=== PATIENT | male | born 1965 | race Caucasian/White ===

== ENCOUNTER 2023-05-12 10:55 | Emergency (ER) | payer MEDICAID, SELFPAY ==
--- NOTE | 2023-05-12 11:06 | ED_ITS ---
HPI - Weakness General: Chief complaint: Dizziness Stated complaint: weakness Time Seen by Provider: 05/12/23 10:58 History of Present Illness: Mr. Palmer is a 58-year-old gentleman without reported past medical history presented emergency department for sudden onset of generalized illness. He reports being at his baseline health the past few days and was sitting in his car when he had a sudden onset lightheaded presyncopal type feeling associated with nausea, generalized weakness, malaise. Moderate to severe intensity symptoms. Persistent course as it just started. No other specific changes in health, exacerbating, or alleviating factors identified. Onset (ago): minute(s) Duration: improved Severity: severe Exacerbating factors: none Review of Systems General: Reports: 10 or more systems reviewed and unremarkable except in HPI and below PFSH ED PFSH: Medical History (Updated 05/16/23 @ 19:19 by Yemi Mason MD) No significant past medical history Surgical History (Updated 05/16/23 @ 19:19 by Yemi Mason MD) No significant past surgical history Physical Exam Const: COMMON NORMALS: patient oriented x3 and alert GENERAL APPEARANCE: cooperative and well developed HENMT: COMMON NORMALS: normocephalic and atraumatic HEAD & SCALP: normocephalic and atraumatic THROAT: posterior oropharynx normal Eye: COMMON NORMALS: conjunctivae normal CONJUNCTIVA: Yes conjunctivae normal SCLERA: sclerae normal Neck/C-Spine: COMMON NORMALS: supple GENERAL: Yes trachea midline Resp: COMMON NORMALS: clear to auscultation bilaterally EFFORT & INSPECTION: Yes able to speak in complete sentences AUSCULTATION: clear to auscultation bilaterally Cardio: COMMON NORMALS: regular rate and regular rhythm RATE: regular rate RHYTHM: regular rhythm GI: COMMON NORMALS: Soft to palpation PALPATION: Yes Soft to palpation and No Tenderness to palpation present (GI) Extremity: GENERAL: Yes normal exam except as noted and No edema Neuro: COMMON NORMALS: patient oriented x3, CN's II-XII intact bilaterally, moves all extremities, no focal motor deficits and no sensory deficits noted SENSORIUM/ORIENTATION: Yes alert and No Orientation impaired Psych: COMMON NORMALS: mental status grossly normal and Normal thought process present THOUGHT PROCESS: Normal thought process present Course Vital Signs: Vital signs: Vital Signs Temperature 98.0 F 05/12/23 11:07 Pulse Rate 91 05/12/23 12:55 Respiratory Rate 15 05/12/23 11:07 Blood Pressure 125/86 05/12/23 12:54 Pulse Oximetry 93 05/12/23 11:07 Oxygen Delivery Me thod Room Air 05/12/23 11:07 MDM - Weakness Medical Decision Making 58-year-old gentleman presenting with sudden onset of generalized illness including shortness of breath and presyncope. Exam as above. No focal deficits. Mildly ill however nontoxic. No meningismus. EKG demonstrates sinus rhythm with nonspecific ST segment abnormalities, no STEMI. No significant hematologic or metabolic abnormalities. Negative troponin. No associated chest pain. Negative head CT. Chest x-ray with no lobar consolidation or pneumothorax. Patient feels markedly improved with IV fluids. He feels back to baseline. The results of ED evaluation were discussed with the patient including prescriptions and/or symptomatic cares (if applicable) including appropriate and responsible use, followup plan, and return precautions. The patient verbalized understanding and felt safe for discharge. Medical Records I reviewed the patient's medical records. Lab Data I reviewed the patient's lab results. 05/12/23 11:25 05/12/23 11:25 Laboratory Results WBC 9.8 10^3/uL (4.0-10.0) 05/12/23 11: RBC 5.11 10^6/uL (4.1-5.3) 05/12/23 11:25 Hgb 15.7 g/dL (11.7-16.6) 05/12/23 11:25 Hct 48.4 % (42.0-52.0) 05/12/23 11:25 MCV 94.7 fl (80-94) H 05/12/23 11:25 MCH 30.7 pg (28.0-34.0) 05/12/23 11: MCHC 32.4 g/dL (30.0-36.0) 05/12/23 11: RDW 12.6 % (12.1-15.1) 05/12/23 11:25 Plt Count 314 10^3/cmm (130-400) 05/12/23 11:25 MPV 8.6 fL (7.4-10.4) 05/12/23 11:25 Neut % (Auto) 64.6 % 05/12/23 11:25 Lymph % (Auto) 28.0 % 05/12/23 11:25 [place] % (Auto) 5.4 % 05/12/23 11:25 Eos % (Auto) 1.0 % 05/12/23 11:25 Baso % (Auto) 0.6 % 05/12/23 11:25 Neut # (Auto) 6.33 10^3/uL (1.8-7.7) 05/12/23 11: Lymph # (Auto) 2.7 10^3/uL (0.8-4.8) 05/12/23 11: [place] # (Auto) 0.5 10^3/uL (0.2-0.9) 05/12/23 11: Eos # (Auto) 0.1 10^3/uL (0.0-0.8) 05/12/23 11: Baso # (Auto) 0.1 10^3/uL (0.0-0.1) 05/12/23 11:25 Nucleated RBC % (auto) 0 % 05/12/23 11:25 Nucleated RBCs # 0.0 /100WBC 05/12/23 11:25 Sodium 136 mmol/L (136-145) 05/12/23 11:25 Potassium 4.2 mmol/L (3.5-5.1) 05/12/23 11:25 Chloride 102 mmol/L (98-107) 05/12/23 11:25 Carbon Dioxide 20 mmol/L (22-29) L 05/12/23 11:25 Anion Gap 18.2 (5-19) 05/12/23 11:25 BUN 17 mg/dL (6-20) 05/12/23 11:25 Creatinine 1.0 mg/dL (0.7-1.2) 05/12/23 11:25 GFR Calculation 77.0 mL/min (90-130) L 05/12/23 11:25 Glucose 115 mg/dL (65-115) 05/12/23 11:25 Calculated Osmolality 284 mOsm/kg (285-295) L 05/12/23 11:25 Lactic Acid 1.8 mmol/L (0.5-2.2) 05/12/23 11:25 Calcium 9.3 mg/dL (8.5-10.5) 05/12/23 11:25 Total Bilirubin 0.3 mg/dL (0.15-1.2) 05/12/23 11:25 AST 33 U/L (0-40) 05/12/23 11:25 ALT 18 U/L (0-41) 05/12/23 11:25 Alkaline Phosphatase 86 U/L (40-130) 05/12/23 11:25 Troponin T Baseline 15 ng/L (0-15) 05/12/23 11:25 C-Reactive Protein 14.9 mg/L (0.0-4.9) H 05/12/23 11:25 Total Protein 7.2 g/dL (6.6-8.7) 05/12/23 11:25 Albumin 4.0 g/dL (3.5-5.2) 05/12/23 11:25 Globulin 3.2 g/dL (1.3-4.6) 05/12/23 11:25 Procalcitonin 0.09 ng/mL (0-0.5) 05/12/23 11:25 Discharge Plan Discharge Patient Disposition: Home Clinical Impression: Pre-syncope, Dehydration Condition: Stable Prescriptions: No Action No Known Home Medications Discharge Orders: Discharge ED (Routine); Ordered 05/12/23 Ordered By: Yemi Mason Discharge Diet: Usual diet Discharge Activity: Increase activity as tolerated Patient Instructions: Dehydration (ED), Near Syncope (ED) Activity Restrictions/Additional Instructions: Thank you for visiting the emergency department. You were seen evaluate for generalized illness. The exact cause of your symptoms is unclear however may be related to mild viral syndrome or dehydration. The treatment for this is supportive. Please ensure that you are resting and staying hydrated. You may use vltc-ehh-[id number] medications such as acetaminophen and ibuprofen for pain however please do not exceed the daily recommended dosage as listed on the packaging and please keep in mind that many namebrand medications contain the same active ingredients. Please avoid these medications if previously instructed to do so by another physician due to other underlying medical condition. Follow-up with a primary care provider. Return for recurrent symptoms, chest pain, shortness of breath, any neurologic symptoms, or anything else that you are concerned about and feel needs emergency department evaluation. Coding Level of Care Code ED Head Of Merchandise Buying for Krystyna Cervantes
[2023-05-12 11:07] VITALS: BP 96/67; PULSE 93; RESP 15; TEMP 36.7; O2SAT 93; BMI 29.9
--- NOTE | 2023-05-12 11:09 | XR_ITS ---
WS: [id number] XR chest 1V portable [id number] REASON FOR EXAM: near syncope FINDINGS: No comparison examination. Cardiomegaly. Calcified granulomatous disease in both hemithoraces. No acute pulmonary parenchymal or pleural abnormality. Significant thoracic scoliosis convex right with moderate degenerative spondylosis. IMPRESSION: Cardiomegaly with no acute abnormality identified.
--- NOTE | 2023-05-12 11:09 | ECG_ITS ---
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 Measurements Intervals [place] Rate: 88 P: 60 NC: 122 QRS: 87 QRSD: 110 T: -44 QT: 405 QTc: 490 Interpretive Statements SINUS RHYTHM MODERATE T-WAVE ABNORMALITY, CONSIDER LATERAL ISCHEMIA [-0.1+ mV T-WAVE IN I/aVL/V5/V6] No previous ECG available for comparison Electronically Signed On 05-12-2023 11:22:52 CDT by Abigail Glover M.D. [id number]
--- NOTE | 2023-05-12 11:24 | CT_ITS ---
WS: [id number] CT HEAD TECHNIQUE: Noncontrast CT of the head obtained from the skullbase to the vertex. CLINICAL INFORMATION: near syncope, ams COMPARISON: None. DLP: 1323.[address] scans at [facility] use at least one of these dose optimization techniques: automated e xposure control; mA and/or kV adjustment per patient size (includes targeted exams where dose is matc hed to clinical indication); or iterative reconstruction. FINDINGS: No evidence of intracranial hemorrhage or mass effect. Ventricular system and basal cisterns are fitzgerald nt. Mild small vessel changes with mild parenchymal volume loss. No extra-axial fluid collections. No evidence of mass or mass effect. Chronic lacunar infarcts in the right basal ganglia. Paranasal sinuses and mastoid air cells are well aerated. Normal visualized soft tissues. Intracrania l vascular calcification. IMPRESSION: 1. No evidence of intracranial hemorrhage or mass effect. 2. Mild small vessel changes. Mild parenchymal volume loss. 3. Intracranial vascular calcification. 4. No acute intracranial findings.
[2023-05-12 11:34] LABS: Basophils # 0.1 10^3/uL (0.0-0.1); Basophils % 0.6 %; Eosinophils # 0.1 10^3/uL (0.0-0.8); Hematocrit 48.4 % (42.0-52.0); Hemoglobin 15.7 g/dL (11.7-16.6); Lymphocytes # 2.7 10^3/uL (0.8-4.8); Mean Corpuscular HGB Conc 32.4 g/dL (30.0-36.0); Mean Corpuscular Hemoglobin 30.7 pg (28.0-34.0); Mean Corpuscular Volume 94.7 fl (80-94); Mean Platelet Volume 8.6 fL (7.4-10.4); Monocytes # 0.5 10^3/uL (0.2-0.9); Monocytes % 5.4 %; Neutrophils # 6.33 10^3/uL (1.8-7.7); Neutrophils % 64.6 %; Nucleated Red Blood Cells % 0 %; Platelet Count 314 10^3/cmm (130-400); Red Blood Count 5.11 10^6/uL (4.1-5.3); Red Cell Distribution Width 12.6 % (12.1-15.1); White Blood Count 9.8 10^3/uL (4.0-10.0)
[2023-05-12] MEDS: sodium chloride 0.9% 1,000 ML 999 ML IV (11:37)
[2023-05-12 11:54] LABS: Lactic Sepsis W/Reflex 1.8 mmol/L (0.5-2.2)
[2023-05-12 11:57] LABS: Troponin(5th) Baseline 15 ng/L (0-15)
[2023-05-12 12:12] LABS: Alanine Aminotransferase 18 U/L (0-41); Alkaline Phosphatase 86 U/L (40-130); Anion Gap 18.2 (5-19); Aspartate Amino Transferase 33 U/L (0-40); Blood Urea Nitrogen 17 mg/dL (6-20); C Reactive Protein 14.9 mg/L (0.0-4.9); Calcium 9.3 mg/dL (8.5-10.5); Carbon Dioxide 20 mmol/L (22-29); Chloride 102 mmol/L (98-107); Globulin 3.2 g/dL (1.3-4.6); Glucose 115 mg/dL (65-115); Osmolality Calculated 284 mOsm/kg (285-295); Potassium 4.2 mmol/L (3.5-5.1); Sodium 136 mmol/L (136-145); Total Bilirubin 0.3 mg/dL (0.15-1.2); Total Protein 7.2 g/dL (6.6-8.7)
[2023-05-12 12:18] LABS: Procalcitonin 0.09 ng/mL (0-0.5)
[2023-05-12 12:54] VITALS: BP 125/86; BP 129/84; BP 141/83; PULSE 80; PULSE 87; PULSE 91
[2023-05-12 12:55] VITALS: PULSE 91
== END 2023-05-12 13:21 | disposition home or self-care (01) ==
PROVIDERS: Emergency Provider Emergency Medicine
DX: R55 Syncope and collapse (principal); E86.0 Dehydration
CPT/HCPCS: 36415; 70450; 71045; 80053; 83605; 84145; 84484; 85025; 86140; 93005; 99285; J7030

== ENCOUNTER 2023-05-30 12:32 | Outpatient (CLI) | payer OTHER, SELFPAY ==
--- NOTE | 2023-05-30 | XR_ITS ---
WS: [id number] Exam: XR foot RT 2V [id number] Date/Time of Exam: 05/30/2023 1:15 PM Reason For Exam: Z02.71 No fracture or dislocation. Degenerative changes in the midfoot joints. Healed calcaneal fracture wit h lateral wall plate and screw fixation. No soft tissue foreign bodies. DJD at the first MP joint. IMPRESSION: 1. Degenerative changes. No acute fracture or dislocation. 2. Healed fracture of the calcaneus with plate and screw fixation of the lateral wall.
[2023-05-30 13:40] VITALS: PULSE 106; RESP 18; O2SAT 98
[2023-05-30] MEDS: albuterol 2.5 mg/3 mL Neb INHALATION (13:40)
[2023-05-30 13:45] VITALS: PULSE 96
== END 2023-05-30 12:33 | disposition home or self-care (01) ==
PROVIDERS: Visit Provider Dermatology
DX: J44.9 Chronic obstructive pulmonary disease, unspecified (principal); Z02.71 Encounter for disability determination
CPT/HCPCS: 73620; 94060; J7613

== ENCOUNTER 2023-08-15 09:01 | Outpatient (CLI) | payer OTHER, SELFPAY ==
--- NOTE | 2023-08-15 09:26 | XR_ITS ---
WS: [id number] Exam: XR foot RT min 3V* [id number] Date/Time of Exam: 08/15/2023 9:38 AM Reason For Exam: Evaluation for disability Comparison 05/30/2023. No acute fracture or dislocation. Degenerative changes in the midfoot joints and the first MP joint. Old fracture deformity of the calcaneus with lateral wall plate and screw fixation. Moderately advanc ed degenerative change in the subtalar joints. No soft tissue foreign bodies. IMPRESSION: 1. Moderately advanced degenerative changes as detailed above. No acute fracture. 2. Healed fracture of the calcaneus with lateral plate and screw fixation.
--- NOTE | 2023-08-15 09:38 | XR_ITS ---
WS: [id number] Exam: XR lumbar spine 2-3V* [id number] Date/Time of Exam: 08/15/2023 9:42 AM Reason For Exam: PAIN No fracture or dislocation noted. Moderate narrowing of the T12-L1 disc. Posterior elements are intac t. Slight spondylosis. Mild levoscoliosis. Aortoiliac atherosclerosis. IMPRESSION: 1. Minimal degenerative changes. No fracture or malalignment. 2. Mild levoscoliosis.
--- NOTE | 2023-08-15 09:38 | XR_ITS ---
WS: [id number] Exam: XR hand RT 2V [id number] Date/Time of Exam: 08/15/2023 9:42 AM Reason For Exam: PAIN No acute fracture or dislocation. Moderate degenerative narrowing of the IP and MP joints. Scattered subcortical cysts in the second to the fifth digits. No soft tissue foreign bodies are identified. IMPRESSION: 1. Moderate degenerative changes in the MP and IP joints as noted above. 2. No fracture.
--- NOTE | 2023-08-15 09:38 | XR_ITS ---
WS: [email or web address] Exam: XR knee RT 1-2V [id number] Date/Time of Exam: 08/15/2023 9:42 AM Reason For Exam: PAIN No fracture or dislocation. The joint compartments are relatively well-maintained. Large effusion in the suprapatellar bursa. Vascular calcifications posteriorly. IMPRESSION: 1. No fracture or dislocation. 2. Large effusion in the suprapatellar bursa.
== END 2023-08-15 09:02 | disposition home or self-care (01) ==
PROVIDERS: Visit Provider Dermatology
DX: Z02.71 Encounter for disability determination (principal); M79.671 Pain in right foot; M41.86 Other forms of scoliosis, lumbar region; M25.461 Effusion, right knee; Z87.81 Personal history of (healed) traumatic fracture
CPT/HCPCS: 72100; 73120; 73560; 73630

== ENCOUNTER 2023-09-04 12:18 | Emergency (ER) | payer MEDICAID, SELFPAY ==
--- NOTE | 2023-09-04 12:22 | XRR_ITS ---
PROCEDURE INFORMATION: Exam: XR Left Hand Exam date and time: 09/04/2023 12:54 PM Age: 58 years old Clinical indication: Pain; Hand; Left; Additional info: Injury TECHNIQUE: Imaging protocol: Radiologic exam of the left hand. Views: 3 or more views. COMPARISON: No relevant prior studies available. FINDINGS: Bones/joints: Negative for acute bony abnormality. Soft tissues: Normal. XR/XR hand LT min 3V* [id number] IMPRESSION: No acute bone abnormality.
[2023-09-04 12:49] VITALS: BP 137/89; PULSE 96; RESP 18; TEMP 36.5; O2SAT 96; BMI 29.3
--- NOTE | 2023-09-04 13:18 | USR_ITS ---
PROCEDURE INFORMATION: Exam: US Duplex Left Upper Extremity Arteries Exam date and time: 09/04/2023 2:23 PM Age: 58 years old Clinical indication: Pain; Arm, upper and fingers; Left; Additional info: Ischemic left finger TECHNIQUE: Imaging protocol: Left Real-time ultrasound scan of the arteries of the left upper extremity with 2-D rojas scale, color Doppler flow and spectral waveform analysis. COMPARISON: CR XR hand LT min 3V* [id number] 09/04/2023 12:54 PM FINDINGS: Left subclavian artery: No occlusion or significant stenosis. Normal waveform. Left axillary artery: No occlusion or significant stenosis. Normal waveform. Left brachial artery: No occlusion or significant stenosis. Normal waveform. Left radial artery: No occlusion or significant stenosis. Normal waveform. Left ulnar artery: No occlusion or significant stenosis. Normal waveform. Left 1st digit: Negative for evidence of vascular flow Left 2nd digit: Vascular flow is present. Soft tissues: Unremarkable. US/[place] [id number] IMPRESSION: 1. No evidence of so vascular flow in the 1st digit. 2. The remainder of the hand and arm appropriate vascular flow 3. Otherwise negative examination
--- NOTE | 2023-09-04 13:18 | ED_ITS ---
HPI - Extremity Problem General: Chief complaint: Extremity Injury, Upper Stated complaint: left pointer hurting Time Seen by Provider: 09/04/23 12:54 Source: patient Mode of arrival: ambulatory Limitations: no limitations History of Present Illness: Patient is a 58-year-old male who presents to the ED today with a complaint of discoloration, coldness, and pain to his left index finger that he has noticed over the past 3 days or so. He feels like symptoms worsen when it is cold outside. Denies symptoms anywhere else other than left index finger. He is an everyday smoker. MD Complaint: extremity pain and cold extremity Onset (ago): day(s) Pain Consistency: constant Radiation: none Relieving factors: nothing Exacerbating factors: nothing Associated symptoms: Deny chest pain Review of Systems Card: Denies: chest pain Resp: Denies: dyspnea Musc: Reports: extremity pain; Denies: neck pain, back pain, extremity swelling, joint pain, joint swelling, joint redness, joint warmth, joint stiffness, limited range of motion, muscle cramps, muscle weakness or decrease in muscle mass Neuro: Reports: sensory changes (L index finger feels numb ); Denies: weakness in extremities [facility] ED PFSH: Medical History No significant past medical history Surgical History No significant past surgical history Physical Exam Const: COMMON NORMALS: no acute distress, patient oriented x3, no limitations, alert and well nourished Resp: COMMON NORMALS: normal respiratory effort and clear to auscultation bilaterally AUSCULTATION: clear to auscultation bilaterally Cardio: COMMON NORMALS: regular rate and regular rhythm RATE: regular rate RHYTHM: regular rhythm Extremity: COMMON NORMALS: full ROM, no joint enlargement, no clubbing, cyanosis or edema, no calf tenderness and no pedal edema GENERAL: Yes normal exam except as noted LEFT UPPER EXTREMITY: Yes hand & digits OTHER: pts L distal index finger is dusky in color and cool to the touch with altered sensation and sluggish cap refill; remainder of digits are normal; he has easily palpable pulses throughout the extremity Neuro: COMMON NORMALS: patient oriented x3, moves all extremities, no focal motor deficits and no sensory deficits noted SENSORIUM/ORIENTATION: Yes alert Course Consultations: Consultation #1: Dr. Owens-Recommends topical nitro, nifedipine, pentoxifylline, aspirin, and referral to vascular specialist Vital Signs: Vital signs: Vital Signs Temperature 97.7 F 09/04/23 12:49 Pulse Rate 96 09/04/23 12:49 Respiratory Rate 18 09/04/23 12:49 Blood Pressure 137/89 09/04/23 12:49 Pulse Oximetry 96 09/04/23 12:49 Oxygen Delivery Me thod Room Air 09/04/23 12:49 MDM - Extremity (Nontraumatic) Medical Decision Making Patient here with ischemia to his left index finger. Patient has normal arterial flow throughout the extremity and through his palmar arch but no blood flow to affected finger. This most likely is a NAVEEN/microvascular disease/Raynaud's like situation related to his smoking. No history of atrial fibrillation/embolic source that we are aware of. I spoke to Dr. Owens who recommended placing him on topical nitro, aspirin, nifedipine, pentoxifylline and refer to vascular specialist in [place]. Patient does not want to follow up in [place] and instead states he will follow up with his PCP here. I spoke to Dr. Best in regards to patient case and he agrees with care plan/assessment/plan for discharge. Medical Records I reviewed the patient's medical records. Lab Data Radiology Impressions Duplex Scan Upper Extremity Artery 09/04/23 13:18 IMPRESSION: 1. No evidence of so vascular flow in the 1st digit. 2. The remainder of the hand and arm appropriate vascular flow 3. Otherwise negative examination All radiology interpretation(s) finalized by discharge Discharge Plan Discharge Patient Disposition: Home Clinical Impression: Ischemia of finger Condition: Stable Prescriptions: New pentoxifylline 400 mg tablet extended release 400 mg PO TID Qty: 90 0RF Rx Instructions: must administer with a meal/food nifedipine 10 mg capsule 10 mg PO TID Qty: 90 0RF Nitro-Bid 2 % ointment 0.5 inch transdermal BID Qty: 30 0RF Rx Instructions: apply to index finger twice daily Discharge Orders: Discharge ED (Routine); Ordered 09/04/23 Ordered By: Sara Segovia Referrals: Adilene Galeano FNP [Primary Care Provider] - Activity Restrictions/Additional Instructions: As we discussed I have recommended referral to a vascular specialist in [place] but you would rather follow-up with your primary care provider. I am placing you on medications to try to help with the blood flow to your finger. Some of these medications may alter your blood pressure so watch for symptoms of low blood pressure such as lightheadedness, dizziness, feeling like you are going to pass out. Please stop these medications if these occur. You may also monitor your blood pressure closely at home. Do not take medications if blood pressure falls below 110/70. In addition to these medications you may start taking an aspirin daily. Coding Level of Care Code ED Analytical Lab Technician for Krystyna Cervantes
[2023-09-04 16:35] VITALS: BP 145/94; PULSE 96; O2SAT 97
== END 2023-09-04 16:30 | disposition home or self-care (01) ==
PROVIDERS: Emergency Provider Physician Assistant; PCP Nurse Practitioner Family
DX: I99.8 Other disorder of circulatory system (principal)
CPT/HCPCS: 73130; 93931; 99284

== ENCOUNTER 2023-09-13 08:22 | Outpatient (CLI) | payer MEDICAID, SELFPAY ==
--- NOTE | 2023-09-13 08:31 | XR_ITS ---
WS: [id number] Exam: XR knee RT 3V* [id number] Date/Time of Exam: 09/13/2023 8:38 AM Reason For Exam: EFFUSION/PAIN IN R KNEE Comparison 08/15/2023. No fracture or dislocation. Joint compartments are preserved. Again noted is large effusion in the hays prapatellar bursa. IMPRESSION: 1. No fracture. 2. Large joint effusion unchanged.
== END 2023-09-13 08:23 | disposition home or self-care (01) ==
LOC: RAD 08:25
PROVIDERS: PCP Nurse Practitioner Family; Visit Provider Nurse Practitioner Family
DX: M25.461 Effusion, right knee (principal); M25.561 Pain in right knee
CPT/HCPCS: 73562

== ENCOUNTER 2023-09-18 11:46 | Emergency (ER) | payer MEDICAID, SELFPAY ==
[2023-09-18 11:50] VITALS: BP 132/84; PULSE 98; RESP 16; TEMP 36.5; O2SAT 95; BMI 29.3
--- NOTE | 2023-09-18 11:57 | W.ED.EXTPRO ---
HPI - Extremity Problem General: Chief complaint: Extremity Injury, Upper Stated complaint: left hand index finger pain Time Seen by Provider: 09/18/23 11:49 Source: patient Mode of arrival: ambulatory Limitations: no limitations History of Present Illness: Patient is a 58-year-old male who presents to ED today for concerns of worsening pain to his ischemic left index finger. Patient was seen here in the emergency department approximately 2 weeks ago and found to have an ischemic left index finger. Vascular specialist Dr. Owens was consulted who felt this was most likely of Buerger's/thromboangiitis obliterans due to patient's longstanding heavy smoking history. Patient was given topical nitroglycerin, nifedipine, pentoxifylline. He was recommended to follow-up with vascular in [place] however patient declined. He states he is back today with worsening pain and the tip of his finger now turning black. He states the skin blistered with use of topical nitroglycerin. MD Complaint: extremity pain Onset (ago): week(s) Pain Consistency: constant Location: left and upper extremity Radiation: none Relieving factors: nothing Exacerbating factors: nothing Associated symptoms: Reports no associated symptoms; Deny chest pain Review of Systems Card: Denies: chest pain, palpitations, irregular heart rhythm, edema, lightheadedness, syncope or pre-syncope Resp: Denies: dyspnea Musc: Reports: extremity pain; Denies: joint pain or joint swelling Neuro: Denies: numbness in extremities, weakness in extremities or sensory changes [facility] ED PFSH: Medical History No significant past medical history Surgical History No significant past surgical history Physical Exam Const: COMMON NORMALS: no acute distress, patient oriented x3, no limitations, alert and well nourished Resp: COMMON NORMALS: normal respiratory effort and clear to auscultation bilaterally AUSCULTATION: clear to auscultation bilaterally Cardio: COMMON NORMALS: regular rate and regular rhythm RATE: regular rate RHYTHM: regular rhythm Extremity: GENERAL: Yes normal exam except as noted LEFT UPPER EXTREMITY: Yes hand & digits OTHER: pt with a cool tender to palpation L index finger with bluish/dusky appearance distally; small amount of black discoloration at distal tip; pulses throughout upper extremity are normal Neuro: COMMON NORMALS: patient oriented x3 SENSORIUM/ORIENTATION: Yes alert Course Consultations: Consultation #1: Dr. Biggs-vascular surgeon [facility]-agreed this is probably a Buerger's/NAVEEN related to his smoking but stated we could get CTA and EKG to evaluate for embolic source Vital Signs: Vital signs: Vital Signs Temperature 97.7 F 09/18/23 11:50 Pulse Rate 98 09/18/23 11:50 Respiratory Rate 16 09/18/23 11:50 Blood Pressure 132/84 09/18/23 11:50 Pulse Oximetry 95 09/18/23 11:50 Oxygen Delivery Me thod Room Air 09/18/23 11:50 MDM - Extremity (Nontraumatic) Medical Decision Making No embolic source obvious with his EKG and CTA. Will have him start an aspirin a day in addition to current medications. He states he did not tolerate the nitro paste so he can discontinue. Will get him an appointment to see Dr. Biggs in [place]. Their office should contact him for an appointment. XR negative today. Case discussed again with Dr. Best who agrees with work up here/dispo/plan for patient. Discussed again the importance of smoking cessation. Medical Records I reviewed the patient's medical records. Lab Data I reviewed the patient's lab results. 09/18/23 12:58 09/18/23 12:58 Radiology Impressions Upper Extremity CTA 09/18/23 12:15 IMPRESSION: No evidence of stenosis or occlusion with visibility of the digital arteries to the between the 1st and 2nd knuckles. Laboratory Results WBC 8.45 10^3/uL (3.29-11.43) 09/18/23 12:58 RBC 5.40 10^6/uL (3.85-5.65) 09/18/23 12:58 Hgb 16.40 g/dL (11.27-16.99) 09/18/23 12:58 Hct 49.0 % (37-53) 09/18/23 12:58 MCV 90.7 fl (82-101) 09/18/23 12:58 MCH 30.4 pg (27-33) 09/18/23 12:58 MCHC 33.5 g/dL (30-55) 09/18/23 12:58 RDW 13.7 % (12.1-15.1) 09/18/23 12:58 Plt Count 331 10^3/cmm (157-399) 09/18/23 12:58 MPV 8.5 fL (7.4-10.4) 09/18/23 12:58 Neut % (Auto) 64.7 % 09/18/23 12:58 Lymph % (Auto) 27.7 % 09/18/23 12:58 [place] % (Auto) 5.1 % 09/18/23 12:58 Eos % (Auto) 1.4 % 09/18/23 12:58 Baso % (Auto) 0.7 % 09/18/23 12:58 Neut # (Auto) 5.47 10^3/uL (1.8-7.7) 09/18/23 12:58 Lymph # (Auto) 2.3 10^3/uL (0.8-4.8) 09/18/23 12:58 [place] # (Auto) 0.4 10^3/uL (0.2-0.9) 09/18/23 12:58 Eos # (Auto) 0.1 10^3/uL (0.0-0.8) 09/18/23 12:58 Baso # (Auto) 0.1 10^3/uL (0.0-0.1) 09/18/23 12:58 Nucleated RBC % (auto) 0 % 09/18/23 12:58 Nucleated RBCs # 0.0 /100WBC 09/18/23 12:58 Sodium 132 mmol/L (136-145) L 09/18/23 12:58 Potassium 3.9 mmol/L (3.5-5.1) 09/18/23 12:58 Chloride 98 mmol/L (98-107) 09/18/23 12:58 Carbon Dioxide 23 mmol/L (22-29) 09/18/23 12:58 Anion Gap 14.9 (5-19) 09/18/23 12:58 BUN 12 mg/dL (6-20) 09/18/23 12:58 Creatinine 0.8 mg/dL (0.7-1.2) 09/18/23 12:58 GFR Calculation 99.6 mL/min (90-130) 09/18/23 12:58 Glucose 87 mg/dL (65-115) 09/18/23 12:58 Calculated Osmolality 273 mOsm/kg (285-295) L 09/18/23 12:58 Calcium 9.2 mg/dL (8.5-10.5) 09/18/23 12:58 Total Bilirubin 0.3 mg/dL (0.15-1.2) 09/18/23 12:58 AST 18 U/L (0-40) 09/18/23 12:58 ALT 11 U/L (0-41) 09/18/23 12:58 Alkaline Phosphatase 96 U/L (40-130) 09/18/23 12:58 Total Protein 8.2 g/dL (6.6-8.7) 09/18/23 12:58 Albumin 4.0 g/dL (3.5-5.2) 09/18/23 12:58 Globulin 4.2 g/dL (1.3-4.6) 09/18/23 12:58 All radiology interpretation(s) finalized by discharge Discharge Plan Discharge Patient Disposition: Home Clinical Impression: Ischemia of finger Condition: Stable Prescriptions: New hydrocodone-acetaminophen 5-325 mg tablet 1 tab PO Q6H PRN (Reason: pain) Qty: 14 0RF Discontinued Nitro-Bid 2 % ointment 0.5 inch transdermal BID Qty: 30 0RF Rx Instructions: apply to index finger twice daily No Action pentoxifylline 400 mg tablet extended release 400 mg PO TID Qty: 90 0RF Rx Instructions: must administer with a meal/food nifedipine 10 mg capsule 10 mg PO TID Qty: 90 0RF Discharge Orders: Discharge ED (Routine); Ordered 09/18/23 Ordered By: Sara Segovia Referrals: Adilene Galeano FNP [Primary Care Provider] - Patient Instructions: Opioid Safety, Pain Management Activity Restrictions/Additional Instructions: As we discussed we will get you set up with Dr. Biggs who is a vascular specialist through [facility] Their office should contact you on the phone number you provided. You may discontinue the nitroglycerin topical medication as you experienced unwanted side effects. You need to begin taking an aspirin a day. As we have discussed multiple times you need to stop smoking which is the single best thing you could do for your finger at this time. Coding Level of Care Code ED Re Recording Mixer for Krystyna Cervantes
--- NOTE | 2023-09-18 12:02 | XR_ITS ---
WS: [id number] 3 views of the left second finger, 09/18/2023 Clinical Data: index finger ischemia Comparison: Left hand, 09/04/2023 Findings: No fractures or dislocations are seen. The soft tissues are normal. The joint spaces are not remarkab le. No bone destruction or erosion is seen. Impression: Negative left second finger.
--- NOTE | 2023-09-18 12:15 | CTR_ITS ---
PROCEDURE INFORMATION: Exam: CTA Left Upper Extremity With Contrast Exam date and time: 09/18/2023 1:08 PM Age: 58 years old Clinical indication: Pain; Finger(s); Left; Additional info: Ischemic L index finger TECHNIQUE: Imaging protocol: Computed tomographic angiography of the left upper extremity with contrast, including non-contrast images if performed. 3D rendering (Not supervised by radiologist): MIP and/or 3D reconstructed images were created by the technologist. Radiation optimization: All CT scans at this facility use at least one of these dose optimization techniques: automated exposure control; mA and/or kV adjustment per patient size (includes targeted exams where dose is matched to clinical indication); or iterative reconstruction. Contrast material: OMNI 350; Contrast volume: 100 ml; Contrast route: INTRAVENOUS (IV); REPORTING DATA: Count of CT and Cardiac NM exams in prior 12 months: This patient has received [address] and 0 known cardiac nuclear medicine studies in the 12 months prior to the current study. COMPARISON: [place] [address] 09/04/2023 2:23 PM RADIATION DOSE METRICS: Total DLP (mGy-cm): 2364.81 FINDINGS: Left subclavian artery: No acute findings. No occlusion or significant stenosis. Axillary artery: The subclavian and axillary artery is not included on this study. Only the distal portion of the brachial artery is included. Brachial artery: See Axillary artery finding. Radial artery: No acute findings. No occlusion or significant stenosis. Ulnar artery: No acute findings. No occlusion or significant stenosis. Other arteries: The digital arteries are opacified to between the 1st and 2nd knuckles in each finger. I see no evidence of occlusion or embolus. Bones/joints: No acute fracture. No dislocation. Soft tissues: Unremarkable. No abnormal contrast enhancement. [place] [address] IMPRESSION: No evidence of stenosis or occlusion with visibility of the digital arteries to the between the 1st and 2nd knuckles.
--- NOTE | 2023-09-18 12:15 | ECG_ITS ---
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 Measurements Intervals [place] Rate: 117 P: 66 NC: 134 QRS: 95 QRSD: 109 T: 28 QT: 336 QTc: 470 Interpretive Statements SINUS TACHYCARDIA WITH OCCASIONAL VENTRICULAR PREMATURE COMPLEXES POSSIBLE LEFT ATRIAL ENLARGEMENT [-0.1mV P-WAVE IN V1/V2] BORDERLINE RIGHT AXIS DEVIATION [QRS AXIS > 90] MODERATE ST DEPRESSION [0.05+ mV ST DEPRESSION] Compared to ECG 05/12/2023 11:17:54 Ventricular premature complex(es) now present ST (T wave) deviation now present Sinus rhythm no longer present T-wave abnormality no longer present Possible ischemia no longer present Electronically Signed On 09-18-2023 17:49:23 FUN HOUSE ATTENDANT by Meliza Nevaerz M.D. [id number]
[2023-09-18 13:06] LABS: Basophils # 0.1 10^3/uL (0.0-0.1); Basophils % 0.7 %; Eosinophils # 0.1 10^3/uL (0.0-0.8); Eosinophils % 1.4 %; Lymphocytes # 2.3 10^3/uL (0.8-4.8); Lymphocytes % 27.7 %; Mean Corpuscular HGB Conc 33.5 g/dL (30-55); Mean Corpuscular Hemoglobin 30.4 pg (27-33); Mean Corpuscular Volume 90.7 fl (82-101); Mean Platelet Volume 8.5 fL (7.4-10.4); Monocytes # 0.4 10^3/uL (0.2-0.9); Monocytes % 5.1 %; Neutrophils # 5.47 10^3/uL (1.8-7.7); Neutrophils % 64.7 %; Nucleated Red Blood Cells % 0 %; Platelet Count 331 10^3/cmm (157-399); Red Cell Distribution Width 13.7 % (12.1-15.1); White Blood Count 8.45 10^3/uL (3.29-11.43)
[2023-09-18 13:22] LABS: Alanine Aminotransferase 11 U/L (0-41); Alkaline Phosphatase 96 U/L (40-130); Anion Gap 14.9 (5-19); Aspartate Amino Transferase 18 U/L (0-40); Blood Urea Nitrogen 12 mg/dL (6-20); Calcium 9.2 mg/dL (8.5-10.5); Carbon Dioxide 23 mmol/L (22-29); Chloride 98 mmol/L (98-107); Globulin 4.2 g/dL (1.3-4.6); Glomerular Filtration Rate 99.6 mL/min (90-130); Glucose 87 mg/dL (65-115); Osmolality Calculated 273 mOsm/kg (285-295); Potassium 3.9 mmol/L (3.5-5.1); Sodium 132 mmol/L (136-145); Total Bilirubin 0.3 mg/dL (0.15-1.2); Total Protein 8.2 g/dL (6.6-8.7)
[2023-09-18] MEDS: iohexol 350 mg/mL 500 mL Btl (per mL) IV (13:32)
--- NOTE | 2023-09-20 10:31 | DCPLANNER ---
[EXTERNAL] : This email originated from an external source. Use caution when clicking links or opening attachments from this sender. Success ? Your 21 page fax has been successfully delivered to [phone] on 09-20-2023 10:14 AM. Tracking Number: [id number] Fax Number: [phone] Recipient: [id number] Subject: Jaswinder Palmer (vascular Referral ) Dr. Biggs Time Delivered: 09-20-2023 10:14 AM Pages Delivered: 21
--- NOTE | 2023-09-22 12:05 | DCPLANNER ---
[facility]
== END 2023-09-18 14:27 | disposition home or self-care (01) ==
PROVIDERS: Emergency Provider Physician Assistant; PCP Nurse Practitioner Family
DX: I99.8 Other disorder of circulatory system (principal)
CPT/HCPCS: 73140; 73206; 80053; 85025; 93005; 99285; Q9967

== ENCOUNTER → 2024-02-09 09:37 | Outpatient (BNVA) | payer MEDICAID, SELFPAY | PROVIDERS: PCP Nurse Practitioner Family; Referring Provider Surgery; Visit Provider Student in an Organized Health Care Education/Training Program | DX: M79.642 Pain in left hand (principal); Z71.6 Tobacco abuse counseling | CPT/HCPCS: 73130 ==

== ENCOUNTER 2024-02-18 14:03 | Emergency (ER) | payer MEDICAID, SELFPAY ==
[2024-02-18 14:07] VITALS: BP 177/91; PULSE 106; RESP 22; TEMP 36.6; O2SAT 92
--- NOTE | 2024-02-18 14:32 | ED_ITS ---
HPI - General Adult General: Chief complaint: General Medical Stated complaint: Right side pain Time Seen by Provider: 02/18/24 14:32 History of Present Illness: 58-year-old male patient comes in today with right lateral rib pain. Patient reports coughing hard this morning and feeling a sharp pain into his right ribs. Patient appears in moderate to severe pain. Patient has pain with palpation. Patient has guarded movement. Patient appears nontoxic. Patient has a history of high blood pressure and peripheral vascular disease. Review of Systems General: Reports: 10 or more systems reviewed and unremarkable except in HPI and below PFSH ED PFSH: Medical History No significant past medical history Surgical History No significant past surgical history Social History Smoking and tobacco/nicotine status: current every day tobacco/nicotine user Physical Exam Const: COMMON NORMALS: alert HENMT: COMMON NORMALS: normocephalic HEAD & SCALP: normocephalic Neck/C-Spine: COMMON NORMALS: full ROM Chest: CHEST: Yes tenderness rib (Right lateral ribs) Resp: COMMON NORMALS: normal respiratory effort Cardio: COMMON NORMALS: regular rate RATE: regular rate Back/Pelvis: COMMON NORMALS: thoracic and lumbar spine normal to inspection Extremity: COMMON NORMALS: normal to inspection Neuro: SENSORIUM/ORIENTATION: Yes alert Skin: COMMON NORMALS: turgor normal GENERAL SKIN EXAM: turgor normal Course Vital Signs: Vital signs: Vital Signs Temperature 98 F 02/18/24 14:07 Pulse Rate 106 H 02/18/24 14:07 Respiratory Rate 22 H 02/18/24 14:07 Blood Pressure 177/91 02/18/24 14:07 Pulse Oximetry 92 02/18/24 14:07 Oxygen Delivery Me thod Room Air 02/18/24 14:07 [facility] - General Adult Medical Decision Making 58-year-old male patient comes in today with complaints of right lateral rib pain after coughing hard. Patient appears nontoxic. Patient appears in moderate to severe pain. Differential diagnosis includes muscle strain, rib fracture, pneumonia, costochondritis. X-ray of the ribs noted no acute fractures. Reviewed exam with patient recommended activity as tolerated. Use ice packs to help with pain. Recommended acetaminophen ibuprofen for further pain control. Patient was written for 10 tablets of hydrocodone for further pain relief. Patient reported understanding agreed to plan. XR interpretation done by ED provider, pending radiology final review Discharge Plan Discharge Patient Disposition: Home Clinical Impression: Sprain of ribs, initial encounter Condition: Stable Prescriptions: Continued hydrocodone-acetaminophen 5-325 mg tablet 1 tab PO Q6H PRN (Reason: pain) Qty: 10 0RF No Action pentoxifylline 400 mg tablet extended release 400 mg PO TID Qty: 90 0RF Rx Instructions: must administer with a meal/food nifedipine 10 mg capsule 10 mg PO TID Qty: 90 0RF Discharge Orders: Discharge ED (Routine); Ordered 02/18/24 Ordered By: Tyrese House Referrals: Adilene Galeano FNP [Primary Care Provider] - Discharge Diet: Usual diet Discharge Activity: Increase activity as tolerated Patient Instructions: Rib Contusion (ED) Activity Restrictions/Additional Instructions: Drink plenty of water and fluids. Use ice packs to the area to help with pain. Splint the area and take a deep breath in order to maintain good aeration of the lungs. Follow-up with primary care in 3 to 5 days for recheck. Return to ER for increasing shortness of breath, fever greater than 100.4, or new concerns. Coding Level of Care Code ED Rrt for Krystyna Cervantes
--- NOTE | 2024-02-18 14:32 | XRR_ITS ---
PROCEDURE INFORMATION: Exam: XR Right Ribs with PA Chest Exam date and time: 02/18/2024 2:56 PM Age: 58 years old Clinical indication: Patient HX: RT rib pain TECHNIQUE: Imaging protocol: Radiologic exam of the right ribs with PA chest. Views: 3 views COMPARISON: CR XR chest 1V portable [id number] 08/09/2023 11:30 FINDINGS: Lungs: Trace atelectasis at the left base. Old calcified granuloma in the right lower lobe. Pleural spaces: Unremarkable. No pleural effusion. No pneumothorax. Heart/Mediastinum: Mild stable cardiomegaly. Bones/joints: No visible right-sided rib fractures XR/XR ribs RT mn 3V w CXR1V [id number] IMPRESSION: 1. Mild cardiomegaly 2. Trace left basilar atelectasis 3. No visible right-sided rib fractures
[2024-02-18] MEDS: HYDROcodone-acetaminophen 10-325 mg Tablet 1 TAB PO (15:10)
[2024-02-18 15:32] VITALS: BP 177/91; PULSE 106; RESP 22; TEMP 36.6; O2SAT 92
== END 2024-02-18 15:56 | disposition home or self-care (01) ==
PROVIDERS: Emergency Provider Nurse Practitioner Family; PCP Nurse Practitioner Family
DX: S23.41XA Sprain of ribs, initial encounter (principal); X50.9XXA Other and unspecified overexertion or strenuous movements or postures, initial encounter
CPT/HCPCS: 71101; 99283

== ENCOUNTER 2024-04-09 09:55 | Outpatient (CLI) | payer MEDICAID, SELFPAY ==
--- NOTE | 2024-04-09 09:58 | CTR_ITS ---
PROCEDURE INFORMATION: Exam: CT Abdomen And Pelvis Without Contrast Exam date and time: 04/09/2024 10:03 AM Age: 59 years old Clinical indication: Abdominal pain; Patient HX: Right flank pain, hematuria, pulled muscle in right side x 2 months ago, HX of kidney stones TECHNIQUE: Imaging protocol: Computed tomography of the abdomen and pelvis without contrast. Radiation optimization: All CT scans at this facility use at least one of these dose optimization techniques: automated exposure control; mA and/or kV adjustment per patient size (includes targeted exams where dose is matched to clinical indication); or iterative reconstruction. COMPARISON: CR XR ribs RT mn 3V w CXR1V [id number] 02/18/2024 2:56 PM RADIATION DOSE METRICS: Total DLP (mGy-cm): 781.9 FINDINGS: Liver: Normal. No mass. Gallbladder and biliary ducts: Normal. No calcified stones. No ductal dilation. Pancreas: Normal. No ductal dilation. Spleen: Normal. No splenomegaly. Adrenal glands: Normal. No mass. Kidneys and ureters: Normal. No hydronephrosis. Stomach and bowel: Diverticulosis without evidence of diverticulitis. Appendix: No evidence of appendicitis. Intraperitoneal space: Unremarkable. No free air. No significant fluid collection. Vasculature: Unremarkable. No abdominal aortic aneurysm. Lymph nodes: Unremarkable. No enlarged lymph nodes. Urinary bladder: Unremarkable as visualized. Reproductive: Unremarkable as visualized. Bones/joints: Unremarkable. No acute fracture. Soft tissues: Unremarkable. CT/CT kidney stone [id number] IMPRESSION: No acute subdiaphragmatic pathology.
== END 2024-04-09 09:56 | disposition home or self-care (01) ==
LOC: RAD 09:56
PROVIDERS: PCP Nurse Practitioner Family; Visit Provider Nurse Practitioner Family
DX: R10.9 Unspecified abdominal pain (principal); R31.9 Hematuria, unspecified; K57.90 Diverticulosis of intestine, part unspecified, without perforation or abscess without bleeding; Z87.442 Personal history of urinary calculi
CPT/HCPCS: 74176

== ENCOUNTER 2024-10-03 11:22 | Outpatient (CLI) | payer MEDICAID, SELFPAY ==
[2024-10-03 11:43] VITALS: PULSE 94; RESP 18; O2SAT 93
[2024-10-03] MEDS: albuterol 2.5 mg/3 mL Neb INHALATION (11:43)
[2024-10-03 11:48] VITALS: PULSE 97
== END 2024-10-03 11:23 | disposition home or self-care (01) ==
LOC: RT 11:25
PROVIDERS: PCP Nurse Practitioner Family; Visit Provider Nurse Practitioner Family
DX: J43.9 Emphysema, unspecified (principal)
CPT/HCPCS: 94060; 94726; 94729

== ENCOUNTER 2025-01-28 15:18 | Oncology outpatient (recurring) (ONCR) | payer MEDICAID, SELFPAY | END 2025-01-29 23:59 | disposition home or self-care (01) | LOC: ONCMED 15:20 | PROVIDERS: PCP Nurse Practitioner Family; Visit Provider Internal Medicine Medical Oncology | DX: Z53.9 Procedure and treatment not carried out, unspecified reason (principal) ==

== ENCOUNTER → 2025-03-05 14:44 | Outpatient (BNVA) | payer MEDICAID, SELFPAY | PROVIDERS: PCP Nurse Practitioner Family; Visit Provider Internal Medicine Cardiovascular Disease | DX: R07.9 Chest pain, unspecified (principal) | CPT/HCPCS: 93005 ==

== ENCOUNTER 2025-03-05 15:55 | Inpatient (IN) | payer MEDICAID, SELFPAY ==
[2025-03-05] VITALS (14 sets, daily range): BP systolic 108–159; BP diastolic 84–114; PULSE 61–114; RESP 11–22; TEMP 36.8; O2SAT 89–96
--- NOTE | 2025-03-05 15:59 | XR_ITS ---
WS: [id number] XR chest 1V portable [id number] REASON FOR EXAM: cp FINDINGS: Compared to the presumed baseline normal of 05/12/2023, there appears to be subtle hazy density with peribronchial cuffing. There is significant cardiomegaly and central pulmonary venous congestion. There is blunting of the right costophrenic angle. Possibly this represents early congestive heart failmilton e. XR/XR chest 1V portable [id number] IMPRESSION: Findings suggest possible early congestive heart failure.
--- NOTE | 2025-03-05 15:59 | ECG_ITS ---
[email or web address] 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: : 1965 Requested By: Jairo Best Order Number: [id number] Yolande MD: OZZIE ALAN Measurements Intervals [place] Rate: 100 P: 68 MT: 129 QRS: 91 QRSD: 111 T: -66 QT: 347 QTc: 448 Interpretive Statements SINUS TACHYCARDIA POSSIBLE LEFT ATRIAL ENLARGEMENT [-0.1mV P-WAVE IN V1/V2] BORDERLINE RIGHT AXIS DEVIATION [QRS AXIS > 90] MODERATE INTRAVENTRICULAR CONDUCTION DELAY [110+ ms QRS DURATION] ST DEVIATION AND MODERATE T-WAVE ABNORMALITY, CONSIDER INFERIOR ISCHEMIA [-0.1+ mV T-WAVE IN II/aVF] Compared to ECG 03/05/2025 14:53:04 Intraventricular conduction delay now present Sinus rhythm no longer present T-wave abnormality still present Possible ischemia still present Electronically Signed On 03-05-2025 22:52:01 CDT by OZZIE ALAN [id number] [id number]
--- NOTE | 2025-03-05 17:07 | ED_ITS ---
HPI - SOB/Dyspnea 2 General: Chief Complaint: Shortness of Breath/Dyspnea Stated Complaint: unstable angina (sent by Cathy) Time Seen by Provider: 03/05/25 17:06 History of Present Illness: HPI Narrative: 59-year-old male presents to the emergen cy room directed here by cardiology was at the cardiology clinic was reporting increasing swelling in his feet increasing exertional dyspnea some mild chest discomfort at times with worsening orthopnea as well. He has an oxygen sat of 89% on room air when I came to the room he was on 2 L still satting around 90% improved to the mid 90s and his oxygen is titrated up to 3 L/min. had directed him to the emergency room for hospitalization for his decompensated congestive heart failure. Associated symptoms: Reports orthopnea; Deny abdominal pain, chest pain or fever(s) Related Data Home Medications ?Medication ?Instructions ?Recorded ?Confirmed rosuvastatin 10 mg tablet 10 mg PO DAILY 08/05/2401/24 adalimumab 40 mg/0.4 mL mg SUBCUT 01/28/25 03/05/25 subcutaneous pen kit (Humira(CF) Pen) albuterol sulfate 90 mcg/actuation inhalation 01/28/25 03/05/25 aerosol inhaler (Ventolin HFA) amoxicillin 875 mg-potassium tab PO 01/28/25 03/05/25 clavulanate 125 mg tablet furosemide 20 mg tablet mg PO 01/28/25 03/05/25 meloxicam 15 mg tablet mg PO 01/28/25 03/05/25 spironolactone 25 mg tablet mg PO 01/28/25 03/05/25 tamsulosin 0.4 mg capsule mg PO 01/28/25 03/05/25 trazodone 50 mg tablet mg PO 01/28/25 03/05/25 triamcinolone acetonide 0.1 % applic topical 01/28/25 01/28/25 topical cream umeclidinium 62.5 mcg-vilanterol inhalation 01/28/25 0 03/05/25 25 mcg/actuation powdr for inhalation (Anoro Ellipta) Allergies Allergy/AdvReac Type Severity Reaction Status Date / Time Unknown abx Allergy ALGY-Hives Uncoded 03/05/25 16:09 Review of Systems 2 Const: Denies: fever(s) or chills Card: Reports: edema, swelling of feet/ankles, dyspnea on exertion and orthopnea; Denies: chest pain Resp: Reports: dyspnea GI: Denies: abdominal pain : Denies: dysuria, urinary frequency or urinary urgency Musc: Denies: neck pain or back pain Skin/Breast: Denies: rash PFSH ED 2 PFSH: Medical History (Updated 03/05/25 @ 17:45 by Federico Russell DO) CHF (congestive heart failure) Polycythemia Surgical History No significant past surgical history Social History Smoking and tobacco/nicotine status: current every day tobacco/nicotine user Physical Exam 2 Const: GENERAL APPEARANCE: cooperative ORIENTATION/CONSCIOUSNESS: Yes awake, Yes oriented to person, Yes oriented to place and Yes oriented to time HENMT: COMMON NORMALS: normocephalic, atraumatic and hearing grossly normal bilaterally HEAD & SCALP: normocephalic and atraumatic Resp: COMMON NORMALS: normal respiratory effort, No retractions and No use of accessory muscles AUSCULTATION: crackles Cardio: COMMON NORMALS: regular rate, regular rhythm and No murmurs present (Cardio) RATE: regular rate RHYTHM: regular rhythm GI: COMMON NORMALS: Soft to palpation and No hepatosplenomegaly present A USCULTATION: Yes normoactive bowel sounds PALPATION: Yes Soft to palpation, No Tenderness to palpation present (GI), No Guarding due to palpation present (GI) and Yes No hepatosplenomegaly present Extremity: COMMON NORMALS: normal to inspection, capillary refill normal and no clubbing, cyanosis or edema OTHER: 2+ edema lower extremities bilaterally, mild redness of the lower extremities from the distal half of the lower leg inferiorly. No sign of active infection. Neuro: SENSORIUM/ORIENTATION: Yes oriented to person, Yes oriented to place and Yes oriented to time Skin: COMMON NORMALS: no rashes or lesions noted GENERAL SKIN EXAM: no rashes or lesions noted Course 2 Vital Signs: Vital signs: Vital Signs Temperature 98.3 F 03/05/25 16:06 Pulse Rate 97 03/05/25 17:37 Respiratory Rate 13 03/05/25 17:37 Blood Pressure 147/91 03/05/25 17:37 Pulse Oximetry 94 03/05/25 17:37 Oxygen Delivery Me thod Room Air 03/05/25 17:37 MDM - SOB/Dyspnea Medical Decision Making Patient presents with worsening shortness of breath on exertion he has some mild chest discomfort at times but no active chest pain. He is has decompensated congestive heart failure seen Dr. Blanton earlier in the day Dr. Blanton directed him to the emergency room we have initiated Lasix lab work is pending. His initial CBC shows polycythemia. Chest x-ray shows congestive heart failure. Will admit for decompensated congestive heart failure discussed with Dr. Greene orders written consult cardiology. Medical Records I reviewed the patient's medical records. Lab Data I reviewed the patient's lab results. 03/05/25 17:00 03/05/25 17:00 Labs/Radiology: Radiology Impressions Chest X-Ray 03/05/25 15:59 IMPRESSION: Findings suggest possible early congestive heart failure. Laboratory Results WBC 9.92 10^3/uL (3.29-11.43) 03/05/25 17:00 RBC 5.13 10^6/uL (3.85-5.65) 03/05/25 17:00 Hgb 18.20 g/dL (11.27-16.99) H 03/05/25 17:00 Hct 53.3 % (37-53) H 03/05/25 17:00 MCV 103.9 fl (82-101) H 03/05/25 17:00 MCH 35.5 pg (27-33) H 03/05/25 17:00 MCHC 34.1 g/dL (30-55) 03/05/25 17:00 RDW 15.7 % (12.1-15.1) H 03/05/25 17:00 Plt Count 149 10^3/cmm (157-399) L 03/05/25 17:00 MPV 9.0 fL (7.4-10.4) 03/05/25 17:00 Neut % (Auto) 70.7 % 03/05/25 17:00 Lymph % (Auto) 22.9 % 03/05/25 17:00 [place] % (Auto) 5.1 % 03/05/25 17:00 Eos % (Auto) 0.3 % 03/05/25 17:00 Baso % (Auto) 0.3 % 03/05/25 17:00 Neut # (Auto) 7.01 10^3/uL (1.8-7.7) 03/05/25 17:00 Lymph # (Auto) 2.3 10^3/uL (0.8-4.8) 03/05/25 17:00 [place] # (Auto) 0.5 10^3/uL (0.2-0.9) 03/05/25 17:00 Eos # (Auto) 0.0 10^3/uL (0.0-0.8) 03/05/25 17:00 Baso # (Auto) 0.0 10^3/uL (0.0-0.1) 03/05/25 17:00 Nucleated RBC % (auto) 0 % 03/05/25 17:00 Nucleated RBCs # 0.0 /100WBC 03/05/25 17:00 PT 12.70 SECONDS (12.1-14.9) 03/05/25 17:00 INR 0.89 (0.8-1.2) 03/05/25 17:00 Sodium 138 mmol/L (136-145) 03/05/25 17:00 Potassium 4.3 mmol/L (3.5-5.1) 03/05/25 17:00 Chloride 99 mmol/L (98-107) 03/05/25 17:00 Carbon Dioxide 22 mmol/L (22-29) 03/05/25 17:00 Anion Gap 21.3 (5-19) H 03/05/25 17:00 BUN 15 mg/dL (6-20) 03/05/25 17:00 Creatinine 1.0 mg/dL (0.7-1.2) 03/05/25 17:00 GFR Calculation 76.7 mL/min (90-130) L 03/05/25 17:00 Glucose 107 mg/dL (65-115) 03/05/25 17:00 Calculated Osmolality 287 mOsm/kg (285-295) 03/05/25 17:00 Calcium 9.0 mg/dL (8.5-10.5) 03/05/25 17:00 Total Bilirubin 0.5 mg/dL (0.15-1.2) 03/05/25 17:00 AST 42 U/L (0-40) H 03/05/25 17:00 ALT 38 U/L (0-41) 03/05/25 17:00 Alkaline Phosphatase 88 U/L (40-130) 03/05/25 17:00 Troponin T Baseline 31 ng/L (0-15) H 03/05/25 17:00 Total Protein 7.3 g/dL (6.6-8.7) 03/05/25 17:00 Albumin 4.1 g/dL (3.5-5.2) 03/05/25 17:00 Globulin 3.2 g/dL (1.3-4.6) 03/05/25 17:00 Lipase 19 U/L (13-60) 03/05/25 17:00 All radiology interpretation(s) finalized by discharge Discharge Plan Discharge Patient Disposition: Admitted As Inpatient Clinical Impression: Decompensated heart failure, Polycythemia Condition: Stable Coding Level of Care Code ED Infrastructure Project Manager for Krystyna Cervantes
[2025-03-05 17:09] LABS: Basophils % 0.3 %; Eosinophils % 0.3 %; Hematocrit 53.3 % (37-53); Lymphocytes # 2.3 10^3/uL (0.8-4.8); Lymphocytes % 22.9 %; Mean Corpuscular HGB Conc 34.1 g/dL (30-55); Mean Corpuscular Hemoglobin 35.5 pg (27-33); Mean Corpuscular Volume 103.9 fl (82-101); Monocytes # 0.5 10^3/uL (0.2-0.9); Monocytes % 5.1 %; Neutrophils # 7.01 10^3/uL (1.8-7.7); Neutrophils % 70.7 %; Nucleated Red Blood Cells % 0 %; Platelet Count 149 10^3/cmm (157-399); Red Blood Count 5.13 10^6/uL (3.85-5.65); Red Cell Distribution Width 15.7 % (12.1-15.1); White Blood Count 9.92 10^3/uL (3.29-11.43)
[2025-03-05 17:24] LABS: INR 0.89 (0.8-1.2)
[2025-03-05 17:26] LABS: Troponin(5th) Baseline 31 ng/L (0-15)
[2025-03-05 17:30] LABS: Alanine Aminotransferase 38 U/L (0-41); Albumin Level 4.1 g/dL (3.5-5.2); Alkaline Phosphatase 88 U/L (40-130); Aspartate Amino Transferase 42 U/L (0-40); Blood Urea Nitrogen 15 mg/dL (6-20); Carbon Dioxide 22 mmol/L (22-29); Chloride 99 mmol/L (98-107); Creatinine Clr Calc Pharmacy 97.1595; Globulin 3.2 g/dL (1.3-4.6); Glomerular Filtration Rate 76.7 mL/min (90-130); Glucose 107 mg/dL (65-115); Lipase 19 U/L (13-60); Osmolality Calculated 287 mOsm/kg (285-295); Sodium 138 mmol/L (136-145); Total Bilirubin 0.5 mg/dL (0.15-1.2); Total Protein 7.3 g/dL (6.6-8.7)
[2025-03-05 17:34] LABS: Anion Gap 21.3 (5-19); Potassium 4.3 mmol/L (3.5-5.1)
[2025-03-05] MEDS: FUROsemide 10 mg/mL SDV 4mL 40 MG IVP (17:50)
--- NOTE | 2025-03-05 17:59 | ECG_ITS ---
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: : 1965 Requested By: Jairo Best Order Number: [id number] Reading MD: OZZIE ALAN Measurements Intervals [place] Rate: 92 P: 64 WV: 142 QRS: 89 QRSD: 116 T: -63 QT: 402 QTc: 498 Interpretive Statements SINUS RHYTHM POSSIBLE LEFT ATRIAL ENLARGEMENT [-0.1mV P-WAVE IN V1/V2] MODERATE INTRAVENTRICULAR CONDUCTION DELAY [110+ ms QRS DURATION] ST DEVIATION AND MODERATE T-WAVE ABNORMALITY, CONSIDER INFERIOR ISCHEMIA [-0.1+ mV T-WAVE IN II/aVF] Compared to ECG 03/05/2025 14:53:04 Intraventricular conduction delay now present T-wave abnormality still present Possible ischemia still present Electronically Signed On 03-05-2025 23:09:16 CDT by OZZIE ALAN [email or web address]
--- NOTE | 2025-03-05 18:37 | USCV_ITS ---
Jaswinder Palmer Age: 59 Gender: M : 1965 Exam Date: 03/05/2025 23:19 Ordering Phys: Damien Greene MD Technologist: BENJAMIN [place] [facility] [place]: sob long-term smoker, continues smoking, History of COPD, polycythemia, CHF BP: 154 / 86 HR: 88 Rhythm: Sinus Technical Quality: Adequate MEASUREMENTS (Male / Female) Normal Values 2D ECHO LV Diastolic Diameter PLAX 4.7 cm 4.2 - 5.9 / 3.9 - 5.3 cm IVS Diastolic Thickness 1.6 cm 0.6 - 1.0 / 0.6 - 0.9 cm IVS Systolic Thickness 2.3 cm LVPW Diastolic Thickness 1.6 cm 0.6 - 1.0 / 0.6 - 0.9 cm LVPW Systolic Thickness 1.8 cm LVOT Diameter 2.3 cm LV Ejection Fraction 2D Teich 55.7 % LV Ejection Fraction MOD 4C 56.6 % LV Ejection Fraction MOD 2C 58.2 % LV Ejection Fraction 2C AL 64.1 % LA Diameter 4.0 cm Aorta at Sinotubular Diameter 2.9 cm IVC Diameter 1.7 cm M-MODE LA Ao Ratio MM 1.5 AV Cusp Separation MM 2.1 cm DOPPLER AV Peak Velocity 112.0 cm/s LVOT Peak Velocity 80.0 cm/s AV Area Cont Eq vti 3.3 cm squared AV Area Cont Eq pk 2.8 cm squared MV Peak Velocity 99.0 cm/s MV Area PHT 5.5 cm squared Mitral E to A Ratio 1.1 TV Peak E Velocity 45.0 cm/s PV Peak Velocity 85.0 cm/s FINDINGS Left Ventricle Normal left ventricular size, systolic function and wall thickness, with no regional wall motion abnormalities. Left ventricular ejection fraction is estimated at 60 %. Grade I/IV diastolic dysfunction (abnormal relaxation filling pattern), normal to mildly elevated filling pressures. Right Ventricle The right ventricle is normal in size and function. Right Atrium The right atrium is normal in size. Left Atrium The left atrium is normal in size. Mitral Valve Structurally normal mitral valve without significant stenosis or prolapse. There is no mitral regurgitation. Aortic Valve Structurally normal aortic valve without significant sclerosis or stenosis. There is no aortic regurgitation. Tricuspid Valve Structurally normal tricuspid valve without significant stenosis or regurgitation. Pulmonary artery systolic pressure is normal. Pulmonic Valve Structurally normal pulmonic valve without significant stenosis. There is no pulmonic regurgitation. Pericardium Normal pericardium without effusion. Aorta Normal ascending aorta dimension. IVC The inferior vena cava appears normal. CONCLUSIONS Normal left ventricular size, systolic function and wall thickness, with no regional wall motion abnormalities. Left ventricular ejection fraction is estimated at 60 %. Grade I/IV diastolic dysfunction (abnormal relaxation filling pattern), normal to mildly elevated filling pressures. No significant valve abnormalities. There is no pericardial effusion. Right atrial pressure is around 5 mm of mercury. Amado Morgan MD (Electronically Signed) Final Date: 07 March 2025 08:20 S
--- NOTE | 2025-03-05 18:38 | P.HP_ITS ---
Providers/Chief Complaint 2 Primary Care Provider: ENOCH Patino Chief Complaint: unstable angina (sent by Cathy) History of Present Illness Jaswinder Palmer is a 59 year old male with past medical history of smoking, CHF, polycythemia, family history of polycythemia, he reports that he has a sleep study ordered, no formal diagnosis of COPD but he thinks he has COPD, who presents to [facility] for shortness of breath. Patient reports bilateral extremity edema, shortness of breath, orthopnea, paroxysmal nocturnal dyspnea, no chest pain, no fevers, no chills, denies any hematuria, denies any chest pain, no cardiovascular history Review of Systems 2 Card: Denies: chest pain Resp: Reports: dyspnea Medications/Allergies Home Medications ?Medication ?Instructions ?Recorded ?Confirmed ?Last Taken ?Type rosuvastatin 10 mg tablet 10 mg PO DAILY 08/05/2401/24 Unknown History adalimumab 40 mg/0.4 mL mg SUBCUT 01/28/25 03/05/25 Unknown History subcutaneous pen kit (Humira(CF) Pen) albuterol sulfate 90 mcg/actuation inhalation 01/28/25 03/05/25 Unknown History aerosol inhaler (Ventolin HFA) amoxicillin 875 mg-potassium tab PO 01/28/25 03/05/25 Unknown History clavulanate 125 mg tablet furosemide 20 mg tablet mg PO 01/28/25 03/05/25 Unkn own History meloxicam 15 mg tablet mg PO 01/28/25 03/05/25 Unkn own History spironolactone 25 mg tablet mg PO 01/28/25 03/05/25 Un known History tamsulosin 0.4 mg capsule mg PO 01/28/25 03/05/25 Unkn own History trazodone 50 mg tablet mg PO 01/28/25 03/05/25 Unkn own History triamcinolone acetonide 0.1 % applic topical 01/28/25 01/28/25 Unknown History topical cream umeclidinium 62.5 mcg-vilanterol inhalation 01/28/25 0 03/05/25 Unknown History 25 mcg/actuation powdr for inhalation (Anoro Ellipta) Allergies Allergy/AdvReac Type Severity Reaction Status Date / Time Unknown abx Allergy ALGY-Hives Uncoded 03/05/25 16:09 PFSH Acute 2 PFSH: Medical History CHF (congestive heart failure) Polycythemia Surgical History No significant past surgical history Social History Smoking and tobacco/nicotine status: current every day tobacco/nicotine user Vitals/I&O/Wt Last Vital Signs Temp 98.3 F 03/05/25 16:06 Pulse 114 H 03/05/25 18:33 Resp 16 03/05/25 18:33 BP 154/86 03/05/25 18:33 Pulse Ox 91 03/05/25 18:33 O2 Del Method Nasal Cannula 03/05/25 18:33 O2 Flow Rate 3 03/05/25 18:33 Weight last 48 hrs Weight 110.677 kg Physical Exam 2 Const: COMMON NORMALS: no acute distress and patient oriented x3 HENMT: COMMON NORMALS: normocephalic HEAD & SCALP: normocephalic Eye: COMMON NORMALS: Equal, round and reactive pupils present and EOMs intact bilaterally Neck/C-Spine: COMMON NORMALS: no JVD Lymph: LYMPHATIC: no lymphadenopathy noted Resp: COMMON NORMALS: normal respiratory effort, No retractions and No use of accessory muscles OTHER: Crackles in all lung chapa Cardio: COMMON NORMALS: no JVD, regular rate, regular rhythm, S1 normal heart sound present and S2 normal heart sound present RATE: regular rate RHYTHM: regular rhythm HEART SOUNDS: S1 normal heart sound present and S2 normal heart sound present GI: COMMON NORMALS: Normal to inspection, nondistended, normoactive bowel sounds present, Soft to palpation and non-tender : COMMON NORMALS: Yes no CVA tenderness Neuro: COMMON NORMALS: patient oriented x3, CN's II-XII intact bilaterally and moves all extremities OTHER: 3+ pitting edema bilateral extremity Psych: COMMON NORMALS: mental status grossly normal Data 03/05/25 17:00 03/05/25 17:00 A&P Assessment and plan (1) CHF (congestive heart failure): (2) Polycythemia: (3) Acute hypoxic respiratory failure: Plan Acute hypoxic respiratory failure, requiring 3 L - Secondary to CHF exacerbation, systolic and diastolic - Could be a component of polycythemia - He has a pulmonary function testing that shows moderate COPD with restriction Plan - Lasix 40 IV twice daily - Potassium replacement therapy 20 twice daily - Cardiac echo - Monitor urine output, monitor creatinine, monitor potassium -fluid restrictions 1000 cc - Patient might require a therapeutic phlebotomy for polycythemia, will discuss with hematology Polycythemia - Urinalysis to evaluate for blood - ABG - EPO levels - Had a workup done by oncology, will review - Patient might require therapeutic phlebotomy COPD, will hold off on steroids as no active wheezing Full code Lovenox for DVT prophylaxis PDMP PDMP Reviewed: Not Reviewed Attestations 2 Medical Necessity Statement*: Patient requires hospitalization, inpatient, greater than 2 midnights, for acute hypoxic respiratory failure secondary to CHF, polycythemia Diagnoses CHF (congestive heart failure) I50.9 Polycythemia D75.1 Acute hypoxic respiratory failure J96.01
[2025-03-05 18:50] LABS: ABG PCO2 40.3 mmHg (35-45); ABG PH Result 7.44 (7.35-7.45); Arterial Blood Gas Hematocrit 58.4 % (42-52); Base Excess ABG 2.8 mmol/L (-2.0-2.0); Blood Gas Allen Test Pos; Blood Gas Sample Type Arterial; HCO3 ABG 27.3 mmol/L (22-26); PO2 ABG 63.9 mmHg (80.0-100.0)
[2025-03-05 18:51] LABS: Blood Gas Operator Identificat MONRO; Blood Gas Sample Site Radial, right; Oxygen Device NC; PO2 FiO2 Ratio Arterial Blood 199
[2025-03-05 19:02] LABS: C Reactive Protein 12.7 mg/L (0.0-4.9)
[2025-03-05 19:09] LABS: Procalcitonin 0.07 ng/mL (0-0.5)
[2025-03-05 19:24] LABS: Troponin 5 2HR 32.73 ng/L (0-15); Troponin 5 2HR Delta 1.73 ABS# (0-10)
[2025-03-05] MEDS: metOLazone 5 MG Tablet PO (21:47)
[2025-03-05] MEDS: potassium chloride ER 20 mEq Tablet PO (21:47)
[2025-03-05] MEDS: enoxaparin 40 mg/0.4 mL Syringe SUBCUT (21:47)
[2025-03-05] MEDS: pantoprazole 40 mg SDV IVP (21:50)
[2025-03-05 22:03] LABS: Cholesterol 138 mg/dL (0-200); HDL Cholesterol 46 mg/dL (60-100); LDL Cholesterol Calculated 57 mg/dL (50-129); LDL HDL Ratio 1.24 RATIO (0.00-3.22); Thyroid Stimulating Hormone 1.04 uIU/mL (0.27-4.20); Triglycerides 176 mg/dL (0-150)
--- NOTE | 2025-03-05 22:04 | ECG_ITS ---
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: : 1965 Requested By: Jairo Best Order Number: [id number] Reading MD: OZZIE ALAN Measurements Intervals [place] Rate: 91 P: 72 ME: 135 QRS: 87 QRSD: 114 T: -88 QT: 368 QTc: 455 Interpretive Statements SINUS RHYTHM WITH MARKED SINUS ARRHYTHMIA MODERATE INTRAVENTRICULAR CONDUCTION DELAY [110+ ms QRS DURATION] ST DEVIATION AND MODERATE T-WAVE ABNORMALITY, CONSIDER LATERAL ISCHEMIA [-0.1+ mV T-WAVE IN I/aVL/V5/V6] ST DEVIATION AND MODERATE T-WAVE ABNORMALITY, CONSIDER INFERIOR ISCHEMIA [-0.1+ mV T-WAVE IN II/aVF] Compared to ECG 03/05/2025 17:44:43 No significant changes Electronically Signed On 03-05-2025 23:09:41 CDT by OZZIE ALAN [email or web address] [id number]
[2025-03-05 22:12] LABS: Bilirubin Urine Negative (Negative); Blood Urine 1+ (Negative); Glucose Urine UA Negative (Normal); Ketones Urine Negative (Negative); Leukocyte Esterase Urine Negative (Negative); Nitrate Urine Negative (Negative); Protein Urine Negative (Negative); Specific Gravity, Urine 1.007 (1.005-1.030); Urine Appearance Clear (CLEAR); Urine Color Yellow (Yellow); Urobilinogen Urine 0.2 mg/dL (Negative); pH Urine 6.5 (5-7)
[2025-03-05 22:13] LABS: Estmated Average Glucose 137; Hemoglobin A1C 6.4 % (4.0-6.0)
[2025-03-05 22:15] LABS: Add Urine Microscopic? YES; Bacteria Urine None Seen /hpf; Hyaline Casts Urine 0-4 /lpf; Squamous Epithelial Cell Urine 0-5 /hpf (0-5); WBC Urine 0-5 /hpf (0-5)
[2025-03-05] MEDS: ipratropium-albuterol 3 mL Neb INHALATION (23:05)
[2025-03-05 23:36] LABS: Troponin 5 6HR 38.48 ng/L (0-15); Troponin 5 6HR Delta 7.48 ng/L (0-12)
[2025-03-06] VITALS (20 sets, daily range): BP systolic 93–178; BP diastolic 62–107; PULSE 85–114; RESP 11–24; TEMP 36.4–36.7; O2SAT 83–95; BMI 36.9
[2025-03-06 04:32] LABS: Basophils % 0.4 %; Eosinophils # 0.1 10^3/uL (0.0-0.8); Eosinophils % 0.8 %; Hematocrit 53.7 % (37-53); Lymphocytes # 2.1 10^3/uL (0.8-4.8); Lymphocytes % 23.2 %; Mean Corpuscular HGB Conc 33.1 g/dL (30-55); Mean Corpuscular Hemoglobin 34.4 pg (27-33); Mean Corpuscular Volume 103.7 fl (82-101); Mean Platelet Volume 8.8 fL (7.4-10.4); Monocytes # 0.5 10^3/uL (0.2-0.9); Monocytes % 5.7 %; Neutrophils # 6.37 10^3/uL (1.8-7.7); Neutrophils % 69.2 %; Nucleated Red Blood Cells % 0 %; Platelet Count 169 10^3/cmm (157-399); Red Blood Count 5.18 10^6/uL (3.85-5.65); Red Cell Distribution Width 15.8 % (12.1-15.1); White Blood Count 9.19 10^3/uL (3.29-11.43)
[2025-03-06 04:59] LABS: Anion Gap 15.1 (5-19); Blood Urea Nitrogen 15 mg/dL (6-20); Calcium 8.6 mg/dL (8.5-10.5); Carbon Dioxide 27 mmol/L (22-29); Chloride 97 mmol/L (98-107); Creatinine Clr Calc Pharmacy 88.3268; Glomerular Filtration Rate 68.8 mL/min (90-130); Glucose 102 mg/dL (65-115); NT Pro B Type Natriuretic Pept 261 pg/mL (0-125); Osmolality Calculated 281 mOsm/kg (285-295); Potassium 4.1 mmol/L (3.5-5.1); Sodium 135 mmol/L (136-145)
[2025-03-06] MEDS: FUROsemide 10 mg/mL SDV 4mL 40 MG IVP ×2 (06:17→18:14)
[2025-03-06] MEDS: tamsulosin 0.4 mg Capsule PO (08:29)
[2025-03-06] MEDS: aspirin 81 mg EC Tablet PO (08:29)
[2025-03-06] MEDS: atorvastatin 40 mg Tablet PO (08:30)
[2025-03-06] MEDS: potassium chloride ER 20 mEq Tablet PO ×2 (08:30→18:14)
[2025-03-06] MEDS: ipratropium-albuterol 3 mL Neb INHALATION (09:30)
[2025-03-06] MEDS: morphine 4 mg/mL SDV 1 mL 2 MG IVP ×2 (11:48→18:23)
--- NOTE | 2025-03-06 14:38 | P.PN_ITS ---
Subjective 2 Subjective: Patient was seen this morning, he tells me that he is breathing better, continues to have abdominal distention, lower extremity edema improving, no fevers, no chills, no cough Vitals/I&O/Wt Last Vital Signs Temp 98.3 F 03/05/25 16:06 Pulse 87 03/06/25 11:51 Resp 17 03/06/25 11:48 BP 133/74 03/06/25 11:51 Pulse Ox 90 03/06/25 11:51 O2 Del Method Nasal Cannula 03/06/25 09:35 O2 Flow Rate 4 03/06/25 09:35 03/05/25 03/06/25 03/06/25 22:59 06:59 14:59 Output Total 500 / 500 1500 / 1500 Balance -500 / -500 -1500 / -1500 Weight last 48 hrs Weight 110.677 kg Physical Exam 2 Const: COMMON NORMALS: no acute distress and patient oriented x3 Resp: COMMON NORMALS: normal respiratory effort, No retractions, No use of accessory muscles and clear to auscultation bilaterally AUSCULTATION: clear to auscultation bilaterally Cardio: COMMON NORMALS: regular rate, regular rhythm, S1 normal heart sound present and S2 normal heart sound present RATE: regular rate RHYTHM: r egular rhythm HEART SOUNDS: S1 normal heart sound present and S2 normal heart sound present GI: COMMON NORMALS: Normal to inspection, nondistended, normoactive bowel sounds present and non-tender Extremity: COMMON NORMALS: no pedal edema Neuro: COMMON NORMALS: patient oriented x3 Psych: COMMON NORMALS: mental status grossly normal Data 03/06/25 04:28 03/06/25 04:28 A&P Assessment and plan (1) CHF (congestive heart failure): (2) Polycythemia: (3) Acute hypoxic respiratory failure: Plan Acute hypoxic respiratory failure, requiring 3 L - Secondary to CHF exacerbation, systolic and diastolic - Could be a component of polycythemia - He has a pulmonary function testing that shows moderate COPD with restriction Plan - Lasix 40 IV twice daily - Potassium replacement therapy 20 twice daily - Cardiac echo - Monitor urine output, monitor creatinine, monitor potassium -fluid restrictions 1000 cc - Patient might require a therapeutic phlebotomy for polycythemia, will discuss with hematology Polycythemia -Likely from smoking history, COPD, obstructive sleep apnea - Urinalysis to evaluate for blood within normal limits - ABG does show hypoxia on 3 L - EPO levels pending - Had a workup done by oncology, will review - Patient might require therapeutic phlebotomy based on clinical progress COPD, will hold off on steroids as no active wheezing Full code Lovenox for DVT prophylaxis PDMP PDMP Reviewed: Not Reviewed Attestations 2 Medical Necessity Statement*: Patient requires hospitalization for acute hypoxic respiratory failure secondary to CHF requiring IV diuresis Diagnoses Acute congestive heart failure, unspecified heart failure type I50.9 Heart failure type: unspecified Heart failure chronicity: acute Polycythemia D75.1 Acute hypoxic respiratory failure J96.01
--- NOTE | 2025-03-06 15:17 | P.CONIM_ITS ---
<Statement entered by Amado Morgan MD - 03/07/25 22:34> Patient was evaluated and cared for in conjunction with an advanced practice practitioner. I personally examined the patient and reviewed the chart and all pertinent data including imaging, telemetry, and laboratory results. I discussed the patient in detail with the advanced practice practitioner. Please see their note for complete H&P testing result and agreed upon plan of care for the patient. Providers/Reason For Consult 2 Consulting Physician/Specialty*: Amado Morgan MD Reason for Consult*: Possible new onset CHF Requesting Physician: Dr. Russell Attending Physician: Damien Greene MD Primary Care Provider: ENOCH Patino History of Present Illness History of Present Illness Jaswinder Palmer is a 59 year old male who is also in the clinic yesterday as a new patient with no heart history per patient. Current everyday smoker, history of hypercholesterolemia who came into the ER yesterday directed from our clinic due to most likely CHF exacerbation. Patient states that he began developing severe shortness of breath even at rest. Denies any recent chest pressure or chest pain. He has a history of A1c of 6.4 indicating prediabetes. Troponin at baseline was 31-32-38. proBNP was 261. On exam his lungs are clear at this time but his abdomen is swollen and he has lower extremity edema bilaterally. X-ray was done that showed possibly early congestive heart failure with significant cardiomegaly. Previous abdominal ultrasound this year showed hepatomegaly with fatty infiltration. Creatinine is stable at 1.1. In the ER he was given Lasix 40 every 12 and 1 dose of metolazone 5 mg. He states he responded well and has urinated a lot. EKG done showed sinus rhythm with ST deviation and moderate T wave abnormality in the inferior and lateral leads with Q waves in the anterior leads. Compared to EKG from 2022, T wave changes are seen in the inferior leads. At this time vital signs are stable blood pressure 133/74 pulse 88 oxygen saturation 90% on 4 L nasal cannula. Review of Systems 2 Narrative: Consitutional: denies fever, chills, body aches, or changes in appetite, denies abnormal weight loss Eyes: Denies changes in vision Card: Denies chest pain, palpitations, irregular heart rhythm, Resp: Reports orthopnea and shortness of breath on exertion, denies hemoptysis, denies cough GI: Reports abdominal cramping that is chronic in nature l : denies blood in urine, denies dysuria Musc: Denies extremity pain, denies limited range of motion or recent injury Skin: Denies rash, lesions, or wounds, denies changes to skin color Neuro: Denies nubmness in extremities, h/a, s/s of stroke Amandeep: Denies easy bruiding/bleeding Medications/Allergies Home Medications ?Medication ?Instructions ?Recorded ?Confirmed ?Last Taken ?Type rosuvastatin 10 mg tablet 10 mg PO DAILY 08/05/2402/2303/05/25 08:00 History meloxicam 15 mg tablet 15 mg PO DAILY 01/28/2502/2303/05/25 07:00 History spironolactone 25 mg tablet 25 mg PO DAILY 01/28/2503/05/25 08:00 History tamsulosin 0.4 mg capsule 0.4 mg PO DAILY 01/28/2502/2303/05/25 08:00 History umeclidinium 62.5 mcg-vilanterol 1 ea inhalation DAILY 01/28/25 03/06/25 03/05/25 History 25 mcg/actuation powdr for inhalation (Anoro Ellipta) adalimumab 40 mg/0.4 mL 40 mg SUBCUT Q14D 03/06/25 0 03/06/25 02/26/25 History subcutaneous pen kit (Humira(CF) Pen) albuterol sulfate 90 mcg/actuation 2 puff inhalation Q 4H PRN 03/06/25 03/06/25 03/05/25 History aerosol inhaler (Ventolin HFA) Shortness Of Breath Or Wheezing furosemide 20 mg tablet 20 mg PO BID EDEMA 03/06/25 03/06/25 03/05/25 08:00 History Allergies Allergy/AdvReac Type Severity Reaction Status Date / Time Unknown abx Allergy ALGY-Hives Uncoded 03/05/25 16:09 Current Medications Generic Name Dose Route Start Last Admin Trade Name Freq PRN Reason Stop Dose Admin Albuterol/Ipratropium 3 ml 03/05/25 22:06 03/06/25 09:30 Ipratropium-Albuterol 3 Ml Neb INHALATION 3 ml Q6H PRN Administration SHORTNESS OF BREATH Aspirin 81 mg 03/06/25 09:00 03/06/25 08:29 Aspirin 81 Mg Ec Tablet PO 81 mg DAILY RAYSHAWN Administration Atorvastatin Calcium 40 mg 03/06/25 09:00 03/06/25 08:30 Atorvastatin 40 Mg Tablet PO 40 mg DAILY RAYSHAWN Administration Enoxaparin Sodium 40 mg 03/05/25 21:30 03/05/25 21:47 Enoxaparin 40 Mg/0.4 Ml Syringe SUBCUT 40 mg Q24H RAYSHAWN Administration Furosemide 40 mg 03/06/25 06:00 03/06/25 06:17 Furosemide 10 Mg/Ml Sdv 4ml IVP 40 mg Q12H RAYSHAWN Administration Morphine Sulfate 2 mg 03/05/25 21:18 03/06/25 11:48 Morphine 4 Mg/Ml Sdv 1 Ml IVP 2 mg Q4H PRN Administration SEVERE PAIN Pantoprazole Sodium 40 mg 03/05/25 21:30 03/05/25 21:50 Pantoprazole 40 Mg Sdv IVP 40 mg Q24H RAYSHAWN Administration Potassium Chloride 20 meq 03/06/25 09:00 03/06/25 08:30 Potassium Chloride Er 20 Meq Tablet PO 20 meq BID RAYSHAWN Administration Tamsulosin HCl 0.4 mg 03/06/25 09:00 03/06/25 08:29 Tamsulosin 0.4 Mg Capsule PO 0.4 mg DAILY RAYSHAWN Administration PFSH Acute 2 PFSH: Medical History CHF (congestive heart failure) Polycythemia Surgical History No significant past surgical history Social History Smoking and tobacco/nicotine status: current every day tobacco/nicotine user Vitals/I&O/Wt Last Vital Signs Temp 98.3 F 03/05/25 16:06 Pulse 87 03/06/25 11:51 Resp 17 03/06/25 11:48 BP 133/74 03/06/25 11:51 Pulse Ox 90 03/06/25 11:51 O2 Del Method Nasal Cannula 03/06/25 09:35 O2 Flow Rate 4 03/06/25 09:35 03/06/25 03/06/25 03/06/25 06:59 14:59 22:59 Intake Total 240 / 240 Output Total 500 / 500 1500 / 1500 Balance -500 / -500 -1260 / -1260 Weight last 48 hrs Weight 244 lb Physical Exam 2 Narrative: General: No apparent distress, on O2 via nasal cannula HENMT: normoceophalic Muskuloskeletal: Full ROM Respiratory: Normal respiratory effort, clear to auscultation bilaterally throughout all lung chapa, no use of accessory muscles Cardio: No JVD, regular rate, regular rhythm, S1 S2 normal, no murmurs, peripheral pulses 2+ radial palpated bilaterally GI: Abdomen is very distended Extremities: Full ROM, normal, normal capillary refill, no cyanosis, 2+ nonpitting edema bilateral lower extremities Neuro: Alert and oriented x4, no focal motor deficits Psych: Affect normal, denies suicidal ideation, mental status grossly normal Skin: Hemosiderin staining bilateral lower extremities Data 03/06/25 04:28 03/06/25 04:28 A&P Assessment and plan (1) CHF (congestive heart failure): (2) Decompensated heart failure: (3) Encounter for smoking cessation counseling: (4) Acute hypoxic respiratory failure: Plan Patient presenting with most likely acute CHF exacerbation. Agree with Lasix 40 every 12. Echo has been done and pending. Further recommendations after this. Most likely patient will need to be diuresed and if ejection fraction is low will need left heart cath possible PCI to rule out underlying coronary artery disease as reason for new onset CHF. Closely monitor I&Os and creatinine. Thank you, Dr. Greene, for alloing us to care for this very pleasant 59 year old gentleman. PDMP PDMP Reviewed: Not Reviewed Consult Attestations 2 Medical Necessity Statement: Defer to primary Coding Level of Care Code Acute Code for Chg Fwd Diagnoses Acute congestive heart failure, unspecified heart failure type I50.9 Heart failure type: unspecified Heart failure chronicity: acute Decompensated heart failure I50.9 Encounter for smoking cessation counseling Z71.6 Acute hypoxic respiratory failure J96.01
[2025-03-06 15:18] LABS: Vitamin B12 201 pg/mL (232-1245)
[2025-03-06 15:19] LABS: Folate Level 4.5 ng/mL (4.5-32.2)
--- NOTE | 2025-03-06 15:26 | US_ITS ---
WS: [id number] Complete ABDOMINAL ULTRASOUND HISTORY: Elevated LFTs. COMPARISON: 12/25/2024 Liver: 17.4 cm in length. Liver is slightly enlarged and coarse echotexture throughout. Loss of the normal portal triads. Deep liver towards the diaphragmatic surface is obscured by attenuation. No mass or intrahepatic duct dilatation. Portal Vein: Normal hepatopetal flow with monophasic waveform. Gallbladder: Normally distended gallbladder with no stones or wall thickening. CBD: 0.3 cm Pancreas: Not visualized. Right kidney: 11.5 cm x 6.4 x 6.3 cm. Cortex:1.1 cm. Normal size and echogenicity. No hydronephrosis or mass. Left kidney: 10.2 cm x 4.9 cm x 5.3 cm. Cortex: 1.2 cm. Limited visualization but no abnormality identified. Spleen: 11.8 cm. Normal size and echogenicity. Aorta and IVC: Limited. US/US abdomen complete* 36548 Impression: 1. Technically difficult abdominal ultrasound. 2. No cholelithiasis. 3. Mild hepatomegaly with marked hepatic steatosis.
[2025-03-06 17:33] LABS: Glucose Point of Care 133 mg/dL (70-110)
[2025-03-06] MEDS: nicotine 21 mg Patch 1 PATCH TRANSDERMA (18:14)
[2025-03-06] MEDS: pantoprazole 40 mg SDV IVP (20:53)
[2025-03-06] MEDS: enoxaparin 40 mg/0.4 mL Syringe SUBCUT (20:53)
[2025-03-06 21:54] LABS: Glucose Point of Care 157 mg/dL (70-110)
[2025-03-07] VITALS (12 sets, daily range): BP systolic 113–151; BP diastolic 69–93; PULSE 81–117; RESP 12–22; TEMP 36.5–36.9; O2SAT 90–95
[2025-03-07] MEDS: acetaminophen 325 mg Tablet 650 MG PO (03:40)
[2025-03-07 04:09] LABS: Basophils % 0.5 %; Eosinophils # 0.1 10^3/uL (0.0-0.8); Eosinophils % 1.3 %; Hematocrit 55.9 % (37-53); Lymphocytes # 2.2 10^3/uL (0.8-4.8); Lymphocytes % 24.5 %; Mean Corpuscular HGB Conc 32.9 g/dL (30-55); Mean Corpuscular Hemoglobin 34.1 pg (27-33); Mean Corpuscular Volume 103.7 fl (82-101); Mean Platelet Volume 9.1 fL (7.4-10.4); Monocytes # 0.6 10^3/uL (0.2-0.9); Monocytes % 7.2 %; Neutrophils # 5.76 10^3/uL (1.8-7.7); Neutrophils % 65.7 %; Nucleated Red Blood Cells % 0 %; Platelet Count 181 10^3/cmm (157-399); Red Blood Count 5.39 10^6/uL (3.85-5.65); Red Cell Distribution Width 15.4 % (12.1-15.1); White Blood Count 8.76 10^3/uL (3.29-11.43)
[2025-03-07 04:39] LABS: Blood Urea Nitrogen 22 mg/dL (6-20); Calcium 9.2 mg/dL (8.5-10.5); Carbon Dioxide 31 mmol/L (22-29); Chloride 92 mmol/L (98-107); Creatinine Clr Calc Pharmacy 80.8045; Glomerular Filtration Rate 62.2 mL/min (90-130); Glucose 112 mg/dL (65-115); Osmolality Calculated 282 mOsm/kg (285-295); Sodium 134 mmol/L (136-145)
[2025-03-07] MEDS: FUROsemide 10 mg/mL SDV 4mL 40 MG IVP ×2 (05:53→16:44)
[2025-03-07] MEDS: morphine 4 mg/mL SDV 1 mL 2 MG IVP ×3 (05:58→18:48)
[2025-03-07 07:04] LABS: Glucose Point of Care 146 mg/dL (70-110)
[2025-03-07] MEDS: nicotine 21 mg Patch 1 PATCH TRANSDERMA (09:04)
[2025-03-07] MEDS: atorvastatin 40 mg Tablet PO (09:04)
[2025-03-07] MEDS: tamsulosin 0.4 mg Capsule PO (09:04)
[2025-03-07] MEDS: aspirin 81 mg EC Tablet PO (09:04)
[2025-03-07] MEDS: cyanocobalamin 1,000 mcg Tablet 1000 MCG PO (09:05)
[2025-03-07] MEDS: potassium chloride ER 20 mEq Tablet PO ×2 (09:05→16:44)
[2025-03-07 11:20] LABS: Glucose Point of Care 137 mg/dL (70-110)
--- NOTE | 2025-03-07 13:04 | P.PN_ITS ---
Subjective 2 Subjective: Patient was seen this morning, currently alert oriented x 3, following all commands, sitting up in a chair, denies any fevers, no chills, no cough, his edema is improving Vitals/I&O/Wt Last Vital Signs Temp 97.9 F 03/07/25 11:41 Pulse 91 03/07/25 11:41 Resp 15 03/07/25 11:41 BP 125/83 03/07/25 11:41 Pulse Ox 91 03/07/25 11:41 O2 Del Method Nasal Cannula 03/07/25 11:41 O2 Flow Rate 4 03/07/25 07:52 03/06/25 03/07/25 03/07/25 22:59 06:59 14:59 Intake Total 600 / 840 600 / 600 Output Total 1150 / 2650 800 / 3450 830 / 830 Balance -550 / -1810 -800 / -2610 -230 / -230 Weight last 48 hrs Weight 107.32 kg Weight 110.251 kg Weight 110.677 kg Physical Exam 2 Const: COMMON NORMALS: no acute distress and patient oriented x3 Resp: COMMON NORMALS: normal respiratory effort, No retractions, No use of accessory muscles and clear to auscultation bilaterally AUSCULTATION: clear to auscultation bilaterally Cardio: COMMON NORMALS: regular rate, regular rhythm, S1 normal heart sound present and S2 normal heart sound present RATE: regular rate RHYTHM: r egular rhythm HEART SOUNDS: S1 normal heart sound present and S2 normal heart sound present GI: COMMON NORMALS: Normal to inspection, nondistended, normoactive bowel sounds present and non-tender Extremity: COMMON NORMALS: no pedal edema Neuro: COMMON NORMALS: patient oriented x3 Psych: COMMON NORMALS: mental status grossly normal Data 03/07/25 03:29 03/07/25 03:29 A&P Assessment and plan (1) CHF (congestive heart failure): (2) Polycythemia: (3) Acute hypoxic respiratory failure: Plan Acute hypoxic respiratory failure, requiring 3 L - Secondary to CHF exacerbation, systolic and diastolic - Could be a component of polycythemia - He has a pulmonary function testing that shows moderate COPD with restriction CONCLUSIONS Normal left ventricular size, systolic function and wall thickness, with no regional wall motion abnormalities. Left ventricular ejection fraction is estimated at 60 %. Grade I/IV diastolic dysfunction (abnormal relaxation filling pattern), normal to mildly elevated filling pressures. No significant valve abnormalities. There is no pericardial effusion. Right atrial pressure is around 5 mm of mercury. Plan - Lasix 40 IV twice daily - Potassium replacement therapy 20 twice daily - Cardiac echo - Monitor urine output, monitor creatinine, monitor potassium -fluid restrictions 1000 cc - Patient might require a therapeutic phlebotomy for polycythemia, discussed with hematology, hold off for now unless shortness of breath persist with polycythemia Polycythemia -Likely from smoking history, COPD, obstructive sleep apnea - Urinalysis to evaluate for blood within normal limits - ABG does show hypoxia on 3 L - EPO levels pending - Had a workup done by oncology, will review - Patient might require therapeutic phlebotomy based on clinical progress COPD, will hold off on steroids as no active wheezing Vitamin B12 deficiency Full code Lovenox for DVT prophylaxis PDMP PDMP Reviewed: Not Reviewed Attestations 2 Medical Necessity Statement*: Patient requires hospitalization for acute CHF exacerbation requiring IV diuresis Diagnoses Acute congestive heart failure, unspecified heart failure type I50.9 Heart failure chronicity: acute Heart failure type: unspecified Polycythemia D75.1 Acute hypoxic respiratory failure J96.01
--- NOTE | 2025-03-07 13:19 | P.PN_ITS ---
<Statement entered by Amado Morgan MD - 03/07/25 22:25> Patient was evaluated and cared for in conjunction with an advanced practice practitioner. I personally examined the patient and reviewed the chart and all pertinent data including imaging, telemetry, and laboratory results. I discussed the patient in detail with the advanced practice practitioner. Please see their note for complete H&P testing result and agreed upon plan of care for the patient. Subjective 2 Subjective: Patient is doing much better. He is still getting Lasix every 12. Creatinine stable at 1.2. He has put out -2610 L over 24 hours. Echo showed ejection fraction was normal. He does have some diastolic dysfunction present. Vitals/I&O/Wt Last Vital Signs Temp 97.9 F 03/07/25 11:41 Pulse 91 03/07/25 11:41 Resp 15 03/07/25 11:41 BP 125/83 03/07/25 11:41 Pulse Ox 91 03/07/25 11:41 O2 Del Method Nasal Cannula 03/07/25 11:41 O2 Flow Rate 4 03/07/25 07:52 03/06/25 03/07/25 03/07/25 22:59 06:59 14:59 Intake Total 600 / 840 600 / 600 Output Total 1150 / 2650 800 / 3450 830 / 830 Balance -550 / -1810 -800 / -2610 -230 / -230 Weight last 48 hrs Weight 236 lb 9.6 oz Weight 243 lb 1 oz Weight 244 lb Physical Exam 2 Narrative: General: No apparent distress, on O2 via nasal cannula HENMT: normoceophalic Muskuloskeletal: Full ROM Respiratory: Normal respiratory effort, clear to auscultation bilaterally throughout all lung chapa, no use of accessory muscles Cardio: No JVD, regular rate, regular rhythm, S1 S2 normal, no murmurs, peripheral pulses 2+ radial palpated bilaterally GI: Abdomen is very distended Extremities: Full ROM, normal, normal capillary refill, no cyanosis, 2+ nonpitting edema bilateral lower extremities Neuro: Alert and oriented x4, no focal motor deficits Psych: Affect normal, denies suicidal ideation, mental status grossly normal Skin: Hemosiderin staining bilateral lower extremities Data 03/07/25 03:29 03/07/25 03:29 A&P Assessment and plan (1) CHF (congestive heart failure): (2) Decompensated heart failure: (3) Encounter for smoking cessation counseling: (4) Acute hypoxic respiratory failure: Plan Patient presenting with most likely acute CHF exacerbation. Echo has been done and shows normal ejection fraction with diastolic dysfunction. Continue Lasix every 12. Patient is responding well to diuresis. Continue to watch I&O as well as creatinine. PDMP PDMP Reviewed: Not Reviewed Attestations 2 Medical Necessity Statement*: Deferred to primary Coding Level of Care Code Acute Code for Chg Fwd Diagnoses Acute congestive heart failure, unspecified heart failure type I50.9 Heart failure type: unspecified Heart failure chronicity: acute Decompensated heart failure I50.9 Encounter for smoking cessation counseling Z71.6 Acute hypoxic respiratory failure J96.01
--- OUTSIDE RECORDS SUMMARY | 2025-03-07 14:13 | XMS_ITS | Clinical Summary ---
Author Organization [facility] Address [address] Leyva: Epic Prelude ADT [employer] [id number] Care Team Providers Care Senior Oracle Developer Name Role Phone Sri Morrissey DO Primary Care Provider Allergies No known active allergies Medications fluconazole (DIFLUCAN) 150 mg tablet Take 150 mg by mouth every 7 days. Active rosuvastatin (CRESTOR) 10 mg tablet Take 10 mg by mouth daily. Active meloxicam (MOBIC) 7.5 mg tablet Take 7.5 mg by mouth daily. Active aspirin (ABDULLAHI) 325 mg tablet Take 1 Tablet (325 mg) by mouth daily. 10/31/2023 Active amLODIPine (NORVASC) 5 mg tablet Take 1 Tablet (5 mg) by mouth daily. 90 Tablet 3 10/31/2023 Active Saw [place] Fruit 450 mg Capsule Take 450 mg by mouth 2 times daily as needed. Active Active Problems Problem Noted Date Diagnosed Date Mixed hyperlipidemia 05/08/2018 Family history of alpha 1 antitrypsin deficiency 05/07/2018 Obstructive sleep apnea syndrome 05/07/2018 Encounters Date Type Department Care Team Description 12/31/[address] [facility] G[facility]enterology- [place] [id number] [facility] [address] [place] [address] Kalee Solano ARNP Hepatomegaly (Primary Dx) 12/11/2024 External Device Data [facility] ABSTRACTION Provider, Abstract 12/10/2024 External Device Data [facility] ABSTRACTION Provider, Abstract from Last 3 Months Family History Medical History Relation Name Comments Other Father Cancer Mother Relation Name Status Comments Father MVC, alpha 1 an titripsin Mother Social History Tobacco Use Types Packs/Day Years Used Date Smoking Tobacco: Every Day Cigarettes Smokeless Tobacco: Current Tobacco Cessation:Ready to Q uit: Not Asked; Counseling Given: Not Answered Alcohol Use Standard Drinks/Week Comments No 0 (1 standard drink = 0.6 oz pur e alcohol) Sex and Gender Information Value Date Recorded Sex Assigned at Not on file 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 Gender Identity Not on file Sexual Orientation Not on file Last Filed Vital Signs Vital Sign Reading Time Taken Comments Blood Pressure 152/78 12/12/2023 10:38 AM CDT Pulse 108 12/12/2023 10:38 AM CDT Temperature 36 C (96.8 F) 05/07/2018 11:10 AM CDT Respiratory Rate - - Oxygen Saturation 97% 12/12/2023 10:38 AM CDT Inhaled Oxygen Concentration - - Weight 93.9 kg (207 lb) 12/12/2023 10:38 AM CDT Height 172.7 cm (5' 8 ) 12/12/2023 10:38 AM CDT Body Mass Index 31.47 12/12/2023 10:38 AM CDT Plan of Treatment Upcoming Encounters Date Type Department Care Team (Late st Contact Info) Description 04/16/2025 1:30 PM CDT Office [facility] [address] [place] [phone] Briana Woodson DO [address] [facility] [address] [place] [phone] Health Maintenance Due Date Last Done Comments DTAP/TDAP/TD VACCINES (1 - Tdap) 1985 HEPATITIS B VACCINES (1 of 3 - 19+ 3-dose series) 03/02 Preventative Visit-Managed Medicaid 1985 COLORECTAL SCREENING 2011 Colorectal Cancer Screening 2011 FIT-DNA Q 3 years 2011 FIT/FOBT Q 1 year 2011 Flex Sig/CT Colonography Q 5 years 2011 ZOSTER VACCINE (1 of 2) 2016 INFLUENZA VACCINE (#1) 2024 Insurance [facility] MEDICAID Care Teams Senior Oracle Developer Relationship Specialty Start Date End Date Sri Morrissey DO [address] [place] [address] PCP - General Family Practice 05/07/18
--- OUTSIDE RECORDS SUMMARY | 2025-03-07 14:13 | XMS_ITS | Data Portability ---
Author Organization Bernie Sosa [facility] Address [address] [facility] [address] [place] [address] Assessment Encounter Date Assessment Date Assessment LastModified by Organization Details LastModified Time 12/10/2024 12/10/2024 He has been seeing someone else in [place] but is now establishing here. He has really started swelling and becoming distended over the past month and a half. He doesn't feel like his inhalers have been helping. Will try some new ones to see if insurance will cover them and if they help better. Cautioned him that I am concerned about the swelling in his belly coming from troubles with his liver. Will schedule an ultrasound. He will contact the pulmonary office number he was sent to get an appt with a equipment cleaner and tester. Not available 12/10/2024 21:42:34 12/24/2024 12/24/2024 Patient here today for follow-up. He has an ultrasound scheduled for tomorrow. He doesn't think the fluid pill has helped much but his weight is down 5 pounds from last visit. He will sign for records when he leaves today. Not available 12/24/2024 11:11:39 01/24/2025 01/24/2025 Patient here today with his brother in law. Overall his legs have remained the same since starting fluid pills and antibiotics. He has a bunch of referral appointments coming up. No acute distress today but not really much improvement. Not available 02/05/2025 10:21:01 Plan of Treatment Reminders Order Date Submit Date Provider Last Modified By Organization Details Last Modified Time Details Appointments OFFICE VISIT 20 2024 01:00P M CHIRSTEL PAULETTE, CERTIFIED PATHOLOGY ASSISTANT Not available Not available Not available OFFICE VISIT 2024 10:20A Hoda CALDWELL, CERTIFIED PATHOLOGY ASSISTANT Not available Not available Not available OFFICE VISIT 2024 08:40A Hoda CALDWELL, CERTIFIED PATHOLOGY ASSISTANT Not available Not available Not available Lab CMP, serum or plasma 2024 025 [place], [address] [place] [address], [address], [place], [address], 12/11/2024 14:46:19 CBC 2024 025 [place] [facility], [address], [address], 12/10/2024 11:43:36 thyrotrop in, QN, serum or plasma 2024 025 [email or web address] [facility], [address] [place] [address], [address], [place], [address], 12/17/2024 09:57:51 BNP (B-type natriuret ic peptide), serum or plasma 2024 025 [email or web address] [facility], [address] [place] [address], [address], [place], [address], 12/17/2024 09:57:51 Referral hematolog ist referral 2024 025 asurface Dominic Rush MD, [address] [place], [address], 12/31/2024 14:24:19 Procedures None recorded. Surgeries None recorded. Imaging home sleep study [email or web address] [facility], [address] [place], [address], 01/14/2025 10:23:03 XR, chest, 2 view 2024 025 [facility] ([facility]), [address] [place], [address], 12/10/2024 19:54:53 , [facility], complete - [id number] 2024 [facility] ([facility]), [address] [place], [address], 12/26/2024 16:32:27 Medication Orders furosemid e 20 mg tablet 2024 [facility], [address] [place] [address], [address], 02/04/2025 14:33:26 amoxicill in 875 mg-potass ium clavulana te 125 mg tablet [address], [address], 02/10/2025 05:01:25 prednison e 20 mg tablet [address], [address], 02/05/2025 05:01:29 triamcino lone acetonide 0.1 % topical cream [address], [address], 12/24/2024 11:48:04 trazodone 50 mg tablet [address], [address], 01/24/2025 13:22:48 spironola ctone 25 mg tablet [address], [address], 01/07/2025 11:13:51 Breztri Aerospher e 160 mcg-9mcg- 4.8mcg/ac tuation HFA aerosol inhaler 2024 025 [facility], [address] [place] [address], [address], 01/24/2025 13:22:48 Airsupra 90 mcg-80 mcg/actua tion HFA aerosol inhaler 2024 025 [facility], [address] [place] [address], [address], 01/24/2025 13:22:49 furosemid e 20 mg tablet 2024 025 [facility], [address] [place] [address], [address], 01/07/2025 11:13:56 potassium chloride ER 10 mEq tablet,ex tended release 2024 025 [facility], [address] [place] [address], [address], 12/24/2024 11:12:30 doxycycli ne hyclate 100 mg capsule 2024 025 [facility], [address] [place] [address], [address], 12/10/2024 12:17:34 Patient TargetsNo targets recorded. Patient Instructions Encounter Date Encounter Id Patient Instructions Last Modified By Organization Details Last Modified Time 12/10/2024 [id number] Call or return for questions or concerns. Not available 12/10/2024 11:12:00 12/24/2024 [id number] Call or return for questions or concerns. Not available 12/24/2024 11:10:04 01/24/2025 [id number] Call or return for questions or concerns. Not available 01/24/2025 13:22:03 Reason for Referral Referring Physician: Christel hightower, Family Medicine, Encounter Date: 12/24/2024 Results Created Date Observation Date Name Description Value Unit Range Abnormal Flag Note LastModifiedBy Organization Detail LastModifiedTime 12/11/1912/10/2024 CBC WBC 9.0 x10 4.5-10 .5 Not Available [facility] [address] [facility], [place], [address], 12/10/2024 11:43:36 12/11/1912/10/2024 CBC RBC 4.94 x10 4.30-5 .90 Not Available [facility] [address] [facility], [place], [address], 12/10/2024 11:43:36 12/11/1912/10/2024 CBC HGB 18.5 g/dL 13.5-1 8.0 high Not Available [facility] [address] [facility] [address] [facility] [address], [place], [address], 12/10/2024 11:43:36 12/11/1912/10/2024 CBC HCT 50.4 % 35.0-6 0.0 Not Available [facility] [address] [place] [address] [facility] [address], [place], [address], 12/10/2024 11:43:36 12/11/1912/10/2024 CBC MCV 102.0 fL 80.0-9 9.9 high Not Available [facility] [address] [place] [address] [facility] [address], [place], [address], 12/10/2024 11:43:36 12/11/1912/10/2024 CBC MCH 37.4 pg 27.0-3 2.0 high Not Available [facility] [address] [place] [address] [facility] [address], [place], [address], 12/10/2024 11:43:36 12/11/19 25 12/10/2024 CBC MCHC 36.7 g/dL 32.0-3 6.0 high Not Available [facility] [address] [facility], [place], [address], 12/10/2024 11:43:36 12/11/19 25 12/10/2024 CBC RDW 13.9 % 11.5-1 4.5 Not Available [facility] [address] [place] [address] [facility], [place], [address], 12/10/2024 11:43:36 12/11/19 25 12/10/2024 CBC plt 157.2 x10 150.0- 451.0 Not Available [facility] [address], [place], [address], 12/10/2024 11:43:36 12/11/19 25 12/10/2024 CBC lymphocytes % 17.1 % 20.0-5 0.0 low Not Available [facility] [address] [facility], [place], [address], 12/10/2024 11:43:36 12/11/19 25 12/10/2024 CBC granulcytes % 76.5 % 30.0-7 0.0 high Not Available [facility] [address] [facility], [place], [address], 12/10/2024 11:43:36 12/11/19 25 12/10/2024 CBC monocytes % 5.0 % 2.0-16 .0 Not Available [facility] [address] [place] [address] [facility], [place], [address], 12/10/2024 11:43:36 12/11/19 25 12/10/2024 CBC granulcytes# 6.9 x10 Not Katherine ilable [facility] [address], [place], [address], 12/10/2024 11:43:36 12/11/19 25 12/10/2024 CBC lymphocytes # 1.5 x10 Not Available [facility] [address] [facility], [place], [address], 12/10/2024 11:43:36 12/11/19 25 12/10/2024 CBC monocytes # 0.5 x10 Not Avai lable [facility] [address], [place], [address], 12/10/2024 11:43:36 12/11/19 25 12/11/2024 COMPR EHENS ALLISON METAB OLIC PANEL glucose 112 mg/dL 65-99 high Fasti ng refer ence inter becca For someo ne witho ut known diabe nargis, a gluco se value betwe en 100 and 125 mg/dL is consi stent with predi abete s and shoul d be confi rmed with a follo w-up test. Not Available [address] [address] [place], [address], 12/11/2024 14:46:18 12/11/19 25 12/11/2024 COMPR EHENS ALLISON METAB OLIC PANEL urea nitrogen (BUN) 11 mg/dL 7-25 normal Not Available [address] [address] [place], [address], 12/11/2024 14:46:18 12/11/19 25 12/11/2024 COMPR EHENS ALLISON METAB OLIC PANEL creatinine 1.02 mg/dL 0.70-1 .30 normal Not Available [facility] [address], [address], 12/11/2024 14:46:18 12/11/19 25 12/11/2024 COMPR EHENS ALLISON METAB OLIC PANEL eGFR 85 mL/mi n/1.7 3m2 > or = 60 normal Not Available [address] [address] [place], [address], 12/11/2024 14:46:18 12/11/19 25 12/11/2024 COMPR EHENS ALLISON METAB OLIC PANEL BUN/creatini ne ratio SEE NOTE: (calc ) 6-22 Not Repor kimmy: BUN and Creat inine are withi n refer ence range . Not Available [address], [address], 12/11/2024 14:46:18 12/11/19 25 12/11/2024 COMPR EHENS ALLISON METAB OLIC PANEL sodium 136 mmol/ L 135-14 6 normal Not Available [address], [address], 12/11/2024 14:46:18 12/11/19 25 12/11/2024 COMPR EHENS ALLISON METAB OLIC PANEL potassium 4.2 mmol/ L 3.5-5. 3 normal Not Available [address] [address] [facility], [place], [address], 12/11/2024 14:46:18 12/11/19 25 12/11/2024 COMPR EHENS ALLISON METAB OLIC PANEL chloride 100 mmol/ L 98-110 normal Not Available [address] [address] [place], [address], 12/11/2024 14:46:18 12/11/19 25 12/11/2024 COMPR EHENS ALLISON METAB OLIC PANEL carbon dioxide 27 mmol/ L 20-32 normal Not Available [address] [address] [place], [address], 12/11/2024 14:46:18 12/11/19 25 12/11/2024 COMPR EHENS ALLISON METAB OLIC PANEL calcium 9.5 mg/dL 8.6-10 .3 normal Not Available [address] [address] [place], [address], 12/11/2024 14:46:18 12/11/19 25 12/11/2024 COMPR EHENS ALLISON METAB OLIC PANEL protein, total 7.2 g/dL 6.1-8. 1 normal Not Available [address], [address], 12/11/2024 14:46:18 12/11/19 25 12/11/2024 COMPR EHENS ALLISON METAB OLIC PANEL albumin 4.0 g/dL 3.6-5. 1 normal Not Available [address], [address], 12/11/2024 14:46:18 12/11/19 25 12/11/2024 COMPR EHENS ALLISON METAB OLIC PANEL globulin 3.2 g/dL_ (calc ) 1.9-3. 7 normal Not Available [address], [address], 12/11/2024 14:46:18 12/11/19 25 12/11/2024 COMPR EHENS ALLISON METAB OLIC PANEL albumin/glob ulin ratio 1.3 (calc ) 1.0-2. 5 normal Not Available [address], [address], 12/11/2024 14:46:18 12/11/19 25 12/11/2024 COMPR EHENS ALLISON METAB OLIC PANEL bilirubin, total 0.6 mg/dL 0.2-1. 2 normal Not Available [address], [address], 12/11/2024 14:46:18 12/11/19 25 12/11/2024 COMPR EHENS ALLISON METAB OLIC PANEL alkaline phosphatase 73 U/L 35-144 normal Not Available [address], [address], 12/11/2024 14:46:18 12/11/19 25 12/11/2024 COMPR EHENS ALLISON METAB OLIC PANEL AST 26 U/L 10-35 normal Not Available [facility] [address] [address] [place], [address], 12/11/2024 14:46:18 12/11/19 25 12/11/2024 COMPR EHENS ALLISON METAB OLIC PANEL ALT 18 U/L 9-46 normal Not Available [facility] [address] [place], [address], 12/11/2024 14:46:18 12/11/19 25 12/11/2024 TSH TSH 1.07 mIU/L 0.40-4 .50 normal Not Available [facility] [address], [address], 12/11/2024 14:46:20 12/11/19 25 12/11/2024 B TYPE NATRI URETI C PEPTI DE (BNP) B type natriuretic peptide (BNP) 69 pg/mL <100 normal BNP level s incre ase with age in the gener al popul ation with the highe st value s seen in indiv idual s great er than 75 years of age. Refer ence: J. Am. Ghazal. Cardi ol. 2002; 40:97 6-982 . Not Available [address], [address], 12/11/2024 14:46:21 12/11/19 25 12/22/2024 XR, chest , 2 view No observ ation record ed. [email or web address] [facility] ([facility]) [address] [place] [address], [address], 12/22/2024 14:45:45 12/11/19 25 12/10/2024 XR, chest , 2 view No observ ation record ed. [email or web address] [facility] ([facility]) [address] [place], [address], 12/20/2024 12:53:31 03/2712/25/2024 US, abdom en, compl ete No observ ation record ed. [email or web address] [facility] [address] [place], [address], 12/26/2024 17:22:43 Result Notes None recorded. Problems Name Problem SNOMED Code Status Onset Date Resolution Date Notes Provider Name and Address Organization Details Recorded Time Essential hypertension 93379302 Active 2024 HERBER powell [facility] 10:41:33 Arthritis 0436899 Active 20[facility] 10:41:46 Chronic obstructive pulmonary disease 28713878 Active 2024 HERBER powell [facility] 10:41:53 Persistent alcohol abuse 497238455 Active 2024 HERBER powell [facility] 10:45:31 Obstructive sleep apnea syndrome 23174885 Active 2024 HERBER powell [facility] 10:46:34 Congestive heart failure 41074598 Active 2024 HERBER powell [facility] 14:55:58 Hepatomegaly 11203875 Active 2024 Mild HERBER powell [facility] 17:23:09 Thromboangiiti s obliterans 48548384 Active 2024 HERBER powell [facility] 18:32:11 Ischemic finger 720837314 Active 2024 HERBER powell [facility] 18:32:23 Problem Notes None recorded. Procedures Surgical History Date Name Laterality Status Provider Name and Address Organization Details Recorded Time 5 plain X-ray of chest completed [facility], Bernie 03/05/2025 18:57:58 5 US scan of upper abdomen completed [facility], Bernie 12/26/2024 16:43:52 5 plain X-ray of chest completed [facility], Bernie 12/10/2024 18:08:52 Imaging Results None recorded. Procedure Notes None recorded. Medical Equipment None Reported. Allergies No known drug allergies Medications Name Sig Start Date Stop Date Status Note LastModified by Organization Details LastModified Time doxycycli ne hyclate 100 mg capsule take 1 capsule BY MOUTH TWICE DAILY for 7 days FOR INFECTIO N active Not Available Not Available No t Available trazodone 50 mg tablet TAKE 1 TABLET BY MOUTH EVERY DAY AT BEDTIME active Not Available Not Available No t Available azithromy radha 250 mg tablet TAKE 2 TABLETS BY MOUTH TODAY, THEN TAKE 1 TABLET DAILY ON DAYS 2-5 12/10 completed Not Available Not Available Not Available tizanidin e 4 mg tablet TAKE 2 TABLETS BY MOUTH EVERY 8 HOURS NEEDED FOR muscle SPASMS 12/10 completed Not Available Not Available Not Available hydrocodo ne 5 mg-acetam inophen 325 mg tablet TAKE 1 TABLET BY MOUTH EVERY 6 HOURS NEEDED FOR PAIN 12/10 completed Not Available Not Available Not Available meloxicam 15 mg tablet take ONE tablet BY MOUTH daily active Not Available Not Available No t Available prednison e 20 mg tablet Take 2 tablets every day by oral route for 5 days. 02/05 completed Not Available Not Available Not Available prednison e 5 mg tablet TAKE 4 TABLETS BY MOUTH EVERY DAY FOR FOUR DAYS, THEN THREE EVERY DAY FOR FOUR DAYS, THEN TWO EVERY DAY FOR FOUR DAYS THEN ONE EVERY DAY thereaft er 12/10 completed Not Available Not Available Not Available methylpre dnisolone 4 mg tablet TAKE 1 TABLET BY MOUTH EVERY OTHER DAY FOR arthriti c pain active Not Available Not Available No t Available potassium chloride ER 10 mEq tablet,ex tended release TAKE 1 TABLET BY MOUTH EVERY DAY 12/24 completed started spironol actone Not Available Not Available Not Available sulfameth oxazole 800 mg-trimet hoprim 160 mg tablet TAKE 1 TABLET BY MOUTH TWICE DAILY for 7 days 12/10 completed Not Available Not Available Not Available triamcino lone acetonide 0.1 % topical cream apply a thin layer TO affected area of SKIN TWICE DAILY active Not Available Not Available No t Available spironola ctone 25 mg tablet TAKE 1 TABLET BY MOUTH EVERY DAY active Not Available Not Available No t Available meloxicam 7.5 mg tablet TAKE 1 TABLET BY MOUTH EVERY DAY 12/10 completed Not Available Not Available Not Available tamsulosi n 0.4 mg capsule take 1 capsule BY MOUTH EVERY DAY active Not Available Not Available No t Available benzonata te 100 mg capsule TAKE 2 CAPSULES BY MOUTH THREE TIMES DAILY NEEDED FOR cough 12/10 completed Not Available Not Available Not Available furosemid e 20 mg tablet TAKE 1 TABLET BY MOUTH TWICE DAILY FOR edema FOR 30 DAYS active Not Available Not Available No t Available amoxicill in 875 mg-potass ium clavulana te 125 mg tablet Take 1 tablet every 12 hours by oral route for 10 days. 02/10 completed Not Available Not Available Not Available Ventolin HFA 90 mcg/actua tion aerosol inhaler INHALE TWO PUFFS BY MOUTH EVERY 4 HOURS NEEDED FOR wheezing active Not Available Not Available No t Available rosuvasta tin 10 mg tablet TAKE 1 TABLET BY MOUTH EVERY DAY active Not Available Not Available No t Available varenicli ne tartrate 0.5 mg (11)-1 mg (42) tablets in a dose pack TAKE DIRECTED PER package instruct ions 12/10 completed Not Available Not Available Not Available Anoro Ellipta 62.5 mcg-25 mcg/actua tion powder for inhalatio n INHALE 1 PUFF BY MOUTH EVERY DAY active Not Available Not Available No t Available Humira(CF ) Pen 40 mg/0.4 mL subcutane ous kit INJECT 40MG SUBCUTAN EOUSLY EVERY TWO WEEKS. ROTATE INJECTIO N SITES active Not Available Not Available No t Available Breztri Aerospher e 160 mcg-9mcg- 4.8mcg/ac tuation HFA aerosol inhaler Inhale 2 puffs twice a day by inhalati on route for 30 days. 01/24 completed Not Available Not Available Not Available Airsupra 90 mcg-80 mcg/actua tion HFA aerosol inhaler Inhale 2 inhalati ons every 4 hours by inhalati on route as needed for 30 days, for shortnes s of breath. 01/24 completed Not Available Not Available Not Available Vitals Date Recorded Body weight Body mass index (BMI) Body height Oxygen saturation Oxygen saturation in Arterial blood by Pulse oximetry Heart rate Respiratory rate Systolic blood pressure Diastolic blood pressure Provider Name and Address Organization Details Last Updated DateTime 5 144431. 98 g 37.3 kg/m2 170.18 cm 97 % 97 % 80 /min 24 /min 148 mm[Hg] 86 mm[Hg] HERBER BAJWA [facility] 10:32:20 Date Recorded Body height Body mass index (BMI) Body weight Oxygen saturation Oxygen saturation in Arterial blood by Pulse oximetry Heart rate Respiratory rate Systolic blood pressure Diastolic blood pressure Provider Name and Address Organization Details Last Updated DateTime 5 170.18 cm 36.5 kg/m2 141345. 02 g 94 % 94 % 108 /min 22 /min 130 mm[Hg] 80 mm[Hg] HERBER BAJWA [facility] 10:34:43 Date Recorded Body height Body mass index (BMI) Body weight Oxygen saturation Oxygen saturation in Arterial blood by Pulse oximetry Heart rate Systolic blood pressure Diastolic blood pressure Provider Name and Address Organization Details Last Updated DateTime 170.18 cm 37.7 kg/m2 870522. 76 g 93 % 93 % 104 /min 140 mm[Hg] 88 mm[Hg] HERBER BAJWA [facility] 12:59:38 Social History Question Answer Notes LastModified by Organizat ion Details LastModified Time Tobacco Smoking Status Current Every Day Smoker [facility] 12/10/2024 10:38:46 What Is Your Level Of Caffeine Consumption? Moderate Coffee/Mt . Dew [email or web address] Information not available 12/10/2024 How Much Tobacco Do You Chew? 1/day Information not available 12/10/2024 What Was The Date Of Your Most Recent Tobacco Screening? 12/10/2024 Information not available 12/10/2024 What Is Your Current Pack Years? [email or web address] Information not available 12/10/2024 What Is Your Relationship Status? [email or web address] Information not available 12/10/2024 At What Age Did You Start Smoking Tobacco? 8 Information not available 12/10/2024 How Much Tobacco Do You Smoke? 2 PPD [email or web address] Information not available 12/10/2024 Has Tobacco Cessation Counseling Been Provided? Yes Information not available 12/10/2024 On What Date Was Tobacco Cessation Counseling Provided? 12/10/2024 Information not available 12/10/2024 How Many Years Have You Smoked Tobacco? 50 Information not available 12/10/2024 How Many Years Have You Used Smokeless Tobacco? 50 Information not available 12/10/2024 Sex: Unknown Functional Status Question Answer Note LastModified by Organizat ion Details LastModified Time How many times per week do you consume alcohol? 5-7 times per week [email or web address] Information not available 12/10/2024 Do you use any illicit or recreational drugs? No [email or web address] Information not available 12/10/2024 Do you or have you ever used any other forms of tobacco or nicotine? Yes [email or web address] Information not available 12/10/2024 What is your level of alcohol consumption? Heavy 3-4 shots of whiskey per day. [email or web address] Information not available 12/10/2024 Do you or have you ever used smokeless tobacco? Currently chews tobacco [email or web address] Information not available 12/10/2024 Are you currently employed? No disabled [email or web address] Information not available 12/10/2024 Are you able to walk? YESWOREST [email or web address] Information not available 12/10/2024 Are you able to care for yourself? Yes [email or web address] Information not available 12/10/2024 Do you or have you ever used e-cigarettes or vape? Never used electronic cigarettes Information not available 12/10/2024 Do you or have you ever used any nicotine-free cigarettes, vape, or chewing tobacco? No Information not available 12/10/2024 Mental Status None recorded. Family History Relationship Description Onset Age of this Age Resolved Age Notes LastModified by Organization Details LastModified Time Father Motor vehicle accident when Irvin ramos was age 4 [email or web address] Not available 12/10/2024 10:35:22 Mother Malignant neoplasm of brain in her early 40's [email or web address] Not available 12/10/2024 10:36:03 Mother Essential hypertension Not available 10:36:23 Medical History Condition Response Arthritis Y Kidney Stones Y Reflux/GERD Y High Cholesterol Y Headaches Y Hypertension Y COPD Y Past Encounters Encounter ID Performer Location Encounter Start Date Encounter Closed Date Diagnosis/Indication Diagnosis SNOMED-CT Code Diagnosis ICD10 Code Diagnosis Note [id number] ENOCH FELIX [facility] ([facility]) [address] [place] [id number] 12/10/2024 10:20:53 12/10/2024 11:23:35 Adult health examination 015826634 Z00.00 Establishi care. Hyperlipidemia 54950134 E78.5 Edema of l ower extremity 764411186 R60.0 Dyspnea 269864993 R06.00 Alpha-1-an titrypsin deficiency 09911531 E88.01 He is supposed to be contacting pulmonolog y at [facility] in [facility] to get an appointmen t. Obstructiv e sleep apnea of adult 0883233328 103 G47.33 Wore a CPAP for a while but has not worn it for approximat paulo 7-8 years. Arthritis 7398633 M19.90 Follows with rheumatchiquis cervantes. He is seen about every 6 months by her. Right uppe r quadrant pain 832296181 R10.11 Chronic ob structive pulmonary disease 57363057 J44.9 Stop Anoro. [id number] E[facility] FELIX [facility] ([facility]) [address] [place] [id number] 12/24/2024 10:21:54 12/24/2024 11:34:12 Congestive heart failure 22166211 I50.9 Pruritic disorder 989843 002 L29.9 Familial p olycythemia vera 533401303 D75.0 Chronic insomnia 1404119 04 F51.04 Benign pro static hyperplasia 299354229 N40.1 Continue tamsulosin . 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 Cardiomegaly [id number] I51 .7 Cardiology appt pending. [id number] ENOCH FELIX [facility] ([facility]) [address] [place] [address] 12/25/2024 10:15:37 12/26/2024 09:32:13 [id number] ENOCH FELIX [facility] ([facility]) [address] [place] [address] 01/24/2025 12:19:09 01/24/2025 13:38:36 Chronic congestive heart failure 70201887 I50.9 Acute exac erbation of chronic obstructive pulmonary disease 229027353 J44.1 Health Concerns Section Related Observation LastModified by Organization Detai ls LastModified Time None Recorded Concern Status LastModified by Organization Details LastModified Time None Recorded Advance Directives Directive None Recorded Payers Encounter Date Sequence Insurance Name Policy Number Policy Polanco Covered Member ID Polanco Member ID Guarantor Name 12/10/2024 1 [facility] (MEDICAID HMO) Jaswinder Palmer [id number] Jaswinder Palmer 12/24/2024 1 [facility] (MEDICAID HMO) Jaswinder Palmer [id number] Jaswinder Palmer 12/25/2024 1 [facility] (MEDICAID HMO) Jaswinder Palmer [id number] Jaswinder Palmer 01/24/2025 1 [facility] (MEDICAID HMO) Jaswinder Palmer [id number] Jaswinder Palmer Notes Date Note Type Note Provider Name and Address Organization Details Recorded Time 5 text/htm l EdemaReported bypatient.Location:BLE Quality:legs swell equally;painful Severity:severe Duration:constant Context:no prior history of edema Associated Symptoms:shortness of breath;shortness of breath with exertionInsomniaReported bypatient.Quality:difficulty initiating sleep; difficulty maintaining sleep; waking up too early Duration:chronic Aggravating Factors:caffeine intake; alcohol or drug abuse; nicotine use Associated Symptoms:fatigue;dyspnea;day time sleepiness ENOCH FELIX [address] [place], [phone], [facility], Bernie 12/10/2024 21:43:53 5 text/htm l EdemaReported bypatient.Location:BLE Quality:legs swell equally Duration:constant Associated Symptoms:shortness of breath ENOCH FELIX [address] [place] [address], [phone], [facility], Bernie 12/24/2024 11:13:06 5 text/htm l EdemaReported bypatient.Location:BLE Quality:legs swell equally; left leg is worse/falls asleep at the kitchen table Duration:constant Onset/Timing:started years ago Context:prior history of edema Associated Symptoms:shortness of breath;shortness of breath with exertion ENOCH FELIX [address] [place] [address], [phone], [facility], Bernie 02/05/2025 10:21:08
[2025-03-07] MEDS: ipratropium-albuterol 3 mL Neb INHALATION (15:43)
[2025-03-07 17:06] LABS: Glucose Point of Care 150 mg/dL (70-110)
--- NOTE | 2025-03-07 20:37 | PC.NURSE ---
patient alert and ortientated laying in bed with eyes open. plus 1 edema to lower extremities bilateral. 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 urinal emptied at this time 200ml emptied into toilette. patient wearing oxygen at 3l per nasal canula. patient on a strict I and O at 1000ml per 24 hours. patient compliant with this at this time.patient has no complaints of pain at this time.
[2025-03-07] MEDS: pantoprazole 40 mg SDV IVP (21:41)
[2025-03-07] MEDS: enoxaparin 40 mg/0.4 mL Syringe SUBCUT (21:41)
[2025-03-07 22:15] LABS: Glucose Point of Care 144 mg/dL (70-110)
[2025-03-08] VITALS (30 sets, daily range): BP systolic 121–145; BP diastolic 64–89; PULSE 89–129; RESP 12–26; TEMP 36.4–37.4; O2SAT 86–94
[2025-03-08] MEDS: morphine 4 mg/mL SDV 1 mL IVP ×4 (04:16→20:37)
[2025-03-08 05:12] LABS: Basophils # 0.1 10^3/uL (0.0-0.1); Basophils % 0.6 %; Eosinophils # 0.1 10^3/uL (0.0-0.8); Eosinophils % 1.2 %; Hematocrit 54.4 % (37-53); Lymphocytes # 2.2 10^3/uL (0.8-4.8); Lymphocytes % 21.7 %; Mean Corpuscular HGB Conc 33.8 g/dL (30-55); Mean Corpuscular Hemoglobin 34.6 pg (27-33); Mean Corpuscular Volume 102.3 fl (82-101); Mean Platelet Volume 9.2 fL (7.4-10.4); Monocytes # 0.6 10^3/uL (0.2-0.9); Monocytes % 5.6 %; Neutrophils # 7.26 10^3/uL (1.8-7.7); Neutrophils % 70.1 %; Nucleated Red Blood Cells % 0 %; Platelet Count 207 10^3/cmm (157-399); Red Blood Count 5.32 10^6/uL (3.85-5.65); Red Cell Distribution Width 15.1 % (12.1-15.1); White Blood Count 10.34 10^3/uL (3.29-11.43)
[2025-03-08 05:47] LABS: Anion Gap 16.8 (5-19); Blood Urea Nitrogen 20 mg/dL (6-20); Calcium 9.5 mg/dL (8.5-10.5); Carbon Dioxide 29 mmol/L (22-29); Chloride 88 mmol/L (98-107); Creatinine Clr Calc Pharmacy 86.9366; Glomerular Filtration Rate 68.8 mL/min (90-130); Glucose 137 mg/dL (65-115); Osmolality Calculated 275 mOsm/kg (285-295); Potassium 3.8 mmol/L (3.5-5.1); Sodium 130 mmol/L (136-145)
[2025-03-08] MEDS: FUROsemide 10 mg/mL SDV 4mL 40 MG IVP ×2 (05:49→16:43)
[2025-03-08] MEDS: potassium chloride ER 20 mEq Tablet PO ×2 (08:19→16:44)
[2025-03-08] MEDS: tamsulosin 0.4 mg Capsule PO (08:19)
[2025-03-08] MEDS: nicotine 21 mg Patch 1 PATCH TRANSDERMA (08:19)
[2025-03-08] MEDS: aspirin 81 mg EC Tablet PO (08:19)
[2025-03-08] MEDS: cyanocobalamin 1,000 mcg Tablet 1000 MCG PO (08:20)
[2025-03-08] MEDS: atorvastatin 40 mg Tablet PO (08:20)
[2025-03-08 11:36] LABS: Glucose Point of Care 139 mg/dL (70-110)
--- NOTE | 2025-03-08 11:36 | CTR_ITS ---
PROCEDURE INFORMATION: Exam: CTA Chest With Contrast Exam date and time: 03/08/2025 2:19 PM Age: 59 years old Clinical indication: Shortness of breath; Additional info: Persistent SOB, smoker, TECHNIQUE: Imaging protocol: Computed tomographic angiography of the chest with contrast. Exam focused on the arteries. 3D rendering (Not supervised by radiologist): MIP and/or 3D reconstructed images were created by the technologist. Radiation optimization: All CT scans at this facility use at least one of these dose optimization techniques: automated exposure control; mA and/or kV adjustment per patient size (includes targeted exams where dose is matched to clinical indication); or iterative reconstruction. Contrast material: OMNI 350; Contrast volume: 90 ml; Contrast route: INTRAVENOUS (IV); COMPARISON: CR XR chest 1V portable [id number] 01/05/2025 16:33 RADIATION DOSE METRICS: Total DLP (mGy-cm): 558.31 FINDINGS: Limitations: Overlying soft tissues are prominent resulting in some obscuration of detail due to diminished penetration. Pulmonary arteries: No discrete intraluminal filling defects can be appreciated in the primary and secondary branches of the pulmonary arteries. No pulmonary emboli. Aorta: Unremarkable. No aortic aneurysm. No aortic dissection. Lungs: The left lateral basilar region demonstrates an area of atelectasis with some curvilinear fibrotic changes being present. No consolidation. No masses. Pleural spaces: Unremarkable. No pneumothorax. No pleural effusion. Heart: Moderately enlarged with a left ventricular configuration. Small dependent bilateral pleural effusions. RV/LV ratio of 0.5. Lymph nodes: AP window and precarinal lymph nodes are seen but none of these demonstrate pathologic enlargement by size criteria. No enlarged lymph nodes. Stomach: Upper abdomen: Prominent distension of the stomach with fluid and some food like debris is noted to be present. Liver demonstrates generalized decreased density consistent with fatty infiltration. Partially visualized gallbladder appears to be contracted. Bones/joints: [id number] convexity of the thoracic spine is directed to the right is noted on the images. No acute fracture. Soft tissues: Unremarkable. CT/CT angio chest PE protcl [id number] IMPRESSION: 1. No pulmonary emboli. 2. Mild right posterior basilar hazy infiltrate and mild left basilar atelectasis. 3. Moderate cardiomegaly with LV configuration. 4. Trace bilateral pleural effusions. 5. Prominent distension of the stomach with fluid and some food like debris question gastroparesis or outlet obstruction or recent ingestion of large meal. 6. Hepatic steatosis. 7. Splenomegaly suspected but only partially visualized.
--- NOTE | 2025-03-08 11:55 | P.PN_ITS ---
Subjective 2 Subjective: Patient was seen this morning, currently alert oriented x 3, following all commands she continues to complain of shortness of breath, shortness of breath with exertion, his edema is improving, no fevers, no chills, no lightheadedness, no dizziness Vitals/I&O/Wt Last Vital Signs Temp 97.8 F 03/08/25 11:22 Pulse 117 H 03/08/25 11:22 Resp 26 H 03/08/25 11:22 BP 122/88 03/08/25 11:22 Pulse Ox 93 03/08/25 11:22 O2 Del Method Nasal Cannula 03/08/25 11:22 O2 Flow Rate 4 03/08/25 10:00 03/07/25 03/08/25 03/08/25 22:59 06:59 14:59 Intake Total 340 / 940 200 / 1140 480 / 480 Output Total 1675 / 2505 1000 / 3505 550 / 550 Balance -1335 / -1565 -800 / -2365 -70 / -70 Weight last 48 hrs Weight 105.233 kg Weight 107.32 kg Weight 110.251 kg Physical Exam 2 Const: COMMON NORMALS: no acute distress and patient oriented x3 Eye: COMMON NORMALS: Equal, round and reactive pupils present PUPIL: Yes Equal, round and reactive pupils present Resp: COMMON NORMALS: normal respiratory effort, No retractions and No use of accessory muscles AUSCULTATION: crackles Cardio: COMMON NORMALS: regular rate, regular rhythm, S1 normal heart sound present and S2 normal heart sound present RATE: regular rate RHYTHM: r egular rhythm HEART SOUNDS: S1 normal heart sound present and S2 normal heart sound present GI: COMMON NORMALS: Normal to inspection, nondistended, normoactive bowel sounds present and non-tender Extremity: NARRATIVE EXTREMITY EXAM: 1+ pitting edema bilateral extremity Neuro: COMMON NORMALS: patient oriented x3, CN's II-XII intact bilaterally and moves all extremities Psych: COMMON NORMALS: mental status grossly normal Data 03/08/25 04:54 03/08/25 04:54 A&P Assessment and plan (1) CHF (congestive heart failure): (2) Polycythemia: (3) Acute hypoxic respiratory failure: Plan Acute hypoxic respiratory failure, requiring 3 L - Secondary to CHF exacerbation, systolic and diastolic - Could be a component of polycythemia - He has a pulmonary function testing that shows moderate COPD with restriction CONCLUSIONS Normal left ventricular size, systolic function and wall thickness, with no regional wall motion abnormalities. Left ventricular ejection fraction is estimated at 60 %. Grade I/IV diastolic dysfunction (abnormal relaxation filling pattern), normal to mildly elevated filling pressures. No significant valve abnormalities. There is no pericardial effusion. Right atrial pressure is around 5 mm of mercury. Plan - Lasix 40 IV twice daily - Potassium replacement therapy 20 twice daily - Monitor urine output, monitor creatinine, monitor potassium -fluid restrictions 1000 cc - Patient might require a therapeutic phlebotomy for polycythemia, discussed with hematology, hold off for now unless shortness of breath persist with polycythemia Polycythemia -Likely from smoking history, COPD, obstructive sleep apnea - Urinalysis to evaluate for blood within normal limits -Reviewed his overnight pulse ox, he had 82 desat episodes overnight, total desaturation time was 46 minutes, average duration 34 seconds - ABG does show hypoxia on 3 L - EPO levels pending - Had a workup done by oncology, will review - Patient might require therapeutic phlebotomy based on clinical progress Nocturnal hypoxia - Patient had 82 desats episodes overnight, total desaturation time was 46 minutes - He will need to have a sleep study - Likely contributing to his CHF, shortness of breath COPD, not in exacerbation Vitamin B12 deficiency Full code Lovenox for DVT prophylaxis Plan for today persistent shortness of breath, order CT angiogram of the chest, continue IV diuresis PDMP PDMP Reviewed: Not Reviewed Attestations 2 Medical Necessity Statement*: Patient requires hospitalization for acute hypoxic respiratory failure, polycythemia, nocturnal hypoxia, COPD Diagnoses Acute congestive heart failure, unspecified heart failure type I50.9 Heart failure chronicity: acute Heart failure type: unspecified Polycythemia D75.1 Acute hypoxic respiratory failure J96.01
[2025-03-08] MEDS: iohexol 350 mg/mL 500 mL Btl (per mL) IV (14:25)
[2025-03-08] MEDS: ipratropium-albuterol 3 mL Neb INHALATION (15:00)
--- NOTE | 2025-03-08 16:13 | XRR_ITS ---
PROCEDURE INFORMATION: Exam: XR Abdomen Exam date and time: 03/08/2025 4:41 PM Age: 59 years old Clinical indication: Constipation; Additional info: Consitpation TECHNIQUE: Imaging protocol: Radiologic exam of the abdomen. Views: Frontal supine view of the abdomen. 1 View. COMPARISON: CT kidney stone [id number] 04/09/2024 10:03 AM FINDINGS: Gastrointestinal tract: There is unremarkable nonobstructive bowel gas pattern. There is a moderately large amount of feces within the colon especially in the right colon. Bones/joints: There are degenerative changes in the thoracic spine. XR/XR abdomen 1V* [id number] IMPRESSION: Nonobstructive bowel gas pattern.
[2025-03-08] MEDS: polyethylene glycol 3350 Pkt 17 gm PO (16:43)
[2025-03-08] MEDS: sennosides-docusate Tablet 2 TAB PO (16:44)
[2025-03-08 16:45] LABS: Glucose Point of Care 150 mg/dL (70-110)
--- NOTE | 2025-03-08 19:40 | P.PN_ITS ---
Subjective 2 Subjective: Says he is feeling better and breathing better Continues to have good output Vitals/I&O/Wt Last Vital Signs Temp 98.8 F 03/08/25 19:25 Pulse 117 H 03/08/25 19:25 Resp 22 H 03/08/25 19:25 BP 126/89 03/08/25 19:25 Pulse Ox 92 03/08/25 19:25 O2 Del Method Nasal Cannula 03/08/25 19:25 O2 Flow Rate 5 03/08/25 15:02 03/08/25 03/08/25 03/08/25 06:59 14:59 22:59 Intake Total 200 / 1140 720 / 720 240 / 960 Output Total 1000 / 3505 550 / 550 450 / 1000 Balance -800 / -2365 170 / 170 -210 / -40 Weight last 48 hrs Weight 232 lb Weight 236 lb 9.6 oz Physical Exam 2 Const: OTHER: GENERAL: Patient is alert, awake and oriented x3. HEART: Regular S1 and S2. No murmur, rub or gallop. LUNGS: Clear to auscultate bilaterally. Abdomen: Distended abdominal girth has slightly reduced nontender still has abdominal wall edema CENTRAL NERVOUS SYSTEM: Grossly nonfocal. EXTREMITIES: Lower extremities with 2+ edema bilaterally. Data 03/08/25 04:54 03/08/25 04:54 A&P Assessment and plan (1) CHF (congestive heart failure): Newly onset of diastolic heart failure (2) Decompensated heart failure: Decompensated state of diastolic heart failure patient is on IV Lasix we will continue since it is still a long way to go Once euvolemic will rule out ischemic component with stress test versus angiogram patient has risk factor for heart disease including diabetes obesity hyperlipidemia continues tobacco abuse (3) Encounter for smoking cessation counseling: Advised to quit (4) Acute hypoxic respiratory failure: Improved after diuresis Plan As above. PDMP PDMP Reviewed: Not Reviewed Attestations 2 Medical Necessity Statement*: Patient require continued hospitalization for IV diuresis Coding Level of Care Code Acute Code for Chg Fwd Diagnoses Acute congestive heart failure, unspecified heart failure type I50.9 Heart failure type: unspecified Heart failure chronicity: acute Decompensated heart failure I50.9 Encounter for smoking cessation counseling Z71.6 Acute hypoxic respiratory failure J96.01
[2025-03-08] MEDS: enoxaparin 40 mg/0.4 mL Syringe SUBCUT (20:36)
[2025-03-08] MEDS: pantoprazole 40 mg SDV IVP (20:36)
[2025-03-08] MEDS: ondansetron 2 mg/ML SDV 2 mL 4 MG IVP (20:47)
[2025-03-08 20:48] LABS: Glucose Point of Care 171 mg/dL (70-110)
--- NOTE | 2025-03-08 23:21 | PC.NURSE ---
Addendum entered by Judy Bush RN 03/09/25 02:03: physician ordered 25mg metoprolol succinate one time. Original Note: Contacted physician due to an increasse in hear trate from the 110-115 range to 120-130, got an EKG as per physician order, EKG reads Sinus Tachycardia with occasional PVCs and an ST deviation, the deviation was recorded in previous EKGs
[2025-03-09] VITALS (59 sets, daily range): BP systolic 105–145; BP diastolic 66–87; PULSE 84–130; RESP 11–25; TEMP 36.1–36.8; O2SAT 81–97
[2025-03-09] MEDS: metoprolol succinate ER (24 HR) 25 mg Tablet PO (00:39)
[2025-03-09] MEDS: morphine 4 mg/mL SDV 1 mL IVP ×2 (00:39→08:23)
--- NOTE | 2025-03-09 02:19 | PC.NURSE ---
Gave the patient 25mg of metoprolol succinate at 0029, contacted the physician due to heart rate still sustaining between 120-150. No new orders at this time, care ongoing.
[2025-03-09 04:29] LABS: Basophils # 0.1 10^3/uL (0.0-0.1); Basophils % 0.3 %; Eosinophils % 0.3 %; Hematocrit 53.2 % (37-53); Lymphocytes # 1.7 10^3/uL (0.8-4.8); Lymphocytes % 11.3 %; Mean Corpuscular HGB Conc 33.5 g/dL (30-55); Mean Corpuscular Hemoglobin 34.6 pg (27-33); Mean Corpuscular Volume 103.5 fl (82-101); Mean Platelet Volume 9.7 fL (7.4-10.4); Monocytes % 6.6 %; Neutrophils # 12.14 10^3/uL (1.8-7.7); Neutrophils % 80.8 %; Nucleated Red Blood Cells % 0 %; Platelet Count 181 10^3/cmm (157-399); Red Blood Count 5.14 10^6/uL (3.85-5.65); Red Cell Distribution Width 14.7 % (12.1-15.1); White Blood Count 15.02 10^3/uL (3.29-11.43)
[2025-03-09 04:59] LABS: Anion Gap 15.6 (5-19); Blood Urea Nitrogen 26 mg/dL (6-20); Calcium 9.4 mg/dL (8.5-10.5); Carbon Dioxide 32 mmol/L (22-29); Chloride 85 mmol/L (98-107); Creatinine Clr Calc Pharmacy 67.6282; Glomerular Filtration Rate 52.1 mL/min (90-130); Glucose 125 mg/dL (65-115); Osmolality Calculated 272 mOsm/kg (285-295); Potassium 4.6 mmol/L (3.5-5.1); Sodium 128 mmol/L (136-145)
[2025-03-09] MEDS: sennosides-docusate Tablet 2 TAB PO ×2 (05:59→18:01)
[2025-03-09] MEDS: FUROsemide 10 mg/mL SDV 4mL 40 MG IVP ×2 (05:59→18:01)
[2025-03-09 06:18] LABS: Glucose Point of Care 152 mg/dL (70-110)
[2025-03-09 07:48] LABS: ABG PH Result 7.35 (7.35-7.45); Alveolar-Arterial Oxygen Gradi 0.7 mmHg (5-10); Arterial Blood Gas Hematocrit 52.6 % (42-52); Base Excess ABG 6.4 mmol/L (-2.0-2.0); Blood Gas Allen Test Pos; Blood Gas Operator Identificat WALCI; Blood Gas Sample Site Radial, left; Blood Gas Sample Type Arterial; Carboxyhemoglobin 1.8 %THgb (0.4-20.1); HCO3 ABG 34.8 mmol/L (22-26); HGB O2 Sat 96.2 % (95-100); Ionized Calcium Level - ABG 1.2 mmol/L (1.1-1.4); Methemoglobin < 0.0 % (0.4-1.5); Oxygen Device NC; Oxygen Saturation ABG 93.7; PO2 ABG 67.2 mmHg (80.0-100.0); Total Hemoglobin 17.2 g/dL (14-18)
[2025-03-09 07:49] LABS: ABG PCO2 62.9 mmHg (35-45)
[2025-03-09] MEDS: ipratropium-albuterol 3 mL Neb INHALATION ×5 (07:53→23:50)
[2025-03-09] MEDS: polyethylene glycol 3350 Pkt 17 gm PO (08:19)
[2025-03-09] MEDS: nicotine 21 mg Patch 1 PATCH TRANSDERMA (08:19)
[2025-03-09] MEDS: atorvastatin 40 mg Tablet PO (08:20)
[2025-03-09] MEDS: potassium chloride ER 20 mEq Tablet PO ×2 (08:20→18:01)
[2025-03-09] MEDS: aspirin 81 mg EC Tablet PO (08:20)
[2025-03-09] MEDS: tamsulosin 0.4 mg Capsule PO (08:20)
[2025-03-09] MEDS: cyanocobalamin 1,000 mcg Tablet 1000 MCG PO (08:20)
--- NOTE | 2025-03-09 08:40 | XRR_ITS ---
PROCEDURE INFORMATION: Exam: XR Chest Exam date and time: 03/09/2025 9:02 AM Age: 59 years old Clinical indication: Shortness of breath; SOB TECHNIQUE: Imaging protocol: Radiologic exam of the chest. Views: 1 view. COMPARISON: CT angio chest PE protcl [id number] 03/08/2025 2:19 PM FINDINGS: Lungs: There may be mild central vascular congestion. No focal consolidation is identified. Pleural spaces: Small pleural effusions are suspected. Heart/Mediastinum: The heart is enlarged. Bones/joints: Unremarkable. XR/XR chest 1V portable [id number] IMPRESSION: 1. Cardiomegaly with probable mild vascular congestion and small pleural effusions.
[2025-03-09 09:16] LABS: C Reactive Protein 80.7 mg/L (0.0-4.9)
[2025-03-09 09:23] LABS: Procalcitonin 0.28 ng/mL (0-0.5)
--- NOTE | 2025-03-09 09:45 | ECG_ITS ---
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 Measurements Intervals [place] Rate: 93 P: 53 OR: 142 QRS: 82 QRSD: 109 T: -16 QT: 354 QTc: 441 Interpretive Statements SINUS RHYTHM POSSIBLE INFERIOR MYOCARDIAL INFARCTION , OF INDETERMINATE AGE [30 ms Q WAVE IN II/aVF] Compared to ECG 03/05/2025 22:04:48 Myocardial infarct finding now present Sinus arrhythmia no longer present Intraventricular conduction delay no longer present T-wave abnormality no longer present Possible ischemia no longer present Electronically Signed On 03-10-2025 08:59:19 CDT by Saurabh Paulson M.D. [email or web address] [id number]
[2025-03-09] MEDS: methylPREDNISolone sod succ 125 mg/2 mL INJ IVP (09:49)
[2025-03-09] MEDS: piperacillin-tazobactam 3.375 GM in sodium chloride 0.9% (plus) 50 ML IV ×2 (09:49→18:01)
[2025-03-09] MEDS: metOLazone 5 MG Tablet PO (10:19)
[2025-03-09 11:16] LABS: Troponin(5th) Baseline 61 ng/L (0-15)
[2025-03-09 11:36] LABS: Glucose Point of Care 143 mg/dL (70-110)
--- NOTE | 2025-03-09 11:53 | ECG_ITS ---
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 Measurements Intervals [place] Rate: 89 P: 62 CA: 136 QRS: 84 QRSD: 108 T: -70 QT: 361 QTc: 441 Interpretive Statements SINUS RHYTHM ST DEVIATION AND MODERATE T-WAVE ABNORMALITY, CONSIDER INFERIOR ISCHEMIA [-0.1+ mV T-WAVE IN II/aVF] Compared to ECG 03/09/2025 09:45:43 T-wave abnormality now present Possible ischemia now present Myocardial infarct finding no longer present Electronically Signed On 03-10-2025 09:01:14 CDT by Saurabh Paulson M.D. [id number] [id number]
[2025-03-09 12:29] LABS: Troponin 5 2HR 54.15 ng/L (0-15)
[2025-03-09 12:32] LABS: Troponin 5 2HR Delta -6.85 ABS# (0-10)
--- NOTE | 2025-03-09 13:16 | P.PN_ITS ---
Subjective 2 Subjective: - Patient was examined this morning he i s in mild to moderate respiratory distress with nasal flaring, intercostal retractions, suprasternal retractions, tachypnea, tachycardia, on BiPAP - Has 2+ pitting edema -ABG ordered, elevated pCO2 placed on Bi PAP - Discussed with patient that he has acu te hypoxic hypercarbic respiratory failure - He has received IV diuresis, will cont inue IV diuresis - Given his persistent polycythemia we w ill, discussed with oncology, Dr. Reed, plan on 1 unit phlebotomy - Given history of COPD, elevated Pro-Ca l, he denies any aspiration, does have a cough, will place on Zosyn, IV steroids - Spoke to Dr. Deluca - Will moved to ICU - He also had chest pain, EKG ordered, t roponins ordered, reviewed EKGs with cardiology, - Seen in ICU resting more comfortably, on BiPAP orders placed for Precedex Vitals/I&O/Wt Last Vital Signs Temp 97.6 F 03/09/25 11:13 Pulse 91 03/09/25 12:00 Resp 16 03/09/25 11:25 BP 109/80 03/09/25 11:13 Pulse Ox 95 03/09/25 11:30 O2 Del Method BiPAP 03/09/25 11:25 O2 Flow Rate 5 03/09/25 07:55 FiO2 45 03/09/25 11:30 03/08/25 03/09/25 03/09/25 22:59 06:59 14:59 Intake Total 280 / 1000 120 / 120 Output Total 1250 / 1800 550 / 2350 Balance -970 / -800 -550 / -1350 120 / 120 Weight last 48 hrs Weight 104.326 kg Weight 105.233 kg Physical Exam 2 Const: COMMON NORMALS: no acute distress and patient oriented x3 Resp: AUSCULTATION: crackles and wheezes OTHER: Nasal flaring, suprasternal retraction intercostal retractions, and BiPAP Cardio: COMMON NORMALS: regular rate, regular rhythm, S1 normal heart sound present and S2 normal heart sound present RATE: regular rate RHYTHM: r egular rhythm HEART SOUNDS: S1 normal heart sound present and S2 normal heart sound present GI: COMMON NORMALS: Normal to inspection, nondistended, normoactive bowel sounds present and non-tender Neuro: COMMON NORMALS: patient oriented x3 Psych: COMMON NORMALS: mental status grossly normal Data 03/09/25 03:34 03/09/25 03:34 A&P Assessment and plan (1) CHF (congestive heart failure): (2) Polycythemia: (3) Acute hypoxic respiratory failure: (4) COPD exacerbation: (5) Pneumonia: Plan Acute hypoxic hypercarbic respiratory failure, requiring 3 L -Now with mild to moderate respiratory distress - Secondary to CHF exacerbation, systolic and diastolic - Could be a component of polycythemia - He has a pulmonary function testing that shows moderate COPD with restriction -Now with COPD exacerbation - Now with evidence of pneumonia, seen on CT of the chest CONCLUSIONS Normal left ventricular size, systolic function and wall thickness, with no regional wall motion abnormalities. Left ventricular ejection fraction is estimated at 60 %. Grade I/IV diastolic dysfunction (abnormal relaxation filling pattern), normal to mildly elevated filling pressures. No significant valve abnormalities. There is no pericardial effusion. Right atrial pressure is around [address]/CT angio chest PE protcl [id number] IMPRESSION: 1. No pulmonary emboli. 2. Mild right posterior basilar hazy infiltrate and mild left basilar atelectasis. 3. Moderate cardiomegaly with LV configuration. 4. Trace bilateral pleural effusions. Plan - Lasix 40 IV twice daily, do not dose metolazone - Potassium replacement therapy 20 twice daily - Monitor urine output, monitor creatinine, monitor potassium -fluid restrictions 1000 cc - Ordered 1 unit phlebotomy - Solu-Medrol 125 followed by 40 mg IV 3 times daily - DuoNeb Neb - Budesonide - IV Zosyn - BiPAP therapy Polycythemia -Likely from smoking history, COPD, obstructive sleep apnea - Urinalysis to evaluate for blood within normal limits -Reviewed his overnight pulse ox, he had 82 desat episodes overnight, total desaturation time was 46 minutes, average duration 34 seconds - ABG does show hypoxia on 3 L - EPO levels pending - Had a workup done by oncology, will review - Patient might require therapeutic phlebotomy based on clinical progress - Ordered 1 unit phlebotomy Nocturnal hypoxia - Patient had 82 desats episodes overnight, total desaturation time was 46 minutes - He will need to have a sleep study - Likely contributing to his CHF, shortness of breath COPD, in exacerbation Vitamin B12 deficiency CT angiogram the chest shows large amount of food in the stomach, patient denies any nausea, no vomiting, no aspiration, he has not had a bowel movement as of yet, no abdominal pain, doubt gastric outlet obstruction, will continue to monitor KUB nonobstructive bowel gas pattern Full code Lovenox for DVT prophylaxis Plan for today persistent shortness of breath, IV steroids, IV diuresis, therapeutic phlebotomy, IV antibiotics, moved to ICU PDMP PDMP Reviewed: Not Reviewed Attestations 2 Medical Necessity Statement*: Patient requires hospitalization for acute hypoxic respiratory failure, COPD, CHF, polycythemia, pneumonia Diagnoses Acute congestive heart failure, unspecified heart failure type I50.9 Heart failure type: unspecified Heart failure chronicity: acute Polycythemia D75.1 Acute hypoxic respiratory failure J96.01 COPD exacerbation J44.1 Pneumonia J18.9
--- NOTE | 2025-03-09 15:35 | PHA.VACGOAL ---
Vancomycin Goal - Goal Vancomycin Goal:: 15-20 mg/L Vancomycin Indication:: Pneumonia - Therapy Current therapy:: Pip/Tazo Day of therpy:: Day []of [] . Actual body weight (kg): 230 lb - Data Labs: WBC 15.02 10^3/uL (3.29-11.43) H 03/09/25 03:34 RBC 5.14 10^6/uL (3.85-5.65) 03/09/25 03:34 Hgb 17.80 g/dL (11.27-16.99) H 03/09/25 03:34 Hct 53.2 % (37-53) H 03/09/25 03:34 MCV 103.5 fl (82-101) H 03/09/25 03:34 MCH 34.6 pg (27-33) H 03/09/25 03:34 MCHC 33.5 g/dL (30-55) 03/09/25 03:34 RDW 14.7 % (12.1-15.1) 03/09/25 03:34 Sodium 128 mmol/L (136-145) L 03/09/25 03:34 Potassium 4.6 mmol/L (3.5-5.1) 03/09/25 03:34 Chloride 85 mmol/L (98-107) L 03/09/25 03:34 Carbon Dioxide 32 mmol/L (22-29) H 03/09/25 03:34 Anion Gap 15.6 (5-19) 03/09/25 03:34 BUN 26 mg/dL (6-20) H 03/09/25 03:34 Creatinine 1.4 mg/dL (0.7-1.2) H 03/09/25 03:34 GFR Calculation 52.1 mL/min (90-130) L 03/09/25 03:34
--- NOTE | 2025-03-09 15:53 | ECG_ITS ---
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 Measurements Intervals [place] Rate: 95 P: 65 VT: 139 QRS: 91 QRSD: 110 T: -77 QT: 352 QTc: 444 Interpretive Statements SINUS RHYTHM POSSIBLE LEFT ATRIAL ENLARGEMENT [-0.1mV P-WAVE IN V1/V2] BORDERLINE RIGHT AXIS DEVIATION [QRS AXIS > 90] ST DEVIATION AND MODERATE T-WAVE ABNORMALITY, CONSIDER INFERIOR ISCHEMIA [-0.1+ mV T-WAVE IN II/aVF] Compared to ECG 03/09/2025 11:27:23 No significant changes Electronically Signed On 03-10-2025 09:00:59 CDT by Saurabh Paulson M.D. [id number]
[2025-03-09 17:08] LABS: Troponin 5 6HR 41.88 ng/L (0-15)
[2025-03-09 17:18] LABS: Troponin 5 6HR Delta -19.12 ng/L (0-12)
[2025-03-09 17:40] LABS: Glucose Point of Care 152 mg/dL (70-110)
[2025-03-09] MEDS: vancomycin 2,000 MG/400 ML PIGGYBACK 200 MG IV (18:02)
[2025-03-09] MEDS: budesonide 0.5 mg/2 mL Neb INHALATION (19:36)
--- NOTE | 2025-03-09 19:45 | P.PN_ITS ---
<Statement entered by Amado Morgan MD - 03/09/25 21:35> Patient was evaluated and cared for in conjunction with an advanced practice practitioner. I personally examined the patient and reviewed the chart and all pertinent data including imaging, telemetry, and laboratory results. I discussed the patient in detail with the advanced practice practitioner. Please see their note for complete H&P testing result and agreed upon plan of care for the patient. Subjective 2 Medications: Medication Review Details: Patient became more short of breath this morning with hypercarbia requiring BiPAP and ICU transfer Worsening of renal function Vitals/I&O/Wt Last Vital Signs Temp 97.6 F 03/09/25 11:13 Pulse 101 H 03/09/25 19:40 Resp 14 03/09/25 19:37 BP 109/80 03/09/25 12:30 Pulse Ox 93 03/09/25 19:40 O2 Del Method BiPAP 03/09/25 19:37 O2 Flow Rate 5 03/09/25 15:11 FiO2 45 03/09/25 19:40 03/09/25 03/09/25 03/09/25 06:59 14:59 22:59 Intake Total 170 / 170 Output Total 550 / 2350 1900 / 1900 Balance -550 / -1350 170 / 170 -1900 / -1730 Weight last 48 hrs Weight 230 lb Weight 232 lb Physical Exam 2 Const: OTHER: GENERAL: Patient is alert, awake and oriented x3. HEART: Regular S1 and S2. No murmur, rub or gallop. LUNGS: Clear to auscultate bilaterally. Abdomen: Distended abdominal girth has slightly reduced nontender still has abdominal wall edema CENTRAL NERVOUS SYSTEM: Grossly nonfocal. EXTREMITIES: Lower extremities with 2+ edema bilaterally. Urinary Catheter Management: Montes: Cath Placed During This Visit: yes Reason for Continuing Indwelling Catheter: Accurate Measurement of Urinary Output in Critically Ill Patients Urinary Catheter Date of Insertion: 03/09/25 Data 03/09/25 03:34 03/09/25 03:34 A&P Assessment and plan (1) CHF (congestive heart failure): Newly onset of diastolic heart failure (2) Decompensated heart failure: Decompensated state of diastolic heart failure patient is on IV Lasix we will continue since it is still a long way to go Once euvolemic will rule out ischemic component with stress test versus angiogram patient has risk factor for heart disease including diabetes obesity hyperlipidemia continues tobacco abuse (3) Encounter for smoking cessation counseling: Advised to quit (4) Acute hypoxic respiratory failure: Improved after diuresis Plan Patient appeared to be in decompensated diastolic heart failure He has hypercarbic respiratory failure consistent with mixed picture of COPD exacerbation and CHF Worsening of renal function could be cardiorenal At this point May will increase diuresis Increase Lasix to 60 mg IV twice daily along with 2.5 mg metolazone twice daily Keep replenishing potassium Continue to monitor renal function PDMP PDMP Reviewed: Not Reviewed Attestations 2 Medical Necessity Statement*: Patient require continuation of hospitalization for above defined care Coding Level of Care Code Acute Code for Chg Fwd Diagnoses Acute congestive heart failure, unspecified heart failure type I50.9 Heart failure type: unspecified Heart failure chronicity: acute Decompensated heart failure I50.9 Encounter for smoking cessation counseling Z71.6 Acute hypoxic respiratory failure J96.01
--- NOTE | 2025-03-09 20:15 | PC.NURSE ---
Food Patient agitated, stating he wants to eat and that he hasn't eaten all day. Dr. Garcia contacted; possible future testing discussed and order received to let him have small snack once.
[2025-03-09] MEDS: pantoprazole 40 mg SDV IVP (20:30)
[2025-03-09] MEDS: enoxaparin 40 mg/0.4 mL Syringe SUBCUT (20:30)
[2025-03-09 21:34] LABS: Glucose Point of Care 166 mg/dL (70-110)
[2025-03-09] MEDS: acetaminophen 325 mg Tablet 650 MG PO (23:25)
[2025-03-10] VITALS (59 sets, daily range): BP systolic 97–146; BP diastolic 62–90; PULSE 72–130; RESP 9–169; TEMP 36.6; O2SAT 79–97
[2025-03-10] MEDS: piperacillin-tazobactam 3.375 GM in sodium chloride 0.9% (plus) 50 ML IV ×3 (00:07→16:55)
--- NOTE | 2025-03-10 00:36 | PC.NURSE ---
Pain Patient complaining of headache despite tylenol administration. Morphine ordered prn per NOV. No recent bowel movements documented. Dr. Garcia contacted; bowel status, kidney function, and pain discussed. Orders received for 15 mg toradol IVP once as well as 60 mg lactulose PO Q6HR for two doses received. Lactulose dose verified with Dr. Garcia.
--- NOTE | 2025-03-10 01:15 | PC.NURSE ---
Oxygen Saturation Patient's oxygen saturation decreased to 72% while on bipap. Patient alert and oriented, when asked if he was having trouble breathing, patient stated yes. RT called to bedside; bipap settings titrated by RT. Patient's oxygen saturation increased into low 90s.
[2025-03-10] MEDS: ketorolac 30 mg/mL INJ 15 MG IVP (01:16)
--- NOTE | 2025-03-10 01:25 | ECG_ITS ---
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 Measurements Intervals [place] Rate: 92 P: 89 CA: 143 QRS: 104 QRSD: 113 T: -50 QT: 379 QTc: 471 Interpretive Statements SINUS RHYTHM WITH OCCASIONAL VENTRICULAR PREMATURE COMPLEXES WITH OCCASIONAL SUPRAVENTRICULAR PREMATURE COMPLEXES POSSIBLE LEFT ATRIAL ENLARGEMENT [-0.1mV P-WAVE IN V1/V2] POSSIBLE RIGHT VENTRICULAR HYPERTROPHY [SOME/ALL OF: PROMINENT R IN V1, LATE TRANSITION, RAD, CINTHYA, SSS] PROBABLE INFERIOR MYOCARDIAL INFARCTION , OF INDETERMINATE AGE [35 ms Q WAVE IN II/aVF] Compared to ECG 03/09/2025 17:04:45 Ventricular premature complex(es) now present Myocardial infarct finding now present T-wave abnormality no longer present Possible ischemia no longer present Electronically Signed On 03-10-2025 09:00:10 CDT by Saurabh Paulson M.D. [email or web address]
--- NOTE | 2025-03-10 01:51 | PC.NURSE ---
PVCs Increasing number of PVCs noted on patient's telemetry. EKG obtained. Dr. Garcia notified; order received to check cmp, mag, and phos with morning labs.
[2025-03-10] MEDS: lactulose oral liq 20 gm/30 mL UDC 60 GM PO (02:18)
[2025-03-10] MEDS: ipratropium-albuterol 3 mL Neb INHALATION ×6 (04:10→23:16)
[2025-03-10 04:31] LABS: Basophils % 0.1 %; Lymphocytes % 6.4 %; Mean Corpuscular HGB Conc 33.3 g/dL (30-55); Mean Corpuscular Hemoglobin 35.5 pg (27-33); Mean Corpuscular Volume 106.5 fl (82-101); Mean Platelet Volume 10.3 fL (7.4-10.4); Monocytes # 1.2 10^3/uL (0.2-0.9); Monocytes % 7.4 %; Neutrophils # 13.34 10^3/uL (1.8-7.7); Neutrophils % 85.1 %; Nucleated Red Blood Cells % 0 %; Platelet Count 185 10^3/cmm (157-399); Red Blood Count 4.79 10^6/uL (3.85-5.65); Red Cell Distribution Width 15.2 % (12.1-15.1); White Blood Count 15.67 10^3/uL (3.29-11.43)
[2025-03-10] MEDS: vancomycin 1,250 MG/250 ML PIGGYBACK 166.67 MG IV ×2 (04:47→16:54)
[2025-03-10] MEDS: FUROsemide 10 mg/mL SDV 4mL 40 MG IVP ×2 (04:47→16:54)
[2025-03-10] MEDS: sennosides-docusate Tablet 2 TAB PO (06:23)
--- NOTE | 2025-03-10 07:00 | XR_ITS ---
WS: [id number] PORTABLE CHEST HISTORY: sob COMPARISON: 03/09/2025 Hyperexpanded lungs with diffuse coarse echotexture. Suspect mild fluid overload and edema. Partial obscuration of the LEFT hemidiaphragm. No pleural effusion or pneumothorax. Cardiac size: Mildly enlarged cardiac silhouette. Mediastinum/Aorta: Mild atherosclerosis aorta. No osseous abnormality seen. XR/XR chest 1V portable [id number] IMPRESSION: 1. Mild pulmonary edema. 2. Partial obscuration of the LEFT hemidiaphragm. This may be an obscuration b y the cardiac fat pad versus pneumonia or fluid. Please note there was a promin ent fat pad on a recent CT of 03/08/2025 but no pneumonia. Radiographic findings are similar to that prior CT.
[2025-03-10 07:31] LABS: NT Pro B Type Natriuretic Pept 1032 pg/mL (0-125); Procalcitonin 1.37 ng/mL (0-0.5)
[2025-03-10 07:42] LABS: Alanine Aminotransferase 27 U/L (0-41); Albumin Level 3.7 g/dL (3.5-5.2); Alkaline Phosphatase 77 U/L (40-130); Aspartate Amino Transferase 36 U/L (0-40); Blood Urea Nitrogen 40 mg/dL (6-20); Calcium 9.6 mg/dL (8.5-10.5); Carbon Dioxide 30 mmol/L (22-29); Chloride 84 mmol/L (98-107); Creatinine Clr Calc Pharmacy 68.0405; Globulin 4.3 g/dL (1.3-4.6); Glomerular Filtration Rate 52.1 mL/min (90-130); Glucose 150 mg/dL (65-115); Magnesium 2.2 mg/dL (1.7-2.3); Osmolality Calculated 279 mOsm/kg (285-295); Phosphorus 4.1 mg/dL (2.5-4.5); Sodium 128 mmol/L (136-145); Total Bilirubin 0.7 mg/dL (0.15-1.2)
[2025-03-10] MEDS: budesonide 0.5 mg/2 mL Neb INHALATION ×2 (07:56→19:37)
[2025-03-10] MEDS: tamsulosin 0.4 mg Capsule PO (09:15)
[2025-03-10] MEDS: cyanocobalamin 1,000 mcg Tablet 1000 MCG PO (09:16)
[2025-03-10] MEDS: nicotine 21 mg Patch 1 PATCH TRANSDERMA (09:16)
[2025-03-10] MEDS: polyethylene glycol 3350 Pkt 17 gm PO (09:16)
[2025-03-10] MEDS: aspirin 81 mg EC Tablet PO (09:16)
[2025-03-10] MEDS: atorvastatin 40 mg Tablet PO (09:16)
[2025-03-10] MEDS: potassium chloride ER 20 mEq Tablet PO ×2 (09:16→17:01)
--- NOTE | 2025-03-10 10:36 | P.PN_ITS ---
<Statement entered by Amado Morgan MD - 03/11/25 17:47> Patient was evaluated and cared for in conjunction with an advanced practice practitioner. I personally examined the patient and reviewed the chart and all pertinent data including imaging, telemetry, and laboratory results. I discussed the patient in detail with the advanced practice practitioner. Please see their note for complete H&P testing result and agreed upon plan of care for the patient. Subjective 2 Subjective: Patient does not appear to be in any acute respiratory distress although oxygen saturation maintains around 90% on nasal cannula. He just had his BiPAP taken off and woke up when I got there. Patient has diuresed well -3 L over 24 hours. He got metolazone 5 mg yesterday. Lasix is ordered at 40 every 12. Vitals/I&O/Wt Last Vital Signs Temp 97.8 F 03/10/25 06:30 Pulse 88 03/10/25 09:30 Resp 14 03/10/25 09:30 BP 112/73 03/10/25 09:30 Pulse Ox 90 03/10/25 09:30 O2 Del Method BiPAP 03/10/25 07:58 O2 Flow Rate 6 03/10/25 05:30 FiO2 55 03/10/25 07:58 03/09/25 03/10/25 03/10/25 22:59 06:59 14:59 Intake Total 450 / 620 50 / 670 240 / 240 Output Total 1900 / 1900 1350 / 3250 350 / 350 Balance -1450 / -1280 -1300 / -2580 -110 / -110 Weight last 48 hrs Weight 234 lb 12.677 oz Weight 230 lb Physical Exam 2 Narrative: General: No apparent distress, on O2 via nasal cannula HENMT: normoceophalic Muskuloskeletal: Full ROM Respiratory: Normal respiratory effort, fine crackles bilateral lower lobes, no use of accessory muscles Cardio: No JVD, regular rate, regular rhythm, S1 S2 normal, no murmurs, peripheral pulses 2+ radial palpated bilaterally GI: Abdomen is distended Extremities: Full ROM, normal, normal capillary refill, no cyanosis, trace edema bilateral lower extremities Neuro: Alert and oriented x4, no focal motor deficits Psych: Affect normal, denies suicidal ideation, mental status grossly normal Skin: Hemosiderin staining bilateral lower extremities Urinary Catheter Management: Montes: Cath Placed During This Visit: yes Reason for Continuing Indwelling Catheter: Accurate Measurement of Urinary Output in Critically Ill Patients Urinary Catheter Date of Insertion: 03/09/25 Data 03/10/25 03:58 03/10/25 06:38 A&P Assessment and plan (1) CHF (congestive heart failure): (2) Decompensated heart failure: (3) Encounter for smoking cessation counseling: (4) Acute hypoxic respiratory failure: Plan Patient appearrs to be in decompensated diastolic heart failure. Creatinine increased but stable at 1.4. He is -3L over 24 hours. Would recommend continuing diuresis with lasix 40q 12. Monitor I&O as well as creatining. He has hypercarbic respiratory failure consistent with mixed picture of COPD exacerbation and CHF. I recommend for now placing bipap, as patient's O2 sat tends to dip down without it when he moves at all. He doesn't appear to be in any acute respiratory distress. PDMP PDMP Reviewed: Not Reviewed Attestations 2 Medical Necessity Statement*: Deferred to primary Coding Level of Care Code Acute Code for Chg Fwd Diagnoses Acute congestive heart failure, unspecified heart failure type I50.9 Heart failure type: unspecified Heart failure chronicity: acute Decompensated heart failure I50.9 Encounter for smoking cessation counseling Z71.6 Acute hypoxic respiratory failure J96.01
--- NOTE | 2025-03-10 11:23 | P.PN_ITS ---
Subjective 2 Subjective: No complaints except not having a bowel movement wanting to eat more Vitals/I&O/Wt Last Vital Signs Temp 97.8 F 03/10/25 06:30 Pulse 72 03/10/25 11:22 Resp 12 03/10/25 11:19 BP 112/73 03/10/25 09:30 Pulse Ox 89 L 03/10/25 11:19 O2 Del Method Nasal Cannula 03/10/25 11:19 O2 Flow Rate 3 03/10/25 11:19 FiO2 55 03/10/25 07:58 03/09/25 03/10/25 03/10/25 22:59 06:59 14:59 Intake Total 450 / 620 50 / 670 240 / 240 Output Total 1900 / 1900 1350 / 3250 350 / 350 Balance -1450 / -1280 -1300 / -2580 -110 / -110 Weight last 48 hrs Weight 106.5 kg Weight 104.326 kg Physical Exam 2 Narrative: Alert and oriented no acute distress Heart regular rate and rhythm normal S1-S2 without murmurs clicks gallops or rubs Lungs clear to auscultation without wheezes rales or rhonchi Abdomen obese soft nontender mildly protuberant hypoactive bowel sounds Extremities no significant edema Urinary Catheter Management: Montes: Cath Placed During This Visit: yes Reason for Continuing Indwelling Catheter: Accurate Measurement of Urinary Output in Critically Ill Patients Urinary Catheter Date of Insertion: 03/09/25 Data 03/10/25 03:58 03/10/25 06:38 A&P Assessment and plan (1) CHF (congestive heart failure): (2) Polycythemia: (3) Acute hypoxic respiratory failure: (4) COPD exacerbation: (5) Pneumonia: Plan Acute hypoxic hypercarbic respiratory failure, requiring 3 L - HX OF COPD; PFT shows moderate COPD with restriction - CHF exacerbation, systolic and diastolic - ? component of polycythemia - Now with evidence of pneumonia, seen on CT of the chest IMPRESSION: 1. No pulmonary emboli. 2. Mild right posterior basilar hazy infiltrate and mild left basilar atelectasis. 3. Moderate cardiomegaly with LV configuration. 4. Trace bilateral pleural effusions. Plan - Lasix 40 IV twice daily - Potassium replacement therapy 20 twice daily - Monitor urine output, monitor creatinine, monitor potassium - fluid restrictions 1000 cc - Ordered 1 unit phlebotomy; on hold for now. - Solu-Medrol 125 followed by 40 mg IV 3 times daily- will wean. - DuoNeb Neb - Budesonide - IV Zosyn - BiPAP therapy- for BULL. States trying to get one at home. Polycythemia- barely above normal range. no treatment required at this tiem. -Likely from smoking history, COPD, obstructive sleep apnea RE : BULL overnight pulse ox, he had 82 desat episodes overnight, total desaturation time was 46 minutes, average duration 34 seconds - ABG does show hypoxia on 3 L - EPO levels pending - Had a workup done by oncology, will review - Nocturnal hypoxia - Patient had 82 desats episodes overnight, total desaturation time was 46 minutes - He will need to have a sleep study - Likely contributing to his CHF, shortness of breath COPD, in exacerbation Vitamin B12 deficiency Constipation: LARGE BM today Full code Lovenox for DVT prophylaxis Plan for today OOB to chair PT/OT. will need home CPAP? PDMP PDMP Reviewed: Not Reviewed Attestations 2 Medical Necessity Statement*: Patient requires hospitalization for acute hypoxic respiratory failure, COPD, CHF, polycythemia, pneumonia Coding Level of Care Code Acute Code for Chg Fwd Diagnoses Acute congestive heart failure, unspecified heart failure type I50.9 Heart failure type: unspecified Heart failure chronicity: acute Polycythemia D75.1 Acute hypoxic respiratory failure J96.01 COPD exacerbation J44.1 Pneumonia J18.9
[2025-03-10 12:25] LABS: Glucose Point of Care 155 mg/dL (70-110)
[2025-03-10] MEDS: morphine 4 mg/mL SDV 1 mL IVP (16:51)
[2025-03-10] MEDS: enoxaparin 40 mg/0.4 mL Syringe SUBCUT (20:23)
[2025-03-10] MEDS: pantoprazole 40 mg SDV IVP (20:23)
[2025-03-10 21:51] LABS: Glucose Point of Care 173 mg/dL (70-110)
[2025-03-11] VITALS (38 sets, daily range): BP systolic 101–145; BP diastolic 67–94; PULSE 81–131; RESP 11–22; TEMP 36.1–36.9; O2SAT 76–98
[2025-03-11] MEDS: morphine 4 mg/mL SDV 1 mL IVP (01:07)
[2025-03-11] MEDS: piperacillin-tazobactam 3.375 GM in sodium chloride 0.9% (plus) 50 ML IV ×2 (01:10→09:32)
[2025-03-11] MEDS: ipratropium-albuterol 3 mL Neb INHALATION ×5 (03:44→20:36)
[2025-03-11] MEDS: vancomycin 1,250 MG/250 ML PIGGYBACK 166 MG IV (04:02)
[2025-03-11] MEDS: FUROsemide 10 mg/mL SDV 4mL 40 MG IVP ×2 (04:02→16:23)
[2025-03-11 04:45] LABS: Basophils % 0.2 %; Eosinophils % 0.4 %; Lymphocytes # 1.9 10^3/uL (0.8-4.8); Lymphocytes % 20.4 %; Mean Corpuscular HGB Conc 32.8 g/dL (30-55); Mean Corpuscular Hemoglobin 34.2 pg (27-33); Mean Corpuscular Volume 104.2 fl (82-101); Mean Platelet Volume 9.7 fL (7.4-10.4); Monocytes # 0.7 10^3/uL (0.2-0.9); Monocytes % 7.8 %; Neutrophils # 6.44 10^3/uL (1.8-7.7); Neutrophils % 70.5 %; Nucleated Red Blood Cells % 0 %; Platelet Count 199 10^3/cmm (157-399); White Blood Count 9.13 10^3/uL (3.29-11.43)
[2025-03-11 04:58] LABS: Anion Gap 18.3 (5-19); Blood Urea Nitrogen 39 mg/dL (6-20); Carbon Dioxide 30 mmol/L (22-29); Chloride 89 mmol/L (98-107); Creatinine Clr Calc Pharmacy 73.2744; Glomerular Filtration Rate 56.7 mL/min (90-130); Glucose 115 mg/dL (65-115); Osmolality Calculated 288 mOsm/kg (285-295); Potassium 3.3 mmol/L (3.5-5.1); Sodium 134 mmol/L (136-145)
[2025-03-11] MEDS: sennosides-docusate Tablet 2 TAB PO ×2 (05:05→17:09)
[2025-03-11 07:26] LABS: Glucose Point of Care 126 mg/dL (70-110)
[2025-03-11] MEDS: budesonide 0.5 mg/2 mL Neb INHALATION ×2 (08:29→20:36)
[2025-03-11] MEDS: aspirin 81 mg EC Tablet PO (09:20)
[2025-03-11] MEDS: cyanocobalamin 1,000 mcg Tablet 1000 MCG PO (09:20)
[2025-03-11] MEDS: atorvastatin 40 mg Tablet PO (09:20)
[2025-03-11] MEDS: tamsulosin 0.4 mg Capsule PO (09:21)
[2025-03-11] MEDS: nicotine 21 mg Patch 1 PATCH TRANSDERMA (09:31)
[2025-03-11] MEDS: potassium chloride ER 20 mEq Tablet 40 MEQ PO ×2 (09:36→17:09)
--- NOTE | 2025-03-11 11:11 | P.PN_ITS ---
<Statement entered by Amado Morgan MD - 03/11/25 17:21> Patient was evaluated and cared for in conjunction with an advanced practice practitioner. I personally examined the patient and reviewed the chart and all pertinent data including imaging, telemetry, and laboratory results. I discussed the patient in detail with the advanced practice practitioner. Please see their note for complete H&P testing result and agreed upon plan of care for the patient. Patient feeling better breathing is better, creatinine remains at 1.5 baseline is normal GENERAL: Patient is alert, awake and oriented x3. HEART: Regular S1 and S2. No murmur, rub or gallop. LUNGS: Clear to auscultate bilaterally. CENTRAL NERVOUS SYSTEM: Grossly nonfocal. EXTREMITIES: Lower extremities with out edema bilaterally. Assessment and plan New onset of heart failure with preserved ejection fraction acute decompensated History of prior smoking COPD exacerbation Volume overload status Acute kidney injury most likely secondary to diuresis Chest pain on mild exertion suggestive of angina and underlying coronary artery disease Plan will back off on diuretics since creatinine has worsened Continue antibiotics for COPD exacerbation and nebulized treatment Once renal improve we will proceed with left and right heart catheterization Subjective 2 Subjective: Patient is doing well without complaints. Belly is still slightly distended but he is -1360 over 24 hours. Creatinine is slightly improved at 1.3. Vitals/I&O/Wt Last Vital Signs Temp 98.3 F 03/11/25 05:00 Pulse 115 H 03/11/25 11:00 Resp 16 03/11/25 08:00 BP 112/71 03/11/25 11:00 Pulse Ox 76 L 03/11/25 11:00 O2 Del Method Nasal Cannula 03/11/25 08:00 O2 Flow Rate 4 03/11/25 08:00 FiO2 55 03/11/25 10:13 03/10/25 03/11/25 03/11/25 22:59 06:59 14:59 Intake Total 1460 / 2000 780 / 2780 240 / 240 Output Total 1200 / 1550 2700 / 4250 Balance 260 / 450 -1920 / -1470 240 / 240 Weight last 48 hrs Weight 231 lb 7.766 oz Weight 234 lb 12.677 oz Physical Exam 2 Narrative: General: No apparent distress, on O2 via nasal cannula HENMT: normoceophalic Muskuloskeletal: Full ROM Respiratory: Normal respiratory effort, fine crackles bilateral lower lobes, no use of accessory muscles Cardio: No JVD, regular rate, regular rhythm, S1 S2 normal, no murmurs, peripheral pulses 2+ radial palpated bilaterally GI: Abdomen is distended Extremities: Full ROM, normal, normal capillary refill, no cyanosis, trace edema bilateral lower extremities Neuro: Alert and oriented x4, no focal motor deficits Psych: Affect normal, denies suicidal ideation, mental status grossly normal Skin: Hemosiderin staining bilateral lower extremities Urinary Catheter Management: Montes: Cath Placed During This Visit: yes Reason for Continuing Indwelling Catheter: Accurate Measurement of Urinary Output in Critically Ill Patients Urinary Catheter Date of Insertion: 03/09/25 Data 03/11/25 03:58 03/11/25 03:58 A&P Assessment and plan (1) CHF (congestive heart failure): (2) Decompensated heart failure: (3) Encounter for smoking cessation counseling: (4) Acute hypoxic respiratory failure: Plan Patient appearrs to be in decompensated diastolic heart failure. Creatinine is stable at 1.3 and slightly improved. He is -1360 mL over 24 hours. Would recommend continuing diuresis with lasix 40q 12. Monitor I&O as well as creatinine. Potassium has been replaced. He has hypercarbic respiratory failure consistent with mixed picture of COPD exacerbation and CHF. Once patient is euvolemic, will require left heart cath. PDMP PDMP Reviewed: Not Reviewed Attestations 2 Medical Necessity Statement*: Deferred to primary. Coding Level of Care Code Acute Code for Chg Fwd Diagnoses Acute congestive heart failure, unspecified heart failure type I50.9 Heart failure type: unspecified Heart failure chronicity: acute Decompensated heart failure I50.9 Encounter for smoking cessation counseling Z71.6 Acute hypoxic respiratory failure J96.01
[2025-03-11 11:55] LABS: Glucose Point of Care 136 mg/dL (70-110)
[2025-03-11] MEDS: cefdinir 300 MG CAPSULE PO ×2 (12:15→17:08)
[2025-03-11 15:12] LABS: Vancomycin Trough 20.4 ug/mL (10-15)
[2025-03-11] MEDS: acetaminophen 325 mg Tablet 650 MG PO (16:28)
[2025-03-11 16:58] LABS: Glucose Point of Care 165 mg/dL (70-110)
[2025-03-11] MEDS: enoxaparin 40 mg/0.4 mL Syringe SUBCUT (20:14)
[2025-03-11] MEDS: pantoprazole 40 mg SDV IVP (20:16)
[2025-03-11 20:45] LABS: Glucose Point of Care 137 mg/dL (70-110)
[2025-03-12] VITALS (16 sets, daily range): BP systolic 97–133; BP diastolic 57–96; PULSE 78–121; RESP 14–22; TEMP 36.5–36.8; O2SAT 90–100
[2025-03-12] MEDS: ipratropium-albuterol 3 mL Neb INHALATION ×7 (00:25→23:56)
[2025-03-12] MEDS: sennosides-docusate Tablet 2 TAB PO ×2 (05:17→17:25)
--- NOTE | 2025-03-12 05:37 | PC.NURSE ---
Butler removal Patient stated that his butler catheter was beginning to cause him pain. Patient is ambulatory and had 2300 ml of urine out on this nurse's shift. Contacted Dr Peoples and asked him if the catheter could be removed. Dr Peoples gave telephone order to remove butler catheter.
[2025-03-12 06:30] LABS: Glucose Point of Care 174 mg/dL (70-110)
[2025-03-12] MEDS: cefdinir 300 MG CAPSULE PO ×2 (08:41→17:25)
[2025-03-12] MEDS: potassium chloride ER 20 mEq Tablet 40 MEQ PO (08:42)
[2025-03-12] MEDS: atorvastatin 40 mg Tablet PO (08:42)
[2025-03-12] MEDS: aspirin 81 mg EC Tablet PO (08:42)
[2025-03-12] MEDS: FUROsemide 40 mg Tablet PO (08:42)
[2025-03-12] MEDS: nicotine 21 mg Patch 1 PATCH TRANSDERMA (08:43)
[2025-03-12] MEDS: polyethylene glycol 3350 Pkt 17 gm PO (08:43)
[2025-03-12] MEDS: cyanocobalamin 1,000 mcg Tablet 1000 MCG PO (08:43)
[2025-03-12] MEDS: tamsulosin 0.4 mg Capsule PO (08:43)
[2025-03-12] MEDS: budesonide 0.5 mg/2 mL Neb INHALATION ×2 (08:50→21:55)
--- NOTE | 2025-03-12 10:25 | P.PN_ITS ---
<Statement entered by Saurabh Paulson M.D - 03/14/25 13:12> Patient was cared for in conjunction with an advanced practice practitioner.? I reviewed the chart and all pertinent data including imaging, telemetry, and laboratory results.? I discussed the patient in detail with the advanced practice practitioner.? Please see?their note for progress note, testing results and agreed upon plan of care for the patient. Plan for right and left heart cath as has congestive heart failure and recent chest pain epiosdes. NPO past midnight. Subjective 2 Subjective: Patient is doing well this morning. His symptoms have significantly improved. Denies any chest pain or shortness of breath. -3510 over 24 hours. Creatinine slightly improved at 1.3. Baseline was 1.1. He is still on 4 L nasal cannula. He is negative nearly 14 L over his hospital stay. Vitals/I&O/Wt Last Vital Signs Temp 97.7 F 03/12/25 07:11 Pulse 116 H 03/12/25 08:52 Resp 18 03/12/25 08:52 BP 133/82 03/12/25 07:11 Pulse Ox 92 03/12/25 08:54 O2 Del Method Nasal Cannula 03/12/25 08:54 O2 Flow Rate 4 03/12/25 08:54 FiO2 50 03/12/25 00:28 03/11/25 03/12/25 03/12/25 22:59 06:59 14:59 Intake Total 410 / 890 0 / 890 240 / 240 Output Total 2700 / 4400 Balance 410 / -810 -2700 / -3510 240 / 240 Weight last 48 hrs Weight 228 lb 11.2 oz Weight 231 lb 7.766 oz Physical Exam 2 Narrative: General: No apparent distress, on O2 via nasal cannula HENMT: normoceophalic Muskuloskeletal: Full ROM Respiratory: Normal respiratory effort, clear throughout all lung chapa, no use of accessory muscles Cardio: No JVD, regular rate, regular rhythm, S1 S2 normal, no murmurs, peripheral pulses 2+ radial palpated bilaterally GI: Abdomen is distended Extremities: Full ROM, normal, normal capillary refill, no cyanosis, no edema bilateral lower extremities Neuro: Alert and oriented x4, no focal motor deficits Psych: Affect normal, denies suicidal ideation, mental status grossly normal Skin: Hemosiderin staining bilateral lower extremities Urinary Catheter Management: Montes: Cath Placed During This Visit: yes, but has since been removed by the nurse Reason for Continuing Indwelling Catheter: Accurate Measurement of Urinary Output in Critically Ill Patients Urinary Catheter Date of Insertion: 03/09/25 Date Urinary Catheter Removed: 03/12/25 Time Urinary Catheter Discontinued: 05:41 Data 03/11/25 03:58 03/11/25 03:58 A&P Assessment and plan (1) CHF (congestive heart failure): (2) Decompensated heart failure: (3) Encounter for smoking cessation counseling: (4) Acute hypoxic respiratory failure: Plan Patient is well compensated at this time. Due to new onset diastolic heart failure with CHF exacerbation, consideration for angiogram to r/o underlying coronary disease will be appropriate. He appears well compensated at this time. Will get a BMP this afternoon to check renal function. Patient is slightly tachycardic. He could be a little dry. Further recommendations after BMP this afternoon. If patient will tolerate, may proceed with left and right heart cath in the morning. PDMP PDMP Reviewed: Not Reviewed Attestations 2 Medical Necessity Statement*: Deferred to primary. Coding Level of Care Code Acute Code for Chg Fwd Diagnoses Acute congestive heart failure, unspecified heart failure type I50.9 Heart failure type: unspecified Heart failure chronicity: acute Decompensated heart failure I50.9 Encounter for smoking cessation counseling Z71.6 Acute hypoxic respiratory failure J96.01
[2025-03-12 10:52] LABS: Glucose Point of Care 189 mg/dL (70-110)
--- NOTE | 2025-03-12 11:41 | P.PN_ITS ---
Subjective 2 Subjective: Markedly improved today seen standing with bedside table and chair behind him. He states he is feeling much better and breathing easier. Vitals/I&O/Wt Last Vital Signs Temp 97.9 F 03/12/25 11:00 Pulse 119 H 03/12/25 11:19 Resp 18 03/12/25 11:19 BP 126/79 03/12/25 11:00 Pulse Ox 95 03/12/25 11:19 O2 Del Method Nasal Cannula 03/12/25 11:19 O2 Flow Rate 4 03/12/25 11:19 FiO2 50 03/12/25 00:28 03/11/25 03/12/25 03/12/25 22:59 06:59 14:59 Intake Total 410 / 890 0 / 890 240 / 240 Output Total 2700 / 4400 Balance 410 / -810 -2700 / -3510 240 / 240 Weight last 48 hrs Weight 103.737 kg Weight 105 kg Physical Exam 2 Narrative: Alert and oriented no acute distress Heart regular rate and rhythm normal S1-S2 without murmurs clicks gallops or rubs Lungs a few scattered wheezes and rhonchi in the bilateral bases otherwise much better aeration today Abdomen obese soft nontender mildly protuberant hypoactive bowel sounds Extremities +1 edema alf up to calf Urinary Catheter Management: Montes: Cath Placed During This Visit: yes, but has since been removed by the nurse Reason for Continuing Indwelling Catheter: Accurate Measurement of Urinary Output in Critically Ill Patients Urinary Catheter Date of Insertion: 03/09/25 Date Urinary Catheter Removed: 03/12/25 Time Urinary Catheter Discontinued: 05:41 Data 03/11/25 03:58 03/11/25 03:58 A&P Assessment and plan (1) CHF (congestive heart failure): (2) Polycythemia: (3) Acute hypoxic respiratory failure: (4) COPD exacerbation: (5) Pneumonia: Plan Acute hypoxic hypercarbic respiratory failure, requiring 3 L - HX OF COPD; PFT shows moderate COPD with restriction - CHF exacerbation, systolic and diastolic - - Now with evidence of pneumonia, seen on CT of the chest: * Mild right posterior basilar hazy infiltrate and mild left basilar atelectasis. * Moderate cardiomegaly with LV configuration. * Trace bilateral pleural effusions. Plan - CHF is compensated at this time. He is now on Lasix 40 mg every morning with potassium 40 mill equivalents daily - Potassium replacement therapy 20 twice daily -COPD exacerbation * Completed a course of IV steroid * DuoNeb Neb * Budesonide * Requires BiPAP for both COPD and new CHF. Settings are 19/05. * overnight pulse ox, he had 82 desat episodes overnight, total desaturation time was 46 minutes, average duration 34 seconds Polycythemia- barely above normal range. no treatment required at this time -Likely from smoking history, note at 1 time he smoked up to 5 packs a day. Vitamin B12 deficiency Constipation: Resolved now; having daily BM Full code Lovenox for DVT prophylaxis Plan for today Met with patient and case management. Unfortunately there are issues with his insurance expiring at the end of the month and he will need to contact his disability insurance. Ideally the patient would transfer to a residential facility for increased strength and ability to take care of himself as he lives at home. We would also be able to closely monitor his respiratory status with new onset CHF and exacerbation of his COPD. Spoke with cardiology they plan to do a heart cath due to the new onset heart failure tomorrow PDMP PDMP Reviewed: Not Reviewed Attestations 2 Medical Necessity Statement*: Patient requires hospitalization for new onset CHF and now requires an inpatient heart cath prior to discharge Coding Level of Care Code Acute Code for [employer] Fwd Diagnoses Acute congestive heart failure, unspecified heart failure type I50.9 Heart failure type: unspecified Heart failure chronicity: acute Polycythemia D75.1 Acute hypoxic respiratory failure J96.01 COPD exacerbation J44.1 Pneumonia J18.9
[2025-03-12] MEDS: acetaminophen 325 mg Tablet 650 MG PO (13:50)
[2025-03-12 16:51] LABS: Glucose Point of Care 159 mg/dL (70-110)
[2025-03-12 17:02] LABS: Blood Urea Nitrogen 27 mg/dL (6-20); Calcium 9.6 mg/dL (8.5-10.5); Carbon Dioxide 28 mmol/L (22-29); Chloride 89 mmol/L (98-107); Creatinine Clr Calc Pharmacy 72.3061; Glomerular Filtration Rate 56.7 mL/min (90-130); Glucose 141 mg/dL (65-115); Osmolality Calculated 279 mOsm/kg (285-295); Sodium 131 mmol/L (136-145)
[2025-03-12 17:10] LABS: Anion Gap 17.5 (5-19); Potassium 3.5 mmol/L (3.5-5.1)
[2025-03-12] MEDS: enoxaparin 40 mg/0.4 mL Syringe SUBCUT (20:49)
[2025-03-13] VITALS (11 sets, daily range): BP systolic 102–125; BP diastolic 68–84; PULSE 96–117; RESP 12–22; TEMP 36–36.7; O2SAT 88–95
[2025-03-13] MEDS: ipratropium-albuterol 3 mL Neb INHALATION ×4 (03:34→19:47)
[2025-03-13 03:44] LABS: Basophils # 0.1 10^3/uL (0.0-0.1); Basophils % 0.9 %; Eosinophils # 0.2 10^3/uL (0.0-0.8); Eosinophils % 2.2 %; Hematocrit 49.9 % (37-53); Lymphocytes # 1.9 10^3/uL (0.8-4.8); Lymphocytes % 27.8 %; Mean Corpuscular HGB Conc 33.7 g/dL (30-55); Mean Corpuscular Hemoglobin 34.1 pg (27-33); Mean Corpuscular Volume 101.2 fl (82-101); Mean Platelet Volume 9.3 fL (7.4-10.4); Monocytes # 0.6 10^3/uL (0.2-0.9); Monocytes % 8.8 %; Neutrophils # 3.94 10^3/uL (1.8-7.7); Neutrophils % 58.7 %; Nucleated Red Blood Cells % 0 %; Platelet Count 222 10^3/cmm (157-399); Red Blood Count 4.93 10^6/uL (3.85-5.65); White Blood Count 6.72 10^3/uL (3.29-11.43)
[2025-03-13 04:01] LABS: Anion Gap 20.2 (5-19); Blood Urea Nitrogen 24 mg/dL (6-20); Calcium 9.4 mg/dL (8.5-10.5); Carbon Dioxide 29 mmol/L (22-29); Chloride 88 mmol/L (98-107); Creatinine Clr Calc Pharmacy 86.3071; Glomerular Filtration Rate 68.8 mL/min (90-130); Glucose 130 mg/dL (65-115); Osmolality Calculated 284 mOsm/kg (285-295); Potassium 3.2 mmol/L (3.5-5.1); Sodium 134 mmol/L (136-145)
[2025-03-13] MEDS: sennosides-docusate Tablet 2 TAB PO (06:13)
[2025-03-13 06:19] LABS: Glucose Point of Care 197 mg/dL (70-110)
[2025-03-13] MEDS: budesonide 0.5 mg/2 mL Neb INHALATION ×2 (07:39→19:47)
[2025-03-13] MEDS: aspirin 81 mg EC Tablet PO (08:24)
[2025-03-13] MEDS: potassium chloride ER 20 mEq Tablet 40 MEQ PO (08:24)
[2025-03-13] MEDS: diphenhydrAMINE 50 mg Capsule PO (08:24)
[2025-03-13] MEDS: nicotine 21 mg Patch 1 PATCH TRANSDERMA (08:24)
[2025-03-13] MEDS: cyanocobalamin 1,000 mcg Tablet 1000 MCG PO (08:24)
[2025-03-13] MEDS: cefdinir 300 MG CAPSULE PO ×2 (08:24→16:43)
[2025-03-13] MEDS: tamsulosin 0.4 mg Capsule PO (08:24)
--- NOTE | 2025-03-13 10:23 | P.PN_ITS ---
<Statement entered by Saurabh Paulson M.D - 03/14/25 13:19> Patient was cared for in conjunction with an advanced practice practitioner.? I reviewed the chart and all pertinent data including imaging, telemetry, and laboratory results.? I discussed the patient in detail with the advanced practice practitioner.? Please see?their note for progress note, testing results and agreed upon plan of care for the patient. Subjective 2 Subjective: Patient going for left and right heart cath this AM. Doing well without complaints. Creatinine back to normal at 1.1. Vitals/I&O/Wt Last Vital Signs Temp 96.8 F L 03/13/25 08:00 Pulse 117 H 03/13/25 08:00 Resp 18 03/13/25 08:00 BP 115/73 03/13/25 08:00 Pulse Ox 91 03/13/25 08:00 O2 Del Method Nasal Cannula 03/13/25 08:00 O2 Flow Rate 4 03/13/25 07:42 FiO2 50 03/12/25 23:51 03/12/25 03/13/25 03/13/25 22:59 06:59 14:59 Intake Total 980 / 1460 Balance 980 / 1460 Weight last 48 hrs Weight 233 lb 3.985 oz Weight 228 lb 11.2 oz Physical Exam 2 Narrative: General: No apparent distress, on O2 via nasal cannula HENMT: normoceophalic Muskuloskeletal: Full ROM Respiratory: Normal respiratory effort, fine crackles bilateral lower lobes, no use of accessory muscles Cardio: No JVD, regular rate, regular rhythm, S1 S2 normal, no murmurs, peripheral pulses 2+ radial palpated bilaterally Extremities: Full ROM, normal, normal capillary refill, no cyanosis, no edema bilateral lower extremities Neuro: Alert and oriented x4, no focal motor deficits Psych: Affect normal, denies suicidal ideation, mental status grossly normal Skin: Hemosiderin staining bilateral lower extremities Urinary Catheter Management: Montes: Cath Placed During This Visit: yes, but has since been removed by the nurse Reason for Continuing Indwelling Catheter: Accurate Measurement of Urinary Output in Critically Ill Patients Urinary Catheter Date of Insertion: 03/09/25 Date Urinary Catheter Removed: 03/12/25 Time Urinary Catheter Discontinued: 05:41 Data 03/13/25 03:08 03/13/25 03:08 A&P Assessment and plan (1) CHF (congestive heart failure): (2) Decompensated heart failure: (3) Encounter for smoking cessation counseling: (4) Acute hypoxic respiratory failure: Plan Patient is well compensated at this time. Due to new onset diastolic heart failure with CHF exacerbation, proceed with angiogram to r/o underlying coronary disease. He appears well compensated at this time. Potassium slightly low at 3.2. He is getting 40 Daily. Further recommendations after. PDMP PDMP Reviewed: Not Reviewed Attestations 2 Medical Necessity Statement*: Deferred to primary. Coding Level of Care Code Acute Code for [facility]g Fwd Diagnoses Acute congestive heart failure, unspecified heart failure type I50.9 Heart failure type: unspecified Heart failure chronicity: acute Decompensated heart failure I50.9 Encounter for smoking cessation counseling Z71.6 Acute hypoxic respiratory failure J96.01
--- NOTE | 2025-03-13 11:20 | W.PM.OPSUD ---
Surgery/Procedure H&P Update DATE OF PROCEDURE: March 13, 2025 DATE H&P PERFORMED: 03/05/25 H&P UPDATE INFORMATION: I have reviewed H&P completed within last 30 days, I have examined patient prior to procedure and No changes to prior documentation PREOP DIAGNOSIS: Congestive heart failure/ Chest pain PRIMARY INDICATION FOR PROCEDURE: Congestive heart failure/ Chest pain PLANNED PROCEDURE: Operation Date: 03/13/25 10:00 Proposed Procedures Right heart cath/Left heart cath with possible percutaneous coronary intervention- Saurabh Paulson M.D PATIENT REASSESSED PRIOR TO SEDATION, WITH NO CHANGE NOTED: Yes PHYSICAL EXAM: alert, oriented x 3, clear to auscultation bilaterally and regular rate & rhythm AIRWAY EVAL/ANESTHESIA PLAN: normal airway, ASA III, Local Anesthesia, Risks, benefits & alternatives of sedation and/or procedure discussed and Patient agrees to continue as planned ADDITIONAL INFORMATION: Moderate sedation
[2025-03-13 11:45] LABS: Arterial Blood Gas Hematocrit 54.9 % (42-52); Blood Gas Operator Identificat GD; Blood Gas Sample Site Not specified; Blood Gas Sample Type Not specified; Carboxyhemoglobin 1.1 %THgb (0.4-20.1); HGB O2 Sat 95.6 % (95-100); Methemoglobin 0.6 % (0.4-1.5); Oxygen Device NC; Total Hemoglobin 17.9 g/dL (14-18)
[2025-03-13 11:46] LABS: Arterial Blood Gas Hematocrit 56.1 % (42-52); Blood Gas Operator Identificat GD; Blood Gas Sample Site Not specified; Blood Gas Sample Type Not specified; Carboxyhemoglobin 1.2 %THgb (0.4-20.1); HGB O2 Sat 67.8 % (95-100); Methemoglobin 0.7 % (0.4-1.5); Oxygen Device NC; Total Hemoglobin 18.3 g/dL (14-18)
--- NOTE | 2025-03-13 11:56 | PC.NURSE ---
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
--- NOTE | 2025-03-13 12:24 | PM.PROC ---
Procedure Note: Date of procedure: 03/13/25 Pre-procedure diagnosis: Congestive heart failure/ Chest pain Post-procedure diagnosis: other (Severe mid LAD stenosis s/p PCI with 2 stents. [employer] of RCA and Left circumflex artery) Procedure: Severe mid LAD stenosis s/p PCI with 2 stents. [employer] of RCA and Left circumflex artery Dual antiplatelet therapy with aspirin and plavix High intensity statin therapy Performing Provider: Saurabh Paulson Estimated blood loss (mL): 10 Complications: None Condition: stable Disposition: floor Coding Level of Care Code Acute Code for Kryst[facility]
--- NOTE | 2025-03-13 13:04 | P.PN_ITS ---
Subjective 2 Subjective: Patient status post heart cath with 2 stents into the LAD Patient without complaints Vitals/I&O/Wt Last Vital Signs Temp 96.8 F L 03/13/25 08:00 Pulse 117 H 03/13/25 08:00 Resp 18 03/13/25 08:00 BP 115/73 03/13/25 08:00 Pulse Ox 91 03/13/25 08:00 O2 Del Method Nasal Cannula 03/13/25 08:00 O2 Flow Rate 4 03/13/25 07:42 FiO2 50 03/12/25 23:51 03/12/25 03/13/25 03/13/25 22:59 06:59 14:59 Intake Total 980 / 1460 Balance 980 / 1460 Weight last 48 hrs Weight 105.8 kg Weight 103.737 kg Physical Exam 2 Narrative: Alert and oriented no acute distress Heart regular rate and rhythm normal S1-S2 without murmurs clicks gallops or rubs Lungs a few scattered wheezes and rhonchi in the bilateral bases same as yesterday Abdomen obese soft nontender mildly protuberant hypoactive bowel sounds Extremities +1 edema usp up to calf Urinary Catheter Management: Montes: Cath Placed During This Visit: yes, but has since been removed by the nurse Reason for Continuing Indwelling Catheter: Accurate Measurement of Urinary Output in Critically Ill Patients Urinary Catheter Date of Insertion: 03/09/25 Date Urinary Catheter Removed: 03/12/25 Time Urinary Catheter Discontinued: 05:41 Data 03/13/25 03:08 03/13/25 03:08 A&P Assessment and plan (1) CHF (congestive heart failure): (2) Polycythemia: (3) Acute hypoxic respiratory failure: (4) COPD exacerbation: (5) Pneumonia: Plan Acute hypoxic hypercarbic respiratory failure, requiring 3 L - HX OF COPD; PFT shows moderate COPD with restriction - CHF exacerbation, systolic and diastolic -newly diagnosed Status post cath with 2 stents to LAD. - - Now with evidence of pneumonia, seen on CT of the chest: * Mild right posterior basilar hazy infiltrate and mild left basilar atelectasis. * Moderate cardiomegaly with LV configuration. * Trace bilateral pleural effusions. - CHF is compensated at this time. He is now on Lasix 40 mg every morning with potassium 40 mill equivalents daily -COPD exacerbation * Completed a course of IV steroid * DuoNeb Neb * Budesonide * Requires BiPAP for both COPD and new CHF. Settings are 18/8. * overnight pulse ox, he had 82 desat episodes overnight, total desaturation time was 46 minutes, average duration 34 seconds Polycythemia-was barely above range. No treatment required. A hospitalist at 1 time recommended therapeutic phlebotomy. I did not think it was indicated. Now hemoglobin is high normal. Likely related to smoking he admits to smoking up to 5 packs a day. He continues to smoke approximately 2 packs a day but he is motivated to quit we discussed tobacco cessation both yesterday and today Vitamin B12 deficiency Constipation: Resolved now; having daily BM Full code Lovenox for DVT prophylaxis Plan for today Maintain and CSU for telemetry monitoring status post stent placement. Plan to discharge home tomorrow with BiPAP for COPD already arranged PDMP PDMP Reviewed: Not Reviewed Attestations 2 Medical Necessity Statement*: Patient requires hospitalization for new onset CHF must maintain hospital stay after 2 stents placed per policy. Coding [facility] Diagnoses Acute congestive heart failure, unspecified heart failure type I50.9 Heart failure type: unspecified Heart failure chronicity: acute Polycythemia D75.1 Acute hypoxic respiratory failure J96.01 COPD exacerbation J44.1 Pneumonia J18.9
--- NOTE | 2025-03-13 15:07 | PC.NURSE ---
TR band off at this time. Initiated air removal from band ~1300 removing 1-2ml of air every 15-20min until all air removed. No s/s of bleeding or hematoma formation observed at this time. Covered site with 2x2 and coban. Removed pressure dressing from right ac area. No s/s of bleeding to this site as well. Instructed patient on site care with restrictions. Patient verbalized complete understanding.
[2025-03-13 17:11] LABS: Glucose Point of Care 119 mg/dL (70-110)
[2025-03-13] MEDS: enoxaparin 40 mg/0.4 mL Syringe SUBCUT (20:03)
[2025-03-13] MEDS: atorvastatin 40 mg Tablet PO (20:03)
[2025-03-13 20:44] LABS: Glucose Point of Care 126 mg/dL (70-110)
[2025-03-14] VITALS (18 sets, daily range): BP systolic 99–121; BP diastolic 69–77; PULSE 92–103; RESP 16–24; TEMP 36.4–37.1; O2SAT 86–95
[2025-03-14] MEDS: ipratropium-albuterol 3 mL Neb INHALATION ×6 (00:40→23:46)
[2025-03-14 06:45] LABS: Glucose Point of Care 113 mg/dL (70-110)
[2025-03-14] MEDS: clopidogrel 75 mg Tablet PO (07:44)
[2025-03-14] MEDS: potassium chloride ER 20 mEq Tablet 40 MEQ PO (07:44)
[2025-03-14] MEDS: aspirin 81 mg EC Tablet PO (07:44)
[2025-03-14] MEDS: nicotine 21 mg Patch 1 PATCH TRANSDERMA (07:44)
[2025-03-14] MEDS: cefdinir 300 MG CAPSULE PO ×2 (07:45→15:10)
[2025-03-14] MEDS: cyanocobalamin 1,000 mcg Tablet 1000 MCG PO (07:45)
[2025-03-14] MEDS: tamsulosin 0.4 mg Capsule PO (07:45)
[2025-03-14] MEDS: budesonide 0.5 mg/2 mL Neb INHALATION ×2 (07:49→20:20)
[2025-03-14 09:30] LABS: Blood Urea Nitrogen 18 mg/dL (6-20); Calcium 9.4 mg/dL (8.5-10.5); Carbon Dioxide 26 mmol/L (22-29); Chloride 95 mmol/L (98-107); Creatinine Clr Calc Pharmacy 94.1374; Glomerular Filtration Rate 76.7 mL/min (90-130); Glucose 152 mg/dL (65-115); Osmolality Calculated 279 mOsm/kg (285-295); Sodium 132 mmol/L (136-145)
[2025-03-14 09:32] LABS: Anion Gap 15.1 (5-19); Potassium 4.1 mmol/L (3.5-5.1)
--- NOTE | 2025-03-14 09:35 | P.PN_ITS ---
Subjective 2 Subjective: Patient has a shortness of breath. Still requiring oxygen. No chest pain. Vitals/I&O/Wt Last Vital Signs Temp 97.5 F L 03/14/25 08:00 Pulse 94 03/14/25 08:00 Resp 21 H 03/14/25 08:00 BP 99/71 03/14/25 08:00 Pulse Ox 91 03/14/25 08:00 O2 Del Method Nasal Cannula 03/14/25 08:00 O2 Flow Rate 5 03/14/25 07:50 FiO2 50 03/14/25 00:40 03/13/25 03/14/25 03/14/25 22:59 06:59 14:59 Intake Total 1440 / 1440 200 / 1640 240 / 240 Balance 1440 / 1440 200 / 1640 240 / 240 Weight last 48 hrs Weight 229 lb 6.012 oz Weight 233 lb 3.985 oz Physical Exam 2 Narrative: GENERAL: Patient is alert, awake and oriented x3. [] NECK: No jugular vein distension. [] HEENT: No cyanosis. No icterus. No pallor. [] HEART: Regular S1 and S2. No murmur, rub or gallop. [] LUNGS: Diminished air entry CENTRAL NERVOUS SYSTEM: Grossly nonfocal. [] EXTREMITIES: Lower extremities with 1+ edema bilaterally. Urinary Catheter Management: Montes: Cath Placed During This Visit: yes, but has since been removed by the nurse Reason for Continuing Indwelling Catheter: Accurate Measurement of Urinary Output in Critically Ill Patients Urinary Catheter Date of Insertion: 03/09/25 Date Urinary Catheter Removed: 03/12/25 Time Urinary Catheter Discontinued: 05:41 Data 03/15/25 03:51 03/15/25 03:51 A&P Assessment and plan (1) CHF (congestive heart failure): (2) Decompensated heart failure: (3) Encounter for smoking cessation counseling: (4) Acute hypoxic respiratory failure: (5) CAD (coronary artery disease): Plan Patient had PCI of LAD with 2 stents. Continue dual antiplatelet therapy. Has volume overload. Will uptitrate diuretic therapy. Close I&O's. Monitor renal function. Thank you for involving us in the care of this patient. We will continue to follow. Please call with questions. PDMP PDMP Reviewed: Not Reviewed Attestations 2 Medical Necessity Statement*: Care expected to cross 2 midnights Coding Level of Care Code Acute Code for Chg Fwd Diagnoses Acute congestive heart failure, unspecified heart failure type I50.9 Heart failure type: unspecified Heart failure chronicity: acute Decompensated heart failure I50.9 Encounter for smoking cessation counseling Z71.6 Acute hypoxic respiratory failure J96.01 CAD (coronary artery disease) I25.10
[2025-03-14] MEDS: FUROsemide 10 mg/mL SDV 4mL 40 MG IVP (10:50)
[2025-03-14 11:22] LABS: Glucose Point of Care 141 mg/dL (70-110)
--- NOTE | 2025-03-14 11:46 | P.PN_ITS ---
Subjective 2 Subjective: seen today pt was on 8L NC overnight now down to 4L he is not on any oxygen at home he hopes he can go home today Vitals/I&O/Wt Last Vital Signs Temp 97.5 F L 03/14/25 08:00 Pulse 103 H 03/14/25 11:31 Resp 16 03/14/25 11:31 BP 99/71 03/14/25 08:00 Pulse Ox 91 03/14/25 11:31 O2 Del Method Nasal Cannula 03/14/25 11:31 O2 Flow Rate 4 03/14/25 11:31 FiO2 50 03/14/25 00:40 03/13/25 03/14/25 03/14/25 22:59 06:59 14:59 Intake Total 1440 / 1440 200 / 1640 240 / 240 Balance 1440 / 1440 200 / 1640 240 / 240 Weight last 48 hrs Weight 104.043 kg Weight 105.8 kg Physical Exam 2 Narrative: General: No apparent distress, on 4L O2 via nasal cannula Respiratory: fine crackles b/l, no wheezes, no ronchi Cardio: regular rate, regular rhythm, S1 S2 normal, no murmurs, peripheral pulses 2+ radial palpated bilaterally Extremities: Full ROM, normal, normal capillary refill, no cyanosis, no edema bilateral lower extremities Neuro: Alert and oriented x4, no focal motor deficits Urinary Catheter Management: Montes: Cath Placed During This Visit: yes, but has since been removed by the nurse Reason for Continuing Indwelling Catheter: Accurate Measurement of Urinary Output in Critically Ill Patients Urinary Catheter Date of Insertion: 03/09/25 Date Urinary Catheter Removed: 03/12/25 Time Urinary Catheter Discontinued: 05:41 Data 03/13/25 03:08 03/14/25 08:54 A&P Assessment and plan (1) CHF (congestive heart failure): (2) Polycythemia: (3) Acute hypoxic respiratory failure: (4) COPD exacerbation: (5) Pneumonia: Plan Acute hypoxic hypercarbic respiratory failure, requiring 3 L - HX OF COPD; PFT shows moderate COPD with restriction - CHF exacerbation, systolic and diastolic -newly diagnosed Status post cath with 2 stents to LAD. - - Now with evidence of pneumonia, seen on CT of the chest: * Mild right posterior basilar hazy infiltrate and mild left basilar atelectasis. * Moderate cardiomegaly with LV configuration. * Trace bilateral pleural effusions. - CHF is compensated at this time. He is now on Lasix 40 mg every morning with potassium 40 mill equivalents daily -COPD exacerbation * Completed a course of IV steroid * DuoNeb Neb * Budesonide * Requires BiPAP for both COPD and new CHF. Settings are 19/05. * overnight pulse ox, he had 82 desat episodes overnight, total desaturation time was 46 minutes, average duration 34 seconds Polycythemia-was barely above range. No treatment required. A hospitalist at 1 time recommended therapeutic phlebotomy. I did not think it was indicated. Now hemoglobin is high normal. Likely related to smoking he admits to smoking up to 5 packs a day. He continues to smoke approximately 2 packs a day but he is motivated to quit we discussed tobacco cessation both yesterday and today Vitamin B12 deficiency Constipation: Resolved now; having daily BM Full code Lovenox for DVT prophylaxis Plan for today Maintain and CSU for telemetry monitoring status post stent placement. Plan to discharge home tomorrow with BiPAP for COPD already arranged 03/14/2025 requiring 4L o2 at this time at rest Overnight was on 8L CHF: will continue lasix 40 milligram daily. I will give another dose of IV Lasix 40 today. He does appear to have trace to 1+ pitting edema bilateral lower extremities. Date of exacerbation: Patient received methylprednisolone 125 IV x 1 on 03/09. I do not see any other prednisone or Solu-Medrol administered thereafter. I will place patient on prednisone 40 daily x 4 more days. Continue on BiPAP for both COPD and new CHF settings 19/05. Patient requires continued hospitalization secondary to high oxygen requirements. He is on 4 L nasal cannula today and overnight had to be bumped up to 8 L. Recheck BMP around 5 PM. PDMP PDMP Reviewed: Not Reviewed Attestations 2 Medical Necessity Statement*: requires continued hospitalization due to o2 requirements Coding Level of Care Code 73224 Diagnoses Acute congestive heart failure, unspecified heart failure type I50.9 Heart failure type: unspecified Heart failure chronicity: acute Polycythemia D75.1 Acute hypoxic respiratory failure J96.01 COPD exacerbation J44.1 Pneumonia J18.9
[2025-03-14] MEDS: predniSONE 20 mg Tablet 40 MG PO (15:10)
[2025-03-14] MEDS: acetaminophen 325 mg Tablet 650 MG PO ×2 (15:11→21:26)
[2025-03-14 17:10] LABS: Glucose Point of Care 131 mg/dL (70-110)
[2025-03-14 18:58] LABS: Anion Gap 16.3 (5-19); Blood Urea Nitrogen 19 mg/dL (6-20); Calcium 9.5 mg/dL (8.5-10.5); Carbon Dioxide 26 mmol/L (22-29); Chloride 94 mmol/L (98-107); Creatinine Clr Calc Pharmacy 104.5971; Glomerular Filtration Rate 86.7 mL/min (90-130); Glucose 163 mg/dL (65-115); Osmolality Calculated 280 mOsm/kg (285-295); Potassium 4.3 mmol/L (3.5-5.1); Sodium 132 mmol/L (136-145)
[2025-03-14 19:55] LABS: Glucose Point of Care 214 mg/dL (70-110)
[2025-03-14] MEDS: atorvastatin 40 mg Tablet PO (20:02)
[2025-03-14] MEDS: enoxaparin 40 mg/0.4 mL Syringe SUBCUT (21:27)
[2025-03-15] VITALS (18 sets, daily range): BP systolic 113–131; BP diastolic 73–102; PULSE 93–114; RESP 12–24; TEMP 36.1–36.8; O2SAT 89–96
[2025-03-15] MEDS: ipratropium-albuterol 3 mL Neb INHALATION ×6 (04:06→23:59)
[2025-03-15 04:48] LABS: Basophils % 0.2 %; Eosinophils % 0.1 %; Hematocrit 47.8 % (37-53); Lymphocytes % 12.6 %; Mean Corpuscular HGB Conc 33.3 g/dL (30-55); Mean Corpuscular Hemoglobin 33.9 pg (27-33); Mean Corpuscular Volume 101.9 fl (82-101); Mean Platelet Volume 9.5 fL (7.4-10.4); Monocytes # 0.4 10^3/uL (0.2-0.9); Monocytes % 4.9 %; Neutrophils # 6.48 10^3/uL (1.8-7.7); Neutrophils % 80.6 %; Nucleated Red Blood Cells % 0 %; Platelet Count 231 10^3/cmm (157-399); Red Blood Count 4.69 10^6/uL (3.85-5.65); Red Cell Distribution Width 14.5 % (12.1-15.1); White Blood Count 8.04 10^3/uL (3.29-11.43)
[2025-03-15 04:55] LABS: Alanine Aminotransferase 59 U/L (0-41); Albumin Level 3.5 g/dL (3.5-5.2); Alkaline Phosphatase 75 U/L (40-130); Anion Gap 16.3 (5-19); Aspartate Amino Transferase 57 U/L (0-40); Blood Urea Nitrogen 17 mg/dL (6-20); Calcium 9.7 mg/dL (8.5-10.5); Carbon Dioxide 27 mmol/L (22-29); Chloride 95 mmol/L (98-107); Creatinine Clr Calc Pharmacy 105.3852; Globulin 3.8 g/dL (1.3-4.6); Glomerular Filtration Rate 86.7 mL/min (90-130); Glucose 129 mg/dL (65-115); Osmolality Calculated 281 mOsm/kg (285-295); Potassium 4.3 mmol/L (3.5-5.1); Sodium 134 mmol/L (136-145); Total Bilirubin 0.4 mg/dL (0.15-1.2); Total Protein 7.3 g/dL (6.6-8.7)
[2025-03-15] MEDS: acetaminophen 325 mg Tablet 650 MG PO ×3 (05:42→22:16)
[2025-03-15] MEDS: sennosides-docusate Tablet 2 TAB PO (05:42)
[2025-03-15 06:07] LABS: Glucose Point of Care 177 mg/dL (70-110)
[2025-03-15] MEDS: budesonide 0.5 mg/2 mL Neb INHALATION ×2 (07:29→21:38)
--- NOTE | 2025-03-15 07:49 | PC.NURSE ---
Spent time with patient this am instructing patient on heart failure with lifestyle changes and medications. Patient demonstrated and verbalized complete understanding. Patient denies pain or needs. No distress observed.
[2025-03-15] MEDS: nicotine 21 mg Patch 1 PATCH TRANSDERMA (08:27)
[2025-03-15] MEDS: predniSONE 20 mg Tablet 40 MG PO (08:27)
[2025-03-15] MEDS: tamsulosin 0.4 mg Capsule PO (08:27)
[2025-03-15] MEDS: clopidogrel 75 mg Tablet PO (08:27)
[2025-03-15] MEDS: cefdinir 300 MG CAPSULE PO ×2 (08:27→16:12)
[2025-03-15] MEDS: aspirin 81 mg EC Tablet PO (08:27)
[2025-03-15] MEDS: cyanocobalamin 1,000 mcg Tablet 1000 MCG PO (08:28)
[2025-03-15] MEDS: potassium chloride ER 20 mEq Tablet 40 MEQ PO (08:28)
[2025-03-15] MEDS: FUROsemide 10 mg/mL SDV 10mL 60 MG IVP (09:07)
[2025-03-15] MEDS: metOLazone 5 MG Tablet PO (09:08)
--- NOTE | 2025-03-15 09:59 | P.PN_ITS ---
Subjective 2 Subjective: Patient still requiring significant oxygen. No chest pain. Vitals/I&O/Wt Last Vital Signs Temp 97.3 F L 03/15/25 08:00 Pulse 107 H 03/15/25 08:00 Resp 24 H 03/15/25 08:00 BP 113/80 03/15/25 08:00 Pulse Ox 94 03/15/25 08:00 O2 Del Method Nasal Cannula 03/15/25 08:00 O2 Flow Rate 5 03/15/25 08:00 FiO2 50 03/14/25 00:40 03/14/25 03/15/25 03/15/25 22:59 06:59 14:59 Intake Total 810 / 1530 800 / 2330 480 / 480 Balance 810 / 1530 800 / 2330 480 / 480 Weight last 48 hrs Weight 232 lb 12.93 oz Weight 229 lb 6.012 oz Physical Exam 2 Narrative: GENERAL: Patient is alert, awake and oriented x3. [] NECK: No jugular vein distension. [] HEENT: No cyanosis. No icterus. No pallor. [] HEART: Regular S1 and S2. No murmur, rub or gallop. [] LUNGS: Diminished air entry CENTRAL NERVOUS SYSTEM: Grossly nonfocal. [] EXTREMITIES: Lower extremities with 1+ edema bilaterally. Urinary Catheter Management: Montes: Cath Placed During This Visit: yes, but has since been removed by the nurse Reason for Continuing Indwelling Catheter: Accurate Measurement of Urinary Output in Critically Ill Patients Urinary Catheter Date of Insertion: 03/09/25 Date Urinary Catheter Removed: 03/12/25 Time Urinary Catheter Discontinued: 05:41 Data 03/16/25 04:34 03/16/25 04:34 A&P Assessment and plan (1) CHF (congestive heart failure): (2) Decompensated heart failure: (3) Encounter for smoking cessation counseling: (4) Acute hypoxic respiratory failure: (5) CAD (coronary artery disease): Plan We will uptitrate diuretic therapy. Given IV Lasix. Will add metolazone. Close I&O's. Monitor renal function. Continue dual antiplatelet therapy as had PCI of LAD recently. Thank you for involving us in the care of this patient. We will continue to follow. Please call with questions. PDMP PDMP Reviewed: Not Reviewed Attestations 2 Medical Necessity Statement*: Care expected to cross 2 midnights. Coding Level of Care Code Acute Code for [facility]g Fwd Diagnoses Acute congestive heart failure, unspecified heart failure type I50.9 Heart failure type: unspecified Heart failure chronicity: acute Decompensated heart failure I50.9 Encounter for smoking cessation counseling Z71.6 Acute hypoxic respiratory failure J96.01 CAD (coronary artery disease) I25.10
[2025-03-15 12:04] LABS: Glucose Point of Care 130 mg/dL (70-110)
--- NOTE | 2025-03-15 13:55 | P.PN_ITS ---
Subjective 2 Subjective: seen this am urine output not being recorded will talk to nursing staff for accurate output pt appears fluid overloaded state discussed with him regarding continued lasix use O2 at 6L Vitals/I&O/Wt Last Vital Signs Temp 96.9 F L 03/15/25 12:00 Pulse 100 03/15/25 12:00 Resp 20 H 03/15/25 12:00 BP 131/78 03/15/25 12:00 Pulse Ox 93 03/15/25 12:00 O2 Del Method Nasal Cannula 03/15/25 12:00 O2 Flow Rate 5 03/15/25 12:00 FiO2 50 03/14/25 00:40 03/14/25 03/15/25 03/15/25 22:59 06:59 14:59 Intake Total 810 / 1530 800 / 2330 960 / 960 Balance 810 / 1530 800 / 2330 960 / 960 Weight last 48 hrs Weight 105.6 kg Weight 104.043 kg Physical Exam 2 Narrative: General: No apparent distress, on 6L O2 via nasal cannula Respiratory: fine crackles b/l, no wheezes, no ronchi Cardio: regular rate, regular rhythm, S1 S2 normal, no murmurs, peripheral pulses 2+ radial palpated bilaterally Extremities: Full ROM, normal, normal capillary refill, no cyanosis, no edema bilateral lower extremities Neuro: Alert and oriented x4, no focal motor deficits Urinary Catheter Management: Montes: Cath Placed During This Visit: yes, but has since been removed by the nurse Reason for Continuing Indwelling Catheter: Accurate Measurement of Urinary Output in Critically Ill Patients Urinary Catheter Date of Insertion: 03/09/25 Date Urinary Catheter Removed: 03/12/25 Time Urinary Catheter Discontinued: 05:41 Data 03/15/25 03:51 03/15/25 03:51 A&P Assessment and plan (1) CHF (congestive heart failure): (2) Polycythemia: (3) Acute hypoxic respiratory failure: (4) COPD exacerbation: (5) Pneumonia: Plan Acute hypoxic hypercarbic respiratory failure, requiring 3 L - HX OF COPD; PFT shows moderate COPD with restriction - CHF exacerbation, systolic and diastolic -newly diagnosed Status post cath with 2 stents to LAD. - - Now with evidence of pneumonia, seen on CT of the chest: * Mild right posterior basilar hazy infiltrate and mild left basilar atelectasis. * Moderate cardiomegaly with LV configuration. * Trace bilateral pleural effusions. - CHF is compensated at this time. He is now on Lasix 40 mg every morning with potassium 40 mill equivalents daily -COPD exacerbation * Completed a course of IV steroid * DuoNeb Neb * Budesonide * Requires BiPAP for both COPD and new CHF. Settings are 19/05. * overnight pulse ox, he had 82 desat episodes overnight, total desaturation time was 46 minutes, average duration 34 seconds Polycythemia-was barely above range. No treatment required. A hospitalist at 1 time recommended therapeutic phlebotomy. I did not think it was indicated. Now hemoglobin is high normal. Likely related to smoking he admits to smoking up to 5 packs a day. He continues to smoke approximately 2 packs a day but he is motivated to quit we discussed tobacco cessation both yesterday and today Vitamin B12 deficiency Constipation: Resolved now; having daily BM Full code Lovenox for DVT prophylaxis Plan for today Maintain and CSU for telemetry monitoring status post stent placement. Plan to discharge home tomorrow with BiPAP for COPD already arranged 03/14/2025 requiring 4L o2 at this time at rest Overnight was on 8L CHF: will continue lasix 40 milligram daily. I will give another dose of IV Lasix 40 today. He does appear to have trace to 1+ pitting edema bilateral lower extremities. Date of exacerbation: Patient received methylprednisolone 125 IV x 1 on 03/09. I do not see any other prednisone or Solu-Medrol administered thereafter. I will place patient on prednisone 40 daily x 4 more days. Continue on BiPAP for both COPD and new CHF settings 19/05. Patient requires continued hospitalization secondary to high oxygen requirements. He is on 4 L nasal cannula today and overnight had to be bumped up to 8 L. Recheck BMP around 5 PM. 03/15/2025 on 6L O2 continue lasix 40 IV BID he did get one time dose of metolazone in [place] he will need continued diuresis continue to wean o2 down as able discussed plan with cardiology continue aspirin and plavix PDMP PDMP Reviewed: Not Reviewed Attestations 2 Medical Necessity Statement*: requires continued hospitalization due to o2 requirements Diagnoses Acute congestive heart failure, unspecified heart failure type I50.9 Heart failure type: unspecified Heart failure chronicity: acute Polycythemia D75.1 Acute hypoxic respiratory failure J96.01 COPD exacerbation J44.1 Pneumonia J18.9
[2025-03-15] MEDS: FUROsemide 10 mg/mL SDV 4mL 40 MG IVP (16:12)
[2025-03-15 17:33] LABS: Glucose Point of Care 168 mg/dL (70-110)
[2025-03-15] MEDS: atorvastatin 40 mg Tablet PO (20:39)
[2025-03-15] MEDS: enoxaparin 40 mg/0.4 mL Syringe SUBCUT (20:39)
[2025-03-15 20:56] LABS: Glucose Point of Care 183 mg/dL (70-110)
[2025-03-16] VITALS (18 sets, daily range): BP systolic 99–123; BP diastolic 69–87; PULSE 90–111; RESP 14–22; TEMP 36.2–37; O2SAT 89–95
[2025-03-16 04:48] LABS: Basophils % 0.2 %; Eosinophils # 0.1 10^3/uL (0.0-0.8); Eosinophils % 0.9 %; Hematocrit 48.2 % (37-53); Lymphocytes # 1.9 10^3/uL (0.8-4.8); Lymphocytes % 21.6 %; Mean Corpuscular HGB Conc 33.6 g/dL (30-55); Mean Corpuscular Hemoglobin 34.8 pg (27-33); Mean Corpuscular Volume 103.7 fl (82-101); Monocytes # 0.6 10^3/uL (0.2-0.9); Neutrophils # 6.11 10^3/uL (1.8-7.7); Neutrophils % 69.2 %; Nucleated Red Blood Cells % 0 %; Platelet Count 203 10^3/cmm (157-399); Red Blood Count 4.65 10^6/uL (3.85-5.65); Red Cell Distribution Width 14.7 % (12.1-15.1); White Blood Count 8.84 10^3/uL (3.29-11.43)
[2025-03-16] MEDS: ipratropium-albuterol 3 mL Neb INHALATION ×6 (04:55→23:08)
[2025-03-16] MEDS: FUROsemide 10 mg/mL SDV 4mL 40 MG IVP ×2 (05:02→16:02)
[2025-03-16] MEDS: sennosides-docusate Tablet 2 TAB PO ×2 (05:02→17:33)
[2025-03-16 05:11] LABS: Alanine Aminotransferase 46 U/L (0-41); Albumin Level 3.5 g/dL (3.5-5.2); Alkaline Phosphatase 82 U/L (40-130); Aspartate Amino Transferase 41 U/L (0-40); Blood Urea Nitrogen 19 mg/dL (6-20); Calcium 9.7 mg/dL (8.5-10.5); Carbon Dioxide 27 mmol/L (22-29); Chloride 91 mmol/L (98-107); Creatinine Clr Calc Pharmacy 106.0938; Globulin 3.8 g/dL (1.3-4.6); Glomerular Filtration Rate 86.7 mL/min (90-130); Glucose 128 mg/dL (65-115); Osmolality Calculated 276 mOsm/kg (285-295); Sodium 131 mmol/L (136-145); Total Bilirubin 0.3 mg/dL (0.15-1.2); Total Protein 7.3 g/dL (6.6-8.7)
[2025-03-16 05:15] LABS: Anion Gap 16.3 (5-19); Potassium 3.3 mmol/L (3.5-5.1)
[2025-03-16 06:33] LABS: Glucose Point of Care 159 mg/dL (70-110)
--- NOTE | 2025-03-16 06:50 | PC.NURSE ---
Notified Dr. Peoples of potassium of 3.3 this morning. Awaiting reply.
[2025-03-16 07:59] LABS: Glucose Point of Care 138 mg/dL (70-110)
[2025-03-16] MEDS: budesonide 0.5 mg/2 mL Neb INHALATION ×2 (08:09→20:14)
[2025-03-16] MEDS: cefdinir 300 MG CAPSULE PO ×2 (09:34→17:33)
[2025-03-16] MEDS: potassium chloride ER 20 mEq Tablet 40 MEQ PO (09:34)
[2025-03-16] MEDS: tamsulosin 0.4 mg Capsule PO (09:34)
[2025-03-16] MEDS: clopidogrel 75 mg Tablet PO (09:34)
[2025-03-16] MEDS: cyanocobalamin 1,000 mcg Tablet 1000 MCG PO (09:34)
[2025-03-16] MEDS: predniSONE 20 mg Tablet 40 MG PO (09:34)
[2025-03-16] MEDS: nicotine 21 mg Patch 1 PATCH TRANSDERMA (09:35)
[2025-03-16] MEDS: aspirin 81 mg EC Tablet PO (09:35)
--- NOTE | 2025-03-16 10:27 | P.PN_ITS ---
Vitals/I&O/Wt Last Vital Signs Temp 97.4 F L 03/16/25 08:12 Pulse 101 H 03/16/25 08:17 Resp 16 03/16/25 08:12 BP 117/75 03/16/25 08:12 Pulse Ox 92 03/16/25 08:12 O2 Del Method Nasal Cannula 03/16/25 08:12 O2 Flow Rate 3 03/16/25 08:10 FiO2 50 03/14/25 00:40 03/15/25 03/16/25 03/16/25 22:59 06:59 14:59 Intake Total 960 / 1920 400 / 2320 480 / 480 Output Total 2425 / 2425 1275 / 3700 950 / 950 Balance -1465 / -505 -875 / -1380 -470 / -470 Weight last 48 hrs Weight 235 lb 14.314 oz Weight 232 lb 12.93 oz Physical Exam 2 Urinary Catheter Management: Montes: Cath Placed During This Visit: yes, but has since been removed by the nurse Reason for Continuing Indwelling Catheter: Accurate Measurement of Urinary Output in Critically Ill Patients Urinary Catheter Date of Insertion: 03/09/25 Date Urinary Catheter Removed: 03/12/25 Time Urinary Catheter Discontinued: 05:41 Data 03/16/25 04:34 03/16/25 04:34 A&P PDMP PDMP Reviewed: Not Reviewed Coding Level of Care Code Acute Code for Chg Fwd
[2025-03-16 11:56] LABS: Glucose Point of Care 146 mg/dL (70-110)
[2025-03-16] MEDS: metOLazone 5 MG Tablet PO (12:01)
--- NOTE | 2025-03-16 12:30 | P.PN_ITS ---
Subjective 2 Subjective: 4500 cc urine output overnight. On 5 L nasal cannula at this time. 10 L negative since admission. Subjectively he is feeling better. Vitals/I&O/Wt Last Vital Signs Temp 98.6 F 03/16/25 10:50 Pulse 90 03/16/25 11:13 Resp 18 03/16/25 11:10 BP 123/79 03/16/25 10:50 Pulse Ox 94 03/16/25 11:10 O2 Del Method Nasal Cannula 03/16/25 11:10 O2 Flow Rate 2 03/16/25 11:10 FiO2 50 03/14/25 00:40 03/15/25 03/16/25 03/16/25 22:59 06:59 14:59 Intake Total 960 / 1920 400 / 2320 480 / 480 Output Total 2425 / 2425 1275 / 3700 1175 / 1175 Balance -1465 / -505 -875 / -1380 -695 / -695 Weight last 48 hrs Weight 107 kg Weight 105.6 kg Physical Exam 2 Narrative: General: No apparent distress, on 5L O2 via nasal cannula Respiratory: Clear to auscultation bilaterally no wheezes no rhonchi or crackles appreciated today. Cardio: regular rate, regular rhythm, S1 S2 normal, no murmurs, peripheral pulses 2+ radial palpated bilaterally Extremities: Full ROM, normal, normal capillary refill, no cyanosis, no edema bilateral lower extremities Neuro: Alert and oriented x4, no focal motor deficits Urinary Catheter Management: Montes: Cath Placed During This Visit: yes, but has since been removed by the nurse Reason for Continuing Indwelling Catheter: Accurate Measurement of Urinary Output in Critically Ill Patients Urinary Catheter Date of Insertion: 03/09/25 Date Urinary Catheter Removed: 03/12/25 Time Urinary Catheter Discontinued: 05:41 Data 03/16/25 04:34 03/16/25 04:34 A&P Assessment and plan (1) CHF (congestive heart failure): (2) Polycythemia: (3) Acute hypoxic respiratory failure: (4) COPD exacerbation: (5) Pneumonia: Plan Acute hypoxic hypercarbic respiratory failure, requiring 3 L - HX OF COPD; PFT shows moderate COPD with restriction - CHF exacerbation, systolic and diastolic -newly diagnosed Status post cath with 2 stents to LAD. - - Now with evidence of pneumonia, seen on CT of the chest: * Mild right posterior basilar hazy infiltrate and mild left basilar atelectasis. * Moderate cardiomegaly with LV configuration. * Trace bilateral pleural effusions. - CHF is compensated at this time. He is now on Lasix 40 mg every morning with potassium 40 mill equivalents daily -COPD exacerbation * Completed a course of IV steroid * DuoNeb Neb * Budesonide * Requires BiPAP for both COPD and new CHF. Settings are 19/05. * overnight pulse ox, he had 82 desat episodes overnight, total desaturation time was 46 minutes, average duration 34 seconds Polycythemia-was barely above range. No treatment required. A hospitalist at 1 time recommended therapeutic phlebotomy. I did not think it was indicated. Now hemoglobin is high normal. Likely related to smoking he admits to smoking up to 5 packs a day. He continues to smoke approximately 2 packs a day but he is motivated to quit we discussed tobacco cessation both yesterday and today Vitamin B12 deficiency Constipation: Resolved now; having daily BM Full code Lovenox for DVT prophylaxis Plan for today Maintain and CSU for telemetry monitoring status post stent placement. Plan to discharge home tomorrow with BiPAP for COPD already arranged 03/14/2025 requiring 4L o2 at this time at rest Overnight was on 8L CHF: will continue lasix 40 milligram daily. I will give another dose of IV Lasix 40 today. He does appear to have trace to 1+ pitting edema bilateral lower extremities. Date of exacerbation: Patient received methylprednisolone 125 IV x 1 on 03/09. I do not see any other prednisone or Solu-Medrol administered thereafter. I will place patient on prednisone 40 daily x 4 more days. Continue on BiPAP for both COPD and new CHF settings 19/05. Patient requires continued hospitalization secondary to high oxygen requirements. He is on 4 L nasal cannula today and overnight had to be bumped up to 8 L. Recheck BMP around 5 PM. 03/15/2025 on 6L O2 continue lasix 40 IV BID he did get one time dose of metolazone in [place] he will need continued diuresis continue to wean o2 down as able discussed plan with cardiology continue aspirin and plavix 03/16/2025 Continue Lasix Continue diuresis. Continue aspirin Plavix Patient completed 3 days of prednisone. Repeat CT chest without contrast to evaluate for continued hypoxia and requirement of oxygen use. Patient is diuresing adequately however oxygen requirements are not improving. PDMP PDMP Reviewed: Not Reviewed Attestations 2 Medical Necessity Statement*: Requires continued hospitalization for diuresis and workup of continued need of oxygen Diagnoses Acute congestive heart failure, unspecified heart failure type I50.9 Heart failure type: unspecified Heart failure chronicity: acute Polycythemia D75.1 Acute hypoxic respiratory failure J96.01 COPD exacerbation J44.1 Pneumonia J18.9
--- NOTE | 2025-03-16 12:33 | CTR_ITS ---
PROCEDURE INFORMATION: Exam: CT Chest Without Contrast; Diagnostic Exam date and time: 03/16/2025 1:42 PM Age: 59 years old Clinical indication: Hyperventilation; Additional info: Hypoxia TECHNIQUE: Imaging protocol: Diagnostic computed tomography of the chest without contrast. Radiation optimization: All CT scans at this facility use at least one of these dose optimization techniques: automated exposure control; mA and/or kV adjustment per patient size (includes targeted exams where dose is matched to clinical indication); or iterative reconstruction. COMPARISON: CT angio chest PE prot [id number] 03/08/2025 2:19 PM RADIATION DOSE METRICS: Total DLP (mGy-cm): 685.64 FINDINGS: Lungs: There is no consolidation. There is subsegmental atelectasis in the left lung. Trachea and bronchi are normal. There is mild patchy bilateral subpleural predominant fine reticular and ground-glass opacity which is most conspicuous in the upper lungs. Pulmonary abnormalities are less conspicuous than on 03/08/2025. There is minimal residual subpleural reticular opacity in the right lower lobe which is decreased since 03/08/2025. Pleural spaces: There is no pleural effusion or pneumothorax. Heart: Heart size is normal. There is no pericardial effusion. Coronary arteries: There is moderate coronary artery calcification. Lymph nodes: There is no mediastinal or hilar lymphadenopathy. Vasculature: There is mild aortic atherosclerotic disease. Intraperitoneal space: Visible structures in the upper abdomen are unremarkable. Bones/joints: There are multiple healed bilateral posterior rib fractures. Mild S shaped thoracic scoliosis. No acute osseous findings. Soft tissues: The extrathoracic soft tissues are unremarkable. CT/CT chest [facility] [id number] IMPRESSION: Decreased mild nonspecific bilateral pulmonary opacity since 03/08/2025. Possible resolving interstitial edema or infection. Mild underlying chronic interstitial lung disease is not excluded.
[2025-03-16 13:04] LABS: Procalcitonin 0.13 ng/mL (0-0.5)
[2025-03-16 16:52] LABS: Glucose Point of Care 195 mg/dL (70-110)
[2025-03-16] MEDS: atorvastatin 40 mg Tablet PO (21:06)
[2025-03-16] MEDS: enoxaparin 40 mg/0.4 mL Syringe SUBCUT (21:06)
[2025-03-16] MEDS: oxyCODONE-APAP 5-325 mg Tablet 1 TAB PO (21:07)
[2025-03-16 23:14] LABS: Glucose Point of Care 136 mg/dL (70-110)
[2025-03-17] VITALS (15 sets, daily range): BP systolic 99–127; BP diastolic 75–89; PULSE 99–120; RESP 14–24; TEMP 36.1–36.7; O2SAT 88–95
[2025-03-17] MEDS: oxyCODONE-APAP 5-325 mg Tablet 1 TAB PO ×2 (01:36→14:46)
[2025-03-17] MEDS: potassium chloride ER 20 mEq Tablet 40 MEQ PO ×3 (01:36→08:25)
[2025-03-17 03:38] LABS: Basophils % 0.3 %; Eosinophils # 0.1 10^3/uL (0.0-0.8); Eosinophils % 0.6 %; Hematocrit 49.4 % (37-53); Lymphocytes # 2.1 10^3/uL (0.8-4.8); Lymphocytes % 20.6 %; Mean Corpuscular HGB Conc 33.8 g/dL (30-55); Mean Corpuscular Hemoglobin 33.9 pg (27-33); Mean Corpuscular Volume 100.2 fl (82-101); Mean Platelet Volume 9.4 fL (7.4-10.4); Monocytes # 0.8 10^3/uL (0.2-0.9); Monocytes % 7.5 %; Neutrophils # 7.02 10^3/uL (1.8-7.7); Neutrophils % 69.4 %; Nucleated Red Blood Cells % 0 %; Platelet Count 240 10^3/cmm (157-399); Red Blood Count 4.93 10^6/uL (3.85-5.65); Red Cell Distribution Width 14.6 % (12.1-15.1); White Blood Count 10.11 10^3/uL (3.29-11.43)
[2025-03-17 03:54] LABS: Alanine Aminotransferase 57 U/L (0-41); Albumin Level 3.8 g/dL (3.5-5.2); Alkaline Phosphatase 74 U/L (40-130); Anion Gap 19.1 (5-19); Aspartate Amino Transferase 54 U/L (0-40); Blood Urea Nitrogen 26 mg/dL (6-20); Calcium 9.7 mg/dL (8.5-10.5); Carbon Dioxide 28 mmol/L (22-29); Chloride 87 mmol/L (98-107); Creatinine Clr Calc Pharmacy 79.5704; Globulin 3.8 g/dL (1.3-4.6); Glomerular Filtration Rate 62.2 mL/min (90-130); Glucose 125 mg/dL (65-115); Osmolality Calculated 278 mOsm/kg (285-295); Potassium 3.1 mmol/L (3.5-5.1); Sodium 131 mmol/L (136-145); Total Bilirubin 0.4 mg/dL (0.15-1.2); Total Protein 7.6 g/dL (6.6-8.7)
[2025-03-17] MEDS: ipratropium-albuterol 3 mL Neb INHALATION ×5 (04:28→20:47)
[2025-03-17] MEDS: sennosides-docusate Tablet 2 TAB PO ×2 (06:04→17:54)
[2025-03-17] MEDS: FUROsemide 10 mg/mL SDV 4mL 40 MG IVP (06:08)
[2025-03-17 07:25] LABS: Glucose Point of Care 116 mg/dL (70-110)
[2025-03-17] MEDS: budesonide 0.5 mg/2 mL Neb INHALATION ×2 (08:19→20:50)
[2025-03-17] MEDS: aspirin 81 mg EC Tablet PO (08:25)
[2025-03-17] MEDS: cefdinir 300 MG CAPSULE PO ×2 (08:25→17:54)
[2025-03-17] MEDS: clopidogrel 75 mg Tablet PO (08:25)
[2025-03-17] MEDS: cyanocobalamin 1,000 mcg Tablet 1000 MCG PO (08:25)
[2025-03-17] MEDS: tamsulosin 0.4 mg Capsule PO (08:26)
[2025-03-17] MEDS: metOLazone 5 MG Tablet PO (08:26)
[2025-03-17] MEDS: nicotine 21 mg Patch 1 PATCH TRANSDERMA (08:26)
--- NOTE | 2025-03-17 09:30 | P.PN_ITS ---
Subjective 2 Subjective: Patient is doing well this morning with no complaints. Blood pressure soft. Patient has sinus tachycardia at times. Oxygen saturation 96% on 2 L nasal cannula. He is requiring less oxygen than previously. He he is starting to diurese well. He is -2080 L over 24 hours. Creatinine has slightly increased to 1.2. Potassium low at 3.1. Vitals/I&O/Wt Last Vital Signs Temp 97.3 F L 03/17/25 07:00 Pulse 107 H 03/17/25 08:19 Resp 18 03/17/25 08:19 BP 99/80 03/17/25 07:00 Pulse Ox 93 03/17/25 08:19 O2 Del Method Nasal Cannula 03/17/25 08:19 O2 Flow Rate 2 03/17/25 08:19 FiO2 50 03/14/25 00:40 03/16/25 03/17/25 03/17/25 22:59 06:59 14:59 Intake Total 120 / 1080 1000 / 2080 360 / 360 Output Total 1375 / 2875 875 / 3750 1240 / 1240 Balance -1255 / -1795 125 / -1670 -880 / -880 Weight last 48 hrs Weight 235 lb 14.314 oz Physical Exam 2 Narrative: General: No apparent distress, on O2 via nasal cannula HENMT: normoceophalic Muskuloskeletal: Full ROM Respiratory: Normal respiratory effort, bilateral lung chapa clear throughout, no use of accessory muscles Cardio: No JVD, regular rate, regular rhythm, S1 S2 normal, no murmurs, peripheral pulses 2+ radial palpated bilaterally Extremities: Full ROM, normal, normal capillary refill, no cyanosis, no edema bilateral lower extremities Neuro: Alert and oriented x4, no focal motor deficits Psych: Affect normal, denies suicidal ideation, mental status grossly normal Skin: Hemosiderin staining bilateral lower extremities Urinary Catheter Management: Montes: Cath Placed During This Visit: yes, but has since been removed by the nurse Reason for Continuing Indwelling Catheter: Accurate Measurement of Urinary Output in Critically Ill Patients Urinary Catheter Date of Insertion: 03/09/25 Date Urinary Catheter Removed: 03/12/25 Time Urinary Catheter Discontinued: 05:41 Data 03/17/25 03:06 03/17/25 03:06 A&P Assessment and plan (1) CHF (congestive heart failure): (2) Decompensated heart failure: (3) Encounter for smoking cessation counseling: (4) Acute hypoxic respiratory failure: (5) CAD (coronary artery disease): Plan Patient has improved and has started to diurese well. He is requiring less oxygen. Creatinine slightly increased at 1.2, this will decrease lasix to every 24 hours and keep Metolazone 5 mg daily. Continue aspirin and Plavix. PDMP PDMP Reviewed: Not Reviewed Attestations 2 Medical Necessity Statement*: Deferred to primary Coding Level of Care Code Acute Code for Chg Fwd Diagnoses Acute congestive heart failure, unspecified heart failure type I50.9 Heart failure type: unspecified Heart failure chronicity: acute Decompensated heart failure I50.9 Encounter for smoking cessation counseling Z71.6 Acute hypoxic respiratory failure J96.01 Coronary artery disease involving [place] coronary artery of [place] heart without angina pectoris I25.10 Coronary Disease-Associated Artery/Lesion type: [place] artery [place] vs. transplanted heart: [place] heart Associated angina: without angina
--- NOTE | 2025-03-17 10:05 | PC.NURSE ---
per Dr Donato, do not give the 1000 dose of KCL 40mg PO that is due because patient has already received 120mg, which Dr Donato says is enough for now. Med non-admined per .
--- NOTE | 2025-03-17 11:42 | P.PN_ITS ---
Subjective 2 Subjective: seen this am pt on 2L NC Vitals/I&O/Wt Last Vital Signs Temp 97.0 F L 03/17/25 11:00 Pulse 110 H 03/17/25 11:06 Resp 18 03/17/25 11:06 BP 112/89 03/17/25 11:00 Pulse Ox 93 03/17/25 11:06 O2 Del Method Nasal Cannula 03/17/25 11:06 O2 Flow Rate 2 03/17/25 11:06 FiO2 50 03/14/25 00:40 03/16/25 03/17/25 03/17/25 22:59 06:59 14:59 Intake Total 120 / 1080 1000 / 2080 360 / 360 Output Total 1375 / 2875 875 / 3750 1240 / 1240 Balance -1255 / -1795 125 / -1670 -880 / -880 Weight last 48 hrs Weight 106.623 kg Weight 107 kg Physical Exam 2 Narrative: General: No apparent distress, on 2L O2 via nasal cannula Respiratory: Clear to auscultation bilaterally no wheezes no rhonchi or crackles appreciated today. Cardio: regular rate, regular rhythm, S1 S2 normal, no murmurs, peripheral pulses 2+ radial palpated bilaterally Extremities: Full ROM, normal, normal capillary refill, no cyanosis, no edema bilateral lower extremities Neuro: Alert and oriented x4, no focal motor deficits Urinary Catheter Management: Montes: Cath Placed During This Visit: yes, but has since been removed by the nurse Reason for Continuing Indwelling Catheter: Accurate Measurement of Urinary Output in Critically Ill Patients Urinary Catheter Date of Insertion: 03/09/25 Date Urinary Catheter Removed: 03/12/25 Time Urinary Catheter Discontinued: 05:41 Data 03/17/25 03:06 03/17/25 03:06 A&P Assessment and plan (1) CHF (congestive heart failure): (2) Polycythemia: (3) Acute hypoxic respiratory failure: (4) COPD exacerbation: (5) Pneumonia: Plan Acute hypoxic hypercarbic respiratory failure, requiring 3 L - HX OF COPD; PFT shows moderate COPD with restriction - CHF exacerbation, systolic and diastolic -newly diagnosed Status post cath with 2 stents to LAD. - - Now with evidence of pneumonia, seen on CT of the chest: * Mild right posterior basilar hazy infiltrate and mild left basilar atelectasis. * Moderate cardiomegaly with LV configuration. * Trace bilateral pleural effusions. - CHF is compensated at this time. He is now on Lasix 40 mg every morning with potassium 40 mill equivalents daily -COPD exacerbation * Completed a course of IV steroid * DuoNeb Neb * Budesonide * Requires BiPAP for both COPD and new CHF. Settings are 19/05. * overnight pulse ox, he had 82 desat episodes overnight, total desaturation time was 46 minutes, average duration 34 seconds Polycythemia-was barely above range. No treatment required. A hospitalist at 1 time recommended therapeutic phlebotomy. I did not think it was indicated. Now hemoglobin is high normal. Likely related to smoking he admits to smoking up to 5 packs a day. He continues to smoke approximately 2 packs a day but he is motivated to quit we discussed tobacco cessation both yesterday and today Vitamin B12 deficiency Constipation: Resolved now; having daily BM Full code Lovenox for DVT prophylaxis Plan for today Maintain and CSU for telemetry monitoring status post stent placement. Plan to discharge home tomorrow with BiPAP for COPD already arranged 03/14/2025 requiring 4L o2 at this time at rest Overnight was on 8L CHF: will continue lasix 40 milligram daily. I will give another dose of IV Lasix 40 today. He does appear to have trace to 1+ pitting edema bilateral lower extremities. Date of exacerbation: Patient received methylprednisolone 125 IV x 1 on 03/09. I do not see any other prednisone or Solu-Medrol administered thereafter. I will place patient on prednisone 40 daily x 4 more days. Continue on BiPAP for both COPD and new CHF settings 19/05. Patient requires continued hospitalization secondary to high oxygen requirements. He is on 4 L nasal cannula today and overnight had to be bumped up to 8 L. Recheck BMP around 5 PM. 03/15/2025 on 6L O2 continue lasix 40 IV BID he did get one time dose of metolazone in Am he will need continued diuresis continue to wean o2 down as able discussed plan with cardiology continue aspirin and plavix 03/16/2025 Continue Lasix Continue diuresis. Continue aspirin Plavix Patient completed 3 days of prednisone. Repeat CT chest without contrast to evaluate for continued hypoxia and requirement of oxygen use. Patient is diuresing adequately however oxygen requirements are not improving. 03/17/2025 continue lasix for diuresis continue to diurese and wean down o2 as able to continue aspirin, plavix discussed with cardiology ct chest reviewed infiltrates improving PDMP PDMP Reviewed: Not Reviewed Attestations 2 Medical Necessity Statement*: Requires continued hospitalization for diuresis and workup of continued need of oxygen Diagnoses Acute congestive heart failure, unspecified heart failure type I50.9 Heart failure type: unspecified Heart failure chronicity: acute Polycythemia D75.1 Acute hypoxic respiratory failure J96.01 COPD exacerbation J44.1 Pneumonia J18.9
[2025-03-17 12:46] LABS: Glucose Point of Care 155 mg/dL (70-110)
[2025-03-17 15:25] LABS: Erythropoietin 13.4 mIU/mL (2.6-18.5)
[2025-03-17 17:55] LABS: Glucose Point of Care 150 mg/dL (70-110)
[2025-03-17] MEDS: atorvastatin 40 mg Tablet PO (21:23)
[2025-03-17] MEDS: enoxaparin 40 mg/0.4 mL Syringe SUBCUT (21:23)
[2025-03-18] VITALS (20 sets, daily range): BP systolic 102–114; BP diastolic 71–81; PULSE 86–116; RESP 8–21; TEMP 36.5–36.9; O2SAT 86–94
[2025-03-18] MEDS: ipratropium-albuterol 3 mL Neb INHALATION ×7 (00:32→23:29)
[2025-03-18 04:52] LABS: Basophils # 0.1 10^3/uL (0.0-0.1); Basophils % 0.8 %; Eosinophils # 0.1 10^3/uL (0.0-0.8); Eosinophils % 1.7 %; Hematocrit 51.2 % (37-53); Lymphocytes # 2.2 10^3/uL (0.8-4.8); Lymphocytes % 28.8 %; Mean Corpuscular HGB Conc 33.8 g/dL (30-55); Mean Corpuscular Hemoglobin 33.9 pg (27-33); Mean Corpuscular Volume 100.2 fl (82-101); Mean Platelet Volume 9.5 fL (7.4-10.4); Monocytes # 0.7 10^3/uL (0.2-0.9); Monocytes % 8.5 %; Neutrophils # 4.44 10^3/uL (1.8-7.7); Neutrophils % 58.2 %; Nucleated Red Blood Cells % 0 %; Platelet Count 256 10^3/cmm (157-399); Red Blood Count 5.11 10^6/uL (3.85-5.65); Red Cell Distribution Width 14.6 % (12.1-15.1); White Blood Count 7.63 10^3/uL (3.29-11.43)
[2025-03-18 05:12] LABS: Alanine Aminotransferase 94 U/L (0-41); Albumin Level 3.7 g/dL (3.5-5.2); Alkaline Phosphatase 82 U/L (40-130); Blood Urea Nitrogen 25 mg/dL (6-20); Calcium 10.2 mg/dL (8.5-10.5); Carbon Dioxide 29 mmol/L (22-29); Chloride 90 mmol/L (98-107); Creatinine Clr Calc Pharmacy 86.6479; Globulin 3.9 g/dL (1.3-4.6); Glomerular Filtration Rate 68.8 mL/min (90-130); Glucose 117 mg/dL (65-115); Magnesium 1.9 mg/dL (1.7-2.3); Osmolality Calculated 281 mOsm/kg (285-295); Sodium 133 mmol/L (136-145); Total Protein 7.6 g/dL (6.6-8.7)
[2025-03-18 05:19] LABS: Anion Gap 17.6 (5-19); Aspartate Amino Transferase 108 U/L (0-40); Potassium 3.6 mmol/L (3.5-5.1)
[2025-03-18 05:42] LABS: Total Bilirubin 0.4 mg/dL (0.15-1.2)
[2025-03-18] MEDS: sennosides-docusate Tablet 2 TAB PO ×2 (05:54→17:23)
[2025-03-18] MEDS: FUROsemide 10 mg/mL SDV 4mL 40 MG IVP ×2 (05:54→18:14)
[2025-03-18 06:30] LABS: Glucose Point of Care 130 mg/dL (70-110)
[2025-03-18] MEDS: budesonide 0.5 mg/2 mL Neb INHALATION ×2 (07:43→20:55)
[2025-03-18] MEDS: aspirin 81 mg EC Tablet PO (08:50)
[2025-03-18] MEDS: cefdinir 300 MG CAPSULE PO ×2 (08:50→17:23)
[2025-03-18] MEDS: tamsulosin 0.4 mg Capsule PO (08:50)
[2025-03-18] MEDS: clopidogrel 75 mg Tablet PO (08:50)
[2025-03-18] MEDS: potassium chloride ER 20 mEq Tablet 40 MEQ PO ×2 (08:50→18:14)
[2025-03-18] MEDS: metOLazone 5 MG Tablet PO (08:50)
[2025-03-18] MEDS: nicotine 21 mg Patch 1 PATCH TRANSDERMA (08:51)
[2025-03-18] MEDS: cyanocobalamin 1,000 mcg Tablet 1000 MCG PO (08:51)
[2025-03-18] MEDS: sodium chloride 0.9% 250 ML 999 ML IV (09:09)
[2025-03-18] MEDS: metoprolol tartrate 25 mg Tablet PO (09:43)
--- NOTE | 2025-03-18 09:44 | P.PN_ITS ---
Subjective 2 Subjective: Patient is overall stable. Has diuresed well. Still requiring supplemental oxygen. Vitals/I&O/Wt Last Vital Signs Temp 97.9 F 03/18/25 07:00 Pulse 109 H 03/18/25 07:44 Resp 18 03/18/25 07:44 BP 106/75 03/18/25 07:00 Pulse Ox 86 L 03/18/25 09:24 O2 Del Method Nasal Cannula 03/18/25 07:44 O2 Flow Rate 6 03/18/25 09:24 FiO2 50 03/14/25 00:40 03/17/25 03/18/25 03/18/25 22:59 06:59 14:59 Intake Total 880 / 1600 400 / 2000 610 / 610 Output Total 2280 / 3520 1700 / 5220 1250 / 1250 Balance -1400 / -1920 -1300 / -3220 -640 / -640 Weight last 48 hrs Weight 235 lb 14.314 oz Weight 235 lb 1 oz Physical Exam 2 Narrative: GENERAL: Patient is alert, awake and oriented x3. [] NECK: No jugular vein distension. [] HEENT: No cyanosis. No icterus. No pallor. [] HEART: Regular S1 and S2. No murmur, rub or gallop. [] LUNGS: Diminished air entry CENTRAL NERVOUS SYSTEM: Grossly nonfocal. [] EXTREMITIES: Lower extremities with 1+ edema bilaterally. Urinary Catheter Management: Montes: Cath Placed During This Visit: yes, but has since been removed by the nurse Reason for Continuing Indwelling Catheter: Accurate Measurement of Urinary Output in Critically Ill Patients Urinary Catheter Date of Insertion: 03/09/25 Date Urinary Catheter Removed: 03/12/25 Time Urinary Catheter Discontinued: 05:41 Data 03/18/25 04:00 03/18/25 04:00 A&P Assessment and plan (1) CHF (congestive heart failure): (2) Decompensated heart failure: (3) Encounter for smoking cessation counseling: (4) Acute hypoxic respiratory failure: (5) CAD (coronary artery disease): Plan Can switch to p.o. diuretics. Continue dual antiplatelet therapy as had PCI of LAD recently. Thank you for involving us in the care of this patient. Please call with questions. PDMP PDMP Reviewed: Not Reviewed Attestations 2 Medical Necessity Statement*: Care expected to cross 2 midnights. Coding Level of Care Code Acute Code for Chg Fwd Diagnoses Acute congestive heart failure, unspecified heart failure type I50.9 Heart failure type: unspecified Heart failure chronicity: acute Decompensated heart failure I50.9 Encounter for smoking cessation counseling Z71.6 Acute hypoxic respiratory failure J96.01 Coronary artery disease involving [place] coronary artery of [place] heart without angina pectoris I25.10 Coronary Disease-Associated Artery/Lesion type: [place] artery [place] vs. transplanted heart: [place] heart Associated angina: without angina
[2025-03-18 11:32] LABS: Glucose Point of Care 136 mg/dL (70-110)
--- NOTE | 2025-03-18 12:26 | P.PN_ITS ---
Subjective 2 Subjective: seen this am pt on 2L at rest this am on home o2 eval, he required 3L at rest and 6L on exertion has been tachycardic since morning 120's given 200 cc NS bolus 16L negative since admission Vitals/I&O/Wt Last Vital Signs Temp 97.7 F 03/18/25 11:00 Pulse 95 03/18/25 12:04 Resp 18 03/18/25 12:04 BP 102/71 03/18/25 11:00 Pulse Ox 92 03/18/25 12:05 O2 Del Method Nasal Cannula 03/18/25 12:05 O2 Flow Rate 4 03/18/25 12:05 FiO2 50 03/14/25 00:40 03/17/25 03/18/25 03/18/25 22:59 06:59 14:59 Intake Total 880 / 1600 400 / 2000 610 / 610 Output Total 2280 / 3520 1700 / 5220 1400 / 1400 Balance -1400 / -1920 -1300 / -3220 -790 / -790 Weight last 48 hrs Weight 107 kg Weight 106.623 kg Physical Exam 2 Narrative: General: No apparent distress, on 3L O2 via nasal cannula Respiratory: Clear to auscultation bilaterally no wheezes no rhonchi or crackles appreciated today. Cardio: regular rate, regular rhythm, S1 S2 normal, no murmurs, Extremities: Full ROM, normal, normal capillary refill, no cyanosis, no edema bilateral lower extremities Neuro: Alert and oriented x4, no focal motor deficits Urinary Catheter Management: Montes: Cath Placed During This Visit: yes, but has since been removed by the nurse Reason for Continuing Indwelling Catheter: Accurate Measurement of Urinary Output in Critically Ill Patients Urinary Catheter Date of Insertion: 03/09/25 Date Urinary Catheter Removed: 03/12/25 Time Urinary Catheter Discontinued: 05:41 Data 03/18/25 04:00 03/18/25 04:00 A&P Assessment and plan (1) CHF (congestive heart failure): (2) Polycythemia: (3) Acute hypoxic respiratory failure: (4) COPD exacerbation: (5) Pneumonia: Plan Acute hypoxic hypercarbic respiratory failure, requiring 3 L - HX OF COPD; PFT shows moderate COPD with restriction - CHF exacerbation, systolic and diastolic -newly diagnosed Status post cath with 2 stents to LAD. - - Now with evidence of pneumonia, seen on CT of the chest: * Mild right posterior basilar hazy infiltrate and mild left basilar atelectasis. * Moderate cardiomegaly with LV configuration. * Trace bilateral pleural effusions. - CHF is compensated at this time. He is now on Lasix 40 mg every morning with potassium 40 mill equivalents daily -COPD exacerbation * Completed a course of IV steroid * DuoNeb Neb * Budesonide * Requires BiPAP for both COPD and new CHF. Settings are 19/05. * overnight pulse ox, he had 82 desat episodes overnight, total desaturation time was 46 minutes, average duration 34 seconds Polycythemia-was barely above range. No treatment required. A hospitalist at 1 time recommended therapeutic phlebotomy. I did not think it was indicated. Now hemoglobin is high normal. Likely related to smoking he admits to smoking up to 5 packs a day. He continues to smoke approximately 2 packs a day but he is motivated to quit we discussed tobacco cessation both yesterday and today Vitamin B12 deficiency Constipation: Resolved now; having daily BM Full code Lovenox for DVT prophylaxis Plan for today Maintain and CSU for telemetry monitoring status post stent placement. Plan to discharge home tomorrow with BiPAP for COPD already arranged 03/14/2025 requiring 4L o2 at this time at rest Overnight was on 8L CHF: will continue lasix 40 milligram daily. I will give another dose of IV Lasix 40 today. He does appear to have trace to 1+ pitting edema bilateral lower extremities. Date of exacerbation: Patient received methylprednisolone 125 IV x 1 on 03/09. I do not see any other prednisone or Solu-Medrol administered thereafter. I will place patient on prednisone 40 daily x 4 more days. Continue on BiPAP for both COPD and new CHF settings 19/05. Patient requires continued hospitalization secondary to high oxygen requirements. He is on 4 L nasal cannula today and overnight had to be bumped up to 8 L. Recheck BMP around 5 PM. 03/15/2025 on 6L O2 continue lasix 40 IV BID he did get one time dose of metolazone in Am he will need continued diuresis continue to wean o2 down as able discussed plan with cardiology continue aspirin and plavix 03/16/2025 Continue Lasix Continue diuresis. Continue aspirin Plavix Patient completed 3 days of prednisone. Repeat CT chest without contrast to evaluate for continued hypoxia and requirement of oxygen use. Patient is diuresing adequately however oxygen requirements are not improving. 03/17/2025 continue lasix for diuresis continue to diurese and wean down o2 as able to continue aspirin, plavix discussed with cardiology ct chest reviewed infiltrates improving 03/18/2025 check d-dimer if elevated, will check CTA to r/o PE lungs clear to auscultation today unclear etiology of hypoxia he appears euvolemic today start metoprolol 37.5 BID AST ALT trending upwards Will hold statin Pt denies abdominal pain Check hepatitis panel Check CT abd/pelvis Repeat EKG Check GGT He will need PFT's as outpatient and pulmonology follow up PDMP PDMP Reviewed: Not Reviewed Attestations 2 Medical Necessity Statement*: requires further workup of rising liver enzymes and hypoxia requiring O2 supplementation 6L on exertion Diagnoses Acute congestive heart failure, unspecified heart failure type I50.9 Heart failure type: unspecified Heart failure chronicity: acute Polycythemia D75.1 Acute hypoxic respiratory failure J96.01 COPD exacerbation J44.1 Pneumonia J18.9
--- NOTE | 2025-03-18 12:35 | CTR_ITS ---
PROCEDURE INFORMATION: Exam: CTA Chest With Contrast Exam date and time: 03/18/2025 2:37 PM Age: 59 years old Clinical indication: Other: SOB; Dyspnea; Additional info: R/O pe, elevated liver enzymes TECHNIQUE: Imaging protocol: Computed tomographic angiography of the chest with contrast. Exam focused on the arteries. 3D rendering (Not supervised by radiologist): MIP and/or 3D reconstructed images were created by the technologist. Radiation optimization: All CT scans at this facility use at least one of these dose optimization techniques: automated exposure control; mA and/or kV adjustment per patient size (includes targeted exams where dose is matched to clinical indication); or iterative reconstruction. Contrast material: OMNI 350; Contrast volume: 175 ml; Contrast route: INTRAVENOUS (IV); COMPARISON: CT angio chest PE protcl [id number] 03/08/2025 2:19 PM RADIATION DOSE METRICS: Total DLP (mGy-cm): 1112.3 FINDINGS: Pulmonary arteries: No pulmonary embolism evident. Suboptimal opacification of the portions of the peripheral pulmonary arterial tree particularly in the lung bases. Aorta: No evidence of thoracic aortic aneurysm. Thyroid: No significant thyroid pathology. Lungs: Residual area peripheral airspace consolidation is present in the left lung base (series 8, image 321). Mild areas of peripheral interstitial reticulation and ground-glass opacity noted without change. Mild linear and streaky areas of scar versus atelectasis. Calcified pulmonary granulomata are present. Pleural spaces: No pleural effusion. Heart: Cardiomegaly. Coronary arteries: Coronary artery calcifications. Lymph nodes: No evidence of lymphadenopathy. Bones/joints: Dextrocurvature of the thoracic spine with degenerative change again seen. No acute bony pathology. Old healed bilateral rib fractures again noted. Soft tissues: No significant pathology. PROCEDURE INFORMATION: Exam: CT Abdomen And Pelvis With Contrast Exam date and time: 03/18/2025 2:37 PM Age: 59 years old Clinical indication: Other: SOB; Dyspnea; Additional info: R/O pe, elevated liver enzymes TECHNIQUE: Imaging protocol: Computed tomography of the abdomen and pelvis with contrast. Radiation optimization: All CT scans at this facility use at least one of these dose optimization techniques: automated exposure control; mA and/or kV adjustment per patient size (includes targeted exams where dose is matched to clinical indication); or iterative reconstruction. Contrast material: OMNI 350; Contrast volume: 175 ml; Contrast route: INTRAVENOUS (IV); COMPARISON: CT kidney stone [id number] 04/09/2024 10:03 AM RADIATION DOSE METRICS: Total DLP (mGy-cm): 506.6 FINDINGS: Lungs: Visualized lung bases are free of significant pathology. Liver: No significant liver pathology. Gallbladder and biliary ducts: No significant gallbladder pathology. No biliary dilatation. Pancreas: No significant pancreatic pathology. Spleen: No significant splenic pathology. Adrenal glands: No significant adrenal pathology. Kidneys and ureters: No significant pathology. 1 cm right-sided renal cortical cyst. Stomach and bowel: Large amount of colonic stool. Colonic diverticulosis without evidence of focal inflammatory change. Appendix: No appendiceal pathology evident. Intraperitoneal space: No ascites. Vasculature: Infrarenal abdominal aortic aneurysm measuring up to 3.7 cm greatest dimension without significant change (series 6, image 47). Lymph nodes: No evidence of lymphadenopathy. Urinary bladder: Unremarkable urinary bladder. Reproductive: No significant prostate pathology. Bones/joints: Mild degenerative change present in the spine. Soft tissues: Small fat containing umbilical hernia. Small bilateral fat containing inguinal hernias. CT/CT angio chest w abd pel w con IMPRESSION: 1. No evidence of pulmonary embolism. 2. Residual focal area of airspace consolidation at the periphery of the left lower lobe; no new or increasing chest pathology evident. 3. Stable minor findings described above. IMPRESSION: No acute abdominopelvic pathology. Large amount of colonic stool with diverticulosis, 3.7 cm abdominal aortic aneurysm and other minor findings described above.
[2025-03-18] MEDS: acetaminophen 325 mg Tablet 650 MG PO (13:16)
[2025-03-18 13:34] LABS: Gamma Glutamyl Transferase 146 U/L (8-61)
[2025-03-18 13:45] LABS: Hepatitis A Antibody IgM Non-Reactive (Nonreactive); Hepatitis B Core AB, Total Non-Reactive (Nonreactive); Hepatitis B Surface AB < 3.5 (11.5-1000); Hepatitis B Surface Antigen Non-Reactive (Nonreactive); Hepatitis C Virus Antibody Non-Reactive (Nonreactive)
[2025-03-18 13:57] LABS: D Dimer 5.36 ug/mLFEU (0-0.59)
[2025-03-18] MEDS: iohexol 350 mg/mL 500 mL Btl (per mL) IV (14:39)
--- NOTE | 2025-03-18 15:10 | USCV_ITS ---
Jaswinder Palmer Age: 59 Gender: M : 1965 Exam Date: 03/18/2025 16:36 Ordering Phys: Sarah Donato MD Technologist: BRIAN [place] [facility] [place]: ?right heart strain BP: 102 / 71 HR: Rhythm: Sinus Technical Quality: Adequate MEASUREMENTS (Male / Female) Normal Values 2D ECHO LV Diastolic Diameter PLAX 5.3 cm 4.2 - 5.9 / 3.9 - 5.3 cm IVS Diastolic Thickness 1.2 cm 0.6 - 1.0 / 0.6 - 0.9 cm IVS Systolic Thickness 1.8 cm LVPW Diastolic Thickness 1.7 cm 0.6 - 1.0 / 0.6 - 0.9 cm LVPW Systolic Thickness 2.0 cm LVOT Diameter 2.0 cm LV Ejection Fraction 2D Teich 53.8 % LV Ejection Fraction MOD 4C 61.9 % LV Ejection Fraction MOD 2C 45.4 % LV Ejection Fraction 2C AL 49.5 % LA Diameter 3.9 cm RA Systolic Volume 4C AL 68.6 ml RA Systolic Volume 4C MOD 67.2 ml Aorta at Sinotubular Diameter 2.7 cm IVC Diameter 2.9 cm M-MODE LA Ao Ratio MM 1.2 AV Cusp Separation MM 1.8 cm FINDINGS Left Ventricle Normal left ventricular size and systolic function, EF 62%.mild left ventricular hypertrophy. No regional wall motion abnormalities. Right Ventricle Normal right ventricular size and systolic function. No evidence of RV strain Right Atrium Normal right atrial size. Left Atrium Normal left atrial size. Mitral Valve No gross abnormalities noted Aortic Valve No gross abnormalities noted Tricuspid Valve No gross abnormalities noted Pulmonic Valve No gross abnormalities noted Pericardium No pericardial effusion. Aorta Normal aortic annulus size. IVC Inferior vena cava not visualized. CONCLUSIONS Normal left ventricular size and systolic function, EF 62%.mild left ventricular hypertrophy. No regional wall motion abnormalities. Normal right ventricular size and systolic function. No evidence of RV strain. No gross valvular abnormalities. No intracardiac masses No pericardial effusion. Dr Meliza Nevarez MD FACC (Electronically Signed) Final Date: 18 March 2025 23:05 S
--- NOTE | 2025-03-18 15:17 | USR_ITS ---
PROCEDURE INFORMATION: Exam: US Abdomen, Limited; Right Upper Quadrant Exam date and time: 03/18/2025 4:20 PM Age: 59 years old Clinical indication: Screening exam; Other: Portal vein thrombosis; Additional info: Look for portal vein thrombosis TECHNIQUE: Imaging protocol: Real time ultrasound of the abdomen with image documentation. Limited exam focused on the right upper quadrant. COMPARISON: US abdomen complete* [id number] 03/06/2025 3:58 PM FINDINGS: Liver: Increased hepatic echogenicity with obscuration of vascular margins most likely representing hepatic steatosis. No focal liver lesion evident. Gallbladder: No significant gallbladder pathology. Biliary ducts: No biliary dilatation. Pancreas: Pancreas obscured by bowel gas. Right kidney: Right kidney measures 11.6 cm in length with mild cortical atrophy. Aorta: Visualized aorta is unremarkable. Inferior vena cava: Visualized IVC is unremarkable. Portal venous: No evidence of portal vein thrombosis as clinically questioned. US/US abdomen limited [id number] IMPRESSION: 1. No evidence of portal vein thrombosis or acute abdominal pathology. 2. Minor findings noted above including hepatic steatosis and mild right renal cortical atrophy.
--- NOTE | 2025-03-18 15:17 | USR_ITS ---
PROCEDURE INFORMATION: Exam: US Duplex Lower Extremity Veins, Bilateral Exam date and time: 03/18/2025 4:30 PM Age: 59 years old Clinical indication: Condition or disease; Other: Pe; Additional info: R/O dvt, PT has pe TECHNIQUE: Imaging protocol: Real-time duplex ultrasound of the bilateral extremities with 2-D rojas scale, color Doppler flow and spectral waveform analysis including responses to compression and other maneuvers (when performed) with image documentation. Complete exam focused on the lower extremity veins. COMPARISON: CT kidney stone [id number] 04/09/2024 10:03 AM FINDINGS: Right deep veins: Unremarkable. The common femoral, femoral, proximal profunda femoral and popliteal veins are patent without thrombus. Normal Doppler waveforms. Normal compressibility and/or augmentation response. Left deep veins: Unremarkable. The common femoral, femoral, proximal profunda femoral and popliteal veins are patent without thrombus. Normal Doppler waveforms. Normal compressibility and/or augmentation response. Superficial veins: Greater saphenous veins at the saphenofemoral junctions are patent bilaterally without thrombus. Soft tissues: Unremarkable. US/CV venous duplex [facility] [id number] IMPRESSION: No evidence of deep vein thrombosis.
[2025-03-18] MEDS: sodium chloride 0.9% 500 ML IV (15:28)
--- NOTE | 2025-03-18 15:48 | PC.OT ---
per documentation review and discussion with LITTLEJOHN, goals met and patient d/c from skilled OT services.
[2025-03-18 15:57] LABS: Homocysteine 33.09 umol/l (0-15)
[2025-03-18 17:21] LABS: Glucose Point of Care 151 mg/dL (70-110)
[2025-03-18] MEDS: metoprolol tartrate 25 mg Tablet 37.5 MG PO (20:51)
[2025-03-18] MEDS: enoxaparin 40 mg/0.4 mL Syringe SUBCUT (20:52)
[2025-03-18] MEDS: oxyCODONE-APAP 5-325 mg Tablet 1 TAB PO (21:16)
[2025-03-19] VITALS (13 sets, daily range): BP systolic 96–116; BP diastolic 66–70; PULSE 82–98; RESP 15–20; TEMP 36.4–37; O2SAT 90–98
[2025-03-19] MEDS: ipratropium-albuterol 3 mL Neb INHALATION (04:39)
[2025-03-19 05:16] LABS: Basophils # 0.1 10^3/uL (0.0-0.1); Basophils % 0.6 %; Eosinophils # 0.2 10^3/uL (0.0-0.8); Eosinophils % 1.9 %; Hematocrit 52.2 % (37-53); Lymphocytes # 2.5 10^3/uL (0.8-4.8); Lymphocytes % 26.5 %; Mean Corpuscular HGB Conc 34.1 g/dL (30-55); Mean Corpuscular Hemoglobin 34.9 pg (27-33); Mean Corpuscular Volume 102.4 fl (82-101); Mean Platelet Volume 9.2 fL (7.4-10.4); Monocytes # 0.7 10^3/uL (0.2-0.9); Monocytes % 7.6 %; Neutrophils # 5.74 10^3/uL (1.8-7.7); Neutrophils % 61.5 %; Nucleated Red Blood Cells % 0 %; Platelet Count 288 10^3/cmm (157-399); Red Cell Distribution Width 14.4 % (12.1-15.1); White Blood Count 9.35 10^3/uL (3.29-11.43)
[2025-03-19 05:35] LABS: Alanine Aminotransferase 83 U/L (0-41); Albumin Level 3.7 g/dL (3.5-5.2); Alkaline Phosphatase 88 U/L (40-130); Anion Gap 17.6 (5-19); Aspartate Amino Transferase 71 U/L (0-40); Blood Urea Nitrogen 26 mg/dL (6-20); Carbon Dioxide 27 mmol/L (22-29); Chloride 88 mmol/L (98-107); Creatinine Clr Calc Pharmacy 72.7117; Globulin 4.2 g/dL (1.3-4.6); Glomerular Filtration Rate 56.5 mL/min (90-130); Glucose 129 mg/dL (65-115); Magnesium 2.1 mg/dL (1.7-2.3); Osmolality Calculated 274 mOsm/kg (285-295); Potassium 3.6 mmol/L (3.5-5.1); Sodium 129 mmol/L (136-145); Total Bilirubin 0.5 mg/dL (0.15-1.2); Total Protein 7.9 g/dL (6.6-8.7)
[2025-03-19] MEDS: sennosides-docusate Tablet 2 TAB PO ×2 (05:51→16:59)
[2025-03-19] MEDS: FUROsemide 10 mg/mL SDV 4mL 40 MG IVP (05:51)
[2025-03-19] MEDS: oxyCODONE-APAP 5-325 mg Tablet 1 TAB PO (05:55)
[2025-03-19 06:06] LABS: Glucose Point of Care 155 mg/dL (70-110)
[2025-03-19] MEDS: metoprolol tartrate 25 mg Tablet 37.5 MG PO (08:15)
[2025-03-19] MEDS: aspirin 81 mg EC Tablet PO (08:15)
[2025-03-19] MEDS: tamsulosin 0.4 mg Capsule PO (08:15)
[2025-03-19] MEDS: potassium chloride ER 20 mEq Tablet 40 MEQ PO (08:15)
[2025-03-19] MEDS: cefdinir 300 MG CAPSULE PO (08:16)
[2025-03-19] MEDS: clopidogrel 75 mg Tablet PO (08:16)
[2025-03-19] MEDS: nicotine 21 mg Patch 1 PATCH TRANSDERMA (08:16)
[2025-03-19] MEDS: cyanocobalamin 1,000 mcg Tablet 1000 MCG PO (08:16)
--- NOTE | 2025-03-19 08:42 | PC.NURSE ---
patient states he has an appointment at [facility] with a paleontologist on March. Dr Donato at bedside while this was being discussed
--- NOTE | 2025-03-19 10:17 | PC.NURSE ---
Dr Donato ordered 500ml of NS at 75ml / hr but I hadf an order for a 1000ml bag and [employer] would not let me scan it. 500ml of NS at 75ml / hr started with VTBI set at 500. This was given to the patient, despite the MAR showing otherwise.
[2025-03-19 11:19] LABS: Glucose Point of Care 158 mg/dL (70-110)
--- NOTE | 2025-03-19 12:03 | PC.NURSE ---
patient states he is not diabetic and does not want a cardiac carb consistent diet. Diet changed to cardiac diet.
--- NOTE | 2025-03-19 13:36 | P.PN_ITS ---
Subjective 2 Subjective: Patient continues to be hypoxic needing 4 L at baseline. When he exerts himself he needs from 6 to 7 L of O2. Hemoglobin 17.8 this morning. Creatinine 1.3 this morning Sodium 129, chloride 88 AST 71, ALT 83 trending down. Vitals/I&O/Wt Last Vital Signs Temp 97.8 F 03/19/25 11:42 Pulse 82 03/19/25 11:42 Resp 16 03/19/25 11:42 BP 106/67 03/19/25 11:42 Pulse Ox 93 03/19/25 11:42 O2 Del Method Nasal Cannula 03/19/25 11:42 O2 Flow Rate 4 03/19/25 08:54 FiO2 50 03/14/25 00:40 03/18/25 03/19/25 03/19/25 22:59 06:59 14:59 Intake Total 980 / 1590 800 / 2390 600 / 600 Output Total 1775 / 3325 800 / 4125 Balance -795 / -1735 0 / -1735 600 / 600 Weight last 48 hrs Weight 107.456 kg Weight 107 kg Physical Exam 2 Narrative: General: No apparent distress, on 4L O2 via nasal cannula Respiratory: Clear to auscultation bilaterally no wheezes no rhonchi or crackles appreciated today. Cardio: regular rate, regular rhythm, S1 S2 normal, no murmurs, Extremities: Full ROM, normal, normal capillary refill, no cyanosis, no edema bilateral lower extremities Neuro: Alert and oriented x4, no focal motor deficits Urinary Catheter Management: Montes: Cath Placed During This Visit: yes, but has since been removed by the nurse Reason for Continuing Indwelling Catheter: Accurate Measurement of Urinary Output in Critically Ill Patients Urinary Catheter Date of Insertion: 03/09/25 Date Urinary Catheter Removed: 03/12/25 Time Urinary Catheter Discontinued: 05:41 Data 03/19/25 04:30 03/19/25 04:30 A&P Assessment and plan (1) CHF (congestive heart failure): (2) Polycythemia: (3) Acute hypoxic respiratory failure: (4) COPD exacerbation: (5) Pneumonia: Plan Acute hypoxic hypercarbic respiratory failure, requiring 3 L - HX OF COPD; PFT shows moderate COPD with restriction - CHF exacerbation, systolic and diastolic -newly diagnosed Status post cath with 2 stents to LAD. - - Now with evidence of pneumonia, seen on CT of the chest: * Mild right posterior basilar hazy infiltrate and mild left basilar atelectasis. * Moderate cardiomegaly with LV configuration. * Trace bilateral pleural effusions. - CHF is compensated at this time. He is now on Lasix 40 mg every morning with potassium 40 mill equivalents daily -COPD exacerbation * Completed a course of IV steroid * DuoNeb Neb * Budesonide * Requires BiPAP for both COPD and new CHF. Settings are 19/05. * overnight pulse ox, he had 82 desat episodes overnight, total desaturation time was 46 minutes, average duration 34 seconds Polycythemia-was barely above range. No treatment required. A hospitalist at 1 time recommended therapeutic phlebotomy. I did not think it was indicated. Now hemoglobin is high normal. Likely related to smoking he admits to smoking up to 5 packs a day. He continues to smoke approximately 2 packs a day but he is motivated to quit we discussed tobacco cessation both yesterday and today Vitamin B12 deficiency Constipation: Resolved now; having daily BM Full code Lovenox for DVT prophylaxis Plan for today Maintain and CSU for telemetry monitoring status post stent placement. Plan to discharge home tomorrow with BiPAP for COPD already arranged 03/14/2025 requiring 4L o2 at this time at rest Overnight was on 8L CHF: will continue lasix 40 milligram daily. I will give another dose of IV Lasix 40 today. He does appear to have trace to 1+ pitting edema bilateral lower extremities. Date of exacerbation: Patient received methylprednisolone 125 IV x 1 on 03/09. I do not see any other prednisone or Solu-Medrol administered thereafter. I will place patient on prednisone 40 daily x 4 more days. Continue on BiPAP for both COPD and new CHF settings 19/05. Patient requires continued hospitalization secondary to high oxygen requirements. He is on 4 L nasal cannula today and overnight had to be bumped up to 8 L. Recheck BMP around 5 PM. 03/15/2025 on 6L O2 continue lasix 40 IV BID he did get one time dose of metolazone in Am he will need continued diuresis continue to wean o2 down as able discussed plan with cardiology continue aspirin and plavix 03/16/2025 Continue Lasix Continue diuresis. Continue aspirin Plavix Patient completed 3 days of prednisone. Repeat CT chest without contrast to evaluate for continued hypoxia and requirement of oxygen use. Patient is diuresing adequately however oxygen requirements are not improving. 03/17/2025 continue lasix for diuresis continue to diurese and wean down o2 as able to continue aspirin, plavix discussed with cardiology ct chest reviewed infiltrates improving 03/18/2025 check d-dimer if elevated, will check CTA to r/o PE lungs clear to auscultation today unclear etiology of hypoxia he appears euvolemic today start metoprolol 37.5 BID AST ALT trending upwards Will hold statin Pt denies abdominal pain Check hepatitis panel Check CT abd/pelvis Repeat EKG Check GGT He will need PFT's as outpatient and pulmonology follow up 03/19/2025 Continue metoprolol 37.5 twice daily Lungs clear to auscultation. Switch DuoNeb to as needed. CTA ruled out PE. No other evidence of blood clots Ultrasound abdomen ruled out portal vein thrombosis Unclear etiology of elevated D-dimer. 1 possibility is secondary to polycythemia. JAK2 mutation workup has been ordered, hypercoagulable workup has been ordered Liver enzymes are trending down. Will continue to hold statin. Cardiology aware. Patient is 16 L negative since admission and I think he has been over diuresed. Chloride 88, sodium 129, creatinine 1.3 today. Will hold diuretics going forward. Will place on normal saline 75 cc/h for gentle IV fluid hydration for total of 500 cc. Repeat BMP at 4 PM. I will share images with [facility] and discussed with toppiece cutter on-call. Erythrocytosis may be contributing to hypoxia and patient has been recommended phlebotomy in the past. I have discussed with hospital staff apparently this cannot be done as an inpatient. Will discuss with pulmonology. May also consider transfer to higher level of care. PDMP PDMP Reviewed: Not Reviewed Attestations 2 Medical Necessity Statement*: Continued hypoxia. Diagnoses Acute congestive heart failure, unspecified heart failure type I50.9 Heart failure type: unspecified Heart failure chronicity: acute Polycythemia D75.1 Acute hypoxic respiratory failure J96.01 COPD exacerbation J44.1 Pneumonia J18.9
--- NOTE | 2025-03-19 17:03 | PM.TDS ---
Transfer Summary Providers Date of Admission: 03/05/25 21:18 Date of Discharge/Transfer: 03/22/25 Attending Provider at Admission: Damien Greene MD Attending Provider at Transfer: Sarah Donato MD Primary Care Provider: ENOCH Patino Transfer Plans: Anticipated date of transfer: 03/22/25. Diagnoses at Discharge Discharge Diagnosis (1) CHF (congestive heart failure): Status: Acute Qualifiers: Heart failure chronicity: acute Heart failure type: unspecified Qualified Code(s): I50.9 - Heart failure, unspecified (2) Polycythemia: Status: Acute (3) Acute hypoxic respiratory failure: Status: Acute (4) COPD exacerbation: Status: Acute (5) Pneumonia: Status: Acute Reason for Visit Reason for Visit unstable angina (sent by Cathy) Hospital Course Hospital Course Plan Acute hypoxic hypercarbic respiratory failure, requiring 3 L - HX OF COPD; PFT shows moderate COPD with restriction - CHF exacerbation, systolic and diastolic -newly diagnosed Status post cath with 2 stents to LAD. - - Now with evidence of pneumonia, seen on CT of the chest: Mild right posterior basilar hazy infiltrate and mild left basilar atelectasis. Moderate cardiomegaly with LV configuration. Trace bilateral pleural effusions. - CHF is compensated at this time. He is now on Lasix 40 mg every morning with potassium 40 mill equivalents daily -COPD exacerbation Completed a course of IV steroid DuoNeb Neb Budesonide Requires BiPAP for both COPD and new CHF. Settings are 18/8. overnight pulse ox, he had 82 desat episodes overnight, total desaturation time was 46 minutes, average duration 34 seconds Polycythemia-was barely above range. No treatment required. A hospitalist at 1 time recommended therapeutic phlebotomy. I did not think it was indicated. Now hemoglobin is high normal. Likely related to smoking he admits to smoking up to 5 packs a day. He continues to smoke approximately 2 packs a day but he is motivated to quit we discussed tobacco cessation both yesterday and today Vitamin B12 deficiency Constipation: Resolved now; having daily BM Full code Lovenox for DVT prophylaxis Plan for today Maintain and CSU for telemetry monitoring status post stent placement. Plan to discharge home tomorrow with BiPAP for COPD already arranged 03/14/2025 requiring 4L o2 at this time at rest Overnight was on 8L CHF: will continue lasix 40 milligram daily. I will give another dose of IV Lasix 40 today. He does appear to have trace to 1+ pitting edema bilateral lower extremities. Date of exacerbation: Patient received methylprednisolone 125 IV x 1 on 03/09. I do not see any other prednisone or Solu-Medrol administered thereafter. I will place patient on prednisone 40 daily x 4 more days. Continue on BiPAP for both COPD and new CHF settings 19/05. Patient requires continued hospitalization secondary to high oxygen requirements. He is on 4 L nasal cannula today and overnight had to be bumped up to 8 L. Recheck BMP around 5 PM. 03/15/2025 on 6L O2 continue lasix 40 IV BID he did get one time dose of metolazone in Am he will need continued diuresis continue to wean o2 down as able discussed plan with cardiology continue aspirin and plavix 03/16/2025 Continue Lasix Continue diuresis. Continue aspirin Plavix Patient completed 3 days of prednisone. Repeat CT chest without contrast to evaluate for continued hypoxia and requirement of oxygen use. Patient is diuresing adequately however oxygen requirements are not improving. 03/17/2025 continue lasix for diuresis continue to diurese and wean down o2 as able to continue aspirin, plavix discussed with cardiology ct chest reviewed infiltrates improving 03/18/2025 check d-dimer if elevated, will check CTA to r/o PE lungs clear to auscultation today unclear etiology of hypoxia he appears euvolemic today start metoprolol 37.5 BID AST ALT trending upwards Will hold statin Pt denies abdominal pain Check hepatitis panel Check CT abd/pelvis Repeat EKG Check GGT He will need PFT's as outpatient and pulmonology follow up 03/19/2025 Continue metoprolol 37.5 twice daily Lungs clear to auscultation. Switch DuoNeb to as needed. CTA ruled out PE. No other evidence of blood clots Ultrasound abdomen ruled out portal vein thrombosis Unclear etiology of elevated D-dimer. 1 possibility is secondary to polycythemia. JAK2 mutation workup has been ordered, hypercoagulable workup has been ordered Liver enzymes are trending down. Will continue to hold statin. Cardiology aware. Patient is 16 L negative since admission and I think he has been over diuresed. Chloride 88, sodium 129, creatinine 1.3 today. Will hold diuretics going forward. Will place on normal saline 75 cc/h for gentle IV fluid hydration for total of 500 cc. Repeat BMP at 4 PM. I will share images with [facility] and discussed with mine geologist on-call. Erythrocytosis may be contributing to hypoxia and patient has been recommended phlebotomy in the past. I have discussed with hospital staff apparently this cannot be done as an inpatient. Will discuss with pulmonology. May also consider transfer to higher level of care. Patient has been accepted to transfer to [facility] for higher level of care for further workup of hypoxia. There is a possibility of interstitial lung disease. 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 TECHNICIAN request for service Routine Exams 03/13/25 09:00 Taken Antiphospholipid Antibody Olivares Routine Lab 03/18/25 16:19 Received BMP [Basic Metabolic Panel] Routine Lab 03/19/25 16:30 Received Complete Blood Count w/Auto AM LABS Lab 03/20/25 04:00 Ordered Comprehensive Metabolic Panel AM LABS Lab 03/20/25 04:00 Ordered Factor 5 Leiden Mutation Stat Lab 03/18/25 16:19 Received JAK2 V617 Mutation Routine Lab 03/18/25 16:19 Received Magnesium AM LABS Lab 03/20/25 04:00 Ordered PROTEIN C, ACTIVITY Stat Lab 03/18/25 16:19 Received PROTEIN S, ACTIVITY Stat Lab 03/18/25 16:19 Received PROTHROMBIN (FACTOR II) [id number] Stat Lab 03/18/25 16:19 Received Completed Studies During Hospitalization Category Date Time Status CT angio chest PE protcl [id number] Routine Cat Scan 03/08/25 11:[address] chest wo con [id number] Routine Cat Scan 03/16/25 12:[address] abdomen pelvis [CT Angio Chest + Abdomen Cat Scan 03/18/25 12:35 Completed Pelvis w/ contrast; [id number] + 39648] Urgent XR abdomen 1V* [id number] Routine Exams 03/08/25 16:13 Completed XR chest 1V portable [id number] Routine Exams 03/10/25 07:00 Completed XR chest 1V portable [id number] Stat Exams 03/05/25 15:59 Completed XR chest 1V portable [id number] Stat Exams 03/09/25 08:40 [place] [id number] Routine Ultrasound 03/18/25 15:17 Completed CV. echo complete* [id number] Stat Ultrasound 03/05/25 18:37 Completed CV. echo limited [id number] Stat Ultrasound 03/18/25 15:10 Completed US abdomen complete* [id number] Routine Ultrasound 03/06/25 15:26 Completed US abdomen limited [id number] Stat Ultrasound 03/18/25 15:17 Completed Laboratory Last Values WBC 9.35 10^3/uL (3.29-11.43) 03/19/25 04:30 RBC 5.10 10^6/uL (3.85-5.65) 03/19/25 04:30 Hgb 17.80 g/dL (11.27-16.99) H 03/19/25 04:30 Hct 52.2 % (37-53) 03/19/25 04:30 MCV 102.4 fl (82-101) H 03/19/25 04:30 MCH 34.9 pg (27-33) H 03/19/25 04:30 MCHC 34.1 g/dL (30-55) 03/19/25 04:30 RDW 14.4 % (12.1-15.1) 03/19/25 04:30 Plt Count 288 10^3/cmm (157-399) 03/19/25 04:30 MPV 9.2 fL (7.4-10.4) 03/19/25 04:30 Neut % (Auto) 61.5 % 03/19/25 04:30 Lymph % (Auto) 26.5 % 03/19/25 04:30 [place] % (Auto) 7.6 % 03/19/25 04:30 Eos % (Auto) 1.9 % 03/19/25 04:30 Baso % (Auto) 0.6 % 03/19/25 04:30 Neut # (Auto) 5.74 10^3/uL (1.8-7.7) 03/19/25 04:30 Lymph # (Auto) 2.5 10^3/uL (0.8-4.8) 03/19/25 04:30 [place] # (Auto) 0.7 10^3/uL (0.2-0.9) 03/19/25 04:30 Eos # (Auto) 0.2 10^3/uL (0.0-0.8) 03/19/25 04:30 Baso # (Auto) 0.1 10^3/uL (0.0-0.1) 03/19/25 04:30 Nucleated RBC % (auto) 0 % 03/19/25 04:30 Nucleated RBCs # 0.0 /100WBC 03/19/25 04:30 PT 12.70 SECONDS (12.1-14.9) 03/05/25 17:00 INR 0.89 (0.8-1.2) 03/05/25 17:00 D-Dimer 5.36 ug/mLFEU (0-0.59) H 03/18/25 12:33 Specimen Type Not specified 03/13/25 11:25 Specimen Type Not specified 03/13/25 11:25 Sample Site Not specified 03/13/25 11:25 Sample Site Not specified 03/13/25 11:25 ABG pH 7.35 (7.35-7.45) 03/09/25 07:37 ABG pCO2 62.9 mmHg (35-45) H* 03/09/25 07:37 ABG pO2 67.2 mmHg (80.0-100.0) L 03/09/25 07:37 ABG PO2/FiO2 Ratio 199 03/05/25 18:39 ABG HCO3 34.8 mmol/L (22-26) H 03/09/25 07:37 ABG O2 Saturation 93.7 03/09/25 07:37 ABG Base Excess 6.4 mmol/L (-2.0-2.0) H 03/09/25 07:37 Anthony Test N/a 03/13/25 11:25 Anthony Test N/a 03/13/25 11:25 A-a O2 Gradient Not Reportable 03/13/25 11:25 A-a O2 Gradient Not Reportable 03/13/25 11:25 Hematocrit 54.9 % (42-52) H 03/13/25 11:25 Hematocrit 56.1 % (42-52) H 03/13/25 11:25 Hgb O2 Saturation 67.8 % (95-100) L 03/13/25 11:25 Hgb O2 Saturation 95.6 % (95-100) 03/13/25 11:25 Carboxyhemoglobin 1.1 %THgb (0.4-20.1) 03/13/25 11: Carboxyhemoglobin 1.2 %THgb (0.4-20.1) 03/13/25 11:25 Methemoglobin 0.6 % (0.4-1.5) 03/13/25 11:25 Methemoglobin 0.7 % (0.4-1.5) 03/13/25 11:25 Total Hemoglobin 17.9 g/dL (14-18) 03/13/25 11: Total Hemoglobin 18.3 g/dL (14-18) H 03/13/25 11:25 Sodium 126.0 mmol/L (131-143) L 03/09/25 07:37 Potassium 5.0 mmol/L (3.5-5.0) 03/09/25 07:37 Glucose 144.0 mg/dL (70-115) H 03/09/25 07:37 Ionized Calcium 1.2 mmol/L (1.1-1.4) 03/09/25 07:37 O2 Delivery Device Nc 03/13/25 11:25 O2 Delivery Device Nc 03/13/25 11:25 O2 Liters/Min 4.0 % 03/13/25 11:25 O2 Liters/Min 4.0 % 03/13/25 11:25 FiO2 36.0 % 03/13/25 11:25 FiO2 36.0 % 03/13/25 11:25 Armored Car Guard ID Gd 03/13/25 11:25 Armored Car Guard ID Gd 03/13/25 11:25 Sodium 129 mmol/L (136-145) L 03/19/25 04:30 Potassium 3.6 mmol/L (3.5-5.1) 03/19/25 04:30 Chloride 88 mmol/L (98-107) L 03/19/25 04:30 Carbon Dioxide 27 mmol/L (22-29) 03/19/25 04:30 Anion Gap 17.6 (5-19) 03/19/25 04:30 BUN 26 mg/dL (6-20) H 03/19/25 04:30 Creatinine 1.3 mg/dL (0.7-1.2) H 03/19/25 04:30 GFR Calculation 56.5 mL/min (90-130) L 03/19/25 04:30 Glucose 129 mg/dL (65-115) H 03/19/25 04:30 POC Glucose 158 mg/dL (70-110) H 03/19/25 11:13 Estimat Average Glucose 137 03/05/25 17:00 Hemoglobin A1c 6.4 % (4.0-6.0) H 03/05/25 17:00 Calculated Osmolality 274 mOsm/kg (285-295) L 03/19/25 04:30 Calcium 10.0 mg/dL (8.5-10.5) 03/19/25 04:30 Phosphorus 4.1 mg/dL (2.5-4.5) 03/10/25 06:38 Magnesium 2.1 mg/dL (1.7-2.3) 03/19/25 04:30 Erythropoietin 13.4 mIU/mL (2.6-18.5) 03/05/25 18:57 Total Bilirubin 0.5 mg/dL (0.15-1.2) 03/19/25 04:30 GGT 146 U/L (8-61) H 03/18/25 04:00 AST 71 U/L (0-40) H 03/19/25 04:30 ALT 83 U/L (0-41) H 03/19/25 04:30 Alkaline Phosphatase 88 U/L (40-130) 03/19/25 04:30 Troponin T Baseline 61 ng/L (0-15) H 03/09/25 10:38 Troponin T 120 Minute 54.15 ng/L (0-15) H 03/09/25 12:09 Delta Troponin T -6.85 ABS# (0-10) L 03/09/25 12:09 Troponin T Hi Sens 6Hr 41.88 ng/L (0-15) H 03/09/25 16:30 Troponin T Hi Sens 6Hr Delta -19.12 ng/L (0-12) L 03/09/25 16:30 C-Reactive Protein 268.0 mg/L (0.0-4.9) H 03/10/25 06:38 NT-Pro-B Natriuret Pep 1032 pg/mL (0-125) H 03/10/25 06:38 Total Protein 7.9 g/dL (6.6-8.7) 03/19/25 04:30 Albumin 3.7 g/dL (3.5-5.2) 03/19/25 04:30 Globulin 4.2 g/dL (1.3-4.6) 03/19/25 04:30 Triglycerides 176 mg/dL (0-150) H 03/05/25 17:00 Cholesterol 138 mg/dL (0-200) 03/05/25 17:00 LDL Cholesterol, Calc 57 mg/dL (50-129) 03/05/25 17:00 HDL Cholesterol 46 mg/dL (60-100) L 03/05/25 17:00 LDL/HDL Ratio 1.24 RATIO (0.00-3.22) 03/05/25 17:00 Cholesterol/HDL Ratio 3.00 mg/dL (1.0-5.00) 03/05/25 17:00 Lipase 19 U/L (13-60) 03/05/25 17:00 Vitamin B12 201 pg/mL (232-1245) L 03/06/25 04:28 Folate 4.5 ng/mL (4.5-32.2) 03/06/25 04:28 Homocysteine 33.09 umol/l (0-15) H 03/18/25 04:00 Procalcitonin 0.13 ng/mL (0-0.5) 03/16/25 04:34 TSH 1.04 uIU/mL (0.27-4.20) 03/05/25 17:00 Urine Color Yellow (Yellow) 03/05/25 21:59 Urine Appearance Clear (CLEAR) 03/05/25 21:59 Urine pH 6.5 (5-7) 03/05/25 21:59 Ur Specific [place] 1.007 (1.005-1.030) 03/05/25 21:59 Urine Protein Negative (Negative) 03/05/25 21:59 Urine Glucose (UA) Negative (Normal) 03/05/25 21:59 Urine Ketones Negative (Negative) 03/05/25 21:59 Urine Blood 1+ (Negative) A 03/05/25 21:59 Urine Nitrate Negative (Negative) 03/05/25 21:59 Urine Bilirubin Negative (Negative) 03/05/25 21:59 Urine Urobilinogen 0.2 mg/dL (Negative) 03/05/25 21:59 Ur Leukocyte Esterase Negative (Negative) 03/05/25 21:59 Urine RBC 3-5 /hpf (0-2) 03/05/25 21:59 Urine WBC 0-5 /hpf (0-5) 03/05/25 21:59 Ur Squamous Epith Cells 0-5 /hpf (0-5) 03/05/25 21:59 Amorphous Sediment Not Reportable 03/05/25 21:59 Urine Bacteria None seen /hpf (NONE) 03/05/25 21:59 Hyaline Casts 0-4 /lpf H 03/05/25 21:59 Vancomycin Trough 20.4 ug/mL (10-15) H 03/11/25 14:50 Hepatitis A IgM Ab Non-reactive (Nonreactive) 03/17/25 03:06 Hep Bs Antigen Non-reactive (Nonreactive) 03/17/25 03:06 Hep Bs Antibody < 3.5 (11.5-1000) L 03/17/25 03:06 Hep B Core Total Ab Non-reactive (Nonreactive) 03/17/25 03:06 Hepatitis C Antibody Non-reactive (Nonreactive) 03/17/25 03:06 Radiology Impressions Chest CTA 03/08/25 11:36 IMPRESSION: 1. No pulmonary emboli. 2. Mild right posterior basilar hazy infiltrate and mild left basilar atelectasis. 3. Moderate cardiomegaly with LV configuration. 4. Trace bilateral pleural effusions. 5. Prominent distension of the stomach with fluid and some food like debris question gastroparesis or outlet obstruction or recent ingestion of large meal. 6. Hepatic steatosis. 7. Splenomegaly suspected but only partially visualized. Abdomen X-Ray 03/08/25 16:13 IMPRESSION: Nonobstructive bowel gas pattern. Chest X-Ray 03/10/25 07:00 IMPRESSION: 1. Mild pulmonary edema. 2. Partial obscuration of the LEFT hemidiaphragm. This may be an obscuration by the cardiac fat pad versus pneumonia or fluid. Please note there was a prominent fat pad on a recent CT of 03/08/2025 but no pneumonia. Radiographic findings are similar to that prior CT. Chest CT 03/16/25 12:33 IMPRESSION: Decreased mild nonspecific bilateral pulmonary opacity since 03/08/2025. Possible resolving interstitial edema or infection. Mild underlying chronic interstitial lung disease is not excluded. Chest/Abdomen/Pelvis CT 03/18/25 12:35 IMPRESSION: 1. No evidence of pulmonary embolism. 2. Residual focal area of airspace consolidation at the periphery of the left lower lobe; no new or increasing chest pathology evident. 3. Stable minor findings described above. IMPRESSION: No acute abdominopelvic pathology. Large amount of colonic stool with diverticulosis, 3.7 cm abdominal aortic aneurysm and other minor findings described above. Abdomen Ultrasound 03/18/25 15:17 IMPRESSION: 1. No evidence of portal vein thrombosis or acute abdominal pathology. 2. Minor findings noted above including hepatic steatosis and mild right renal cortical atrophy. Venous Duplex 03/18/25 15:17 IMPRESSION: No evidence of deep vein thrombosis. Recent Clincial Data Last Vital Signs Temp 97.5 F L 03/19/25 15:55 Pulse 87 03/19/25 15:55 Resp 18 03/19/25 15:55 BP 108/66 03/19/25 15:55 Pulse Ox 93 03/19/25 15:55 O2 Del Method Nasal Cannula 03/19/25 15:55 O2 Flow Rate 4 03/19/25 08:54 FiO2 50 03/14/25 00:40 Vital Signs Temp Pulse Resp BP Pulse Ox O2 Del Method O2 Flow Rate 03/19/25 15:55 97.5 F L 87 18 108/66 93 Nasal Cannula 03/19/25 14:00 92 03/19/25 11:42 97.8 F 82 16 106/67 93 Nasal Cannula 03/19/25 08:54 97 16 93 Nasal Cannula 4 03/19/25 07:09 98.6 F 94 16 96/70 Nasal Cannula 03/19/25 05:55 20 H 92 Intake & Output/Weight 03/17/25 03/18/25 03/19/25 03/20/25 06:59 06:59 06:59 06:59 Intake Total 2079 / 2079 1999 / 1999 2390 / 2390 600 / 600 Output Total 3750 / 3750 5220 / 5220 4125 / 4125 Balance -1670 / -1670 -3220 / -3220 -1735 / -1735 600 / 600 Weight 107 kg 107.456 kg Vitals Last Vital Signs Temp 97.5 F L 03/19/25 15:55 Pulse 87 03/19/25 15:55 Resp 18 03/19/25 15:55 BP 108/66 03/19/25 15:55 Pulse Ox 93 03/19/25 15:55 O2 Del Method Nasal Cannula 03/19/25 15:55 O2 Flow Rate 4 03/19/25 08:54 FiO2 50 03/14/25 00:40 TS Medications Medications Acetaminophen (Acetaminophen 325 Mg Tablet) 650 mg PO Q6H PRN PRN Reason: Mild/Mod Pain Or Temp >/= 101 Last Admin: 03/18/25 13:16 Dose: 650 mg Albuterol/Ipratropium (Ipratropium-Albuterol 3 Ml Neb) 3 ml INHALATION Q6H PRN PRN Reason: SHORTNESS OF BREATH Last Admin: 03/09/25 07:53 Dose: 3 ml Aspirin (Aspirin 81 Mg Ec Tablet) 81 mg PO DAILY [facility] [place] Last Admin: 03/19/25 08:15 Dose: 81 mg Atorvastatin Calcium (Atorvastatin 40 Mg Tablet) 40 mg PO BEDTIME RAYSHAWN On Hold: 03/18/25 11:57 Last Admin: 03/17/25 21:23 Dose: 40 mg Budesonide (Budesonide 0.5 Mg/2 Ml Neb) 0.5 mg INHALATION BID.RESPIRATORY PRN PRN Reason: SHORTNESS OF BREATH Clopidogrel Bisulfate (Clopidogrel 75 Mg Tablet) 75 mg PO DAILY [facility] [place] Last Admin: 03/19/25 08:16 Dose: 75 mg Cyanocobalamin (Cyanocobalamin 1,000 Mcg Tablet) 1,000 mcg PO DAILY RAYSHAWN Last Admin: 03/19/25 08:16 Dose: 1,000 mcg Enoxaparin Sodium (Enoxaparin 40 Mg/0.4 Ml Syringe) 40 mg SUBCUT Q24H RAYSHAWN Last Admin: 03/18/25 20:52 Dose: 40 mg Glucagon (Glucagon 1 Mg/Ml Kit 1 Ml) 1 mg IM ONCE PRN; Protocol PRN Reason: Adult Acute Hypoglycemia Nursing Prot. Dextrose (D5w) 500 mls @ 0 mls/hr IV ONCE PRN; Protocol PRN Reason: Adult Acute Hypoglycemia Prot Dextrose (D10w) 125 mls @ 750 mls/hr IV PRN PRN; Protocol PRN Reason: Adult Acute Hypoglycemia Nursing Protocol Dextrose (D10w) 250 mls @ 1,000 mls/hr IV PRN PRN; Protocol PRN Reason: Adult Acute Hypoglycemia Nursing Protocol Metoprolol Tartrate (Metoprolol Tartrate 25 Mg Tablet) 37.5 mg PO BID@0900,2100 [facility] [place] Last Admin: 03/19/25 08:15 Dose: 37.5 mg Naloxone HCl (Naloxone 0.4 Mg/Ml Sdv) 0.1 mg IVP Q2M PRN PRN Reason: OPIATERV Nicotine (Nicotine 21 Mg Patch) 1 patch TRANSDERMA DAILY [facility] [place] Last Admin: 03/19/25 08:16 Dose: 1 patch Ondansetron HCl (Ondansetron 2 Mg/Ml Sdv 2 Ml) 4 mg IVP Q8H PRN PRN Reason: vomiting, or N/V if npo Last Admin: 03/08/25 20:47 Dose: 4 mg Oxycodone/Acetaminophen (Oxycodone-Apap 5-325 Mg Tablet) 1 tab PO Q4H PRN PRN Reason: MODERATE TO SEVERE PAIN Last Admin: 03/19/25 05:55 Dose: 1 tab Polyethylene Glycol (Polyethylene Glycol 3350 Pkt 17 Gm) 17 gm PO DAILY [facility] [place] Last Admin: 03/19/25 08:16 Dose: Not Given Potassium Chloride (Potassium Chloride Er 20 Meq Tablet) 40 meq PO DAILY [facility] [place] Last Admin: 03/19/25 08:15 Dose: 40 meq Senna/Docusate Sodium (Sennosides-Docusate Tablet) 2 tab PO Q12H RAYSHAWN Last Admin: 03/19/25 16:59 Dose: 2 tab Tamsulosin HCl (Tamsulosin 0.4 Mg Capsule) 0.4 mg PO DAILY [facility] [place] Last Admin: 03/19/25 08:15 Dose: 0.4 mg Discontinued Medications Albuterol/Ipratropium (Ipratropium-Albuterol 3 Ml Neb) 3 ml INHALATION Q4H.RESPIRATORY [facility] [place] Last Admin: 03/19/25 08:54 Dose: Not Given Atorvastatin Calcium (Atorvastatin 40 Mg Tablet) 40 mg PO DAILY [facility] [place] Last Admin: 03/12/25 08:42 Dose: 40 mg Budesonide (Budesonide 0.5 Mg/2 Ml Neb) 0.5 mg INHALATION BID.RESPIRATORY [facility] [place] Last Admin: 03/19/25 08:54 Dose: Not Given Cefdinir (Cefdinir 300 Mg Capsule) 300 mg PO BID [facility] [place]; Protocol Last Admin: 03/19/25 08:16 Dose: 300 mg Clopidogrel Bisulfate (Clopidogrel 300 Mg Tablet) Confirm Administered Dose 600 mg .ROUTE .STK-MED ONE Stop: 03/13/25 12:19 Diphenhydramine HCl (Diphenhydramine 50 Mg Capsule) 50 mg PO ONCE ONE Stop: 03/13/25 09:01 Last Admin: 03/13/25 08:24 Dose: 50 mg Fentanyl (Fentanyl 50 Mcg/Ml Inj 2ml) Confirm Administered Dose 100 mcg .ROUTE .STK-MED ONE Stop: 03/13/25 10:40 Furosemide (Furosemide 10 Mg/Ml Sdv 4ml) 40 mg IVP ONCE ONE Stop: 03/05/25 17:31 Last Admin: 03/05/25 17:50 Dose: 40 mg Furosemide (Furosemide 10 Mg/Ml Sdv 4ml) 40 mg IVP Q12H [facility] [place] Last Admin: 03/09/25 05:59 Dose: 40 mg Furosemide (Furosemide 10 Mg/Ml Sdv 4ml) 40 mg IVP Q12H [facility] [place] Stop: 03/11/25 23:50 Last Admin: 03/11/25 16:23 Dose: 40 mg Furosemide (Furosemide 40 Mg Tablet) 40 mg PO DAILY@0800 [facility] [place] Last Admin: 03/12/25 08:42 Dose: 40 mg Furosemide (Furosemide 10 Mg/Ml Sdv 4ml) 40 mg IVP ONCE ONE Stop: 03/14/25 10:37 Last Admin: 03/14/25 10:50 Dose: 40 mg Furosemide (Furosemide 10 Mg/Ml Sdv 10ml) 60 mg IVP ONCE ONE Stop: 03/15/25 08:53 Last Admin: 03/15/25 09:07 Dose: 60 mg Furosemide (Furosemide 10 Mg/Ml Sdv 4ml) 40 mg IVP Q12H [facility] [place] Last Admin: 03/17/25 06:08 Dose: 40 mg Furosemide (Furosemide 10 Mg/Ml Sdv 4ml) 40 mg IVP Q24H [facility] [place] Last Admin: 03/18/25 05:54 Dose: 40 mg Furosemide (Furosemide 40 Mg Tablet) 40 mg PO BID@08,16 [facility] [place] Furosemide (Furosemide 10 Mg/Ml Sdv 4ml) 40 mg IVP Q12H [facility] [place] Last Admin: 03/19/25 05:51 Dose: 40 mg Heparin Sodium (Porcine) (Heparin 5,000 Unit/Ml Inj 1 Ml) Confirm Administered Dose 10,000 unit .ROUTE .STK-MED ONE Stop: 03/13/25 10:40 Heparin Sodium (Porcine) (Heparin 5,000 Unit/Ml Inj 1 Ml) Confirm Administered Dose 5,000 unit .ROUTE .STK-MED ONE Stop: 03/13/25 11:48 Heparin Sodium (Porcine) (Heparin 5,000 Unit/Ml Inj 1 Ml) 0 unit IVP PRN PRN; Protocol PRN Reason: Heparin Weight Based Protocol -Subsequent Bolus Heparin Sodium (Porcine) (Heparin 5,000 Unit/Ml Inj 1 Ml) 0 unit IVP ONCE ONE; Protocol Stop: 03/18/25 15:11 Last Admin: 03/18/25 17:13 Dose: Not Given Piperacillin Sod/Tazobactam (Sod / Sodium Chloride) 50 mls @ 0 mls/hr [id number] CONT RAYSHAWN; Protocol Piperacillin Sod/Tazobactam (Sod 3.375 gm/ Sodium Chloride) 50 mls @ 12.5 mls/hr IV Q8H [facility] [place] Last Infusion: 03/11/25 18:56 Dose: Infused Vancomycin HCl / Sodium (Chloride) 250 mls @ 0 mls/hr [id number] PROTOCOL RAYSHAWN; Protocol Vancomycin HCl (Vancocin) 2,000 mg in 400 mls @ 200 mls/hr IV ONCE ONE Stop: 03/09/25 17:44 Last Infusion: 03/09/25 21:26 Dose: Infused Vancomycin HCl (Vancocin) 1,250 mg in 250 mls @ 166.667 mls/hr IV Q12H [facility] [place] Last Infusion: 03/11/25 05:51 Dose: Infused Lidocaine HCl (Xylocaine) Confirm Administered Dose 20 mls @ as directed .ROUTE .STK-MED ONE Stop: 03/13/25 10:40 Sodium Chloride (Sodium Chloride 0.9%) Confirm Administered Dose 1,000 mls @ as directed .ROUTE .STK-MED ONE Stop: 03/13/25 10:40 Sodium Chloride (Sodium Chloride 0.9%) 250 mls @ 999 mls/hr IV .Q16M [facility] [place] Last Admin: 03/18/25 19:50 Dose: Not Given Heparin Sodium/Sodium Chloride (Heparin Drip) 25,000 unit in 500 mls @ 0 mls/hr IV CONT RAYSHAWN; Protocol Last Admin: 03/18/25 19:45 Dose: Not Given Sodium Chloride (Sodium Chloride 0.9%) 500 mls @ 500 mls/hr IV ONCE ONE Stop: 03/18/25 16:15 Last Infusion: 03/18/25 18:45 Dose: Infused Sodium Chloride (Sodium Chloride 0.9%) 1,000 mls @ 75 mls/hr IV .[id number] [facility] [place] Stop: 03/19/25 14:54 Last Admin: 03/19/25 10:19 Dose: Not Given Iohexol (Iohexol 350 Mg/Ml 500 Ml Btl (Per Ml)) 0 ml IV ONCE ONE Stop: 03/08/25 14:26 Last Admin: 03/08/25 14:25 Dose: 90 ml Iohexol (Iohexol 350 Mg/Ml 500 Ml Btl (Per Ml)) 0 ml IV ONCE ONE Stop: 03/18/25 14:39 Last Admin: 03/18/25 14:39 Dose: 150 ml Ketorolac Tromethamine (Ketorolac 30 Mg/Ml Inj) 15 mg IVP ONCE ONE Stop: 03/10/25 00:32 Last Admin: 03/10/25 01:16 Dose: 15 mg Lactulose (Lactulose Oral Liq 20 Gm/30 Ml Udc) 60 gm PO Q6H [facility] [place] Stop: 03/10/25 06:46 Last Admin: 03/12/25 19:46 Dose: Not Given Methylprednisolone Sodium Succinate (Methylprednisolone Sod Succ 125 Mg/2 Ml Inj) 125 mg IVP ONCE ONE Stop: 03/09/25 08:41 Last Admin: 03/09/25 09:49 Dose: 125 mg Metolazone (Metolazone 5 Mg Tablet) 5 mg PO ONCE ONE Stop: 03/05/25 21:19 Last Admin: 03/05/25 21:47 Dose: 5 mg Metolazone (Metolazone 5 Mg Tablet) 5 mg PO ONCE ONE Stop: 03/09/25 09:41 Last Admin: 03/09/25 10:19 Dose: 5 mg Metolazone (Metolazone 5 Mg Tablet) 5 mg PO ONCE ONE Stop: 03/15/25 08:53 Last Admin: 03/15/25 09:08 Dose: 5 mg Metolazone (Metolazone 5 Mg Tablet) 5 mg PO DAILY [facility] [place] Last Admin: 03/18/25 08:50 Dose: 5 mg Metoprolol Succinate (Metoprolol Succinate Er (24 Hr) 25 Mg Tablet) 25 mg PO ONCE [facility] [place] Last Admin: 03/09/25 00:39 Dose: 25 mg Metoprolol Tartrate (Metoprolol Tartrate 25 Mg Tablet) 25 mg PO BID@0900,2100 [facility] [place] Last Admin: 03/18/25 09:43 Dose: 25 mg Metoprolol Tartrate (Metoprolol Tartrate 25 Mg Tablet) 37.5 mg PO BID@0900,2100 [facility] [place] Metoprolol Tartrate (Metoprolol Tartrate 25 Mg Tablet) 25 mg PO BID@0900,2100 [facility] [place] Midazolam HCl (Midazolam 1 Mg/Ml Inj 2 Ml) Confirm Administered Dose 2 mg .ROUTE .STK-MED ONE Stop: 03/13/25 10:40 Morphine Sulfate (Morphine 4 Mg/Ml Sdv 1 Ml) 2 mg IVP Q4H PRN PRN Reason: SEVERE PAIN Last Admin: 03/07/25 18:48 Dose: 2 mg Morphine Sulfate (Morphine 4 Mg/Ml Sdv 1 Ml) 4 mg IVP Q4H PRN PRN Reason: SEVERE PAIN Last Admin: 03/11/25 01:07 Dose: 4 mg Nicotine (Nicotine 21 Mg Patch) 1 patch TRANSDERMA DAILY [facility] Nitroglycerin (Nitroglycerin 5 Mg/Ml Sdv 10 Ml) Confirm Administered Dose 50 mg .ROUTE .STK-MED ONE Stop: 03/13/25 10:40 Pantoprazole Sodium (Pantoprazole 40 Mg Sdv) 40 mg IVP Q24H [facility] [place] Last Admin: 03/11/25 20:16 Dose: 40 mg Potassium Chloride (Potassium Chloride Er 20 Meq Tablet) 20 meq PO ONCE ONE Stop: 03/05/25 21:19 Last Admin: 03/05/25 21:47 Dose: 20 meq Potassium Chloride (Potassium Chloride Er 20 Meq Tablet) 20 meq PO BID [facility] [place] Last Admin: 03/10/25 17:01 Dose: 20 meq Potassium Chloride (Potassium Chloride Er 20 Meq Tablet) 40 meq PO BID [facility] [place] Stop: 03/11/25 23:50 Last Admin: 03/11/25 17:09 Dose: 40 meq Potassium Chloride (Potassium Chloride Er 20 Meq Tablet) 40 meq PO ONCE ONE Stop: 03/17/25 01:28 Last Admin: 03/17/25 01:36 Dose: 40 meq Potassium Chloride (Potassium Chloride Er 20 Meq Tablet) 40 meq PO Q4H [facility] Stop: 03/17/25 10:01 Last Admin: 03/17/25 10:05 Dose: Not Given Potassium Chloride (Potassium Chloride Er 20 Meq Tablet) 40 meq PO ONCE ONE Stop: 03/18/25 17:24 Last Admin: 03/18/25 18:14 Dose: 40 meq Prednisone (Prednisone 20 Mg Tablet) 40 mg PO DAILY [facility] Stop: 03/16/25 09:01 Last Admin: 03/16/25 09:34 Dose: 40 mg Allergies Unknown abx Allergy (Uncoded 03/05/25 16:09) ALGY-Hives Home Medications rosuvastatin 10 mg tablet 10 mg PO DAILY 08/05/24 [History Confirmed 03/06/25] meloxicam 15 mg tablet 15 mg PO DAILY 01/28/25 [History Confirmed 03/06/25] spironolactone 25 mg tablet 25 mg PO DAILY 01/28/25 [History Confirmed 03/06/25] tamsulosin 0.4 mg capsule 0.4 mg PO DAILY 01/28/25 [History Confirmed 03/06/25] umeclidinium 62.5 mcg-vilanterol 25 mcg/actuation powdr for inhalation (Anoro Ellipta) 1 ea inhalation DAILY 01/28/25 [History Confirmed 03/06/25] adalimumab 40 mg/0.4 mL subcutaneous pen kit (Humira(CF) Pen) 40 mg SUBCUT Q14D 03/06/25 [History Confirmed 03/06/25] albuterol sulfate 90 mcg/actuation aerosol inhaler (Ventolin HFA) 2 puff inhalation Q4H PRN Shortness Of Breath Or Wheezing 03/06/25 [History Confirmed 03/06/25] furosemide 20 mg tablet 20 mg PO BID EDEMA 03/06/25 [History Confirmed 03/06/25] Discharge Plan Discharge Patient Disposition: Xfer Short-Term Hosp Condition: Stable Prescriptions: No Action rosuvastatin 10 mg tablet 10 mg PO DAILY Anoro Ellipta 62.5-25 mcg/actuation blister with device 1 ea inhalation DAILY tamsulosin 0.4 mg capsule 0.4 mg PO DAILY spironolactone 25 mg tablet 25 mg PO DAILY meloxicam 15 mg tablet 15 mg PO DAILY furosemide 20 mg tablet 20 mg PO BID albuterol sulfate [Ventolin HFA] 90 mcg/actuation HFA aerosol inhaler 2 puff INHALATION Q4H PRN (Reason: Shortness Of Breath Or Wheezing) Humira(CF) Pen 40 mg/0.4 mL pen injector kit 40 mg SUBCUT Q14D Other Ambulatory Orders: DME: BIPAP (Order) Location: None Selected Ordered By: Agustin Leung DME: Oxygen (Order) Location: None Selected Ordered By: Sarah Donato Referrals: Christel Burk FNP [Primary Care Provider, Unknown] - 03/27/25 9:20 am Fiona Vann FNP [Nurse Practitioner, Cardiology] - 03/25/25 3:00 pm Patient Instructions: Coronary Angioplasty (DC), Pain Management Transfer Attestations Time Spent in Transfer Care: other Quality Metrics Clinical Quality Measures [ No reported AMI, CVA or VTE this stay] Coding Level of Care Code Acute Code for [facility] Diagnoses Acute congestive heart failure, unspecified heart failure type I50.9 Heart failure chronicity: acute Heart failure type: unspecified Polycythemia D75.1 Acute hypoxic respiratory failure J96.01 COPD exacerbation J44.1 Pneumonia J18.9
--- NOTE | 2025-03-19 17:24 | PC.NURSE ---
Dr Luu spoke with nurse. Patient diagnosed with interstitial lung disease and is being transfered to [facility]
[2025-03-19 17:29] LABS: Blood Urea Nitrogen 28 mg/dL (6-20); Calcium 9.5 mg/dL (8.5-10.5); Carbon Dioxide 22 mmol/L (22-29); Chloride 87 mmol/L (98-107); Creatinine Clr Calc Pharmacy 72.7117; Glomerular Filtration Rate 56.5 mL/min (90-130); Glucose 105 mg/dL (65-115); Osmolality Calculated 272 mOsm/kg (285-295); Sodium 128 mmol/L (136-145)
[2025-03-19 17:39] LABS: Anion Gap 22.8 (5-19); Potassium 3.8 mmol/L (3.5-5.1)
[2025-03-19] MEDS: methylPREDNISolone sod succ 40 mg/mL INJ IVP (18:05)
--- NOTE | 2025-03-19 19:47 | PC.NURSE ---
SAYDA Flood from [facility] called and provided a bed number for this patient. Patient is going to room 4221 at [facility]. Report called at 1907 to Jacob Hanna RN. Gurpreet Pool notified of transport and they stated they would arrive in approximately 30 min to pick patient up. [employer]ra filled out and signed by appropriate parties.
[2025-03-22 18:06] LABS: PROTEIN S, ACTIVITY 118 % normal (70-150)
[2025-03-22 20:29] LABS: PROTEIN C, ACTIVITY 181 % normal (70-180)
[2025-03-23 12:45] LABS: Phosphatidylserine IgG <9 U (< OR = 30); Phosphatidylserine IgM 21 U (< OR = 30)
[2025-03-23 16:50] LABS: Beta 2 Glycoprotein IGA <2.0 U/mL; Beta 2 Glycoprotein IGG <2.0 U/mL; Beta 2 Glycoprotein IGM <2.0 U/mL; CARDIOLIPIN AB (IGA) <2.0 APL-U/mL; CARDIOLIPIN AB (IGG) <2.0 GPL-U/mL; CARDIOLIPIN AB (IGM) <2.0 MPL-U/mL
== END 2025-03-19 20:05 | disposition short-term general hospital (02) | DRG 321 ==
LOC: ER 17:45 → ER IP 03-06 11:52 → CSU 03-07 08:25 → ER IP 03-07 14:11 → CSU 03-09 09:54 → ICU 03-09 12:33 → MEDSURG 03-11 14:29 → CSU 03-12 18:00
PROVIDERS: Emergency Medicine; Internal Medicine; Nurse Practitioner Family; Admitting Provider Family Medicine; Emergency Provider Family Medicine; PCP Nurse Practitioner Family; Visit Provider Internal Medicine
PROC: 027035Z Dilation of Coronary Artery, One Artery with Two Drug-eluting Intraluminal Devices, Percutaneous Approach (ICD-10-PCS; principal; 2025-03-13 10:00)
PROC: 027035Z Dilation of Coronary Artery, One Artery with Two Drug-eluting Intraluminal Devices, Percutaneous Approach (ICD-10-PCS; 2025-03-13 10:00)
DX: I50.43 Acute on chronic combined systolic (congestive) and diastolic (congestive) heart failure (principal); J18.9 Pneumonia, unspecified organism; J96.01 Acute respiratory failure with hypoxia; J96.02 Acute respiratory failure with hypercapnia; J44.1 Chronic obstructive pulmonary disease with (acute) exacerbation; J44.0 Chronic obstructive pulmonary disease with (acute) lower respiratory infection; Z79.899 Other long term (current) drug therapy; F17.200 Nicotine dependence, unspecified, uncomplicated; D75.1 Secondary polycythemia; R07.9 Chest pain, unspecified; E53.8 Deficiency of other specified B group vitamins; K59.00 Constipation, unspecified; I25.10 Atherosclerotic heart disease of native coronary artery without angina pectoris; Z71.6 Tobacco abuse counseling; G47.33 Obstructive sleep apnea (adult) (pediatric)
CPT/HCPCS: 36415; 36416; 36600; 51702; 71045; 71250; 71275; 74018; 74177; 76700; 76705; 80048; 80051; 80053; 80061; 80202; 81001; 81241; 81270; 82330; 82607; 82668; 82746; 82803; 82805; 82810; 82962; 82977; 83036; 83090; 83516; 83690; 83735; 83880; 84100; 84145; 84443; 84484; 85025; 85210; 85303; 85306; 85347; 85378; 85610; 86140; 86146; 86147; 86705; 86706; 86709; 86803; 87340; 93005; 93306; 93308; 93460; 93571; 93970; 94640; 94660; 94664; 94760; 96372; 96374; 96376; 97110; 97116; 97162; 97166; 97530; 97535; 99152; 99153; 99285; A9270; C1725; C1751; C1769; C1874; C1887; C1894; C9600; J1644; J1650; J1885; J1938; J2250; J2270; J2405; J2470; J2543; J2919; J3010; J3370; J3372; J3490; J7030; J7040; J7050; J7512; J7626; J9999; Q0163; Q9967

== ENCOUNTER 2025-04-03 09:03 | Outpatient (CLI) | payer MEDICAID, SELFPAY ==
--- NOTE | 2025-04-03 09:16 | CTR_ITS ---
PROCEDURE INFORMATION: Exam: CT Chest Without Contrast; Diagnostic Exam date and time: 04/03/2025 9:35 AM Age: 60 years old Clinical indication: Condition or disease; Lung condition and disease; Copd; Complications not specified; Shortness of breath; Prior surgery; Surgery date: 6+ months; Surgery type: Heart stents TECHNIQUE: Imaging protocol: Diagnostic computed tomography of the chest without contrast. Radiation optimization: All CT scans at this facility use at least one of these dose optimization techniques: automated exposure control; mA and/or kV adjustment per patient size (includes targeted exams where dose is matched to clinical indication); or iterative reconstruction. COMPARISON: CT angio chest w abd pel w con 03/18/2025 2:37 PM RADIATION DOSE METRICS: Total DLP (mGy-cm): 559.52 FINDINGS: Lungs: Right lower lobe calcified granuloma. Mild bilateral emphysematous changes. Pleural spaces: Unremarkable. No pneumothorax. No pleural effusion. Heart: Unremarkable. No cardiomegaly. No pericardial effusion. Coronary arteries: Coronary calcifications are seen. Lymph nodes: There are shotty mediastinal lymph nodes. Largest measures 1.6 x 0.5 cm. This is stable. Vasculature: Mild calcified atherosclerotic changes are seen in the thoracic aorta. Bones/joints: Chronic bilateral rib fractures. Soft tissues: Unremarkable. CT/CT chest con [id number] IMPRESSION: 1. Mild bilateral emphysematous changes. 2. Mild calcified atherosclerotic changes are seen in the thoracic aorta. 3. Coronary calcifications. COMMENTS: The presence of pulmonary emphysema on CT is an independent risk factor for lung cancer. In the absence of a history or active diagnosis of lung cancer, it is recommended that this patient with emphysema be evaluated for enrollment in a low dose CT lung cancer screening program.
== END 2025-04-03 09:04 | disposition home or self-care (01) ==
LOC: RAD 09:05
PROVIDERS: PCP Nurse Practitioner Family; Visit Provider Internal Medicine
DX: J43.9 Emphysema, unspecified (principal); I25.10 Atherosclerotic heart disease of native coronary artery without angina pectoris; I70.0 Atherosclerosis of aorta
CPT/HCPCS: 71250

== ENCOUNTER → 2025-05-21 10:38 | Outpatient (BNVA) | payer MEDICARE, MEDICAID, SELFPAY | PROVIDERS: PCP Nurse Practitioner Family; Visit Provider Nurse Practitioner Family | DX: I25.10 Atherosclerotic heart disease of native coronary artery without angina pectoris (principal); I11.0 Hypertensive heart disease with heart failure; I50.9 Heart failure, unspecified; G47.30 Sleep apnea, unspecified; E66.9 Obesity, unspecified; Z68.35 Body mass index [BMI] 35.0-35.9, adult; Z79.02 Long term (current) use of antithrombotics/antiplatelets; Z79.82 Long term (current) use of aspirin; F10.90 Alcohol use, unspecified, uncomplicated; Z72.0 Tobacco use; Z95.5 Presence of coronary angioplasty implant and graft | CPT/HCPCS: 99213 ==

== ENCOUNTER 2025-06-08 10:48 | Emergency (ER) | payer MEDICARE, SELFPAY ==
[2025-06-08] VITALS (10 sets, daily range): BP systolic 98–141; BP diastolic 69–90; PULSE 89–105; RESP 13–30; TEMP 36.7; O2SAT 91–99; BMI 35.4
--- OUTSIDE RECORDS SUMMARY | 2025-06-08 10:53 | XMS_ITS | Encounter Summary ---
Author Organization [facility] Address [address] [place] [address] Care Team Providers Care Harness Brusher Name Role Phone Sri Morrissey Primary Care Provider Encounter Details Date Type Department Care Team ([facility] Contact Info) Description 06/04/2025 External Device Data [place] ABSTRACTION Provider, Abstract NO ADDRESS ON FILE Social History Tobacco Use Types Packs/Day Years Used Date Smoking Tobacco: Every Day Cigarettes Smokeless Tobacco: Current Alcohol Use Standard Drinks/Week Comments No 0 (1 standard drink = 0.6 oz pur e alcohol) Feeling Safe Answer Date Recorded Are you in a relationship wi th someone who hurts you emotionally and/or physically? 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 [employer] Gender Identity Not on file Sexual Orientation Not on file documented as of this encounter Plan of Treatment Upcoming Encounters Date Type Department Care Team ([facility] Contact Info) Description 10/13/2025 1:00 PM LOGISTICS TEAM LEAD Office Visit [facility] [place] [address] [facility] [address] [place] [address] Rome Martin FNP [address] [facility] [address] [place] [address] documented as of this encounter Visit Diagnoses Not on filedocumented in this encounter Care Teams Harness Brusher Relationship Specialty Start Date End Date Ghanshyam, Sri L, DO [address] [place] [id number] PCP - General Family Practice 05/07/18 documented as of this encounter
--- OUTSIDE RECORDS SUMMARY | 2025-06-08 10:54 | XMS_ITS | Clinical Summary ---
Author Organization [employer] Address [address] [facility] Attn: Epic Prelude ADT [place] [employer] [address] Care Team Providers Care Technical Solution Architect Name Role Phone Sri Morrissey Primary Care Provider Allergies No known active allergies Medications Saw Rough And Ready Fruit 450 mg Capsule Take 450 mg by mouth 2 times daily as needed. Active Anoro Ellipta 62.5-25 mcg/actuation Disk with Device Take 1 Puff by inhalation daily. Active tamsulosin (FLOMAX) 0.4 mg capsule Take 0.4 mg by mouth daily. Active meloxicam (MOBIC) 15 mg tablet Take 1 Tablet by mouth daily. 12/11/19 25 Active Ventolin HFA 90 mcg/actuation inhaler Take 2 Puffs by inhalation every 4 hours as needed for Shortness of Breath or Wheezing. Active Humira,CF, Pen 40 mg/0.4 mL Pen Injector Kit Inject 40 mg by subcutaneous injection every 2 weeks. Active oxygen home delivery 2 liters oxygen at rest via nasal canula and 2 liters with activity via nasal canula with portability for 99 months 1 Each 03/22/20 25 Active budesonide (PULMICORT RESPULE) 0.5 mg/2 mL Suspension for Nebulization Take 0.5 mg by inhalation 2 times daily. Active ipratropium-albu teroL (DUONEB) 0.5 mg-3 mg(2.5 mg base)/3 mL Solution for Nebulization Take by inhalation every 6 hours as needed. Active clopidogreL (PLAVIX) 75 mg Tablet Take 1 Tablet (75 mg) by mouth daily. 30 Tablet 1 03/22/2025 2:10 PM CDT 03/22/20 25 025 aspirin (ABDULLAHI CHEWABLE) 81 mg Tablet, Chewable Take 1 Tablet (81 mg) by mouth daily. 30 Tablet 1 03/22/2025 2:10 PM CDT 03/22/20 25 025 Active Problems Problem Noted Date Diagnosed Date Chronic hypoxic respiratory failure 03/23/2025 Tobacco use 03/20/2025 Coronary artery disease stat us post coronary stent insertion 03/20/2025 Hyponatremia 03/20/2025 Transaminitis 03/20/2025 Hyperglycemia 03/20/2025 Prediabetes 03/20/2025 Coronary arteriosclerosis 03/13/2025 Overview (2025): Stent x 2 LAD Congestive heart failure 12/19/2024 Essential hypertension 12/10/2024 Chronic obstructive pulmonary disease 12/10/2024 Mixed hyperlipidemia 05/08/2018 Family history of alpha 1 antitrypsin deficiency 05/07/2018 Obstructive sleep apnea syndrome 05/07/2018 Resolved Problems Problem Noted Date Diagnosed Date Resolved Date Acute on chronic diastolic heart failure 03/20/2025 03/23/2025 Encounter for tobacco use ce ssation counseling 03/20/2025 03/23/2025 Acute hypoxic respiratory failure 03/20/2025 03/23/2025 Encounters Date Type Department Care Team Description 06/04/2025 External Device Data STL ABSTRACTION Provider, Abstract 05/27/2025 External Device Data STL ABSTRACTION Provider, Abstract 05/27/2025 External Device Data STL ABSTRACTION Provider, Abstract 05/20/2025 External Device Data STL ABSTRACTION Provider, Abstract 05/07/2025 External Device Data STL ABSTRACTION Provider, Abstract 04/29/2025 Telephone [facility] [place] [address] [phone] Briana Woodson, Cardiac Clearence 04/28/2025 Telephone [facility] [place] [address] [phone] Briana Woodson, Results 04/22/2025 External Device Data STL ABSTRACTION Provider, Abstract 04/22/2025 External Device Data STL ABSTRACTION Provider, Abstract 04/16/2025 1:30 PM CDT Office Visit [facility] [place] [address] [place] [phone] Briana Woodson, Family history of alpha 1 antitrypsin deficiency (Primary Dx); Elevated liver enzymes; Hepatic steatosis; Abnormal results of liver function studies; Lower extremity edema 04/16/2025 External Device Data STL ABSTRACTION Provider, Abstract 04/16/2025 External Device Data STL ABSTRACTION Provider, Abstract 03/25/2025 External Device Data STL ABSTRACTION Provider, Abstract 03/25/2025 External Device Data STL ABSTRACTION Provider, Abstract 03/25/2025 External Device Data STL ABSTRACTION Provider, Abstract 03/24/2025 Orders Only [facility] [address] [place] [phone] Provider, Abstract 2025 10:16 PM CDT - 03/22/2025 1:53 PM CDT Hospital Encounter [address] [facility] [address] [place] [phone] Arnold Vaz MD Sundaram, MD Angelica Houston, Terrell Matthews, Acute on chronic diastolic heart failure (CMS/HCC) Discharge Disposition: Home or Self Care 2025 Travel 03/11/2025 External Device Data STL ABSTRACTION Provider, Abstract 03/11/2025 External Device Data STL ABSTRACTION Provider, Abstract 03/11/2025 External Device Data STL ABSTRACTION Provider, Abstract 03/11/2025 External Device Data STL ABSTRACTION Provider, Abstract [...] on file Legal Sex Male 12:31 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 NET Gender Identity Not on file Sexual Orientation Not on file Last Filed Vital Signs Vital Sign Reading Time Taken Comments Blood Pressure 120/70 04/16/2025 1:18 PM CDT Pulse 109 04/16/2025 1:18 PM CDT Temperature 36.4 C (97.6 F) 03/22/2025 8:00 AM CDT Respiratory Rate 16 03/22/2025 10:41 AM CDT Oxygen Saturation 95% 03/22/2025 10:41 AM CDT Inhaled Oxygen Concentration - - Weight 107.5 kg (237 lb) 04/16/2025 1:18 PM CDT Height 172.7 cm (5' 8 ) 04/16/2025 1:18 PM CDT Body Mass Index 36.04 04/16/2025 1:18 PM CDT Plan of Treatment Upcoming Encounters Date Type Department Care Team (Late st Contact Info) Description 10/13/2025 1:00 PM FISHER LAMPARA NET Office Visit [facility] [place] [address] [facility] [address] [place] [phone] Rome Martin, ENOCH [address] [facility] [address] [place] [phone] Health Maintenance Due Date Last Done Comments FIT/ DNA Q 3 YEARS (AUTO ORDER) 1984 FIT/FOBT Q 1 YEAR (AUTO ORDER) 1984 FLEX SIG/CT COLONOGRAPHY Q 5 YEARS (AUTO ORDER) 1984 DTAP/TDAP/TD VACCINES (1 - Tdap) 1985 HEPATITIS B VACCINES (1 of 3 - 19+ 3-dose series) 1985 Traditional Medicare (ACO) A nnual Wellness Visit 1985 COLORECTAL CANCER SCREENING (AUTO ORDER) 2011 COLORECTAL SCREENING 2011 Colorectal Cancer Screening (AUTO ORDER) 2011 Colorectal Cancer Screening 2011 FIT-DNA Q 3 years 2011 FIT/FOBT Q 1 year 2011 Flex Sig/CT Colonography Q 5 years 2011 ZOSTER VACCINE (1 of 2) 2016 Medicare Advantage ([place]) Prev entative Visit/Annual Wellness Visit 10/02/2024 INFLUENZA VACCINE (#1) 2025 Pre-Diabetes and Diabetes Screening 03/19/202803/19, 05/07/2018 Procedures Procedure Name Priority Date/Time Associated Diagnosis Comments PROTIME-INR Routine 04/16/2025 1:53 PM CDT Elevated liver enzymes Hepatic steatosis Abnormal results of liver function studies ACUTE HEPATITIS PANEL Routine 04/16/2025 1:53 PM CDT Family history of alpha 1 antitrypsin deficiency Elevated liver enzymes Hepatic steatosis Abnormal results of liver function studies FERRITIN Routine 04/16/2025 1:53 PM CDT Family history of alpha 1 antitrypsin deficiency Elevated liver enzymes Hepatic steatosis IRON, TIBC, AND PERCENT SATURATION Routine 04/16/2025 1:53 PM CDT Family history of alpha 1 antitrypsin deficiency Elevated liver enzymes Hepatic steatosis MITOCHONDRIAL ANTIBODY Routine 04/16/2025 1:53 PM CDT Family history of alpha 1 antitrypsin deficiency Elevated liver enzymes Hepatic steatosis LIVER KIDNEY MICROSOMAL ANTIBODY Routine 04/16/2025 1:53 PM CDT Family history of alpha 1 antitrypsin deficiency Elevated liver enzymes Hepatic steatosis ALPHA 1 ANTITRYPSIN Routine 04/16/2025 1 :53 PM CDT Family history of alpha 1 antitrypsin deficiency Elevated liver enzymes Hepatic steatosis IKE SCREEN W/REFLEX Routine 04/16/2025 1 :53 PM CDT Family history of alpha 1 antitrypsin deficiency Elevated liver enzymes Hepatic steatosis CERULOPLASMIN Routine 04/16/2025 1:53 PM CDT Family history of alpha 1 antitrypsin deficiency Elevated liver enzymes Hepatic steatosis F-ACTIN IGG Routine 04/16/2025 1:53 PM CDT Family history of alpha 1 antitrypsin deficiency Elevated liver enzymes Hepatic steatosis TELEMETRY REPORT 03/24/2025 3:53 PM CDT POC GLUCOSE Routine 03/22/2025 12:12 PM CDT MAGNESIUM LEVEL Routine 03/22/2025 7:52 AM CDT COMPREHENSIVE METABOLIC PANEL Routine 03/22/2025 7:52 AM CDT CBC WITH DIFFERENTIAL Routine 03/22/2025 7:52 AM CDT POC GLUCOSE Routine 03/22/2025 7:27 AM CDT POC GLUCOSE Routine 03/21/2025 9:36 PM CDT POC GLUCOSE Routine 03/21/2025 5:57 PM CDT BASIC METABOLIC PANEL Timed Study 03/21/2025 2:38 PM CDT POC GLUCOSE Routine 03/21/2025 12:00 PM CDT ECHO COMPLETE Routine 03/21/2025 11:32 AM CDT HOME O2 EVAL (DESATURATION SCREEN) Routine 03/21/2025 7:18 AM CDT POC GLUCOSE Routine 03/21/2025 7:11 AM CDT COMPREHENSIVE METABOLIC PANEL Routine 03/21/2025 6:02 AM CDT MAGNESIUM LEVEL Routine 03/21/2025 6:02 AM CDT CBC WITH DIFFERENTIAL Routine 03/21/2025 6:01 AM CDT POC GLUCOSE Routine 03/20/2025 9:14 PM CDT POC GLUCOSE Routine 03/20/2025 4:[address] CHEST WO CONTRAST Routine 03/20/2025 12:24 PM CDT POC GLUCOSE Routine 03/20/2025 11:12 AM CDT EXTRA TUBE (URINE HENRY) Routine 03/20/2025 8:04 AM CDT OSMOLALITY, URINE Routine 03/20/2025 8:0 4 AM CDT SODIUM, RANDOM URINE Routine 03/20/2025 8:04 AM CDT URINALYSIS W/REFLEX MICROSCOPIC Routine 03/20/2025 8:04 AM CDT POC GLUCOSE Routine 03/20/2025 7:02 AM CDT US ABDOMEN LIMITED Routine 03/20/2025 6: 47 AM CDT BASIC METABOLIC PANEL Routine 03/20/2025 6:11 AM CDT CBC WITHOUT DIFFERENTIAL Routine 03/20/2025 6:11 AM CDT POC GLUCOSE Routine 03/20/2025 12:55 AM CDT LIPID PANEL Routine 2025 11:20 PM CDT BRAIN NATRIURETIC PEPTIDE, BNP OR PROBNP Routine 2025 11:20 PM CDT HEMOGLOBIN A1C Routine 2025 11:20 PM CDT TSH Routine 2025 11:20 PM CDT MAGNESIUM LEVEL Routine 2025 11:20 PM CDT PROTIME-INR Routine 2025 11:20 PM CDT CBC WITH DIFFERENTIAL Routine 2025 11:20 PM CDT COMPREHENSIVE METABOLIC PANEL Routine 2025 11:20 PM CDT EKG 12-LEAD Routine 2025 11:10 PM CDT XR CHEST PA OR AP 1 VW Stat 2025 11:06 PM CDT RT ASSESS AND TREAT Routine 2025 1 0:55 PM CDT ECHO COMPLETE Routine 03/18/2025 12:58 PM CDT ECHO COMPLETE Routine 03/18/2025 12:57 PM CDT from Last 3 Months Results * (ABNORMAL) F-ACTIN IGG (04/16/2025 1:53 PM CDT) SMOOTH MUSCLE AB (ACTIN) IGG 58(H) <20 U [facility] Comment: Reference Range: <20 U: Negative >or=20 U: Positive Antibodies recognizing actin are the main component of smooth muscle antibodies associated with auto- immune liver disease. Actin antibodies are found in approximately 75% of patients with autoimmune hepatitis (AIH) type 1, approximately 65% of patients with autoimmune cholangitis, approximately 30% of patients with primary biliary cirrhosis and approximately 2% of healthy controls. High values are closely correlated with AIH type 1. FASTING:NO FASTING: NO Test Performed at: [facility] [address] [place] [address] Lamin Cade M.D.,PhD Blood 04/16/2025 1:53 PM CDT 04/16/2025 1:53 PM CDT us Briana Nadeen Valdes DO CHEMISTRY ORDERABLES F inal Result [facility] [phone] [facility]/[place] [address] [address] [place] [address] * ACUTE HEPATITIS PANEL (04/16/2025 1:53 PM CDT) HEPATITIS A IGM NON-REACTI VE NON-REACT ALLISON [facility] Comment: For additional information, please refer to http://[employer]/faq/RNR407 (This link is being provided for informational/ educational purposes only.) HEPATITIS B SURFACE AG NON-REACTI VE NON-REACT ALLISON [facility] Comment: For additional information, please refer to http://[employer]/faq/DCW440 (This link is being provided for informational/ educational purposes only.) HEPATITIS B CORE IGM NON-REACTI VE NON-REACT ALLISON [facility] Comment: For additional information, please refer to http://[employer]/faq/FSC580 (This link is being provided for informational/ educational purposes only.) HEPATITIS C AB NON-REACTI VE NON-REACT ALLISON [facility] Comment: HCV antibody was non-reactive. There is no laboratory evidence of HCV infection. In most cases, no further action is required. However, if recent HCV exposure is suspected, a test for HCV RNA (test code 12859) is suggested. For additional information please refer to http://[employer]/faq/UCO22b5 (This link is being provided for informational/ educational purposes only.) Test Performed at: [employer] [address] [place] [address] Shaunna Dejesus MD Blood 04/16/2025 1:53 PM CDT 04/16/2025 1:53 PM CDT us Briana Nadeen Valdes DO CHEMISTRY ORDERABLES F inal Result [facility] [phone] [facility] [address] [address] [phone] * MITOCHONDRIAL ANTIBODY (04/16/2025 1:53 PM CDT) Pathologist [facility] MITOCHONDRIAL AB <20.[address] [facility], Comment: Reference Range: NEGATIVE: < OR = 20.0 EQUIVOCAL: 20.1-24.9 POSITIVE: > OR = 25.0 FASTING:NO FASTING: NO Test Performed at: [facility], [address] [place] [address] Linda Grande MD,PhD,SARAH Blood 04/16/2025 1:53 PM CDT 04/16/2025 1:53 PM CDT us Briana Nadeen Valdes DO CHEMISTRY ORDERABLES F inal Result [facility] [phone] [facility], [address] [place] [address] * LIVER KIDNEY MICROSOMAL ANTIBODY (04/16/2025 1:53 PM CDT) Pathologist [facility] LIVER KIDNEY MICROSOMAL AB <=20.0 <=20.0 U [facility] [employer] [facility] Comment: Reference Range: <=20.0 Negative 20.1-24.9 Equivocal >=25.0 Positive Anti-liver/kidney microsomal antibodies (Anti-LKM-1) were previously tested by indirect immunofluorescence (IF) using rodent liver/kidney substrate. Identification of a specific antibody target as cytochrome P450 IID6 has led to the current recombinant based EVETTE. Antibodies to this cytochrome are present in approximately 70% of patients with autoimmune hepatitis type 2. This antibody is also present in approximately 10% of patients with hepatitis C infection. FASTING:NO FASTING: NO Test Performed at: [facility] [address] [place], [place] Lamin Cade M.D.,PhD Blood 04/16/2025 1:53 PM CDT 04/16/2025 1:53 PM CDT Briana Nadeen Valdes DO CHEMISTRY ORDERABLES F inal Result Performing Organization Address [facility]/ZIP Co de Phone Number [facility] [phone] [facility] [address] [place], [place] * IRON, TIBC, AND PERCENT SATURATION (04/16/2025 1:53 PM CDT) IRON 136 50 - 180 mcg/dL [facility] TIBC 422 250 - 425 mcg/dL (calc) [facility] IRON % SATURATION 32 20 - 48 % (calc) [facility] Comment: FASTING:NO FASTING: NO Test Performed at: [facility] [address] [place] [address] ChrissieChasity Dejesus MD Blood 04/16/2025 1:53 PM CDT 04/16/2025 1:53 PM CDT Briana Nadeen Bradens DO CHEMISTRY ORDERABLES F inal Result Performing Organization Address [facility] Co de Phone Number [facility] [phone] [facility] [address] [facility] [place] [address] * (ABNORMAL) CERULOPLASMIN (04/16/2025 1:53 PM CDT) CERULOPLASMIN 34(H) 14 - 30 mg/dL [facility] Comment: FASTING:NO FASTING: NO Test Performed at: [facility] [address] [place] [address] Shaunna Dejesus MD Blood 04/16/2025 1:53 PM CDT 04/16/2025 1:53 PM CDT Briana Nadeen Valdes DO CHEMISTRY ORDERABLES F inal Result Performing Organization Address City/[facility]/ZIP Co de Phone Number [facility] [phone] [address] * ALPHA 1 ANTITRYPSIN (04/16/2025 1:53 PM CDT) Pathologist [facility] ALPHA 1 ANTITRYPSIN 121 83 - 199 mg/dL [facility] Comment: Test Performed at: [facility] [address] Shaunna Dejesus MD Blood 04/16/2025 1:53 PM CDT 04/16/2025 1:53 PM CDT Briana Nadeen Valdes DO CHEMISTRY ORDERABLES F inal Result Performing Organization Address [facility] Co de Phone Number [facility] [phone] [facility] [address] * PROTIME-INR (04/16/2025 1:53 PM CDT) Only the most recent of2 resultswithin the time period is included. [facility] INR 1.0 [facility] Comment: Reference Range 0.9-1.1 Moderate-intensity Warfarin Therapy 2.0-3.0 Higher-intensity Warfarin Therapy 3.0-4.0 PROTIME 10.2 9.0 - 11.5 sec [facility] Comment: For additional information, please refer to http://education.[employer]/faq/AHV886 (This link is being provided for informational/ educational purposes only.) FASTING:NO FASTING: NO Test Performed at: [facility] [address] [place] [address] Guevara Farr Blood 04/16/2025 1:53 PM CDT 04/16/2025 1:53 PM CDT Briana Nadeen Valdes DO HEMATOLOGY ORDERABLES Final Result [facility] [phone] [facility] [address], [place] [address] * IEK SCREEN W/REFLEX (04/16/2025 1:53 PM CDT) IKE SCREEN NEGATIVE NEGATIVE [facility] [place] Comment: IKE IFA is a first line screen for detecting the presence of up to approximately 150 autoantibodies in various autoimmune diseases. A negative IKE IFA result suggests an IKE-associated autoimmune disease is not present at this time, and does not reflex further. If there is high clinical suspicion for Sjogren's syndrome, testing for anti-SS-A/Ro antibody should be considered. Anti-Regine-1 antibody should be considered for clinically suspected inflammatory myopathies. AC-0: Negative International Consensus on IKE Patterns (https://doi.org/10.1515/uqjk-7665-9524) For additional information, please refer to http://education.[employer]/faq/PDQ569 (This link is being provided for informational/ educational purposes only.) FASTING:NO FASTING: NO Test Performed at: [facility] [address] [place] [address] Shaunna Dejesus MD Blood 04/16/2025 1:53 PM CDT 04/16/2025 1:53 PM CDT Briana Bradens DO CHEMISTRY ORDERABLES F inal Result [facility] [phone] [employer] [address] [place] [address] * FERRITIN (04/16/2025 1:53 PM CDT) Pathologist [facility] FERRITIN 291 38 - 380 ng/mL [facility] Comment: FASTING:NO FASTING: NO Test Performed at: [facility] [address] [place] [address] Shaunna Dejesus MD Blood 04/16/2025 1:53 PM CDT 04/16/2025 1:53 PM CDT Briana Nadeen Valdes DO CHEMISTRY ORDERABLES F inal Result Performing Organization Address [facility]/ZIP Co de Phone Number [facility] [phone] [facility] [address] [place] [address] * TELEMETRY REPORT (03/24/2025 3:53 PM CDT) Provider Scanning ECG ORDERABLES Final Result * (ABNORMAL) POC GLUCOSE (03/22/2025 12:12 PM CDT) Only the most recent of11 resultswithin the time period is included. GLUCOSE POC 157(H) 74 - 99 mg/dL 03/22/2025 12:12 PM CDT [facility] SPECIMEN SOURCE, GLUCOSE POC Capillary 03/22/2025 12:12 PM CDT [facility] Blood, whole 03/22/2025 12:1 2 PM CDT 03/22/2025 12:22 PM CDT Terrell Dominguez DO POINT OF CARE TESTING F inal Result Performing Organization Address [facility]/ZIP Co de Phone Number [facility] CLIA # [id number] [id number] [place] [address] * (ABNORMAL) CBC WITH DIFFERENTIAL (03/22/2025 7:52 AM CDT) Only the most recent of3 resultswithin the time period is included. WBC 9.2 4.8 - 10.8 K/uL 03/22/2025 8:10 AM CDT [facility] RBC 5.00 4.60 - 6.20 M/uL 03/22/2025 8:10 AM [facility] [employer] [facility] HEMOGLOBIN 17.1 14.0 - 18.0 g/dL 03/22/2025 8:10 AM [facility] HEMATOCRIT 49.6 41.0 - 53.0 % 03/22/2025 8:10 AM [facility] MCV 99.2 84.0 - 103.0 fL 03/22/2025 8:10 AM [facility] MCH 34.2(H) 27.0 - 34.0 pg 03/22/2025 8:10 AM [facility] MCHC 34.5 30.0 - 35.0 g/dL 03/22/2025 8:10 AM [facility] [employer] [facility] PLATELETS 268 140 - 440 K/uL 03/22/2025 8:10 AM [facility] [employer] [facility] MPV 8.8(L) 8.9 - 12.8 fL 03/22/2025 8:10 AM [facility] [employer] [facility] RDW 14.0 11.0 - 14.5 % 03/22/2025 8:10 AM [facility] [employer] [facility] RDW-STDEV 51.3 37.0 - 54.0 fL 03/22/2025 8:10 AM [facility] NEUTROPHILS 63 42 - 75 % 03/22/2025 8:10 AM [facility] LYMPHOCYTES 28 24 - 44 % 03/22/2025 8:10 AM [facility] [employer] [facility] MONOCYTES 6 2 - 10 % 03/22/2025 8:10 AM [facility] [employer] [facility] EOSINOPHILS 1 0 - 7 % 03/22/2025 8:10 AM [facility] [employer] [facility] BASOPHILS 0 0 - 1 % 03/22/2025 8:10 AM [facility] IMMATURE GRANULOCYTES 1 0 - 2 % 03/22/2025 8:10 AM [facility] [employer] [facility] NEUTROPHIL ABSOLUTE 5.82 2.00 - 8.00 K/uL 03/22/2025 8:10 AM [facility] [employer] [facility] LYMPHOCYTE ABSOLUTE 2.62 1.20 - 4.00 K/uL 03/22/2025 8:10 AM CDT [facility] MONOCYTE ABSOLUTE 0.59 0.10 - 0.60 K/uL 03/22/2025 8:10 AM CDT [facility] EOSINOPHIL ABSOLUTE 0.07 0.00 - 0.70 K/uL 03/22/2025 8:10 AM CDT [facility] BASOPHILS ABSOLUTE 0.04 0.00 - 0.20 K/uL 03/22/2025 8:10 AM CDT [facility] IMMATURE GRANULOCYTES ABSOLUTE 0.08 0.00 - 0.10 K/uL 03/22/2025 8:10 AM CDT [facility] SMEAR REVIEWED: NA - Not Applicable 03/22/2025 8:10 AM CDT [facility] Blood Venipuncture / Unknown 03/22/2025 7:52 AM CDT 03/22/2025 8:04 AM CDT Terrell Dominguez DO HEMATOLOGY ORDERABLES F inal Result Performing Organization Address [facility]/ZIP Co de Phone Number [facility] CLIA # [id number] [address] [address] * MAGNESIUM LEVEL (03/22/2025 7:52 AM CDT) Only the most recent of3 resultswithin the time period is included. MAGNESIUM 2.4 1.6 - 2.6 mg/dL 03/22/2025 8:45 AM CDT [facility] Blood Venipuncture / Unknown 03/22/2025 7:52 AM CDT 03/22/2025 8:11 AM CDT Terrell Dominguez DO CHEMISTRY ORDERABLES Fi nal Result [facility] CLIA # [id number] [address] [address] [place] [address] * (ABNORMAL) COMPREHENSIVE METABOLIC PANEL (03/22/2025 7:52 AM CDT) Only the most recent of3 resultswithin the time period is included. SODIUM 131(L) 136 - 145 mmol/L 03/22/2025 8:45 AM T [facility] POTASSIUM 3.1(L) 3.5 - 5.1 mmol/L 03/22/2025 8:45 AM T [facility] CHLORIDE 91(L) 98 - 107 mmol/L 03/22/2025 8:45 AM [facility] CO2 25 22 - 29 mmol/L 03/22/2025 8:45 AM T [facility] CALCIUM 9.3 8.6 - 10.0 mg/dL 03/22/2025 8:45 AM [facility] BUN 29(H) 6 - 20 mg/dL 03/22/2025 8:45 AM [facility] CREATININE 1.14 0.67 - 1.17 mg/dL 03/22/2025 8:45 AM [facility] GLUCOSE 139(H) 74 - 99 mg/dL 03/22/2025 8:45 AM [facility] TOTAL PROTEIN 7.6 6.4 - 8.3 g/dL 03/22/2025 8:45 AM [facility] ALBUMIN 3.8 3.5 - 5.2 g/dL 03/22/2025 8:45 AM [facility] BILIRUBIN TOTAL 0.6 0.0 - 1.0 mg/dL 03/22/2025 8:45 AM [facility] ALKALINE PHOSPHATASE 67 40 - 129 U/L 03/22/2025 8:45 AM [facility] AST 59(H) 10 - 50 U/L 03/22/2025 8:45 AM [facility] ALT 64(H) <=50 U/L 03/22/2025 8:45 AM CDT [facility] GFR >60 >=60 mL/min/1.7 3 sq meter 03/22/2025 8:45 AM CDT [facility] Comment:eGFR calculated with 2020 CKD-EPI equation. Vegetarian diet, extremely high or low muscle mass, and may affect results. Cystatin C with Glomerular Filtration Rate is a suitable alternative for these patients. ANION GAP 15 9 - 20 mmol/L 03/22/2025 8:45 AM CDT [facility] Blood Venipuncture / Unknown 03/22/2025 7:52 AM CDT 03/22/2025 8:11 AM CDT Terrell Dominguez DO CHEMISTRY ORDERABLES Fi nal Result [facility] # [id number] [address] [place] [address] * (ABNORMAL) BASIC METABOLIC PANEL (03/21/2025 2:38 PM CDT) Only the most recent of2 resultswithin the time period is included. SODIUM 131(L) 136 - 145 mmol/L 03/21/2025 3:36 PM CDT [facility] POTASSIUM 3.5 3.5 - 5.1 mmol/L 03/21/2025 3:36 PM T [facility] CHLORIDE 87(L) 98 - 107 mmol/L 03/21/2025 3:36 PM CDT [facility] CO2 30(H) 22 - 29 mmol/L 03/21/2025 3:36 PM CDT [facility] CALCIUM 9.5 8.6 - 10.0 mg/dL 03/21/2025 3:36 PM CDT [facility] BUN 31(H) 6 - 20 mg/dL 03/21/2025 3:36 PM CDT [facility] CREATININE 1.39(H) 0.67 - 1.17 mg/dL 03/21/2025 3:36 PM CDT [facility] GLUCOSE 144(H) 74 - 99 mg/dL 03/21/2025 3:36 PM CDT [facility] GFR 58(L) >=60 mL/min/1. 73 sq meter 03/21/2025 3:36 PM CDT [facility] Comment:eGFR calculated with 2020 CKD-EPI equation. Vegetarian diet, extremely high or low muscle mass, and may affect results. Cystatin C with Glomerular Filtration Rate is a suitable alternative for these patients. ANION GAP 14 9 - 20 mmol/L 03/21/2025 3:36 PM CDT [facility] Blood Venipuncture / Unknown 03/21/2025 2:38 PM CDT 03/21/2025 2:58 PM CDT us Terrell Dominguez DO CHEMISTRY ORDERABLES Fi nal Result [facility] CLIA # [id number] [address] [place] [address] * ECHO COMPLETE - CONTRAST AND STRAIN IF INDICATED (03/21/2025 11:32 AM CDT) EJECTION FRACTION 57 INTERFACE SYSTEM 03/21/2025 10:0 4 AM CDT Narrative INTERFACE SYSTEM - 03/21/2025 11:40 AM CDT [facility] Echocardiography Laboratory [address] [place] [id number] Transthoracic Echocardiography Patient: Jaswinder Palmer Study ID: ECHO COMPLETE - Ray Gender: M : 1965 Age: 60 Room: [facility] Study 03/21/2025 Pt Inpatient Date: Status: Study 10:04:19 AM [facility] #: [id number] Time: Ordering:Terrell Dominguez Byron Indications and History: HF, Cardiomyopathy; Initial evaluation of known or suspected HF/cardiomyopathy (restrictive, infiltrative, dilated, hypertrophic). Summary and Conclusion: - Left ventricle: The cavity size is normal. Wall thickness is normal. Global systolic function is normal. The estimated ejection fraction is 55-60%. For Epic reporting: the left ventricular ejection fraction is 57% by biplane method of disks. Possible basal inferior hypokinesis. Doppler parameters are consistent with abnormal left ventricular relaxation (grade 1 diastolic dysfunction). - Right ventricle: The cavity size is normal. Systolic function is normal. Systolic pressure is within the normal range. - Mitral valve: There is mild regurgitation. - Tricuspid valve: There is mild regurgitation. Procedure information: Comparison is made to the study of 11/30/2023. Study status: Routine. Procedure: A transthoracic echocardiogram was performed. Image quality was adequate. Scanning was performed from the parasternal, apical, subcostal, and suprasternal notch acoustic windows. Study components: M-mode, 2D, complete spectral Doppler, and color Doppler. Height: 172.7cm. Height: 68in. Weight: 104.5kg. Weight: 230.4lb. BMI: 35kg/m^2. BSA: 2.28m^2. Blood pressure: 113/85 Study date: 03/21/2025. Study time: 10:04 AM. Location: Bedside. Cardiac Anatomy: LEFT VENTRICLE: The cavity size is normal. Wall thickness is normal. Global systolic function is normal. The estimated ejection fraction is 55-60%. For Epic reporting: the left ventricular ejection fraction is 57% by biplane method of disks. Possible basal inferior hypokinesis. The longitudinal strain is -11.9% (Normal range is -18 to -25).. Doppler parameters are consistent with abnormal left ventricular relaxation (grade 1 diastolic dysfunction). RIGHT VENTRICLE: The cavity size is normal. Systolic function is normal. Systolic pressure is within the normal range. LEFT ATRIUM: The atrium is normal in size. RIGHT ATRIUM: The atrium is normal in size. ATRIAL SEPTUM: No obvious PFO or ASD identified by 2D imaging and color Doppler. AORTIC VALVE: The valve is trileaflet. The leaflets are normal thickness. Mobility is not restricted. There is no stenosis. There is no significant regurgitation. MITRAL VALVE: Structurally normal valve. Mobility is not restricted. No evidence for prolapse. There is no evidence for stenosis. There is mild regurgitation. TRICUSPID VALVE: Structurally normal valve. Mobility is unrestricted. There is no evidence for stenosis. There is mild regurgitation. PULMONIC VALVE: Not well visualized. The valve appears to be grossly normal. There is no evidence for stenosis. There is no significant regurgitation. PERICARDIUM: A minimal pericardial effusion and/or fat pad was identified. AORTA: Aortic root: The root is not dilated. Aortic arch: The vessel is not dilated. INTRACARDIAC MASS THROMBUS: No apparent intracavitary masses or thrombi detected. Measurements Left ventricle Value Right ventricle Value GLS, 2D -11.9 % DENIA, LAX 2.3 cm DENIA, LAX 4.8 cm DENIA 2.3 cm ESD, LAX 3.2 cm TAPSE, 2D 2.7 cm DENIA/bsa, LAX 2.1 cm/m^2 TAPSE, MM 2.7 cm ESD/bsa, LAX 1.4 cm/m^2 S' lateral 14.7 cm/sec FS, LAX 33 % FS, LAX chord 33 % Left atrium Value ESD major ax, A4C 7.6 cm AP dim, ES 2.9 cm ESD/bsa major ax, A4C 3.3 cm/m^2 AP dim index, ES 1.3 cm/m^2 DENIA minor ax, A4C 7.6 cm SI dim, A4C 4.3 cm DENIA/bsa minor ax, A4C 3.3 cm/m^2 Area ES, A4C 12 cm^2 DENIA major ax, A2C 8.9 cm Vol, S 22 ml ESD major ax, A2C 7.4 cm Vol/bsa, S 10 ml/m^2 DENIA/bsa major ax, A2C 3.9 cm/m^2 Vol, ES, 1-p A4C 26 ml ESD/bsa major ax, A2C 3.2 cm/m^2 Vol/bsa, ES, 1-p A4C 11 ml/m^2 IVS, ED 1.5 cm Vol, ES, 1-p A2C 16 ml ESD 3.2 cm Vol/bsa, ES, 1-p A2C 7 ml/m^2 ESD/bsa 1.4 cm/m^2 Vol, ES, 2-p 22 ml FS 33 % Vol/bsa, ES, 2-p 10 ml/m^2 PW, ED 1.2 cm Vol, ES, A/L 27 ml IVS/PW, ED 1.27 Vol/bsa, ES, A/L 12 ml/m^2 EDV, 1-p A2C 84 ml ESV, 1-p A2C 53 ml Right atrium Value EF, 1-p A2C 63 % Area, ES 12 cm^2 EDV/bsa, 1-p A2C 37 ml/m^2 Area, ES, A4C 12 cm^2 ESV/bsa, 1-p A2C 23 ml/m^2 EDV, 1-p A4C 99 ml Aortic valve Value ESV, 1-p A4C 48 ml Peak v, S 95.79 cm/sec EF, 1-p A4C 51 % Peak grad, S 4 mm Hg SV, 1-p A4C 51 ml LVOT/AV, Vpeak ratio 0.69 EDV/bsa, 1-p A4C 43 ml/m^2 OTONIEL, Vmax 2.13 cm^2 ESV/bsa, 1-p A4C 21 ml/m^2 OTONIEL/bsa, Vmax 0.93 cm^2/m^2 SV/bsa, 1-p A4C 22 ml/m^2 EDV, 2-p 91 ml Mitral valve Value ESV, 2-p 39 ml Peak E 65.04 cm/sec EF, 2-p 57 % Peak A 71.4 cm/sec SV, 2-p 31 ml Decel slope 460.84 cm/s^2 EDV/bsa, 2-p 40 ml/m^2 Decel time 141 ms ESV/bsa, 2-p 17 ml/m^2 Peak E/A ratio 0.91 SV/bsa, 2-p 13.6 ml/m^2 Vena contracta width 2.3 cm E', lat vin, TDI 7.4 cm/sec E/e', lat vin, TDI 9 Tricuspid valve Value E', med vin, TDI 7.1 cm/sec TR peak v 95.79 cm/sec E/e', med vin, TDI 9 Peak RV-RA grad, S 4 mm Hg E', avg, TDI 7.3 cm/sec E/e', avg, TDI 9 Ascending aorta Value AAo AP diam, S 2.9 cm LVOT Value AAo AP diam/bsa, S 1.3 cm/m^2 Diam, S 2.0 cm Area 3.1 cm^2 Peak kaylynn, S 66.44 cm/sec Peak grad, S 2 mm Hg Legend: (L) and (H) izabel values outside specified reference range. [facility] are accredited with the Intersocietal Accreditation Commission - Echocardiography. Prepared and Electronically Authenticated Sumit Márquez MD Confirmed 03/21/2025 11:40 Procedure Note Sumit Márquez MD - 03/21/2025 [facility] Echocardiography Laboratory [address] [place] [id number] Transthoracic Echocardiography Patient: Jaswinder Palmer Study ID: ECHO COMPLETE- Ray Gender: Hoda : 1965 Age: 60 Room: [facility] Study 03/21/2025 Pt Inpatient Date: Status: Study 10:04:19 AM CSN #: [id number] Time: Ordering:Terrell Dominguez Indications and History: HF, Cardiomyopathy; Initial evaluation ofknown or suspected HF/cardiomyopathy (restrictive, infiltrative, dilated, hypertrophic). Summary and Conclusion: - Left ventricle: The cavity size is normal. Wall thickness is normal.Global systolic function is normal. The estimated ejection fraction is 55-60%.For Epic reporting: the left ventricular ejection fraction is 57% bybiplane method of disks. Possible basal inferior hypokinesis. Doppler parametersare consistent with abnormal left ventricular relaxation (grade 1diastolic dysfunction). - Right ventricle: The cavity size is normal. Systolic function isnormal. Systolic pressure is within the normal range. - Mitral valve: There is mild regurgitation. - Tricuspid valve: There is mild regurgitation. Procedure information: Comparison is made to the study of 11/30/2023.Study status: Routine. Procedure: A transthoracic echocardiogram wasperformed. Image quality was adequate. Scanning was performed from the parasternal, apical, subcostal, and suprasternal notch acoustic windows.Study components: M-mode, 2D, complete spectral Doppler, and color Doppler. Height: 172.7cm. Height: 68in. Weight: 104.5kg. Weight: 230.4lb.BMI: 35kg/m^2. BSA: 2.28m^2. Blood pressure: 113/85 Study date: 03/21/2025. Study time: 10:04 AM. Location: Bedside. Cardiac Anatomy: LEFT VENTRICLE: The cavity size is normal. Wall thickness is normal.Global systolic function is normal. The estimated ejection fraction is 55-60%.For Epic reporting: the left ventricular ejection fraction is 57% by biplane method of disks. Possible basal inferior hypokinesis. The longitudinalstrain is -11.9% (Normal range is -18 to -25).. Doppler parameters areconsistent with abnormal left ventricular relaxation (grade 1 diastolicdysfunction). RIGHT VENTRICLE: The cavity size is normal. Systolic function isnormal. Systolic pressure is within the normal range. LEFT ATRIUM: The atrium is normal in size. RIGHT ATRIUM: The atrium is normal in size. ATRIAL SEPTUM: No obvious PFO or ASD identified by 2D imaging and color Doppler. AORTIC VALVE: The valve is trileaflet. The leaflets are normalthickness. Mobility is not restricted. There is no stenosis. There is nosignificant regurgitation. MITRAL VALVE: Structurally normal valve. Mobility is not restricted.No evidence for prolapse. There is no evidence for stenosis. There ismild regurgitation. TRICUSPID VALVE: Structurally normal valve. Mobility isunrestricted. There is no evidence for stenosis. There is mild regurgitation. PULMONIC VALVE: Not well visualized. The valve appears to be grosslynormal. There is no evidence for stenosis. There is no significantregurgitation. PERICARDIUM: A minimal pericardial effusion and/or fat pad wasidentified. AORTA: Aortic root: The root is not dilated. Aortic arch: The vessel is not dilated. INTRACARDIAC MASS THROMBUS: No apparent intracavitary masses or thrombi detected. Measurements Left ventricle Value Right ventricle Value GLS, 2D -11.9 % DENIA, LAX 2.3 cm DENIA, LAX 4.8 cm DENIA 2.3 cm ESD, LAX 3.2 cm TAPSE, 2D 2.7 cm DENIA/bsa, LAX 2.1 cm/m^2 TAPSE, MM 2.7 cm ESD/bsa, LAX 1.4 cm/m^2 S' lateral 14.7cm/sec FS, LAX 33 % FS, LAX chord 33 % Left atrium Value ESD major ax, A4C 7.6 cm AP dim, ES 2.9 cm ESD/bsa major ax, A4C 3.3 cm/m^2 AP dim index, ES 1.3cm/m^2 DENIA minor ax, A4C 7.6 cm SI dim, A4C 4.3 cm DENIA/bsa minor ax, A4C 3.3 cm/m^2 Area ES, A4C 12 cm^2 DENIA major ax, A2C 8.9 cm Vol, S 22 ml ESD major ax, A2C 7.4 cm Vol/bsa, S 10ml/m^2 DENIA/bsa major ax, A2C 3.9 cm/m^2 Vol, ES, 1-p A4C 26 ml ESD/bsa major ax, A2C 3.2 cm/m^2 Vol/bsa, ES, 1-p A4C 11ml/m^2 IVS, ED 1.5 cm Vol, ES, 1-p A2C 16 ml ESD 3.2 cm Vol/bsa, ES, 1-p A2C 7ml/m^2 ESD/bsa 1.4 cm/m^2 Vol, ES, 2-p 22 ml FS 33 % Vol/bsa, ES, 2-p 10ml/m^2 PW, ED 1.2 cm Vol, ES, A/L 27 ml IVS/PW, ED 1.27 Vol/bsa, ES, A/L 12ml/m^2 EDV, 1-p A2C 84 ml ESV, 1-p A2C 53 ml Right atrium Value EF, 1-p A2C 63 % Area, ES 12 cm^2 EDV/bsa, 1-p A2C 37 ml/m^2 Area, ES, A4C 12 cm^2 ESV/bsa, 1-p A2C 23 ml/m^2 EDV, 1-p A4C 99 ml Aortic valve Value ESV, 1-p A4C 48 ml Peak v, S 95.79cm/sec EF, 1-p A4C 51 % Peak grad, S 4 mm Hg SV, 1-p A4C 51 ml LVOT/AV, Vpeak ratio 0.69 EDV/bsa, 1-p A4C 43 ml/m^2 OTONIEL, Vmax 2.13 cm^2 ESV/bsa, 1-p A4C 21 ml/m^2 OTONIEL/bsa, Vmax 0.93cm^2/m^2 SV/bsa, 1-p A4C 22 ml/m^2 EDV, 2-p 91 ml Mitral valve Value ESV, 2-p 39 ml Peak E 65.04cm/sec EF, 2-p 57 % Peak A 71.4cm/sec SV, 2-p 31 ml Decel slope 460.84cm/s^2 EDV/bsa, 2-p 40 ml/m^2 Decel time 141 ms ESV/bsa, 2-p 17 ml/m^2 Peak E/A ratio 0.91 SV/bsa, 2-p 13.6 ml/m^2 Vena contracta width 2.3 cm E', lat vin, TDI 7.4 cm/sec E/e', lat vin, TDI 9 Tricuspid valve Value E', med vin, TDI 7.1 cm/sec TR peak v 95.79cm/sec E/e', med vin, TDI 9 Peak RV-RA grad, S 4 mm Hg E', avg, TDI 7.3 cm/sec E/e', avg, TDI 9 Ascending aorta Value AAo AP diam, S 2.9 cm LVOT Value AAo AP diam/bsa, S 1.3cm/m^2 Diam, S 2.0 cm Area 3.1 cm^2 Peak kaylynn, S 66.44 cm/sec Peak grad, S 2 mm Hg Legend: (L) and (H) izabel values outside specified reference range. [facility] are accredited with theBanner Casa Grande Medical Centersocietal Accreditation Commission - Echocardiography. Prepared and Electronically Authenticated Sumit Márquez MD Confirmed 03/21/2025 11:40 us Terrell Byron Dominguez DO US ORDERABLES Final R esult INTERFACE SYSTEM Refer to clinic/hospital department * CT CHEST WO CONTRAST (03/20/2025 12:24 PM CDT) Anatomical Region Laterality Modality Chest Computed Tomogra phy 03/20/2025 12:2 0 PM CDT Impressions 03/20/2025 12:41 PM CDT IMPRESSION: Please see below. Exam: Chest CT without IV contrast Date/Time of Exam: 03/20/2025 12:24 PM Reason For Exam: Dyspnea, chronic, unclear etiology, Diffuse/interstitial lung disease. Diagnosis: See Reason for Exam. Technique: Axial tomograms obtained through the thorax without IV contrast. Findings: Comparison to chest CTA 11/30/2023. Similar pattern of qfco-ls-thgrahbp emphysematous change with mild chronic appearing reticular infiltration primarily within periphery of both lungs. No honeycombing. Mild dependent atelectasis left lower lobe. No consolidating airspace disease. Calcified granuloma right lung. Thoracic aorta remains nonaneurysmal. No axillary or intrathoracic lymphadenopathy. Imaged upper abdomen without significant pathology. No concerning skeletal pathology. IMPRESSION: Moderate COPD with similar pattern of mildly accentuated interstitial lung markings. Narrative Procedure Note Snehal Peoples MD - 03/20/2025 IMPRESSION: Please see below. Exam: Chest CT without IV contrast Date/Time of Exam: 03/20/2025 12:24 PM Reason For Exam: Dyspnea, chronic, unclear etiology, Diffuse/interstitial lung disease. Diagnosis: See Reason for Exam. Technique: Axial tomograms obtained through the thorax without IV contrast. Findings: Comparison to chest CTA 11/30/2023. Similar pattern of badq-ul-bgxbhhjj emphysematous change with mild chronic appearing reticular infiltration primarily within periphery of both lungs. No honeycombing. Mild dependent atelectasis left lower lobe. No consolidating airspace disease. Calcified granuloma right lung. Thoracic aorta remains nonaneurysmal. No axillary or intrathoracic lymphadenopathy. Imaged upper abdomen without significant pathology. No concerning skeletal pathology. IMPRESSION: Moderate COPD with similar pattern of mildly accentuated interstitial lung markings. us Terrell Dominguez DO CT ORDERABLES Final R esult * EXTRA TUBE (URINE HENRY) (03/20/2025 8:04 AM CDT) Urine URINE SPECIMEN OBTAINED BY CLEAN CATCH PROCEDURE / Unknown Collection / Unknown 03/20/2025 8:04 AM CDT 03/20/2025 8:09 AM CDT Celso Doll MD URINE ORDERABLES Final Resul t Performing Organization Address City/[facility]/ZIP Co de Phone Number [facility] CLIA # [id number] [address] [place] [address] * SODIUM, RANDOM URINE (03/20/2025 8:04 AM CDT) SODIUM, URINE 57 mmol/L 03/20/2025 8:53 AM CDT [facility] Urine URINE SPECIMEN OBTAINED BY CLEAN CATCH PROCEDURE / Unknown Collection / Unknown 03/20/2025 8:04 AM CDT 03/20/2025 8:09 AM CDT Celso Doll MD URINE ORDERABLES Final Resul t [facility] CLIA # [id number] [address] [place] [address] * OSMOLALITY, URINE (03/20/2025 8:04 AM CDT) OSMOLALITY, URINE 372 50 - 1,200 mOsm/kg 03/20/2025 9:10 AM [facility] Urine URINE SPECIMEN OBTAINED BY CLEAN CATCH PROCEDURE / Unknown Collection / Unknown 03/20/2025 8:04 AM CDT 03/20/2025 8:09 AM T Narrative [facility] - 03/20/2025 9:10 AM CDT Reference range: 50-1200 mOsm/kg H2O, depending on fluid intake. us Celso Doll MD URINE ORDERABLES Final Resul t [facility] CLIA # [id number] [facility] [address] * (ABNORMAL) URINALYSIS WITH REFLEX MICROSCOPIC (03/20/2025 8:04 AM CDT) [facility] COLOR UA Colorless(A ) Pale to Dark Yellow 03/20/2025 8:22 AM [facility] CLARITY UA Clear Clear 03/20/2025 8:22 AM [facility] SPECIFIC GRAVITY UA 1.012 1.003 - 1.035 03/20/2025 8:22 AM [facility] PH UA 6.5 5.0 - 8.0 03/20/2025 8:22 AM [facility] LEUKOCYTE ESTERASE UA Negative Negative 03/20/2025 8:22 AM [facility] NITRITE UA Negative Negative 03/20/2025 8:22 AM [facility] PROTEIN UA Negative Negative 03/20/2025 8:22 AM [facility] GLUCOSE UA Negative Negative 03/20/2025 8:22 AM [facility] KETONES UA Negative Negative 03/20/2025 8:22 AM [facility] UROBILINOGEN UA <2.0 <2.0 mg/dL 06/19/202 5 8:22 AM CDT [facility] BILIRUBIN UA Negative Negative 03/20/2025 8:22 AM CDT [facility] BLOOD UA 1+(A) Negative 03/20/2025 8:22 AM CDT [facility] WBC UA 0-2 0 - 2 /hpf 03/20/2025 8:22 AM CDT [facility] RBC UA 6-10(A) 0 - 2 /hpf 03/20/2025 8:22 AM CDT [facility] BACTERIA UA Negative Negative /hpf 03/20/2025 8:22 AM CDT [facility] Urine URINE SPECIMEN OBTAINED BY CLEAN CATCH PROCEDURE / Unknown Collection / Unknown 03/20/2025 8:04 AM CDT 03/20/2025 8:09 AM CDT us Celso Doll MD URINE ORDERABLES Final Resul t Performing Organization Address City/State/[facility] Co de Phone Number [facility] CLIA # [id number] [address] [place] [address] * US ABDOMEN LIMITED (03/20/2025 6:47 AM CDT) Anatomical Region Laterality Modality Abdomen Ultrasound 03/20/2025 6:47 AM CDT Impressions 03/20/2025 10:51 AM CDT IMPRESSION: 1. No acute sonographic findings of the right upper quadrant of the abdomen. 2. Probable diffuse hepatic steatosis. Narrative 03/20/2025 10:51 AM CDT EXAM: US ABDOMEN LIMITED, DIAGNOSIS/REASON FOR EXAM: Elevated LFT's. DATE: 03/20/2025. COMPARISON: None. TECHNIQUE: Multiplanar real-time ultrasonography of the right upper quadrant using henry-scale imaging, supplemented by color and spectral Doppler as needed. FINDINGS: * Liver: The liver is normal in size and contour. Its parenchyma is diffusely hyperechoic. No hepatic mass is identified. * Gallbladder: The gallbladder is mildly distended. No gall stones, gallbladder wall thickening or pericholecystic fluid collections are seen. No sonographic Blanca's sign was elicited. * Pancreas: The partially visualized pancreas is unremarkable. * Biliary: No intrahepatic or extrahepatic biliary ductal dilatation is seen. The common bile duct measures 7 mm. * Right kidney: The right kidney measures 11.3 cm in length. Its parenchyma is normal in echotexture. No right renal masses or renal calculi are identified. There is no right hydronephrosis. * Peritoneum: No ascites. Procedure Note Berry Joseph MD - 03/20/2025 EXAM: US ABDOMEN LIMITED, DIAGNOSIS/REASON FOR EXAM: Elevated LFT's. DATE: 03/20/2025. COMPARISON: None. TECHNIQUE: Multiplanar real-time ultrasonography of the right upper quadrant using henry-scale imaging, supplemented by color and spectral Doppler as needed. FINDINGS: * Liver: The liver is normal in size and contour. Its parenchyma is diffusely hyperechoic. No hepatic mass is identified. * Gallbladder: The gallbladder is mildly distended. No gall stones, gallbladder wall thickening or pericholecystic fluid collections are seen. No sonographic Blanca's sign was elicited. * Pancreas: The partially visualized pancreas is unremarkable. * Biliary: No intrahepatic or extrahepatic biliary ductal dilatation is seen. The common bile duct measures 7 mm. * Right kidney: The right kidney measures 11.3 cm in length. Its parenchyma is normal in echotexture. No right renal masses or renal calculi are identified. There is no right hydronephrosis. * Peritoneum: No ascites. IMPRESSION: 1. No acute sonographic findings of the right upper quadrant of the abdomen. 2. Probable diffuse hepatic steatosis. us Celso Doll MD US ORDERABLES Final Result * (ABNORMAL) CBC WITHOUT DIFFERENTIAL (03/20/2025 6:11 AM CDT) WBC 10.3 4.8 - 10.8 K/uL 03/20/2025 6:33 AM CDT [facility] RBC 4.79 4.60 - 6.20 M/uL 03/20/2025 6:33 AM CDT [facility] HEMOGLOBIN 16.5 14.0 - 18.0 g/dL 03/20/2025 6:33 AM T [facility] HEMATOCRIT 48.1 41.0 - 53.0 % 03/20/2025 6:33 AM CDT [facility] MCV 100.4 84.0 - 103.0 fL 03/20/2025 6:33 AM T [facility] MCH 34.4(H) 27.0 - 34.0 pg 03/20/2025 6:33 AM T [facility] MCHC 34.3 30.0 - 35.0 g/dL 03/20/2025 6:33 AM CDT [facility] PLATELETS 261 140 - 440 K/uL 03/20/2025 6:33 AM T [facility] MPV 9.1 8.9 - 12.8 fL 03/20/2025 6:33 AM T [facility] RDW 14.1 11.0 - 14.5 % 03/20/2025 6:33 AM [facility] RDW-STDEV 52.2 37.0 - 54.0 fL 03/20/2025 6:33 AM T [facility] Blood Venipuncture / Unknown 03/20/2025 6:11 AM CDT 03/20/2025 6:29 AM CDT Celso Doll MD HEMATOLOGY ORDERABLES Final Result [facility] CLIA # [id number] [address] [place] [address] * TSH (2025 11:20 PM CDT) TSH 3.29 0.27 - 4.20 uIU/mL 03/20/2025 12:43 AM CDT [facility] Blood Venipuncture / Unknown 2025 11:20 PM CDT 2025 11:27 PM CDT Celso Doll MD CHEMISTRY ORDERABLES Final R esult Performing Organization Address [facility] Co de Phone Number [facility] CLIA # [id number] [address] [id number] * (ABNORMAL) BRAIN NATRIURETIC PEPTIDE, BNP OR PROBNP (2025 11:20 PM CDT) PROBNP, N TERMINAL 249(H) 0 - 125 pg/mL 03/20/2025 12:43 AM CDT [facility] Comment: INTERPRETIVE COMMENT based on diagnosis: Diagnostic NT pro-BNP cutoffs for Heart Failure in the absence of renal failure is suggested for the following ranges <75 years: <125 pg/mL >=75 years: <450 pg/mL Exclusionary rule out cut-point for Acute Decompensated Heart Failure(ADHF) All ages: <300 pg/mL Diagnostic NT pro-BNP cutoffs for Acute Decompensated Heart Failure(ADHF) in the absence of renal failure is suggested for the following ages <50 years: > 450 pg/mL 50-75 years: > 900 pg/mL >75 years: >1800 pg/mL Blood Venipuncture / Unknown 2025 11:20 PM CDT 2025 11:27 PM CDT Celso Doll MD CHEMISTRY ORDERABLES Final R esult Performing Organization Address City/[facility]/ZIP Co de Phone Number [facility] CLIA # [id number] [address] [id number] * (ABNORMAL) HEMOGLOBIN A1C (2025 11:20 PM CDT) HEMOGLOBIN A1C 6.4(H) <=5.6 % 03/20/2025 11:33 AM CDT [facility] EST. AVG GLUCOSE, A1C 137 mg/dL 03/20/2025 11:33 AM CDT [facility] Blood Venipuncture / Unknown 2025 11:20 PM CDT 2025 11:25 PM CDT Narrative [facility] - 03/20/2025 11:33 AM CDT HGB A1C INTERPRETATION NORMAL: <5.7% PRE-DIABETES: 5.7 - 6.4% DIABETES: 6.5% OR GREATER Celso Doll MD CHEMISTRY ORDERABLES Final R esult [facility] CLIA # [id number] [address] [place] [address] * (ABNORMAL) LIPID PANEL (2025 11:20 PM CDT) CHOLESTEROL 180 <200 mg/dL 03/20/2025 12:43 AM CDT [facility] TRIGLYCERIDE 182(H) <150 mg/dL 03/20/2025 12:43 AM CDT [facility] HDL 47 40 - 59 mg/dL 03/20/2025 12:43 AM CDT [facility] LDL CALCULATED 97 <100 mg/dL 03/20/2025 12:43 AM T [facility] NON-HDL CHOLESTEROL 133(H) <130 mg/dL 03/20/2025 12:43 AM CDT [facility] Blood Venipuncture / Unknown 2025 11:20 PM CDT 2025 11:27 PM CDT Narrative [facility] - 03/20/2025 12:43 AM CDT TOTAL CHOLESTEROL mg/dL Desirable <200 Borderline high 200-239 High >=240 TRIGLYCERIDES mg/dL Normal <150 Borderline high 150-199 High 200-499 Very high >=500 HDL CHOLESTEROL mg/dL Low <40 Normal 40-59 Desirable >=60 NON HDL CHOLESTEROL mg/dL Optimal <130 Near Optimal 130-159 Borderline High 160-189 Very High >=190 CALCULATED LDL mg/dL LDL <70, OPTIMAL if have Atherosclerotic cardiovascular disease (ASCVD) or intermediate or higher (>7.5%) 10 year risk of ASCVD including most adults with diabetes. LDL <100, Optimal in adult patients with low (<7.5%) 10 year ASCVD risk LDL 100-160, Suboptimal LDL >160, High LDL >190, Very high LDL calculated using the Friedewald equation. ATPIII Guidelines Reference Ranges for Lipid Panels (NCEP/AMA) . 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: [id number] : 1965 Requested By: Order Number: [id number] Reading MD: Chintan De Jesus Measurements Intervals [place] Rate: 95 P: 74 PA: 128 QRS: 99 QRSD: 108 T: 0 QT: 386 QTc: 485 Interpretive Statements Normal sinus rhythm Rightward axis Cannot rule out Inferior infarct, age undetermined QTcB >= 480 msec Abnormal ECG Electronically Signed On 03-20-2025 12:28:22 CDT by Chintan De Jesus Procedure Note Chintan De Jesus MD - 03/20/2025 [place] [address] Test Date: 2025 Pat Name: JASWINDER PALMER Department: 12 Room: [address] [place] [address] Gender: Male [employer] Consultant: [id number] : 1965 Requested By: Order Number: [id number] Reading MD: Chintan De Jesus Measurements Intervals [place] Rate: 95 P: 74 PA: 128 QRS: 99 QRSD: 108 T: 0 QT: 386 QTc: 485 Interpretive Statements Normal sinus rhythm Rightward axis Cannot rule out Inferior infarct, age undetermined QTcB >= 480 msec Abnormal ECG Electronically Signed On 03-20-2025 12:28:22 CDT by Chintan De Jesus Celso Doll MD ECG ORDERABLES Final Result INTERFACE SYSTEM Refer to clinic/hospital department * XR CHEST PA OR AP 1 VW (2025 11:06 PM CDT) Anatomical Region Laterality Modality Chest Computed Radiogr aphy 2025 11:0 6 PM CDT Impressions 2025 11:36 PM CDT IMPRESSION: Please see below. Exam: XR CHEST PA OR AP 1 VW Date/Time of Exam: 2025 11:06 PM Reason For Exam: Hypoxia. Diagnosis: See Reason for Exam. Findings: The AP semierect study has no comparisons. The lungs are well-inflated. There is no pneumothorax. There is mild nonspecific pleural thickening along the right lateral chest wall. There is a trace left pleural effusion with mild adjacent streaky infiltrate or atelectasis. There is a small right lower lobe granuloma. The lungs are otherwise clear. Mild cardiomegaly is present. The pulmonary vessels are unremarkable. The bony thorax is grossly intact. Narrative Procedure Note Fiona Romero MD - 2025 IMPRESSION: Please see below. Exam: XR CHEST PA OR AP 1 VW Date/Time of Exam: 2025 11:06 PM Reason For Exam: Hypoxia. Diagnosis: See Reason for Exam. Findings: The AP semierect study has no comparisons. The lungs are well-inflated. There is no pneumothorax. There is mild nonspecific pleural thickening along the right lateral chest wall. There is a trace left pleural effusion with mild adjacent streaky infiltrate or atelectasis. There is a small right lower lobe granuloma. The lungs are otherwise clear. Mild cardiomegaly is present. The pulmonary vessels are unremarkable. The bony thorax is grossly intact. Celso Doll MD DIAGNOSTIC IMAGING ORDERABLE S Final Result * ECHO COMPLETE (03/18/2025 12:58 PM CDT) Only the most recent of2 resultswithin the time period is included. us Abstract Provider ECHO ORDERABLES Final Result from Last 3 Months Insurance MEDICARE PART A AND B [facility] MEDICARE HMO RX INFOCROSSING Medicaid Advance Directives For more information, please contact: [phone] * Full Code (Latest Code Status on File) Date Activated Date Inactivated Comments 2025 10:55 PM 03/22/2025 3:53 PM Care Teams Technical Solution Architect Relationship Specialty Start Date End Date Sri Morrissey DO [address] [place] [address] PCP - General Family Practice 05/07/18
--- NOTE | 2025-06-08 10:57 | USR_ITS ---
PROCEDURE INFORMATION: Exam: US Duplex Lower Extremity Veins, Bilateral Exam date and time: 06/08/2025 11:22 AM Age: 60 years old Clinical indication: Pain; Leg, lower; Right; Additional info: Severe atraumatic leg pain TECHNIQUE: Imaging protocol: Real-time duplex ultrasound of the bilateral extremities with 2-D rojas scale, color Doppler flow and spectral waveform analysis including responses to compression and other maneuvers (when performed) with image documentation. Complete exam focused on the lower extremity veins. COMPARISON: No relevant prior studies available. FINDINGS: Right deep veins: Unremarkable. The common femoral, femoral, proximal profunda femoral and popliteal veins are patent without thrombus. Normal Doppler waveforms. Normal compressibility and/or augmentation response. Left deep veins: Unremarkable. The common femoral, femoral, proximal profunda femoral and popliteal veins are patent without thrombus. Normal Doppler waveforms. Normal compressibility and/or augmentation response. Superficial veins: Greater saphenous veins at the saphenofemoral junctions are patent bilaterally without thrombus. Soft tissues: Unremarkable. US/CV venous duplex [facility] [id number] IMPRESSION: No evidence of deep vein thrombosis.
--- NOTE | 2025-06-08 10:57 | XRR_ITS ---
PROCEDURE INFORMATION: Exam: XR Right Hip Exam date and time: 06/08/2025 11:58 AM Age: 60 years old Clinical indication: Hip pain; Right hip; Additional info: RT anterior hip pain; No known injury; Unable to bear weight TECHNIQUE: Imaging protocol: Radiologic exam of the right hip. Views: 1 view hip with pelvis when performed. COMPARISON: CR XR abdomen 1V* [id number] 03/08/2025 4:41 PM FINDINGS: Bones/joints: Unremarkable. No acute fracture. Soft tissues: Unremarkable. XR/XR hip RT 2-3V wo/w pel* [id number] IMPRESSION: No acute findings.
--- NOTE | 2025-06-08 11:01 | ED_ITS ---
HPI - Extremity Problem 2 General: Chief complaint: Extremity Injury, Lower Stated complaint: RIGHT LEG PAIN Time Seen by Provider: 06/08/25 10:52 Source: patient Mode of arrival: ambulatory Limitations: no limitations History of Present Illness: Patient is a 60-year-old male who presents the emergency department by ambulance complaining of severe right leg pain that began this morning. He has been mostly sedentary sleeping in bed for the past couple of days, states that he woke up today with the severe anterior right leg pain that is worse with any movement and has prevented him from walking. Chronically on 2 L of oxygen at baseline. Reports history of sciatica but states this is in a different location and feels different. No deformity of the right hip and no recent trauma noted. Denies using a blood thinner, denies history of diabetes. [place] history of previous blood clots. Vitals otherwise stable at this time, though he does appear in acute distress secondary to pain. He is not reporting any chest pain, shortness of breath, fevers, palpitations, or any other pertinent symptoms at this time. Has not taken anything for pain. Reporting 20/10 pain at this time, nonradiating pain to the right proximal anterior thigh. MD Complaint: extremity pain Pain Consistency: constant Location: right and lower extremity Exacerbating factors: range of motion, weight bearing and walking Associated symptoms: Deny chest pain, fever(s) or rash Context: other (Atraumatic, woke up this morning with pain) Related Data Home Medications ?Medication ?Instructions ?Recorded ?Confirmed spironolactone 25 mg tablet 25 mg PO DAILY 01/28/25 albuterol sulfate 90 mcg/actuation 2 puff inhalation Q 4H PRN 03/06/25 06/08/25 aerosol inhaler (Ventolin HFA) Shortness Of Breath Or Wheezing aspirin 81 mg tablet 81 mg PO DAILY 03/25/2504/25 bumetanide 1 mg tablet 1 mg PO DAILY 03/25/2506/08 empagliflozin 10 mg tablet 10 mg PO DAILY 03/25/2504/25 (Jardiance) oxygen-air delivery systems 03/25/25 06/08/25 rosuvastatin 10 mg tablet 20 mg PO DAILY 03/25/2504/25 adalimumab 40 mg/0.4 mL 40 mg SUBCUT .Q14D 06/08/25 06/08/25 subcutaneous pen kit (Humira(CF) Pen) budesonide 0.5 mg/2 mL suspension 0.5 mg inhalation BI D 06/08/25 06/08/25 for nebulization ipratropium 0.5 mg-albuterol 3 mg 3 ml inhalation QID 06/08/25 06/08/25 (2.5 mg base)/3 mL nebulization soln potassium chloride 10 mEq 10 meq PO DAILY 06/08/2504/25 tablet,extended release tamsulosin 0.4 mg capsule 0.4 mg PO DAILY 06/08/2504/25 Previous Rx's ?Medication ?Instructions ?Recorded clopidogrel 75 mg tablet 75 mg PO DAILY #90 tabs 05/03 metoprolol succinate 25 mg 37.5 mg (1.5 x 25 mg) PO DA OMID #90 05/21/25 tablet,extended release 24 hr tabs hydrocodone 7.5 mg-acetaminophen 1 tab PO Q8H PRN pain #15 tabs 06/08/25 325 mg tablet Allergies Allergy/AdvReac Type Severity Reaction Status Date / Time Unable to Assess Allergy Verified 06/08/25 13:19 Review of Systems 2 General: Reports: 10 or more systems reviewed and unremarkable except in HPI and below Const: Denies: fever(s) or chills Card: Denies: chest pain Resp: Denies: dyspnea or productive cough GI: Denies: abdominal pain, nausea, vomiting or diarrhea : Denies: flank pain Musc: Reports: extremity pain (RLE); Denies: neck pain, back pain, extremity swelling, joint pain, joint swelling, joint redness, joint warmth, limited range of motion or muscle weakness Skin/Breast: Denies: rash Neuro: Denies: headache(s), numbness in extremities or weakness in extremities PFSH ED 2 PFSH: Medical History CHF (congestive heart failure) Polycythemia Surgical History No significant past surgical history Social History Smoking and tobacco/nicotine status: current every day tobacco/nicotine user Physical Exam 2 Const: COMMON NORMALS: patient oriented x3, no limitations, alert and well nourished GENERAL APPEARANCE: anxious and ill appearing NUTRITIONAL APPEARANCE: obese HENMT: COMMON NORMALS: normocephalic and atraumatic HEAD & SCALP: n ormocephalic and atraumatic Neck/C-Spine: COMMON NORMALS: full ROM, supple and no meningeal signs Resp: COMMON NORMALS: normal respiratory effort, No use of accessory muscles and clear to auscultation bilaterally AUSCULTATION: clear to auscultation bilaterally Cardio: COMMON NORMALS: regular rate and regular rhythm RATE: regular rate RHYTHM: regular rhythm GI: COMMON NORMALS: Soft to palpation and non-tender INSPECTION: Yes central obesity PALPATION: Yes Soft to palpation Extremity: COMMON NORMALS: full ROM, capillary refill normal and no joint enlargement NARRATIVE EXTREMITY EXAM: Easily reproducible tenderness to palpation to right anterior hip/proximal thigh. No cellulitic changes or overlying skin changes. Pulses to bilateral feet are difficult to palpate, there is no significant coolness or mottling to the skin. Sensations are intact and has symmetrical strength bilaterally. Cap refill appears normal. Has range of motion at the right hip but causes him significant amount of pain with leg lift. 2+ edema bilaterally to the ankles Neuro: COMMON NORMALS: patient oriented x3, moves all extremities, no focal motor deficits and no sensory deficits noted SENSORIUM/ORIENTATION: Yes alert MENINGEAL SIGNS: Yes no meningeal signs Skin: COMMON NORMALS: no rashes or lesions noted GENERAL SKIN EXAM: no rashes or lesions noted Course 2 Vital Signs: Vital signs: Vital Signs Temperature 98.0 F 06/08/25 10:49 Pulse Rate 95 06/08/25 14:50 Respiratory Rate 21 H 06/08/25 14:50 Blood Pressure 132/90 06/08/25 14:50 Pulse Oximetry 92 06/08/25 14:50 Oxygen Delivery Me thod Nasal Cannula 06/08/25 10:49 Oxygen Flow Rate 2 06/08/25 10:49 MDM - Extremity (Nontraumatic) Medical Decision Making Patient present by ambulance for right lower extremity pain, atraumatic. Noting 20/10 pain at initial examination, neurovascular exam overall normal other than bilateral difficulty to palpate his dorsalis pedis pulse. Pedal edema was noted, he does have a history of CHF as well as a cardiac history for which he takes a blood thinner. Lab work overall unremarkable, ESR was 61 though this is nonspecific as CRP was not significantly elevated neither was his white count. Initially ultrasound venous and arterial of the right lower extremity performed and did not reveal any signs of acute thrombus. X-ray of the hip does not show any acute abnormality, and further pelvic CT with contrast did not show any abnormality. Imaging was expanded to the CT as he was noting that none of the medications were really helping with his pain. It was not until after pelvic CT that he was ambulated and noted to be steady on his feet and was able to ambulate with minor assistance. I do not suspect any acute etiology, potentially early or small hematoma with his history of blood thinner use, though nothing requiring urgent MRI and instead will be referred to outpatient orthopedics. He will have pain medication sent home for further pain control and ultimately given strict return precautions to the emergency department, of which she endorses understanding. Final discussion with the patient states he does feel better and is discharged. Lab Data 06/08/25 11:04 06/08/25 11:04 Radiology Impressions Hip/Pelvis X-Ray 06/08/25 10:57 IMPRESSION: No acute findings. Venous Duplex 06/08/25 10:57 IMPRESSION: No evidence of deep vein thrombosis. Duplex Scan Lower Extremity Artery 06/08/25 11:05 IMPRESSION: No stenosis or occlusion. Pelvis CT 06/08/25 12:25 IMPRESSION: No acute findings. Laboratory Results WBC 11.47 10^3/uL (3.29-11.43) H 06/08/25 11:04 RBC 4.54 10^6/uL (3.85-5.65) 06/08/25 11:04 Hgb 16.20 g/dL (11.27-16.99) 06/08/25 11:04 Hct 48.0 % (37-53) 06/08/25 11:04 MCV 105.7 fl (82-101) H 06/08/25 11:04 MCH 35.7 pg (27-33) H 06/08/25 11:04 MCHC 33.8 g/dL (30-55) 06/08/25 11:04 RDW 13.8 % (12.1-15.1) 06/08/25 11:04 Plt Count 170 10^3/cmm (157-399) 06/08/25 11:04 MPV 8.8 fL (7.4-10.4) 06/08/25 11:04 Neut % (Auto) 81.5 % 06/08/25 11:04 Lymph % (Auto) 11.2 % 06/08/25 11:04 [place] % (Auto) 5.5 % 06/08/25 11:04 Eos % (Auto) 0.8 % 06/08/25 11:04 Baso % (Auto) 0.4 % 06/08/25 11:04 Neut # (Auto) 9.34 10^3/uL (1.8-7.7) H 06/08/25 11:04 Lymph # (Auto) 1.3 10^3/uL (0.8-4.8) 06/08/25 11:04 [place] # (Auto) 0.6 10^3/uL (0.2-0.9) 06/08/25 11:04 Eos # (Auto) 0.1 10^3/uL (0.0-0.8) 06/08/25 11:04 Baso # (Auto) 0.1 10^3/uL (0.0-0.1) 06/08/25 11:04 Nucleated RBC % (auto) 0 % 06/08/25 11:04 Nucleated RBCs # 0.0 /100WBC 06/08/25 11:04 ESR 61 mm/hr (0-10) H 06/08/25 11:04 Sodium 131 mmol/L (136-145) L 06/08/25 11:04 Potassium 4.2 mmol/L (3.5-5.1) 06/08/25 11:04 Chloride 94 mmol/L (98-107) L 06/08/25 11:04 Carbon Dioxide 23 mmol/L (22-29) 06/08/25 11:04 Anion Gap 18.2 (5-19) 06/08/25 11:04 BUN 13 mg/dL (6-20) 06/08/25 11:04 Creatinine 1.0 mg/dL (0.7-1.2) 06/08/25 11:04 GFR Calculation 76.5 mL/min (90-130) L 06/08/25 11:04 Glucose 118 mg/dL (65-115) H 06/08/25 11:04 Calculated Osmolality 273 mOsm/kg (285-295) L 06/08/25 11:04 Calcium 9.3 mg/dL (8.5-10.5) 06/08/25 11:04 Total Bilirubin 0.6 mg/dL (0.15-1.2) 06/08/25 11:04 AST 47 U/L (0-40) H 06/08/25 11:04 ALT 36 U/L (0-41) 06/08/25 11:04 Alkaline Phosphatase 78 U/L (40-130) 06/08/25 11:04 Creatine Kinase 57 U/L (39-308) 06/08/25 11:04 C-Reactive Protein 12.7 mg/L (0.0-4.9) H 06/08/25 11:04 Total Protein 7.7 g/dL (6.6-8.7) 06/08/25 11:04 Albumin 3.6 g/dL (3.5-5.2) 06/08/25 11:04 Globulin 4.1 g/dL (1.3-4.6) 06/08/25 11:04 All radiology interpretation(s) finalized by discharge Discharge Plan Discharge Patient Disposition: Home Clinical Impression: Muscle strain of right lower extremity Qualifiers: Encounter type: initial encounter Qualified Code(s): S86.911A - Strain of unspecified muscle(s) and tendon(s) at lower leg level, right leg, initial encounter Condition: Stable Prescriptions: New hydrocodone-acetaminophen 7.5-325 mg tablet 1 tab PO Q8H PRN (Reason: pain) Qty: 15 0RF No Action rosuvastatin 10 mg tablet 20 mg PO DAILY spironolactone 25 mg tablet 25 mg PO DAILY bumetanide 1 mg tablet 1 mg PO DAILY aspirin 81 mg tablet 81 mg PO DAILY (DME) oxygen-air delivery systems Device See Rx Instructions .ROUTE Rx Instructions: As directed Jardiance 10 mg tablet 10 mg PO DAILY clopidogrel 75 mg tablet 75 mg PO DAILY Qty: 90 3RF metoprolol succinate 25 mg tablet extended release 24 hr 37.5 mg PO DAILY Qty: 90 2RF albuterol sulfate [Ventolin HFA] 90 mcg/actuation HFA aerosol inhaler 2 puff INHALATION Q4H PRN (Reason: Shortness Of Breath Or Wheezing) ipratropium-albuterol 0.5 mg-3 mg(2.5 mg base)/3 mL solution for nebulization 3 ml INHALATION QID potassium chloride 10 mEq tablet extended release 10 meq PO DAILY tamsulosin 0.4 mg capsule 0.4 mg PO DAILY budesonide 0.5 mg/2 mL suspension for nebulization 0.5 mg inhalation BID Humira(CF) Pen 40 mg/0.4 mL pen injector kit 40 mg SUBCUT .Q14D Discharge Orders: Discharge ED (Routine); Ordered 06/08/25 Ordered By: Figueroa Gill Other Ambulatory Orders: DME: Miscellaneous (Order) Location: None Selected Ordered By: Figueroa Gill Referrals: Christel Burk FNP [Primary Care Provider, Unknown] Patient Instructions: Patient Portal & [place] Instructions Activity Restrictions/Additional Instructions: Muscle Strain Discharge Instructions Diagnosis: 60-year-old male with muscle strain of the proximal right thigh. Venous and arterial ultrasound, x-ray, and CT with contrast were negative for vascular, bony, or other acute pathology. Laboratory work was unremarkable. Etiology is suspected to be benign muscle strain. Discharge Instructions: - Activity: - Advise relative rest of the affected limb for the initial 24?72 hours, avoiding activities that provoke pain or require forceful contraction of the thigh muscles.[1] https://pubmed.ncbi.nlm.nih.gov/28943009 [2] https://doi.org/10.1249/JESICA.0985396476434684 [3] htt ps://pubmed.ncbi.nlm.nih.gov/51275147 [4] https://pubmed.ncbi.nlm.nih.gov/57628583 [5] https://pubme d.ncbi.nlm.nih.gov/5507924 - Early mobilization should begin as soon as tolerated, within the limits of pain, to minimize atrophy and promote optimal muscle healing.[3] https://pubmed.ncbi.nlm.nih.gov/50433634 [4] https://pubmed.ncbi.nlm.nih.gov/59213037 [5] https:/ /pubmed.ncbi.nlm.nih.gov/5004364 - Avoid massage and vigorous stretching in the first 24?48 hours.[2] https://doi.org/10.1249/JESICA.6436729091217331 - RICE Protocol: - Rest: Limit weight-bearing and strenuous activity. - Ice: Apply ice packs to the proximal thigh for 15?20 minutes every 2?3 hours during the first 48 hours to reduce pain and swelling.[1] https://pubmed.ncbi.nlm.nih.gov/55341236 [3] https://pubmed.ncbi.nlm.nih.gov/94011840 [4] https:/ /pubmed.ncbi.nlm.nih.gov/02125840 [5] https://pubmed.ncbi.nlm.nih.gov/6538799 - Compression: Use an elastic bandage or compression garment to minimize swelling and support the muscle.[2] https://doi.org/10.1249/JESICA.5133522932738887 [3] https://pubmed.ncbi.nlm.nih.gov/18982532 - Elevation: Elevate the limb when possible to decrease swelling.[3] https://pubmed.ncbi.nlm.nih.gov/82020407 [4] https://pubmed.ncbi.nlm.nih.gov/39975631 - Pharmacologic Management: - Acetaminophen or short-term, low-dose NSAIDs may be used for pain control, as these do not impair muscle healing. [2] https://doi.org/10.1249/JESICA.9216506682215708 [5] https://pubmed.ncbi.nlm.nih.gov/3464158 - Avoid corticosteroid injections and platelet-rich plasma, as there is no high- quality evidence supporting their use in initial management.[2] https://doi.org/10.1249/JESICA.7732676280011517 [6] https://pubmed.ncbi.nlm.nih.gov/78855471 [7] htt ps://pubmed.ncbi.nlm.nih.gov/15887111 - Physical Therapy and Rehabilitation: - Referral to physical therapy is recommended once acute pain and swelling subside. - Initiate a progressive rehabilitation program focusing on restoring pain-free range of motion, flexibility, and strength.[1] https://pubmed.ncbi.nlm.nih.gov/45171240 [2] https://doi.org/10.1249/JESICA.7986531810296313 [3] htt ps://pubmed.ncbi.nlm.nih.gov/52344603 [8] https://pubmed.ncbi.nlm.nih.gov/49172803 [5] https://pubme d.ncbi.nlm.nih.gov/4797678 [9] https://pubmed.ncbi.nlm.nih.gov/01345155 [10] https://pubmed.ncbi.nlm.nih.gov/27409251 - Eccentric strengthening and neuromuscular training should be incorporated as clinically indicated.[2] https://doi.org/10.1249/JESICA.9656943834405895 [6] https://pubmed.ncbi.nlm.nih.gov/00917681 [9] htt ps://pubmed.ncbi.nlm.nih.gov/97876097 [10] https://pubmed.ncbi.nlm.nih.gov/85688854 - Low-intensity exercise (e.g., stationary cycling, aquatic therapy) may be permitted as tolerated.[2] https://doi.org/10.1249/JESICA.8409378292379758 - Follow-Up and Specialist Referral: - Orthopedic referral is arranged for further evaluation and consideration of MRI if symptoms persist or diagnosis remains unclear.[1] https://pubmed.ncbi.nlm.nih.gov/91322361 [3] https://pubmed.ncbi.nlm.nih.gov/13383796 - Reassessment should occur within 5?7 days to evaluate progress and guide further management.[3] https://pubmed.ncbi.nlm.nih.gov/62324005 - Prevention: - Once recovered, emphasize adequate warm-up, gradual return to activity, and ongoing flexibility and strengthening exercises to reduce risk of recurrence.[1] https://pubmed.ncbi.nlm.nih.gov/85157108 [6] https://pubmed.ncbi.nlm.nih.gov/11408954 [11] https: //pubmed.ncbi.nlm.nih.gov/0017037 - Warning Signs: - Advise prompt medical attention for increasing pain, swelling, weakness, numbness, or inability to bear weight, as these may indicate complications. Prognosis: Most muscle strains recover fully with conservative management. Return to baseline function is expected, with complications being rare if rehabilitation is appropriately managed.[1] https://pubmed.ncbi.nlm.nih.gov/07972259 [2] https://doi.org/10.1249/JESICA.0415073499521816 [3] htt ps://pubmed.ncbi.nlm.nih.gov/19273261 [4] https://pubmed.ncbi.nlm.nih.gov/74883417 [8] https://pubme d.ncbi.nlm.nih.gov/39347407 [5] https://pubmed.ncbi.nlm.nih.gov/7702545 [10] https://pubmed.ncbi.nlm.nih.gov/17507914 Additional Notes: Patient is to follow up with orthopedics as scheduled. MRI may be considered if symptoms do not improve or if there is concern for more complex injury. References * Muscle Strain Injury: Diagnosis and Treatment https://pubmed.ncbi.nlm.nih.gov/62149907 . David GORDON, Roly GARZA. The Journal of the [employer] Academy of Orthopaedic Surgeons. 1998-May;7(4):262-9. doi:10.5435/02362752-374377474-81581. * Initial Assessment and Management of Select Musculoskeletal Injuries: A Team Physician Consensus Statement https://doi.org/10.1249/JESICA.4324804411615251 . Amrit SA, Nasra WB, Stephany M, et al. Medicine and Science in Sports and Exercise. 2023;56(3):385-401. doi:10.1249/JESICA.5843385635000075. * Muscle Injuries: Optimising Recovery https://pubmed.ncbi.nlm.nih.gov/25624429 . J?benito TA, J?benito TL, K??ri?al Drummond, et al. Best Practice & Research. Clinical Rheumatology. 2007;21(2):317-31. doi:10.1016/j.berh.2006.12.004. * Muscle Strain Injuries https://pubmed.ncbi.nlm.nih.gov/62668722 . J?benito TA, K??ri?Yesika Monique, Ian H. Current Opinion in Rheumatology. 2000;12(2):155-61. doi:10.1097/83569621-361656454-80296. * Hamstring Strains in Athletes: Diagnosis and Treatment https://pubmed.ncbi.nlm.nih.gov/2699669 . Yolie MORENO, Urmila BAINS. The Journal of the [employer] Academy of Orthopaedic Surgeons. 1997-May;6(4):237-48. doi:10.5435/24210514-045756481-41216. * Diagnosis, Prevention and Treatment of Common Lower Extremity Muscle Injuries in Sport - Grading the Evidence: A Statement Paper Commissioned by the [place] [employer] of Sports Physical Therapy (DSSF) https://pubmed.ncbi.nlm.nih.gov/88563948 . Amaury?ari L, Yanira K, Jarad RS, Dorothy CB, Sepideh K. [place] Journal of Sports Medicine. 2020;54(9):528-537. doi:10.1136/jzkksptf-3494-454968. * New Therapeutic Approaches for Management of Sport-Induced Muscle Strains https://pubmed.ncbi.nlm.nih.gov/23166431 . De Jennifer A, Volkelly P, Pelosini I, et al. Advances in Therapy. 2009;26(12):1072-83. doi:10.1007/m31891-694-5903-4. * Rehabilitative Good Practices in the Treatment of Patients With Muscle Injuries https://pubmed.ncbi.nlm.nih.gov/65441972 . Fabrizio F, Abdi A, Angelo N, et al. Journal of Clinical Medicine. 2024;14(15):5355. doi:10.3390/mkb03910421. * Criteria for Progressing Rehabilitation and Determining Mrcsmx-am-Slns Clearance Following Hamstring Strain Injury: A Systematic Review https://pubmed.ncbi.nlm.nih.gov/11051277 . Catrachita CAAL, Davis JOYNER, Adriane N, Thien BERGER, Kristin DA. Sports Medicine ([facility] 2017;47(7):2859-0647. doi:10.1007/v55850-258-5564-q. * Hamstring Strain Injury Rehabilitation https://pubmed.ncbi.nlm.nih.gov/40739238 . Catrachita JT, Jalenr DA, Tan LJ, Fartun BC. Journal of Athletic Training. 2021;57(2):125-135. doi:10.3885/2714-7458-9688.20. * Muscle Strain Injuries https://pubmed.ncbi.nlm.nih.gov/0027924 . Roly GARZA. The British Journal of Sports Medicine. 1996;24(6 Suppl):S2-8. Print Language: Faroese Coding Level of Care Code ED Chef Under for Krystyna Cervantes
--- NOTE | 2025-06-08 11:05 | USR_ITS ---
PROCEDURE INFORMATION: Exam: US Duplex Right Lower Extremity Arteries Or Arterial Bypass Grafts Exam date and time: 06/08/2025 11:40 AM Age: 60 years old Clinical indication: Pain; Leg, lower; Right; Additional info: Atraumatic rle pain, difficult to palpate pulses TECHNIQUE: Imaging protocol: Right Real-time duplex scan of the arteries or arterial bypass grafts of the right lower extremity with 2-D rojas scale, color Doppler flow and spectral waveform analysis. Images documented and saved. COMPARISON: [place] [id number] 06/08/2025 11:22 AM FINDINGS: Right common femoral artery: No occlusion or significant stenosis. Normal waveform. No pseudoaneurysm in the inguinal region. Right superficial femoral artery: No occlusion or significant stenosis. Normal waveform. Right popliteal artery: No occlusion or significant stenosis. Normal waveform. Right calf/foot arteries: No occlusion or significant stenosis in the visualized arteries. Normal waveforms. Dorsalis pedis artery is patent. Soft tissues: No hematoma or collection. Other findings: TEJA 0.9. US/[place] [id number] IMPRESSION: No stenosis or occlusion.
[2025-06-08 11:08] LABS: Hematocrit 48.0 % (37-53); Hemoglobin 16.20 g/dL (11.27-16.99); Mean Corpuscular HGB Conc 33.8 g/dL (30-55); Mean Corpuscular Hemoglobin 35.7 pg (27-33); Mean Corpuscular Volume 105.7 fl (82-101); Nucleated Red Blood Cells % 0 %; Platelet Count 170 10^3/cmm (157-399); Red Blood Count 4.54 10^6/uL (3.85-5.65); White Blood Count 11.47 10^3/uL (3.29-11.43)
[2025-06-08 11:24] LABS: Alanine Aminotransferase 36 U/L (0-41); Albumin Level 3.6 g/dL (3.5-5.2); Alkaline Phosphatase 78 U/L (40-130); Anion Gap 18.2 (5-19); Aspartate Amino Transferase 47 U/L (0-40); Blood Urea Nitrogen 13 mg/dL (6-20); Calcium 9.3 mg/dL (8.5-10.5); Carbon Dioxide 23 mmol/L (22-29); Chloride 94 mmol/L (98-107); Creatinine Clr Calc Pharmacy 93.7292; Globulin 4.1 g/dL (1.3-4.6); Glucose 118 mg/dL (65-115); Osmolality Calculated 273 mOsm/kg (285-295); Potassium 4.2 mmol/L (3.5-5.1); Sodium 131 mmol/L (136-145); Total Protein 7.7 g/dL (6.6-8.7)
[2025-06-08] MEDS: morphine 4 mg/mL SDV 1 mL IVP (11:37)
--- NOTE | 2025-06-08 12:25 | CTR_ITS ---
PROCEDURE INFORMATION: Exam: CT Pelvis With Contrast, Skeleton Exam date and time: 06/08/2025 12:39 PM Age: 60 years old Clinical indication: Hip pain; Right hip; Additional info: Severe right proximal femur pain TECHNIQUE: Imaging protocol: Computed tomography of the pelvis with contrast. Exam focused on the skeleton. Radiation optimization: All CT scans at this facility use at least one of these dose optimization techniques: automated exposure control; mA and/or kV adjustment per patient size (includes targeted exams where dose is matched to clinical indication); or iterative reconstruction. Contrast material: OMNI 350; Contrast volume: 100 ml; Contrast route: INTRAVENOUS (IV); COMPARISON: CR (PELVIS, ) 06/08/2025 11:58 AM RADIATION DOSE METRICS: Total DLP (mGy-cm): 760.41 FINDINGS: Bones/joints: Unremarkable. No acute fracture. No dislocation. Soft tissues: Unremarkable. CT/CT pelvis w con* [id number] IMPRESSION: No acute findings.
[2025-06-08] MEDS: iohexol 350 mg/mL 500 mL Btl (per mL) IV (12:43)
[2025-06-08] MEDS: orphenadrine 30 mg/mL Inj 2 mL 60 MG IVP (12:58)
[2025-06-08] MEDS: HYDROmorphone 0.5 MG/0.5 ML INJ IVP (13:01)
--- NOTE | 2025-06-09 09:26 | DCPLANNER ---
messaged ortho for er f/u
== END 2025-06-08 14:50 | disposition home or self-care (01) ==
PROVIDERS: Emergency Provider Physician Assistant; PCP Nurse Practitioner Family
DX: S86.911A Strain of unspecified muscle(s) and tendon(s) at lower leg level, right leg, initial encounter (principal); X58.XXXA Exposure to other specified factors, initial encounter; D75.1 Secondary polycythemia; I50.9 Heart failure, unspecified; Z99.81 Dependence on supplemental oxygen
CPT/HCPCS: 36415; 72193; 73502; 80053; 82550; 85025; 85651; 86140; 93926; 93970; 96372; 96374; 96375; 99285; J1100; J1171; J2270; J2360

== ENCOUNTER 2025-06-15 22:12 | Emergency (ER) | payer MEDICARE, SELFPAY ==
[2025-06-15 22:13] VITALS: BP 119/72; PULSE 89; RESP 20; TEMP 36.6; O2SAT 95; BMI 36.1
--- OUTSIDE RECORDS SUMMARY | 2025-06-15 22:20 | XMS_ITS | Clinical Summary ---
Author Organization Content [employer] Address [address] [facility] Attn: Epic Prelude ADT CANDIDA STAPLES [address] Care Team Providers Care Storage Specialist Name Role Phone Sri Morrissey Primary Care Provider [phone] Allergies No known active allergies Medications Saw Roach Fruit 450 mg Capsule Take 450 mg [...] Data STL ABSTRACTION Provider, Abstract 04/29/[address] [facility] Gastroenterology[address] [place] [address] [phone] Briana Woodson, Cardiac Clearence 04/28/[address] [facility] Gastroenterology[address] [place] [address] [phone] Briana Woodson, Results 04/22/2025 External Device Data STL ABSTRACTION Provider, Abstract 04/22/2025 External Device Data STL ABSTRACTION Provider, Abstract 04/16/2025 1:30 PM CDT Office Visit [facility] Gastroenterology- [place] 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 Gastroenterology- [place] [address] [facility] [address] [place] [address] Rome Martin, [facility] [address] [facility] [address] [place] [address] Health Maintenance Due Date Last Done [...] VACCINE (1 of 2) 2016 Medicare Advantage ([place]) Prev entative Visit/Annual Wellness Visit 10/02/2024 INFLUENZA [...] MUSCLE AB (ACTIN) IGG 58(H) <20 U [facility] Comment: Reference Range: <20 U: Negative >or=20 [...] 1. FASTING:NO FASTING: NO Test Performed at: [facility] [address] [place] Lamin Cade M.D.,PhD Blood 04/16/2025 1:53 PM CDT 04/16/2025 1:53 PM CDT us Briana Nadeen Valdes DO CHEMISTRY ORDERABLES F inal Result [facility] [phone] [facility] [place] [id number] [facility] [address] [place] * ACUTE HEPATITIS PANEL (04/16/2025 1:53 PM CDT) HEPATITIS A IGM NON-REACTI VE NON-REACT ALLISON [facility] Comment: For additional information, please refer to http://[employer]Wrnch/faq/BQO050 (This link is being provided for informational/ educational purposes only.) HEPATITIS B SURFACE AG NON-REACTI VE NON-REACT ALLISON [facility] Comment: For additional information, please refer to http://[employer]/faq/PAP692 (This link is being provided for informational/ educational purposes only.) HEPATITIS B CORE IGM NON-REACTI VE NON-REACT ALLISON [facility] Comment: For additional information, please refer to http://[employer]/faq/UTV733 (This link is being provided for informational/ educational purposes only.) HEPATITIS C AB NON-REACTI VE NON-REACT ALLISON [facility] Comment: HCV antibody was non-reactive. There is no laboratory evidence of HCV infection. In most cases, no further action is required. However, if recent HCV exposure is suspected, a test for HCV RNA (test code 57533) is suggested. For additional information please refer to http://[employer]/faq/HPT18h0 (This link is being provided for informational/ educational purposes only.) Test Performed at: [facility] [address] [place] [address] Shaunna Dejesus MD Blood 04/16/2025 1:53 PM CDT 04/16/2025 1:53 PM CDT us Briana Nadeen Valdes DO CHEMISTRY ORDERABLES F inal Result [facility] [phone] [facility] [address] [place] [address] * MITOCHONDRIAL ANTIBODY (04/16/2025 1:53 PM CDT) Pathologist [facility] MITOCHONDRIAL AB <20.[address] [facility], Comment: Reference Range: NEGATIVE: < OR = 20.0 EQUIVOCAL: 20.1-24.9 POSITIVE: > OR = 25.0 FASTING:NO FASTING: NO Test Performed at: [facility], [address] [place] [address] Linda Grande MD,PhD,SARAH Blood 04/16/2025 1:53 PM CDT 04/16/2025 1:53 PM CDT us Briana Bradens DO CHEMISTRY ORDERABLES F inal Result [facility] [phone] [facility], [address] [place] [phone] * LIVER KIDNEY MICROSOMAL ANTIBODY (04/16/2025 1:53 PM CDT) LIVER KIDNEY MICROSOMAL AB <=20.0 <=20.0 U [facility] Comment: Reference Range: <=20.0 Negative 20.1-24.9 [...] infection. FASTING:NO FASTING: NO Test Performed at: [facility] [address] [facility] [place] [address] Lamin Cade M.D.,PhD Blood 04/16/2025 1:53 PM CDT 04/16/2025 1:53 PM CDT us Briana Nadeen Valdes DO CHEMISTRY ORDERABLES F inal Result [facility] [phone] [facility] [address] [facility] [place] [address] * IRON, TIBC, AND PERCENT SATURATION (04/16/2025 1:53 PM CDT) IRON 136 50 - 180 mcg/dL [facility] TIBC 422 250 - 425 mcg/dL (calc) [facility] IRON % SATURATION 32 20 - 48 % (calc) [facility] Comment: FASTING:NO FASTING: NO Test Performed at: [facility] [address] [facility] [place] [address] Shaunna Dejesus MD Blood 04/16/2025 1:53 PM CDT 04/16/2025 1:53 PM CDT Briana Nadeen Valdes DO CHEMISTRY ORDERABLES F inal Result Performing Organization Address City/[facility]/ZIP Co de Phone Number [facility] [phone] [facility] [address] [place] [phone] * (ABNORMAL) CERULOPLASMIN (04/16/2025 1:53 PM CDT) CERULOPLASMIN 34(H) 14 - 30 mg/dL [facility] Comment: FASTING:NO FASTING: NO Test Performed at: [facility] [address] [facility] [place] [address] Shaunna Dejesus MD Blood 04/16/2025 1:53 PM CDT 04/16/2025 1:53 PM CDT Briana Nadeen Valdes DO CHEMISTRY ORDERABLES F inal Result [facility] [phone] [facility] [address] [place] [address] [address] * ALPHA 1 ANTITRYPSIN (04/16/2025 1:53 PM CDT) Pathologist [facility] ALPHA 1 ANTITRYPSIN 121 83 - 199 mg/dL [facility] Comment: Test Performed at: [facility] [address] [place] [address] Shaunna Dejesus MD Blood 04/16/2025 1:53 PM CDT 04/16/2025 1:53 PM CDT Briana Nadeen Valdes DO CHEMISTRY ORDERABLES F inal Result [facility] [phone] [facility] [address] [place] [address] * PROTIME-INR (04/16/2025 1:53 PM CDT) Only the most recent of2 resultswithin the time period is included. Pathologist [facility] INR 1.0 [facility] Comment: Reference Range 0.9-1.1 Moderate-intensity Warfarin Therapy 2.0-3.0 Higher-intensity Warfarin Therapy 3.0-4.0 PROTIME 10.2 9.0 - 11.5 sec [facility] Comment: For additional information, please refer to http://education.Wrnch/faq/NEP550 (This link is being provided for informational/ educational purposes only.) FASTING:NO FASTING: NO Test Performed at: [facility] [address] [place] [address] Guevara Farr Blood 04/16/2025 1:53 PM CDT 04/16/2025 1:53 PM CDT us Briana Nadeen Valdes DO HEMATOLOGY ORDERABLES Final Result [facility] [phone] [facility] [address] [place] [address] * IKE SCREEN W/REFLEX (04/16/2025 1:53 PM CDT) IKE SCREEN NEGATIVE NEGATIVE [facility] Comment: IKE IFA is a first line [...] AC-0: Negative International Consensus on IKE Patterns (https://doi.org/10.1515/tiyj-9172-2790) For additional information, please refer to http://education.[employer]/faq/TGL783 (This link is being provided for informational/ educational purposes only.) FASTING:NO FASTING: NO Test Performed at: [facility] [address] Shaunna Dejesus MD Blood 04/16/2025 1:53 PM CDT 04/16/2025 1:53 PM CDT Briana Senior Valdes DO CHEMISTRY ORDERABLES F inal Result [facility] [phone] [address] * FERRITIN (04/16/2025 1:53 PM CDT) FERRITIN 291 38 - 380 ng/mL [facility] Comment: FASTING:NO FASTING: NO Test Performed at: [facility] [address] Shaunna Dejesus MD Blood 04/16/2025 1:53 PM CDT 04/16/2025 1:53 PM CDT Briana Nadeen Valdes DO CHEMISTRY ORDERABLES F inal Result [facility] [phone] [facility] [address] [address] [address] * TELEMETRY REPORT (03/24/2025 3:53 PM CDT) Provider Scanning ECG ORDERABLES Final Result * (ABNORMAL) POC GLUCOSE (03/22/2025 12:12 PM CDT) Only the most recent of11 resultswithin the time period is included. GLUCOSE POC 157(H) 74 - 99 mg/dL 03/22/2025 12:12 PM CDT [facility] SPECIMEN SOURCE, GLUCOSE POC Capillary 03/22/2025 12:12 PM CDT [facility] Blood, whole 03/22/2025 12:1 2 PM CDT 03/22/2025 12:22 PM CDT Terrell Dominguez DO POINT OF CARE TESTING F inal Result Performing Organization Address City/[facility]/ZIP Co de Phone Number [facility] CLIA # [id number] [address] [address] [place], [place] [address] * (ABNORMAL) CBC WITH DIFFERENTIAL (03/22/2025 7:52 AM CDT) Only the most recent of3 resultswithin the time period is included. WBC 9.2 4.8 - 10.8 K/uL 03/22/2025 8:10 AM CDT [facility] RBC 5.00 4.60 - 6.20 M/uL 03/22/2025 8:10 AM CDT [facility] HEMOGLOBIN 17.1 14.0 - 18.0 g/dL 03/22/2025 8:10 AM CDT [facility] HEMATOCRIT 49.6 41.0 - 53.0 % 03/22/2025 8:10 AM [facility] [employer] [facility] MCV 99.2 84.0 - 103.0 fL 03/22/2025 8:10 AM [facility] [employer] [facility] MCH 34.2(H) 27.0 - 34.0 pg 03/22/2025 8:10 AM [facility] [employer] [facility] MCHC 34.5 30.0 - 35.0 g/dL 03/22/2025 8:10 AM [facility] [employer] [facility] PLATELETS 268 140 - 440 K/uL 03/22/2025 8:10 AM [facility] [employer] [facility] MPV 8.8(L) 8.9 - 12.8 fL 03/22/2025 8:10 AM [facility] [employer] [facility] RDW 14.0 11.0 - 14.5 % 03/22/2025 8:10 AM [facility] [employer] [facility] RDW-STDEV 51.3 37.0 - 54.0 fL 03/22/2025 8:10 AM [facility] [employer] [facility] NEUTROPHILS 63 42 - 75 % 03/22/2025 8:10 AM [facility] [employer] [facility] LYMPHOCYTES 28 24 - 44 % 03/22/2025 8:10 AM [facility] [employer] [facility] MONOCYTES 6 2 - 10 % 03/22/2025 8:10 AM [facility] [employer] [facility] EOSINOPHILS 1 0 - 7 % 03/22/2025 8:10 AM [facility] [employer] [facility] BASOPHILS 0 0 - 1 % 03/22/2025 8:10 AM [facility] [employer] [facility] IMMATURE GRANULOCYTES 1 0 - 2 % 03/22/2025 8:10 AM [facility] [employer] [facility] NEUTROPHIL ABSOLUTE 5.82 2.00 - 8.00 K/uL 03/22/2025 8:10 AM [facility] [employer] [facility] LYMPHOCYTE ABSOLUTE 2.62 1.20 - 4.00 K/uL 03/22/2025 8:10 AM [facility] [employer] [facility] MONOCYTE ABSOLUTE 0.59 0.10 - 0.60 K/uL 03/22/2025 8:10 AM CDT [facility] EOSINOPHIL ABSOLUTE 0.07 0.00 - 0.70 K/uL 03/22/2025 8:10 AM CDT [facility] BASOPHILS ABSOLUTE 0.04 0.00 - 0.20 K/uL 03/22/2025 8:10 AM CDT [facility] IMMATURE GRANULOCYTES ABSOLUTE 0.08 0.00 - 0.10 K/uL 03/22/2025 8:10 AM CDT [facility] SMEAR REVIEWED: NA - Not Applicable 03/22/2025 8:10 AM CDT [facility] Blood Venipuncture / Unknown 03/22/2025 7:52 AM CDT 03/22/2025 8:04 AM CDT Terrell Dominguez DO HEMATOLOGY ORDERABLES F inal Result Performing Organization Address [facility] Co de Phone Number [facility] CLIA # [id number] [address] [address] [place], [place] [address] * MAGNESIUM LEVEL (03/22/2025 7:52 AM CDT) Only the most recent of3 resultswithin the time period is included. MAGNESIUM 2.4 1.6 - 2.6 mg/dL 03/22/2025 8:45 AM CDT [facility] Blood Venipuncture / Unknown 03/22/2025 7:52 AM CDT 03/22/2025 8:11 AM CDT Terrell Dominguez DO CHEMISTRY ORDERABLES Fi nal Result Performing Organization Address City/[facility]/ZIP Co de Phone Number [facility] CLIA # [id number] [address] [place], [place] [address] * (ABNORMAL) COMPREHENSIVE METABOLIC PANEL (03/22/2025 7:52 AM CDT) Only the most recent of3 resultswithin the time period is included. [facility] SODIUM 131(L) 136 - 145 mmol/L 03/22/2025 8:[address] [facility] POTASSIUM 3.1(L) 3.5 - 5.1 mmol/L 03/22/2025 8:[address] [facility] CHLORIDE 91(L) 98 - 107 mmol/L 03/22/2025 8:[address] [facility] CO2 25 22 - 29 mmol/L 03/22/2025 8:[address] [facility] CALCIUM 9.3 8.6 - 10.0 mg/dL 03/22/2025 8:[address] [facility] BUN 29(H) 6 - 20 mg/dL 03/22/2025 8:[address] [facility] CREATININE 1.14 0.67 - 1.17 mg/dL 03/22/2025 8:[address] [facility] GLUCOSE 139(H) 74 - 99 mg/dL 03/22/2025 8:[address] [facility] TOTAL PROTEIN 7.6 6.4 - 8.3 g/dL 03/22/2025 8:[address] [facility] ALBUMIN 3.8 3.5 - 5.2 g/dL 03/22/2025 8:[address] [facility] BILIRUBIN TOTAL 0.6 0.0 - 1.0 mg/dL 03/22/2025 8:[address] [facility] ALKALINE PHOSPHATASE 67 40 - 129 U/L 03/22/2025 8:[address] [facility] AST 59(H) 10 - 50 U/L 03/22/2025 8:[address] [facility] ALT 64(H) <=50 U/L 03/22/2025 8:[address] [facility] GFR >60 >=60 mL/min/1.7 3 sq meter 03/22/2025 8:[address] [facility] Comment:eGFR calculated with 2020 CKD-EPI equation. Vegetarian diet, extremely high or low muscle mass, and may affect results. Cystatin C with Glomerular Filtration Rate is a suitable alternative for these patients. ANION GAP 15 9 - 20 mmol/L 03/22/2025 8:45 AM T [facility] Blood Venipuncture / Unknown 03/22/2025 7:52 AM CDT 03/22/2025 8:11 AM CDT us Terrell Dominguez DO CHEMISTRY ORDERABLES Fi nal Result [facility] CLIA # [id number] [facility] [address] * (ABNORMAL) BASIC METABOLIC PANEL (03/21/2025 2:38 PM CDT) Only the most recent of2 resultswithin the time period is included. SODIUM 131(L) 136 - 145 mmol/L 03/21/2025 3:36 PM T [facility] POTASSIUM 3.5 3.5 - 5.1 mmol/L 03/21/2025 3:36 PM T [facility] CHLORIDE 87(L) 98 - 107 mmol/L 03/21/2025 3:[address] [facility] CO2 30(H) 22 - 29 mmol/L 03/21/2025 3:36 PM T [facility] CALCIUM 9.5 8.6 - 10.0 mg/dL 03/21/2025 3:36 PM T [facility] BUN 31(H) 6 - 20 mg/dL 03/21/2025 3:[address] [facility] CREATININE 1.39(H) 0.67 - 1.17 mg/dL 03/21/2025 3:[address] [facility] GLUCOSE 144(H) 74 - 99 mg/dL 03/21/2025 3:[address] [facility] GFR 58(L) >=60 mL/min/1. 73 sq meter 03/21/2025 3:36 PM CDT [facility] Comment:eGFR calculated with 2020 CKD-EPI equation. Vegetarian diet, extremely high or low muscle mass, and may affect results. Cystatin C with Glomerular Filtration Rate is a suitable alternative for these patients. ANION GAP 14 9 - 20 mmol/L 03/21/2025 3:36 PM CDT [facility] Blood Venipuncture / Unknown 03/21/2025 2:38 PM CDT 03/21/2025 2:58 PM CDT Terrell Dominguez DO CHEMISTRY ORDERABLES Fi nal Result [facility] CLIA # [id number] [facility] [address] * ECHO COMPLETE - CONTRAST AND STRAIN IF INDICATED (03/21/2025 11:32 AM CDT) EJECTION FRACTION 57 INTERFACE SYSTEM 03/21/2025 10:0 4 AM CDT Narrative INTERFACE SYSTEM - 03/21/2025 11:40 AM CDT [facility] Cardiovascular Services Echocardiography Laboratory [address] [place] [address] Transthoracic Echocardiography Patient: Jaswinder Palmer Study ID: ECHO COMPLETE - Ray Gender: M : 1965 Age: 60 Room: [facility] Study 03/21/2025 Pt Inpatient Date: Status: Study 10:04:19 AM CSN #: [id number] Time: Ordering:Terrell Doimnguez Indications and History: HF, Cardiomyopathy; Initial evaluation [...] 2D -11.9 % DENIA, LAX 2.3 cm DENAI, LAX 4.8 cm DENIA 2.3 cm ESD, [...] (H) izabel values outside specified reference range. [facility] Echo Labs are accredited with the Intersocietal Accreditation Commission - Echocardiography. Prepared and Electronically Authenticated Sumit Márquez MD Confirmed 03/21/2025 11:40 Procedure Note Sumit Márquez MD - 03/21/2025 [facility] Cardiovascular Services Echocardiography Laboratory [address] [place] [address] Transthoracic Echocardiography Patient: Jaswinder Palmer Study ID: ECHO COMPLETE- Ray Gender: Hoda : 1965 Age: 60 Room: [facility] Study 03/21/2025 Pt Inpatient Date: Status: Study 10:04:19 AM CSN #: [id number] Time: Ordering:Terrell Dominguez Indications and History: HF, [...] (H) izabel values outside specified reference range. [facility] Echo Labs are accredited with the[facility] Accreditation Commission - Echocardiography. Prepared and Electronically Authenticated Sumit Márquez MD Confirmed 03/21/2025 11:40 us Terrell Dominguez DO US ORDERABLES Final R esult [...] to chest CTA 11/30/2023. Similar pattern of kzbc-sc-jerpjljk emphysematous change with mild chronic appearing reticular [...] to chest CTA 11/30/2023. Similar pattern of dosh-bb-kfnzciuo emphysematous change with mild chronic appearing reticular infiltration primarily within periphery of both lungs. No honeycombing. Mild dependent atelectasis left lower lobe. No consolidating airspace disease. Calcified granuloma right lung. Thoracic aorta remains nonaneurysmal. No axillary or intrathoracic lymphadenopathy. Imaged upper abdomen without significant pathology. No concerning skeletal pathology. IMPRESSION: Moderate COPD with similar pattern of mildly accentuated interstitial lung markings. Terrell Dominguez DO CT ORDERABLES Final R esult * EXTRA TUBE (URINE HENRY) (03/20/2025 8:04 AM CDT) Urine URINE SPECIMEN OBTAINED BY CLEAN CATCH PROCEDURE / Unknown Collection / Unknown 03/20/2025 8:04 AM CDT 03/20/2025 8:09 AM CDT Celso Doll MD URINE ORDERABLES Final Resul t Performing Organization Address [facility] Co de Phone Number [facility] [employer] [facility] CLIA # [id number] [address] [address] * SODIUM, RANDOM URINE (03/20/2025 8:04 AM CDT) SODIUM, URINE 57 mmol/L 03/20/2025 8:53 AM CDT [facility] [employer] [facility] Urine URINE SPECIMEN OBTAINED BY CLEAN CATCH PROCEDURE / Unknown Collection / Unknown 03/20/2025 8:04 AM CDT 03/20/2025 8:09 AM CDT Celso Doll MD URINE ORDERABLES Final Resul t Performing Organization Address City/[facility]/ZIP Co de Phone Number [facility] [employer] [facility] CLIA # [id number] [address] [address] * OSMOLALITY, URINE (03/20/2025 8:04 AM CDT) OSMOLALITY, URINE 372 50 - 1,200 mOsm/kg 03/20/2025 9:10 AM CDT [facility] [employer] [facility] Urine URINE SPECIMEN OBTAINED BY CLEAN CATCH PROCEDURE / Unknown Collection / Unknown 03/20/2025 8:04 AM CDT 03/20/2025 8:09 AM CDT Narrative [facility] - 03/20/2025 9:10 AM CDT Reference range: 50-1200 mOsm/kg H2O, depending on fluid intake. us Celso Doll MD URINE ORDERABLES Final Resul t [facility] CLIA # [id number] [facility] [address] [place] [address] * (ABNORMAL) URINALYSIS WITH REFLEX MICROSCOPIC (03/20/2025 8:04 AM T) COLOR UA Colorless(A ) Pale to Dark Yellow 03/20/2025 8:[address] [facility] CLARITY UA Clear Clear 03/20/2025 8:[address] [facility] SPECIFIC GRAVITY UA 1.012 1.003 - 1.035 03/20/2025 8:[address] [facility] PH UA 6.5 5.0 - 8.0 03/20/2025 8:[address] [facility] LEUKOCYTE ESTERASE UA Negative Negative 03/20/2025 8:[address] [facility] NITRITE UA Negative Negative 03/20/2025 8:[address] [facility] PROTEIN UA Negative Negative 03/20/2025 8:[address] [facility] GLUCOSE UA Negative Negative 03/20/2025 8:[address] [facility] KETONES UA Negative Negative 03/20/2025 8:[address] [facility] UROBILINOGEN UA <2.0 <2.0 mg/dL 8:[address] [facility] BILIRUBIN UA Negative Negative 03/20/2025 8:[address] [facility] BLOOD UA 1+(A) Negative 03/20/2025 8:[address] [facility] WBC UA 0-2 0 - 2 /hpf 03/20/2025 8:22 AM CDT [facility] RBC UA 6-10(A) 0 - 2 /hpf 03/20/2025 8:22 AM CDT [facility] BACTERIA UA Negative Negative /hpf 03/20/2025 8:22 AM CDT [facility] Urine URINE SPECIMEN OBTAINED BY CLEAN CATCH PROCEDURE / Unknown Collection / Unknown 03/20/2025 8:04 AM CDT 03/20/2025 8:09 AM CDT us Celso oDll MD URINE ORDERABLES Final Resul t [facility] CLIA # [id number] [address] [place] [address] * US ABDOMEN LIMITED (03/20/2025 6:47 AM [...] - 10.8 K/uL 03/20/2025 6:33 AM CDT [facility] RBC 4.79 4.60 - 6.20 M/uL 03/20/2025 6:33 AM CDT [facility] HEMOGLOBIN 16.5 14.0 - 18.0 g/dL 03/20/2025 6:33 AM CDT [facility] HEMATOCRIT 48.1 41.0 - 53.0 % 03/20/2025 6:33 AM CDT [facility] MCV 100.4 84.0 - 103.0 fL 03/20/2025 6:33 AM T [facility] MCH 34.4(H) 27.0 - 34.0 pg 03/20/2025 6:33 AM CDT [facility] MCHC 34.3 30.0 - 35.0 g/dL 03/20/2025 6:33 AM CDT [facility] PLATELETS 261 140 - 440 K/uL 03/20/2025 6:33 AM CDT [facility] MPV 9.1 8.9 - 12.8 fL 03/20/2025 6:33 AM CDT [facility] RDW 14.1 11.0 - 14.5 % 03/20/2025 6:33 AM CDT [facility] RDW-STDEV 52.2 37.0 - 54.0 fL 03/20/2025 6:33 AM CDT [facility] Blood Venipuncture / Unknown 03/20/2025 6:11 AM CDT 03/20/2025 6:29 AM CDT Celso Doll MD HEMATOLOGY ORDERABLES Final Result Performing Organization Address City/[facility]/ZIP Co de Phone Number [facility] CLIA # [id number] [id number] [place] [address] * TSH (2025 11:20 PM CDT) TSH 3.29 0.27 - 4.20 uIU/mL 03/20/2025 12:43 AM CDT [facility] Blood Venipuncture / Unknown 2025 11:20 PM CDT 2025 11:27 PM CDT Celso Doll MD CHEMISTRY ORDERABLES Final R esult [facility] CLIA # [id number] [address] [place] [address] * (ABNORMAL) BRAIN NATRIURETIC PEPTIDE, BNP OR PROBNP (2025 11:20 PM CDT) PROBNP, N TERMINAL 249(H) 0 - 125 pg/mL 03/20/2025 12:43 AM CDT [facility] Comment: INTERPRETIVE COMMENT based on diagnosis: Diagnostic [...] 11:20 PM CDT 2025 11:27 PM CDT us Celso Doll MD CHEMISTRY ORDERABLES Final R esult [facility] CLIA # [id number] [address] [place] [address] * (ABNORMAL) HEMOGLOBIN A1C (2025 11:20 PM CDT) [facility] HEMOGLOBIN A1C 6.4(H) <=5.6 % 03/20/2025 11:33 AM CDT [facility] EST. AVG GLUCOSE, A1C 137 mg/dL 03/20/2025 11:33 AM CDT [facility] Blood Venipuncture / Unknown 2025 11:20 PM CDT 2025 11:25 PM CDT Narrative [facility] - 03/20/2025 11:33 AM CDT HGB A1C INTERPRETATION NORMAL: <5.7% PRE-DIABETES: 5.7 - 6.4% DIABETES: 6.5% OR GREATER us Celso Doll MD CHEMISTRY ORDERABLES Final R esult [facility] CLIA # [id number] [address] [place] [address] [place] [address] * (ABNORMAL) LIPID PANEL (2025 11:20 PM CDT) [facility] Signature CHOLESTEROL 180 <200 mg/dL 03/20/2025 12:43 AM CDT [facility] TRIGLYCERIDE 182(H) <150 mg/dL 03/20/2025 12:43 AM CDT [facility] HDL 47 40 - 59 mg/dL 03/20/2025 12:43 AM CDT [facility] LDL CALCULATED 97 <100 mg/dL 03/20/2025 12:43 AM CDT [facility] NON-HDL CHOLESTEROL 133(H) <130 mg/dL 03/20/2025 12:43 AM T [facility] Blood Venipuncture / Unknown 2025 11:20 PM CDT 2025 11:27 PM CDT Narrative [facility] - 03/20/2025 12:43 AM CDT TOTAL CHOLESTEROL [...] Reference Ranges for Lipid Panels (NCEP/AMA) . us Celso Doll MD CHEMISTRY ORDERABLES Final R esult [facility] # [id number] [address] [place] [address] * EKG 12-LEAD (2025 11:10 PM CDT) 2025 11:1 0 PM CDT Narrative INTERFACE SYSTEM - 03/20/2025 12:28 PM CDT [address] [address] Test Date: 2025 Pat Name: JASWINDER PALMER Department: 12 Room: [address] [place] [address] Gender: Male Assistant Department Manager: [id number] : 1965 Requested By: Order Number: [id number] Reading MD: Chintan De Jesus Measurements Intervals Leon Rate: 95 P: 74 CT: 128 QRS: 99 QRSD: 108 T: 0 QT: 386 QTc: 485 Interpretive Statements Normal sinus rhythm Rightward axis Cannot rule out Inferior infarct, age undetermined QTcB >= 480 msec Abnormal ECG Electronically Signed On 03-20-2025 12:28:22 CDT by Chintan De Jesus Procedure Note Chintan De Jesus MD - 03/20/[address] [address] Test Date: 2025 Pat Name: JASWINDER PALMER Department: 12 Room: [address] [place] [address] Gender: Male Assistant Department Manager: [id number] : 1965 Requested By: Order Number: [id number] Reading MD: Chintan De Jesus Measurements Intervals Leon Rate: 95 P: 74 CT: 128 QRS: 99 QRSD: 108 T: 0 [...] Months Insurance MEDICARE PART A AND B [facility] MEDICARE HMO RX INFOCROSSING Medicaid Advance Directives For more information, please contact: [phone] * Full Code (Latest Code Status on File) Date Activated Date Inactivated Comments 2025 10:55 PM 03/22/2025 3:53 PM Care Teams Storage Specialist Relationship Specialty Start Date End Date Sri Morrissey DO [address] [place] [address] PCP - General Family Practice 05/07/18
[2025-06-15 23:45] VITALS: BP 121/86; PULSE 90; RESP 18; O2SAT 95
--- NOTE | 2025-06-15 23:47 | CTR_ITS ---
PROCEDURE INFORMATION: Exam: CT Abdomen And Pelvis With Contrast Exam date and time: 06/15/2025 11:59 PM Age: 60 years old Clinical indication: Nausea and vomiting; Abdominal pain; Localized; Right; C/O RT sided abd pain with n/v x 3 days; Additional info: R sided ab pain, n/v TECHNIQUE: Imaging protocol: Computed tomography of the abdomen and pelvis with contrast. Radiation optimization: All CT scans at this facility use at least one of these dose optimization techniques: automated exposure control; mA and/or kV adjustment per patient size (includes targeted exams where dose is matched to clinical indication); or iterative reconstruction. Contrast material: OMNI 350; Contrast volume: 100 ml; Contrast route: INTRAVENOUS (IV); COMPARISON: 1. CT pelvis w con* [id number] 06/08/2025 12:[address] abdomen/pelvis dated 04/09/2024. RADIATION DOSE METRICS: Total DLP (mGy-cm): 1093.53 FINDINGS: Lungs: Bibasilar atelectasis. Calcified granuloma in the right lower lobe. Liver: The liver is unremarkable. Gallbladder and biliary ducts: The gallbladder is unremarkable. No biliary dilation. Pancreas: The pancreas is unremarkable. Spleen: The spleen demonstrates punctate calcifications, consistent with remote granulomatous organism exposure. Adrenal glands: The adrenal glands are unremarkable. Kidneys and ureters: Bilateral simple renal cysts are present, as well as other subcentimeter hypodensities which are too small to characterize. Bilateral renovascular calcifications. Stomach and bowel: Sigmoid diverticulosis. Chronic thickening of the sigmoid taveras. There is trace paracolic stranding. A portion of the sigmoid colon appears tethered to the rectosigmoid junction (series 7, image 45), unchanged since 2023 and likely due to chronic adhesion from prior inflammation. Appendix: A normal appendix is identified. Intraperitoneal space: No significant peritoneal free fluid. No free peritoneal air. Vasculature: Stable infrarenal abdominal aortic aneurysm measuring up to 3.2 cm with redemonstrated chronic focal dissection flap, unchanged since at least 2023. Lymph nodes: No enlarged lymph nodes by size criteria. Urinary bladder: The bladder is unremarkable. Reproductive: The prostate demonstrates nonspecific parenchymal calcifications. Bones/joints: The spine demonstrates mild degenerative changes at multiple levels. Soft tissues: Soft tissues are unremarkable as visualized. CT/CT abdomen pelvis w con* [id number] IMPRESSION: 1. Sigmoid diverticulosis with chronic thickening of the sigmoid taveras and trace paracolic stranding. This may be due to chronic inflammation, although superimposed mild acute diverticulitis may also be considered. 2. 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 3. Stable infrarenal abdominal aortic aneurysm measuring up to 3.2 cm with redemonstrated chronic focal dissection flap, unchanged since at least 2023. COMMENTS: Consistent with the [employer] [employer]'s Incidental Findings Committee white paper (J Am Ghazal Radiol 2018): Any incidental renal lesion less than 1 cm or classified as too small to characterize, or any incidental cystic renal lesion characterized as simple-appearing, is likely benign. No follow-up imaging is recommended for these lesions per consensus recommendations based on imaging criteria.
--- NOTE | 2025-06-15 23:47 | W.ED.ABDPA2 ---
HPI - Abdominal Pain General: Chief Complaint: Nausea/Vomiting/Diarrhea Stated Complaint: N\V\D Time Seen by Provider: 06/15/25 23:01 Source: patient Mode of arrival: ambulatory Limitations: no limitations History of Present Illness: Patient is a 60-year-old male who presents to ED today with complaint of right sided abdominal pain that has been intermittent over the past 3 days or so but seem to have worsened this evening. He states he is having pain when he tries to defecate. He has also had some nausea and vomiting today as well which concerned him. No fevers. He has never had any surgeries to his abdomen. MD elicited complaint: abdominal pain Pertinent past history: none Onset (ago): day(s) Pain Consistency: intermittent Location: RLQ Severity: moderate Radiation: none Migration to: no migration Exacerbating factors: nothing Relieving factors: nothing Associated Symptoms: Reports nausea and vomiting; Denies chills, dysuria, fever(s), hematochezia, hematuria, hematemesis and melena Related Data Home Medications ?Medication ?Instructions ?Recorded ?Confirmed spironolactone 25 mg tablet 25 mg PO DAILY 01/28/25 06/08/25 albuterol sulfate 90 mcg/actuation 2 puff inhalation Q4H PRN 03/06/25 06/08/25 aerosol inhaler (Ventolin HFA) Shortness Of Breath Or Wheezing aspirin 81 mg tablet 81 mg PO DAILY 03/25/25 06/08/25 bumetanide 1 mg tablet 1 mg PO DAILY 03/25/25 06/08/25 empagliflozin 10 mg tablet 10 mg PO DAILY 03/25/25 06/08/25 (Jardiance) oxygen-air delivery systems 03/25/25 06/08/25 rosuvastatin 10 mg tablet 20 mg PO DAILY 03/25/25 06/08/25 adalimumab 40 mg/0.4 mL 40 mg SUBCUT .Q14D 06/08/25 06/08/25 subcutaneous pen kit (Humira(CF) Pen) budesonide 0.5 mg/2 mL suspension 0.5 mg inhalation BID 06/08/25 06/08/25 for nebulization ipratropium 0.5 mg-albuterol 3 mg 3 ml inhalation QID 06/08/25 06/08/25 (2.5 mg base)/3 mL nebulization soln potassium chloride 10 mEq 10 meq PO DAILY 06/08/25 06/08/25 tablet,extended release tamsulosin 0.4 mg capsule 0.4 mg PO DAILY 06/08/25 06/08/25 Previous Rx's ?Medication ?Instructions ?Recorded clopidogrel 75 mg tablet 75 mg PO DAILY #90 tabs 05/21/25 metoprolol succinate 25 mg 37.5 mg (1.5 x 25 mg) PO DAILY #90 05/21/25 tablet,extended release 24 hr tabs hydrocodone 7.5 mg-acetaminophen 1 tab PO Q8H PRN pain #15 tabs 06/08/25 325 mg tablet amoxicillin 875 mg-potassium 1 tab PO BID #14 tabs 06/16/25 clavulanate 125 mg tablet ondansetron 4 mg disintegrating 4 mg PO Q8H PRN nausea and 06/16/25 tablet vomiting #14 tabs Allergies Allergy/AdvReac Type Severity Reaction Status Date / Time Unable to Assess Allergy Verified 06/08/25 13:19 Review of Systems Const: Denies: fever(s), chills, body aches, fatigue or malaise Card: Denies: chest pain Resp: Denies: dyspnea GI: Reports: abdominal pain, nausea and vomiting; Denies: hematemesis, hematochezia or melena : Denies: flank pain, dysuria or hematuria Musc: Denies: neck pain, back pain, extremity pain, extremity swelling, joint pain, joint swelling or joint redness Skin/Breast: Denies: rash Neuro: Denies: headache(s), numbness in extremities, weakness in extremities, sensory changes or dizziness PFS ED PFSH: Medical History CHF (congestive heart failure) Polycythemia Surgical History No significant past surgical history Social History Smoking and tobacco/nicotine status: current every day tobacco/nicotine user Physical Exam Const: COMMON NORMALS: no acute distress, patient oriented x3, no limitations, alert and well nourished GENERAL APPEARANCE: cooperative NUTRITIONAL APPEARANCE: obese ORIENTATION/CONSCIOUSNESS: Yes awake, Yes oriented to person, Yes oriented to place and Yes oriented to time Resp: COMMON NORMALS: normal respiratory effort and clear to auscultation bilaterally AUSCULTATION: clear to auscultation bilaterally OTHER: on chronic oxygen Cardio: COMMON NORMALS: regular rate and regular rhythm RATE: regular rate RHYTHM: regular rhythm GI: COMMON NORMALS: Normal to inspection, nondistended, normoactive bowel sounds present, Soft to palpation and no masses INSPECTION: Yes normal to inspection and Yes central obesity AUSCULTATION: Yes normoactive bowel sounds PALPATION: Yes Soft to palpation, Yes Tenderness to palpation present (GI) (throughout lower abdomen R>L), No Guarding due to palpation present (GI) and No Rigid due to palpation : COMMON NORMALS: Yes no CVA tenderness BLADDER/KIDNEY EXAM: Yes no CVA tenderness Back/Pelvis: COMMON NORMALS: no CVA tenderness Neuro: COMMON NORMALS: patient oriented x3 SENSORIUM/ORIENTATION: Yes alert, Yes oriented to person, Yes oriented to place and Yes oriented to time Course Vital Signs: Vital signs: Vital Signs Temperature 97.8 F 06/15/25 22:13 Pulse Rate 90 06/15/25 23:45 Respiratory Rate 18 06/16/25 00:22 Blood Pressure 121/86 06/15/25 23:45 Pulse Oximetry 96 06/16/25 00:22 Oxygen Delivery Me thod Nasal Cannula 06/15/25 22:13 Oxygen Flow Rate 2 06/15/25 22:13 MDM - Abdominal Pain Medical Decision Making Patient is a 60-year-old male here for complaints of abdominal pain x 3 days as well as nausea and vomiting that started today. No fevers. He has not had any bloody stools. His blood work showing a mild white count of 12.1. Chemistry panel overall is unremarkable apart from some chronic minor elevations to his AST/ALT most likely secondary to fatty liver. UA does not appear infected. CT scan obtained showing sigmoid diverticulosis with chronic thickening and trace pericolic stranding-could have superimposed diverticulitis. Will place on antibiotics and nausea meds. Recommend follow up with PCP this week. Return precautions given. Medical Records I reviewed the patient's medical records. Lab Data I reviewed the patient's lab results. 06/15/25 23:14 06/15/25 23:14 Labs/Radiology: Radiology Impressions Abdomen/Pelvis CT 06/15/25 23:47 IMPRESSION: 1. Sigmoid diverticulosis with chronic thickening of the sigmoid taveras and trace paracolic stranding. This may be due to chronic inflammation, although superimposed mild acute diverticulitis may also be considered. 2. 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 3. Stable infrarenal abdominal aortic aneurysm measuring up to 3.2 cm with redemonstrated chronic focal dissection flap, unchanged since at least 2023. COMMENTS: Consistent with the [place]'s Incidental Findings Committee white paper (J Am Ghazal Radiol 2018): Any incidental renal lesion less than 1 cm or classified as too small to characterize, or any incidental cystic renal lesion characterized as simple-appearing, is likely benign. No follow-up imaging is recommended for these lesions per consensus recommendations based on imaging criteria. Laboratory Results WBC 12.10 10^3/uL (3.29-11.43) H 06/15/25 23:14 RBC 5.01 10^6/uL (3.85-5.65) 06/15/25 23:14 Hgb 18.20 g/dL (11.27-16.99) H 06/15/25 23:14 Hct 53.3 % (37-53) H 06/15/25 23:14 MCV 106.4 fl (82-101) H 06/15/25 23:14 MCH 36.3 pg (27-33) H 06/15/25 23:14 MCHC 34.1 g/dL (30-55) 06/15/25 23:14 RDW 14.4 % (12.1-15.1) 06/15/25 23:14 Plt Count 227 10^3/cmm (157-399) 06/15/25 23:14 MPV 9.0 fL (7.4-10.4) 06/15/25 23:14 Neut % (Auto) 81.9 % 06/15/25 23:14 Lymph % (Auto) 12.0 % 06/15/25 23:14 [place] % (Auto) 4.1 % 06/15/25 23:14 Eos % (Auto) 0.6 % 06/15/25 23:14 Baso % (Auto) 0.4 % 06/15/25 23:14 Neut # (Auto) 9.91 10^3/uL (1.8-7.7) H 06/15/25 23:14 Lymph # (Auto) 1.5 10^3/uL (0.8-4.8) 06/15/25 23:14 [place] # (Auto) 0.5 10^3/uL (0.2-0.9) 06/15/25 23:14 Eos # (Auto) 0.1 10^3/uL (0.0-0.8) 06/15/25 23:14 Baso # (Auto) 0.1 10^3/uL (0.0-0.1) 06/15/25 23:14 Nucleated RBC % (auto) 0 % 06/15/25 23:14 Nucleated RBCs # 0.0 /100WBC 06/15/25 23:14 Sodium 137 mmol/L (136-145) 06/15/25 23:14 Potassium 4.4 mmol/L (3.5-5.1) 06/15/25 23:14 Chloride 99 mmol/L (98-107) 06/15/25 23:14 Carbon Dioxide 27 mmol/L (22-29) 06/15/25 23:14 Anion Gap 15.4 (5-19) 06/15/25 23:14 BUN 11 mg/dL (6-20) 06/15/25 23:14 Creatinine 0.9 mg/dL (0.7-1.2) 06/15/25 23:14 GFR Calculation 86.4 mL/min (90-130) L 06/15/25 23:14 Glucose 133 mg/dL (65-115) H 06/15/25 23:14 Calculated Osmolality 285 mOsm/kg (285-295) 06/15/25 23:14 Calcium 9.4 mg/dL (8.5-10.5) 06/15/25 23:14 Total Bilirubin 0.4 mg/dL (0.15-1.2) 06/15/25 23:14 AST 112 U/L (0-40) H 06/15/25 23:14 ALT 77 U/L (0-41) H 06/15/25 23:14 Alkaline Phosphatase 79 U/L (40-130) 06/15/25 23:14 Total Protein 8.2 g/dL (6.6-8.7) 06/15/25 23:14 Albumin 4.0 g/dL (3.5-5.2) 06/15/25 23:14 Globulin 4.2 g/dL (1.3-4.6) 06/15/25 23:14 Lipase 21 U/L (13-60) 06/15/25 23:14 Urine Color Yellow (Yellow) 06/16/25 00:15 Urine Appearance Clear (CLEAR) 06/16/25 00:15 Urine pH 6.5 (5-7) 06/16/25 00:15 Ur Specific [place] 1.033 (1.005-1.030) H 06/16/25 00:15 Urine Protein Trace (Negative) A 06/16/25 00:15 Urine Glucose (UA) 3+ (Normal) H 06/16/25 00:15 Urine Ketones Trace (Negative) 06/16/25 00:15 Urine Blood 1+ (Negative) A 06/16/25 00:15 Urine Nitrate Negative (Negative) 06/16/25 00:15 Urine Bilirubin Negative (Negative) 06/16/25 00:15 Urine Urobilinogen 1.0 mg/dL (Negative) 06/16/25 00:15 Ur Leukocyte Esterase Negative (Negative) 06/16/25 00:15 Urine RBC 11-20 /hpf (0-2) H 06/16/25 00:15 Urine WBC 0-5 /hpf (0-5) 06/16/25 00:15 Ur Squamous Epith Cells 0-5 /hpf (0-5) 06/16/25 00:15 Amorphous Sediment Not Reportable 06/16/25 00:15 Urine Bacteria None seen /hpf (NONE) 06/16/25 00:15 Hyaline Casts 1.21 /lpf 06/16/25 00:15 All radiology interpretation(s) finalized by discharge Discharge Plan Discharge Patient Disposition: Home Clinical Impression: Diverticulitis of sigmoid colon Condition: Stable Prescriptions: New ondansetron 4 mg tablet,disintegrating 4 mg PO Q8H PRN (Reason: nausea and vomiting) Qty: 14 0RF amoxicillin-pot clavulanate 875-125 mg tablet 1 tab PO BID Qty: 14 0RF No Action rosuvastatin 10 mg tablet 20 mg PO DAILY spironolactone 25 mg tablet 25 mg PO DAILY bumetanide 1 mg tablet 1 mg PO DAILY aspirin 81 mg tablet 81 mg PO DAILY (DME) oxygen-air delivery systems Device See Rx Instructions .ROUTE Rx Instructions: As directed Jardiance 10 mg tablet 10 mg PO DAILY clopidogrel 75 mg tablet 75 mg PO DAILY Qty: 90 3RF metoprolol succinate 25 mg tablet extended release 24 hr 37.5 mg PO DAILY Qty: 90 2RF albuterol sulfate [Ventolin HFA] 90 mcg/actuation HFA aerosol inhaler 2 puff INHALATION Q4H PRN (Reason: Shortness Of Breath Or Wheezing) ipratropium-albuterol 0.5 mg-3 mg(2.5 mg base)/3 mL solution for nebulization 3 ml INHALATION QID potassium chloride 10 mEq tablet extended release 10 meq PO DAILY tamsulosin 0.4 mg capsule 0.4 mg PO DAILY budesonide 0.5 mg/2 mL suspension for nebulization 0.5 mg inhalation BID Humira(CF) Pen 40 mg/0.4 mL pen injector kit 40 mg SUBCUT .Q14D hydrocodone-acetaminophen 7.5-325 mg tablet 1 tab PO Q8H PRN (Reason: pain) Qty: 15 0RF Discharge Orders: Discharge ED (Routine); Ordered 06/16/25 Ordered By: Sara Segovia Referrals: Christel Burk FNP [Primary Care Provider, Unknown] Patient Instructions: Diverticulitis (DC), Patient Portal & [place] Instructions Activity Restrictions/Additional Instructions: As we discussed, I would like you to follow-up with your primary care provider later this week for re-evaluation. You may return to the emergency department for onset of worsening abdominal pain, bloody stools, fevers, or any other concerns you may have. Hope you begin to feel better soon. Print Language: Hungarian Coding Level of Care Code ED Medical Geneticist for Krystyna Cervantes
[2025-06-15 23:51] LABS: Alanine Aminotransferase 77 U/L (0-41); Albumin Level 4.0 g/dL (3.5-5.2); Alkaline Phosphatase 79 U/L (40-130); Anion Gap 15.4 (5-19); Aspartate Amino Transferase 112 U/L (0-40); Blood Urea Nitrogen 11 mg/dL (6-20); Calcium 9.4 mg/dL (8.5-10.5); Carbon Dioxide 27 mmol/L (22-29); Chloride 99 mmol/L (98-107); Creatinine Clr Calc Pharmacy 105.2775; Globulin 4.2 g/dL (1.3-4.6); Glucose 133 mg/dL (65-115); Lipase 21 U/L (13-60); Osmolality Calculated 285 mOsm/kg (285-295); Potassium 4.4 mmol/L (3.5-5.1); Sodium 137 mmol/L (136-145); Total Protein 8.2 g/dL (6.6-8.7)
[2025-06-15 23:55] LABS: Hematocrit 53.3 % (37-53); Hemoglobin 18.20 g/dL (11.27-16.99); Mean Corpuscular HGB Conc 34.1 g/dL (30-55); Mean Corpuscular Hemoglobin 36.3 pg (27-33); Mean Corpuscular Volume 106.4 fl (82-101); Nucleated Red Blood Cells % 0 %; Platelet Count 227 10^3/cmm (157-399); Red Blood Count 5.01 10^6/uL (3.85-5.65); White Blood Count 12.10 10^3/uL (3.29-11.43)
[2025-06-16] MEDS: iohexol 350 mg/mL 500 mL Btl (per mL) IV (00:01)
[2025-06-16 00:22] VITALS: RESP 18; O2SAT 96
[2025-06-16] MEDS: ondansetron 2 mg/ML SDV 2 mL 4 MG IVP (00:22)
[2025-06-16] MEDS: morphine 4 mg/mL SDV 1 mL IVP (00:22)
[2025-06-16 00:30] LABS: Glucose Urine UA 3+ (Normal); Nitrate Urine Negative (Negative)
[2025-06-16 00:35] LABS: Add Urine Microscopic? YES
[2025-06-16 00:39] LABS: Specific Gravity, Urine 1.033 (1.005-1.030)
[2025-06-16 02:05] VITALS: BP 97/72; PULSE 80; RESP 18; O2SAT 93
== END 2025-06-16 02:06 | disposition home or self-care (01) ==
PROVIDERS: Emergency Provider Physician Assistant; PCP Nurse Practitioner Family
DX: K57.32 Diverticulitis of large intestine without perforation or abscess without bleeding (principal); Z79.82 Long term (current) use of aspirin; Z79.02 Long term (current) use of antithrombotics/antiplatelets; Z72.0 Tobacco use; I50.9 Heart failure, unspecified
CPT/HCPCS: 36415; 74177; 80053; 81001; 83690; 85025; 96374; 96375; 99285; 99291; 99292; J2270; J2405; J9999

== ENCOUNTER 2025-08-01 09:12 | Outpatient (CLI) | payer MEDICARE, SELFPAY ==
--- NOTE | 2025-08-01 09:20 | USCV_ITS ---
Jaswinder Palmer Age: 60 Gender: M : 1965 Exam Date: 08/01/2025 09:23 Ordering Phys: Briana Woodson DO Technologist: TARI Exam Location: [facility] Indication: edema HISTORY: Lower extremity edema. PROCEDURES: Venous duplex imaging was performed in bilateral lower extremities. The following venous structures were evaluated: common femoral vein, profunda vein, proximal portion of the greater saphenous vein, superficial femoral vein, and the popliteal vein. In addition, the posterior tibial and peroneal trunk were evaluated. FINDINGS: Normal 2-D Doppler and augmentation and compressibility throughout the lower extremity venous structures. Additional imaging through the proximal calf veins also reveals no thrombus. Limited evaluation of the greater saphenous vein is patent with no thrombus. CONCLUSIONS No DVT bilateral lower extremities. Dr. Jennifer White DO (Electronically Signed) Final Date: 01 August 2025 10:26 S
== END 2025-08-01 09:13 | disposition home or self-care (01) ==
LOC: RAD 09:16
PROVIDERS: PCP Nurse Practitioner Family; Visit Provider Student in an Organized Health Care Education/Training Program
DX: R60.0 Localized edema (principal)
CPT/HCPCS: 93970

== ENCOUNTER 2025-08-05 05:33 | Emergency (ER) | payer MEDICARE, SELFPAY ==
[2025-08-05] VITALS (9 sets, daily range): BP systolic 112–157; BP diastolic 69–94; PULSE 83–105; RESP 18; TEMP 36.4; O2SAT 90–98; BMI 36.5
--- OUTSIDE RECORDS SUMMARY | 2025-08-05 05:39 | XMS_ITS | Clinical Summary ---
Author Organization [facility] Address [address] [facility] Attn: Epic Prelude ADT [place] [employer] [address] Care Team Providers Care Personal Injury Legal Assistant Name Role Phone Sri Morrissey Primary Care Provider Allergies No known active allergies Medications Saw [place] Fruit 450 mg Capsule Take 450 mg by mouth 2 times daily as needed. Active Anoro Ellipta 62.5-25 mcg/actuation Disk with Device Take 1 Puff by inhalation daily. Active tamsulosin (FLOMAX) 0.4 mg capsule Take 0.4 mg by mouth daily. Active meloxicam (MOBIC) 15 mg tablet Take 1 Tablet by mouth daily. 5 Active Ventolin HFA 90 mcg/actuation inhaler Take [...] with portability for 99 months 1 Each 5 Active budesonide (PULMICORT RESPULE) 0.5 mg/2 mL Suspension for Nebulization Take 0.5 mg by inhalation 2 times daily. Active ipratropium-albu teroL (DUONEB) 0.5 mg-3 mg(2.5 mg base)/3 mL Solution for Nebulization Take by inhalation every 6 hours as needed. Active Active Problems Problem Noted [...] Encounters Date Type Department Care Team Description 07/15/2025 External Device Data [facility] ABSTRACTION Provider, Abstract 06/24/2025 External Device Data [facility] ABSTRACTION Provider, Abstract 06/04/2025 External Device Data [facility] ABSTRACTION Provider, [...] on file Legal Sex Male 12:31 AM DATA ARCHITECT Gender Identity Not on file Sexual Orientation [...] st Contact Info) Description 10/13/2025 1:00 PM DATA ARCHITECT Office Visit [facility]- [place] [address] [facility] [address] [place] [address] [place] Martin, [facility] [address] [facility] [address] [place] [address] Health Maintenance Due Date Last [...] VACCINE (1 of 2) 2016 [place] Prev entative Visit/Annual Wellness Visit 10/02/2024 INFLUENZA VACCINE (#1) 2025 Pre-Diabetes and Diabetes Screening 03/19/202803/19, 05/07/2018 Procedures Procedure Name Priority Date/Time Associated Diagnosis Comments HEMOGLOBIN A1C Routine 2025 11:20 PM CDT from Last 3 Months or Most Recently Relevant to Health Maintenance Results * (ABNORMAL) HEMOGLOBIN A1C (2025 11:20 PM CDT) HEMOGLOBIN A1C 6.4(H) <=5.6 % 03/20/2025 11:33 AM CDT [facility] EST. AVG GLUCOSE, A1C 137 mg/dL 03/20/2025 11:33 AM CDT [facility] Blood Venipuncture / Unknown 2025 11:20 PM CDT 2025 11:25 PM CDT Narrative [facility] - 03/20/2025 11:33 AM CDT HGB A1C INTERPRETATION NORMAL: <5.7% PRE-DIABETES: 5.7 - 6.4% DIABETES: 6.5% OR GREATER Celso Doll MD CHEMISTRY ORDERABLES Final R esult [facility] CLIA # [id number] [address] [place] [id number] from Last 3 Months or Most Recently Relevant to Health Maintenance Insurance MEDICARE PART A AND B [facility] MEDICARE HMO RX INFOCROSSING Medicaid Advance Directives For more information, please contact: [phone] * Full Code (Latest Code Status on File) Date Activated Date Inactivated Comments 2025 10:55 PM 03/22/2025 3:53 PM Care Teams Personal Injury Legal Assistant Relationship Specialty Start Date End Date Sri Morrissey DO [address] [place] [address] PCP - General Family Practice 05/07/18
--- OUTSIDE RECORDS SUMMARY | 2025-08-05 05:39 | XMS_ITS | Data Portability ---
Author Organization [facility] Bernie Bhandari [facility] Address [address] [facility] [address] [place] [address] Assessment Encounter Date Assessment Date Assessment LastModified by Organization Details LastModified Time 12/24/2024 12/24/2024 Patient here today for follow-up. [...] really much improvement. Not available 02/05/2025 10:21:01 04/01/2025 04/01/2025 Patient here today for a follow-up from the hospital. He was initially placed in the hospital for CHF and then he had stents done. At some point in time it was decided he wasn't progressing as desired and he was transferred to [facility]. He is supposed to follow-up with pulmonology in May sometime and cardiology here then as well. Continue current meds as prescribed at discharge. Not available 04/12/2025 10:04:33 07/08/2025 07/08/2025 Patient continues to follow with cardiology, pulmonology and GI. Patient reports he is supposed to have some imaging done on his legs today but he isn't quite feeling up to it. He reports he has some good days and overall he feels better than he used to. He reports he has been having more headaches. Typically Sae took care of these but he was told not to take them with his other medications/iss ues. Discussed flu vaccination and encouraged him to check with the pharmacy regarding vaccines. CCA form completed at today's visit. Not available 07/08/2025 11:46:17 Plan of Treatment Reminders Order Date Submit Date Provider Last Modified By Organization Details Last Modified Time Details Appointments None recorded. Lab microalbumi n/creatinin e, mass ratio, urine 2024 [facility], [address] [facility] [address], [place], [address], 09:25:17 hemoglobin A1C/hemoglo bin total, QN, blood 2024 025 [facility], [address] [facility], [facility], [place], [address], 12:30:33 CMP, serum or plasma 2024 025 [facility], [address] [facility] [address], [address], [place], [address], 11:40:00 lipid panel, blood 2024 025 [facility], [address] [facility], [address], [place], [address], 11:40:04 CBC 2024 025 [facility], [address] [facility] [address], [address], [place], [address], 11:13:33 Referral neurologist referral 2024 025 [email or web address] 2 [facility], [address] [place], [address], 14:47:43 hematologis t referral 2024 asurface Dominic Rush MD, [address] [place], [address], 14:24:19 Procedures None recorded. Surgeries None recorded. Imaging None recorded. Medication Orders furosemide 20 mg tablet 2024 [facility], [address] [place] [address], [address], 18:55:40 amoxicillin 875 mg-potassiu m clavulanate 125 mg tablet 2024 [facility], [address] [place] [address], [address], 11:26:29 prednisone 20 mg tablet 2024 [facility], [address] [place] [address], [address], 05:01:29 triamcinolo ne acetonide 0.1 % topical cream 2024 [facility], [address] [place] [address], [address], 10:17:39 trazodone 50 mg tablet 2024 [email or web address] 9 [facility], [address] [place] [address], [address], 10:03:11 spironolact one 25 mg tablet 2024 9 [facility], [address] [place] [address], [address], 10:01:26 Patient TargetsNo targets recorded. Patient Instructions Encounter Date Encounter Id Patient Instructions Last Modified By Organization Details Last Modified Time 12/24/2024 [id number] Call or return for questions or concerns. Not available 12/24/2024 11:10:04 01/24/2025 [id number] Call or return for questions or concerns. Not available 01/24/2025 13:22:03 04/01/2025 [id number] hospital discharge follow up* Not available 04/12/2025 10:04:34 Call or return for questions or concerns. Not available 04/12/2025 10:02:30 07/08/2025 [id number] Call or return for questions or concerns. Not available 07/08/2025 10:02:25 Reason for Referral Referring Physician: Christel hightower, Family Medicine, Encounter Date: 12/24/2024 Neurologist Referral for Tyson quent headache Referring Physician: Christel Caldwell, Family Medicine, Encounter Date: 07/08/2025 Results Created Date Observation Date Name Description Value Unit Range Abnormal Flag Note LastModifiedBy Organization Detail LastModifiedTime 12/11/1912/10/2024 CBC WBC 9.0 x10 4.5-10 .5 Not Available [facility] [address] [facility], [place], [address], 12/10/2024 11:43:36 12/11/1912/10/2024 CBC RBC 4.94 x10 4.30-5 .90 Not Available [facility] [address] [facility] [address], [place], [address], 12/10/2024 11:43:36 12/11/19 25 12/10/2024 CBC HGB 18.5 g/dL 13.5-1 8.0 high Not Available [facility] [address] [facility], [place], [address], 12/10/2024 11:43:36 12/11/19 25 12/10/2024 CBC HCT 50.4 % 35.0-6 0.0 Not Available [facility] [address] Rafi Le[address] [facility] 1, [place], [address], 12/10/2024 11:43:36 12/11/19 25 12/10/2024 CBC MCV 102.0 fL 80.0-9 9.9 high Not Available [facility] [address] [facility], [place], [address], 12/10/2024 11:43:36 12/11/19 25 12/10/2024 CBC MCH 37.4 pg 27.0-3 2.0 high Not Available [facility] [address] [facility] 1, [place], [address], 12/10/2024 11:43:36 12/11/19 25 12/10/2024 CBC MCHC 36.7 g/dL 32.0-3 6.0 high Not Available [facility] [address] [facility] 1, [place], [address], 12/10/2024 11:43:36 12/11/19 25 12/10/2024 CBC RDW 13.9 % 11.5-1 4.5 Not Available [facility] [address] [facility] 1, [place], [address], 12/10/2024 11:43:36 12/11/19 25 12/10/2024 CBC plt 157.2 x10 150.0- 451.0 Not Available [facility] [address] [facility] [address], [place], [address], 12/10/2024 11:43:36 12/11/19 25 12/10/2024 CBC lymphocytes % 17.1 % 20.0-5 0.0 low Not Available [facility] [address] [facility] [facility] [address], [place], [address], 12/10/2024 11:43:36 12/11/19 25 12/10/2024 CBC granulcytes % 76.5 % 30.0-7 0.0 high Not Available [facility] [address] [address], [place], [address], 12/10/2024 11:43:36 12/11/19 25 12/10/2024 CBC monocytes % 5.0 % 2.0-16 .0 Not Available [facility] [address] [address], [place], [address], 12/10/2024 11:43:36 12/11/19 25 12/10/2024 CBC granulcytes# 6.9 x10 Not Katherine ilable [facility] [address] [address], [place], [address], 12/10/2024 11:43:36 12/11/19 25 12/10/2024 CBC lymphocytes # 1.5 x10 Not Available [facility] [address] [address], [place], [address], 12/10/2024 11:43:36 12/11/19 25 12/10/2024 CBC monocytes # 0.5 x10 Not Avai lable [facility] [address] [address], [place], [address], 12/10/2024 11:43:36 12/11/19 25 12/11/2024 COMPR EHENS ALLISON METAB OLIC PANEL glucose 112 mg/dL 65-99 high Fasti ng refer ence inter becca For someo ne witho ut known diabe nargis, a gluco se value betwe en 100 and 125 mg/dL is consi stent with predi abete s and shoul d be confi rmed with a follo w-up test. Not Available [facility] [place] [address] [address], [place], [address], 12/11/2024 14:46:18 12/11/19 25 12/11/2024 COMPR EHENS ALLISON METAB OLIC PANEL urea nitrogen (BUN) 11 mg/dL 7-25 normal Not Available [address], [address], 12/11/2024 14:46:18 12/11/19 25 12/11/2024 COMPR EHENS ALLISON METAB OLIC PANEL creatinine 1.02 mg/dL 0.70-1 .30 normal Not Available [address], [address], 12/11/2024 14:46:18 12/11/19 25 12/11/2024 COMPR EHENS ALLISON METAB OLIC PANEL eGFR 85 mL/mi n/1.7 3m2 > or = 60 normal Not Available [address], [address], 12/11/2024 14:46:18 12/11/19 25 12/11/2024 COMPR EHENS ALLISON METAB OLIC PANEL BUN/creatini ne ratio SEE NOTE: (calc ) 6-22 Not Repor kimmy: BUN and Creat inine are withi n refer ence range . Not Available [address], [address], 12/11/2024 14:46:18 12/11/19 25 12/11/2024 COMPR EHENS ALLISON METAB OLIC PANEL sodium 136 mmol/ L 135-14 6 normal Not Available [address], [address], 12/11/2024 14:46:18 12/11/19 25 12/11/2024 COMPR EHENS ALLISON METAB OLIC PANEL potassium 4.2 mmol/ L 3.5-5. 3 normal Not Available [address], [address], 12/11/2024 14:46:18 12/11/19 25 12/11/2024 COMPR EHENS ALLISON METAB OLIC PANEL chloride 100 mmol/ L 98-110 normal Not Available [address], [address], 12/11/2024 14:46:18 12/11/19 25 12/11/2024 COMPR EHENS ALLISON METAB OLIC PANEL carbon dioxide 27 mmol/ L 20-32 normal Not Available [address], [address], 12/11/2024 14:46:18 12/11/19 25 12/11/2024 COMPR EHENS ALLISON METAB OLIC PANEL calcium 9.5 mg/dL 8.6-10 .3 normal Not Available [address], [address], 12/11/2024 14:46:18 12/11/19 25 12/11/2024 COMPR EHENS ALLISON METAB OLIC PANEL protein, total 7.2 g/dL 6.1-8. 1 normal Not Available [address], [address], 12/11/2024 14:46:18 12/11/19 25 12/11/2024 COMPR EHENS ALLISON METAB OLIC PANEL albumin 4.0 g/dL 3.6-5. 1 normal Not Available [address], [address], 12/11/2024 14:46:18 12/11/19 25 12/11/2024 COMPR EHENS ALLISON METAB OLIC PANEL globulin 3.2 g/dL_ (calc ) 1.9-3. 7 normal Not Available [address], [address], 12/11/2024 14:46:18 12/11/19 25 12/11/2024 COMPR EHENS ALLISON METAB OLIC PANEL albumin/glob ulin ratio 1.3 (calc ) 1.0-2. 5 normal Not Available [address], [address], 12/11/2024 14:46:18 12/11/19 25 12/11/2024 COMPR EHENS ALLISON METAB OLIC PANEL bilirubin, total 0.6 mg/dL 0.2-1. 2 normal Not Available [address], [address], 12/11/2024 14:46:18 12/11/19 25 12/11/2024 COMPR EHENS ALLISON METAB OLIC PANEL alkaline phosphatase 73 U/L 35-144 normal Not Available [facility] [employer] [address], [address], 12/11/2024 14:46:18 12/11/19 25 12/11/2024 COMPR EHENS ALLISON METAB OLIC PANEL AST 26 U/L 10-35 normal Not Available [address], [address], 12/11/2024 14:46:18 12/11/19 25 12/11/2024 COMPR EHENS ALLISON METAB OLIC PANEL ALT 18 U/L 9-46 normal Not Available [address], [address], 12/11/2024 14:46:18 12/11/19 25 12/11/2024 TSH TSH 1.07 mIU/L 0.40-4 .50 normal Not Available [address], [address], 12/11/2024 14:46:20 12/11/19 25 12/11/2024 B TYPE [...] ol. 2002; 40:97 6-982 . Not Available [address] [place], [address], 12/11/2024 14:46:21 04/12/2004/12/2025 hospi cyril garcíao w up* Records Reviewed Yes Not Available [facility] ( [facility]) [address] [place], [address], 04/12/2025 10:01:26 04/12/2004/12/2025 hospi cyril garcíao w up* Medications Reconciles Yes Not Available [facility] ([facility]) [address] [place], [address], 04/12/2025 10:01:26 07/08/20 25 07/08/2025 CBC WBC 8.1 x10 4.5-10 .5 Not Available [facility] [address] [address], [place], [address], 07/08/2025 11:13:33 07/08/20 25 07/08/2025 CBC RBC 5.09 x10 4.30-5 .90 Not Available [facility] [address] [facility] [address], [place], [address], 07/08/2025 11:13:33 07/08/20 25 07/08/2025 CBC HGB 18.5 g/dL 13.5-1 8.0 high Not Available [facility] [address] [facility] [address], [place], [address], 07/08/2025 11:13:33 07/08/20 25 07/08/2025 CBC HCT 56.7 % 35.0-6 0.0 Not Available [facility] [address] [facility] [address], [place], [address], 07/08/2025 11:13:33 07/08/20 25 07/08/2025 CBC MCV 111.4 fL 80.0-9 9.9 high Not Available [facility] [address] [facility] [facility], [place], [address], 07/08/2025 11:13:33 07/08/2007/08/2025 CBC MCH 36.2 pg 27.0-3 2.0 high Not Available [facility] [address] [facility] 1, [place], [address], 07/08/2025 11:13:33 07/08/2007/08/2025 CBC MCHC 32.5 g/dL 32.0-3 6.0 Not Available [facility] [address] [facility] 1, [place], [address], 07/08/2025 11:13:33 07/08/2007/08/2025 CBC RDW 14.2 % 11.5-1 4.5 Not Available [facility] [address] [facility] 1, [place], [address], 07/08/2025 11:13:33 07/08/2007/08/2025 CBC plt 231.3 x10 150.0- 451.0 Not Available [facility] [address] [facility] 1, [place], [address], 07/08/2025 11:13:33 07/08/2007/08/2025 CBC lymphocytes % 32.2 % 20.0-5 0.0 Not Available [facility] [address] [facility] 1, [place], [address], 07/08/2025 11:13:33 07/08/2007/08/2025 CBC granulcytes % 60.3 % 30.0-7 0.0 Not Available [facility] [address] [facility] 1, [place], [address], 07/08/2025 11:13:33 07/08/2007/08/2025 CBC monocytes % 5.1 % 2.0-16 .0 Not Available [facility] [address] [address], [place], [address], 07/08/2025 11:13:33 07/08/20 25 07/08/2025 CBC granulcytes# 4.9 x10 Not Katherine ilable [facility] [address] [address], [place], [address], 07/08/2025 11:13:33 07/08/20 25 07/08/2025 CBC lymphocytes # 2.6 x10 Not Available [facility] [address] [address], [place], [address], 07/08/2025 11:13:33 07/08/2007/08/2025 CBC monocytes # 0.4 x10 Not Avai lable [facility] [address] [address], [place], [address], 07/08/2025 11:13:33 07/08/2007/08/2025 CMP (MALE ) glucose 124.0 mg/dL 60.0-9 9.0 high Not Available [facility] [address], [address], 07/08/2025 11:40:00 07/08/20 25 07/08/2025 CMP (MALE ) BUN (blood urea nitrogen) 19.0 mg/dL 10.0-2 6.0 Not Available [facility] [address], [address], 07/08/2025 11:40:00 07/08/20 25 07/08/2025 CMP (MALE ) creatinine (serum) 0.9 mg/dL 0.4-1. 5 Not Available [facility] [address], [address], 07/08/2025 11:40:00 07/08/20 25 07/08/2025 CMP (MALE ) BUN/creatini ne ratio 21.11 ratio Not Available [facility] [address] [facility], [place], [address], 07/08/2025 11:40:00 07/08/20 25 07/08/2025 CMP (MALE ) eGFR calculated 91.8 Not Available [facility] [address] [facility], [place], [address], 07/08/2025 11:40:00 07/08/20 25 07/08/2025 CMP (MALE ) total protein 8.7 g/dL 6.0-8. 5 high Not Available [facility] [address] [facility], [place], [address], 07/08/2025 11:40:00 07/08/20 25 07/08/2025 CMP (MALE ) total bilirubin 0.6 mg/dL 0.2-1. 3 Not Available [facility] [address] [facility], [place], [address], 07/08/2025 11:40:00 07/08/20 25 07/08/2025 CMP (MALE ) albumin 4.6 g/dL 3.5-5. 5 Not Available [facility] [address] [facility], [place], [address], 07/08/2025 11:40:00 07/08/20 25 07/08/2025 CMP (MALE ) globulin 4.1 calc Not Available [facility] [address] [facility], [place], [address], 07/08/2025 11:40:00 07/08/20 25 07/08/2025 CMP (MALE ) AST (SGOT) 40.0 U/L 0.0-46 .0 Not Available [facility] [address] Raf[address] Le[address] [facility] 1, [place], [address], 07/08/2025 11:40:00 07/08/20 25 07/08/2025 CMP (MALE ) altv (SGPT) 33.0 U/L 13.0-6 9.0 normal Not Available [facility] [address] [facility], [place], [address], 07/08/2025 11:40:00 07/08/20 25 07/08/2025 CMP (MALE ) A/G ratio 1.1 ratio Not Available [facility] [address] [facility] 1, [place], [address], 07/08/2025 11:40:00 07/08/20 25 07/08/2025 CMP (MALE ) ALP phos 86.0 U/L 30.0-1 40.0 normal Not Available [facility] [address] [facility], [place], [address], 07/08/2025 11:40:00 07/08/20 25 07/08/2025 CMP (MALE ) calcium 10.0 mg/dL 8.4-10 .5 Not Available [facility] [address] [facility], [place], [address], 07/08/2025 11:40:00 07/08/20 25 07/08/2025 CMP (MALE ) sodium 133.0 mmol/ L 136.0- 145.0 low Not Available [facility] [address] [facility] 1, [place], [address], 07/08/2025 11:40:00 07/08/20 25 07/08/2025 CMP (MALE ) potassium 4.6 mmol/ L 3.5-5. 1 Not Available [facility] [address] [facility] Autumn [facility], [place], [address], 07/08/2025 11:40:00 07/08/20 25 07/08/2025 CMP (MALE ) chloride 101.0 mmol/ L 98.0-1 10.0 normal Not Available [facility] [address] [facility], [place], [address], 07/08/2025 11:40:00 07/08/20 25 07/08/2025 CMP (MALE ) C02 22.0 mmol/ L 22.0-3 1.0 Not Available [facility] [address] [facility], [place], [address], 07/08/2025 11:40:00 07/08/20 25 07/08/2025 CMP (MALE ) anion gap 10.0 calc Not Available [facility] [address] [facility], [place], [address], 07/08/2025 11:40:00 07/08/2007/08/2025 CMP (MALE ) osmolality 278.5 calc Not Available [facility] [address] [facility], [place], [address], 07/08/2025 11:40:00 07/08/20 25 07/08/2025 LIPID PROFI LE (MALE ) cholesterol 189.0 mg/dL 0.0-20 0.0 Not Available [facility] [address] [facility], [place], [address], 07/08/2025 11:40:04 07/08/20 25 07/08/2025 LIPID PROFI LE (MALE ) trig 360.0 mg/dL 0.0-15 0.0 high Not Available [facility] [address] [facility] 1, [place], [address], 07/08/2025 11:40:04 07/08/20 25 07/08/2025 LIPID PROFI LE (MALE ) HDL - direct 38.0 mg/dL >40.0 low Not Available [facility] [address] [facility], [place], [address], 07/08/2025 11:40:04 07/08/2007/08/2025 LIPID PROFI LE (MALE ) VLDL - direct 72.0 mg/dL Not Available [facility] [address] [facility], [place], [address], 07/08/2025 11:40:04 07/08/20 25 07/08/2025 LIPID PROFI LE (MALE ) LDL - direct 79.0 mg/dL 0.0-13 0.0 Not Available [facility] [address] [facility], [place], [address], 07/08/2025 11:40:04 07/08/2007/08/2025 HBA1C hemaglobin A1C 5.9 4.2-6. 5 Not Available [facility] [address] [facility] 1, [place], [address], 07/08/2025 12:30:33 07/08/2007/09/2025 ALBUM IN, RANDO M URINE W/CRE ATINI NE creatinine, random urine 23 mg/dL 20-320 normal Not Available [facility] [address] [place], [address], 07/09/2025 09:25:17 07/08/2007/09/2025 ALBUM IN, RANDO M URINE W/CRE ATINI NE albumin, urine <0.2 mg/dL see note: normal Refer ence Range : Refer ence Range Not estab lishe d Not Available [facility] [address] [place], [address], 07/09/2025 09:25:17 07/08/20 25 07/09/2025 ALBUM IN, RANDO M URINE W/CRE ATINI NE albumin/crea tinine ratio, random urine NOTE mg/g_ creat <30 normal NOTE: The urine album in value is less than 0.2 mg/dL there fore we are unabl e to calcu late excre tion and/o r creat inine ratio . The ADA defin es abnor malit ies in album in excre tion as follo ws: Album inuri a Categ ory Resul t (mg/g creat inine ) [facility] y incre ased <30 Moder ately incre ased 30-29 9 Sever paulo incre ased > OR = 300 The ADA recom mends that at least two of three speci mens colle cted withi n a 3-6 month perio d be abnor mal befor e consi ajit g a patie nt to be withi n a diagn ostic categ ory. Not Available [facility] [address] [place], [address], 07/09/2025 09:25:17 12/11/19 25 12/22/2024 XR, chest , 2 view No observ ation record ed. [email or web address] [facility] ([facility]) [address] [place], [address], 12/22/2024 14:45:45 12/11/19 25 12/10/2024 XR, chest , 2 view No observ ation record ed. [email or web address] [facility] ([facility]) [address] [place], [address], 12/20/2024 12:53:31 12/27/19 25 12/25/2024 US, abdom en, compl ete No observ ation record ed. [email or web address] [facility] [address] [place], [address], 12/26/2024 17:22:43 Result Notes None recorded. Problems Name Problem SNOMED Code Status Onset Date Resolution Date Notes Provider Name and Address Organization Details Recorded Time Decompens ated cardiac failure Active ENOCH FELIX [address] [place], [address], [facility] 5 10:03:00 Chondroco stal joint sprain [id number] Active CHRISTEL CALDWELL, [address], [address], [facility] 5 10:03:00 Acute respirato ry failure 09748613 Active CHRISTEL CALDWELL, [address], [address], [facility] 5 10:03:00 Edema of lower extremity 522739511 Active CHRISTEL CALDWELL, [address], [address], [facility] 5 12:07:01 Tobacco user [id number] Rodney CALDWELL, [address], [address], [facility] 5 12:07:01 Alcohol use disorder Active CHRISTEL CALDWELL, [address], [address], [facility] 5 12:07:01 Acute exacerbat ion of chronic obstructi ve pulmonary disease [id number] Rodney CALDWELL, [address], [address], [facility] 5 12:07:01 Pneumonia [id number] Rodney CALDWELL, [address], [address], [facility] 5 12:07:02 Obesity [id number] Rodney CALDWELL, [address] [place], [address], [facility] 5 12:07:02 Strain of muscle of lower limb 568945667 Active CHRISTEL CALDWELL, [address], [address], [facility] 5 09:59:42 Diverticu litis of sigmoid colon 132845901 Active CHRISTEL CALDWELL, [address], [address], [facility] 5 10:01:40 Essential hypertens ion 61610964 Active 2024 HERBER AYDEE powell [facility] 5 10:41:33 Arthritis 8163521 Active 2024 HERBER powell [facility] 5 10:41:46 Chronic obstructi ve pulmonary disease 39709852 Active 2024 moderate with restricti on HERBER AYDEE powell [facility] 5 23:34:34 Persisten t alcohol abuse 843598648 Active 2024 HERBER powell [facility] 5 10:45:31 Obstructi ve sleep apnea syndrome [id number] Active 2024 HERBER powell [facility] 5 23:48:41 Congestiv e heart failure [id number] Active 2024 systolic and diastolic HERBER powell [facility] LSiminL.C[facility]in 5 23:34:05 Hepatomeg jason 09507264 Active 2024 Mild HERBER powell [facility] LSimin[facility].CSimin 23:10:02 Thromboan giitis obliteran s [id number] Active 2024 HERBER AYDEE [facility]herry, [facility] [facility] 18:32:11 Ischemic finger 492038533 Active 2024 CHRISTEL CALDWELL, [facility] [address] [place], [address], [facility] 5 10:01:40 Coronary arteriosc lerosis 53550702 Active 2024 Stent x 2 LAD HERBER AYDEE powell, [facility] 18:04:03 Erythrocy tosis 702498625 Active 2024 [facility] 23:01:47 Cobalamin deficienc y 814924051 Active 2024 HERBER powell [facility] 23:04:40 Cardiomeg jason 1134375 Active 2024 moderate HERBER powell [facility] 23:42:57 Steatotic liver disease 957785445 Active 2024 HERBER powell [facility] 23:10:18 Harmful pattern of use of alcohol 17741022 Active 2024 HERBER powell [facility] 23:31:25 Mixed hyperlipi demia 798471807 Active 2024 HERBER powell [facility] 23:47:05 Chronic hypoxemic respirato ry failure 823498531 Active 2024 HERBER powell [facility] 23:48:11 Acute on chronic diastolic heart failure 578435599 [facility] 00:23:49 Chronic total occlusion of coronary artery 015707287492 103 Active 2024 [facility] 00:31:09 Problem Notes None recorded. Procedures Surgical History Date Name Laterality Status Provider Name and Address Organization Details Recorded Time 03/21/20 25 transthoracic echocardiography completed [facility], Bernie 04/03/2025 00:29:33 03/20/[address] of chest completed [facility], Bernie 03/23/2025 23:54:59 03/18/[address] [facility] abdomen [facility] 03/23/2025 23:27:54 03/18/20 25 Doppler ultrasonography of vein of lower limb completed [facility], Bernie 03/23/2025 23:28:47 03/13/20 25 [facility] 03/23/2025 23:00:12 03/13/[address] [facility] 03/23/2025 23:03:45 03/09/20 25 plain X-ray of chest completed [facility], Bernie 03/23/2025 23:25:38 03/08/[address] of chest completed [facility], Bernie 03/23/2025 23:20:05 03/08/20 25 plain X-ray of abdomen completed [facility], Bernie 03/23/2025 23:20:52 03/08/20 25 plain [facility] 03/23/2025 23:21:56 03/06/20 25 ultrasonography of abdomen completed [facility], Bernie 03/23/2025 23:09:40 03/05/20 25 plain X-ray of chest completed [facility], Bernie 03/05/2025 18:57:58 03/05/20 25 echocardiography completed [facility], Bernie 03/23/2025 23:15:03 12/26/19 25 US scan of upper abdomen completed [facility], Bernie 12/26/2024 16:43:52 12/11/19 25 plain X-ray of chest completed [facility], Bernie 12/10/2024 18:08:52 Imaging Results None recorded. Procedure Notes None recorded. Medical Equipment None Reported. Allergies No known drug allergies Medications Name Sig Start Date Stop Date Status Note LastModified by Organization Details LastModified Time doxycycline hyclate 100 mg capsule Take 1 capsule twice a day by oral route. 04/18 completed Not Available Not Available Not Available ipratropium 0.5 mg-albutero l 3 mg (2.5 mg base)/3 mL nebulizatio n soln inhale THE contents of ONE vial PER NEBULIZER FOUR TIMES DAILY active Not Available Not Available No t Available trazodone 50 mg tablet TAKE 1 TABLET BY MOUTH EVERY DAY AT BEDTIME 04/01 completed Not Available Not Available Not Available azithromyci n 250 mg tablet TAKE 2 TABLETS BY MOUTH TODAY, THEN TAKE 1 TABLET DAILY ON DAYS 2-5 12/10 completed Not Available Not Available Not Available tizanidine 4 mg tablet TAKE 2 TABLETS BY MOUTH EVERY 8 HOURS NEEDED FOR muscle SPASMS 12/10 completed Not Available Not Available Not Available hydrocodone 5 mg-acetamin ophen 325 mg tablet TAKE 1 TABLET BY MOUTH EVERY 6 HOURS NEEDED FOR PAIN 12/10 completed Not Available Not Available Not Available meloxicam 15 mg tablet 15 mg every day by oral route. active Not Available Not Available No t Available prednisone 20 mg tablet Take 2 tablets every day by oral route for 5 days. 02/05 completed Not Available Not Available Not Available prednisone 5 mg tablet TAKE 4 TABLETS BY MOUTH EVERY DAY FOR FOUR DAYS, THEN THREE EVERY DAY FOR FOUR DAYS, THEN TWO EVERY DAY FOR FOUR DAYS THEN ONE EVERY DAY thereafte r 12/10 completed Not Available Not Available Not Available methylpredn isolone 4 mg tablet Take 4 mg every other day by oral route. 04/18 completed Not Available Not Available Not Available potassium chloride ER 10 mEq tablet,exte nded release TAKE 1 TABLET BY MOUTH EVERY DAY active Not Available Not Available No t Available clopidogrel 75 mg tablet TAKE 1 TABLET BY MOUTH EVERY DAY active Not Available Not Available No t Available sulfamethox azole 800 mg-trimetho prim 160 mg tablet TAKE 1 TABLET BY MOUTH TWICE DAILY for 7 days 12/10 completed Not Available Not Available Not Available triamcinolo ne acetonide 0.1 % topical cream apply a thin layer TO affected area of SKIN TWICE DAILY 04/01 completed Not Available Not Available Not Available spironolact one 25 mg tablet TAKE 1 TABLET BY MOUTH EVERY DAY active Not Available Not Available No t Available meloxicam 7.5 mg tablet TAKE 1 TABLET BY MOUTH EVERY DAY 12/10 completed Not Available Not Available Not Available K-Dur 20 mEq tablet,exte nded release Take 1 tablet every day by oral route. 04/18 completed Not Available Not Available Not Available tamsulosin 0.4 mg capsule take 1 capsule BY MOUTH EVERY DAY need TO see doctor active Not Available Not Available No t Available benzonatate 100 mg capsule TAKE 2 CAPSULES BY MOUTH THREE TIMES DAILY NEEDED FOR cough 12/10 completed Not Available Not Available Not Available hydrocodone 7.5 mg-acetamin ophen 325 mg tablet TAKE 1 TABLET BY MOUTH EVERY 8 HOURS NEEDED FOR PAIN 07/08 completed Not Available Not Available Not Available nicotine 21 mg/24 hr daily transdermal patch APPLY ONE PATCH TO SKIN EVERY DAY 07/08 completed Not Available Not Available Not Available budesonide 0.5 mg/2 mL suspension for nebulizatio n inhale THE contents of ONE vial PER NEBULIZER TWICE DAILY active Not Available Not Available No t Available bumetanide 1 mg tablet TAKE 1 TABLET BY MOUTH EVERY DAY active Not Available Not Available No t Available aspirin 81 mg tablet Take 1 tablet every day by oral route. active Not Available Not Available No t Available furosemide 20 mg tablet 1 tablet every day by oral route. active Not Available Not Available No t Available metoprolol succinate ER 25 mg tablet,exte nded release 24 hr TAKE 1 & 1/2 TABLETS BY MOUTH EVERY DAY active Not Available Not Available No t Available ondansetron 4 mg disintegrat ing tablet 4 mg by oral route. 2024 active Not Available Not Available Not Avai lable amoxicillin 875 mg-potassiu m clavulanate 125 mg tablet TAKE 1 TABLET BY MOUTH TWICE DAILY 07/08 completed Not Available Not Available Not Available Ventolin HFA 90 mcg/actuati on aerosol inhaler INHALE TWO PUFFS BY MOUTH EVERY 4 HOURS NEEDED FOR WHEEZING active Not Available Not Available No t Available rosuvastati n 10 mg tablet TAKE 1 TABLET BY MOUTH EVERY DAY active Not Available Not Available No t Available varenicline tartrate 0.5 mg (11)-1 mg (42) tablets in a dose pack TAKE DIRECTED PER package instructi ons 12/10 completed Not Available Not Available Not Available Anoro Ellipta 62.5 mcg-25 mcg/actuati on powder for inhalation active Not Available Not Available N ot Available Jardiance 10 mg tablet TAKE 1 TABLET BY MOUTH EVERY DAY active Not Available Not Available No t Available Humira(CF) Pen 40 mg/0.4 mL subcutaneou s kit INJECT 40MG SUBCUTANE OUSLY EVERY TWO WEEKS. ROTATE INJECTION SITES active Not Available Not Available No t Available Breztri Aerosphere 160 mcg-9mcg-4. 8mcg/actuat ion HFA aerosol inhaler 2 puffs twice a day by inhalatio n route. active Not Available Not Available No t Available Airsupra 90 mcg-80 mcg/actuati on HFA aerosol inhaler 2 inhalatio ns every 4 hours by inhalatio n route. active Not Available Not Available No t Available Vitals Date Recorded Body height Body mass index (BMI) Body weight Oxygen saturation Oxygen saturation in Arterial blood by Pulse oximetry Heart rate Respiratory rate Systolic And Diastolic Provider Name and Address Organization Details Last Updated DateTime 5 170.18 cm 36.5 kg/m2 412618. 02 g 94 % 94 % 108 /min 22 /min 130/80 mm[Hg] HERBER BAJWA [facility] 5 10:34:43 Date Recorded Body height Body mass index (BMI) Body weight Oxygen saturation Oxygen saturation in Arterial blood by Pulse oximetry Heart rate Systolic And Diastolic Provider Name and Address Organization Details Last Updated DateTime 5 170.18 cm 37.7 kg/m2 421597. 76 g 93 % 93 % 104 /min 140/88 mm[Hg] HERBER BAJWA [facility] 5 12:59:38 Date Recorded Body height Body mass index (BMI) Body weight Heart rate Oxygen saturation Oxygen saturation in Arterial blood by Pulse oximetry Inhaled oxygen flow rate Respiratory rate Systolic And Diastolic Provider Name and Address Organization Details Last Updated DateTime 5 170.18 cm 37.3 kg/m2 060923. 98 g 100 /min 92 % 92 % 2 L/min 24 /min 132/78 mm[Hg] HERBER BAJWA [facility] 5 09:58:44 Date Recorded Body height Body mass index (BMI) Body weight Oxygen saturation Oxygen saturation in Arterial blood by Pulse oximetry Inhaled oxygen flow rate Heart rate Respiratory rate Systolic And Diastolic Provider Name and Address Organization Details Last Updated DateTime 5 170.18 cm 37.1 kg/m2 246895. 39 g 98 % 98 % 2 L/min 100 /min 22 /min 122/70 mm[Hg] HERBER BAJWA [facility] 5 09:46:08 Social History Question Answer Notes LastModified by Organizat ion Details LastModified Time Tobacco Smoking Status Current Every Day Smoker HERBER BAJWA [facility] 12/10/2024 10:38:46 What Is Your Level Of Caffeine Consumption? Moderate Coffee/Mt . Dew Information not available 12/10/2024 How Much Tobacco Do You Chew? 1/day Information not available 12/10/2024 What Was The Date Of Your Most Recent Tobacco Screening? 12/10/2024 Information not available 12/10/2024 What Is Your Current Pack Years? [email or web address] Information not available 12/10/2024 What Is Your Relationship Status? Information not available 12/10/2024 At What Age Did You Start Smoking Tobacco? 8 Information not available 12/10/2024 How Much Tobacco Do You Smoke? 2 PPD [email or web address] Information not available 12/10/2024 Has Tobacco Cessation [...] you consume alcohol? 5-7 times per week Information not available 12/10/2024 Do you use any illicit or recreational drugs? No [email or web address] Information not available 12/10/2024 Do you or have you ever used any other forms of tobacco or nicotine? Yes [email or web address] Information not available 12/10/2024 What is your level of alcohol consumption? Heavy 3-4 shots of whiskey per day. Information not available 12/10/2024 Do you or have you ever used smokeless tobacco? Currently chews tobacco [email or web address] Information not available 12/10/2024 Are you currently employed? No disabled [email or web address] Information not available 12/10/2024 Are you able to walk independently without assistance or assistive devices? YESWOREST [email or web address] Information not available 12/10/2024 Are you able to care for yourself independently? Yes Information not available 12/10/2024 Do you or [...] accident when Irvin ramos was age 5 [email or web address] Not available 12/10/2024 10:35:22 Mother Malignant neoplasm of brain in her early 40's [email or web address] Not available 12/10/2024 10:36:03 Mother Essential hypertension [email or web address] Not available 10:36:23 Medical History Condition Response Coronary Artery Disease Y Kidney Stones Y COPD Y Lung Disease Y Arthritis Y High Cholesterol Y Liver Disease Y Headaches Y Heart Problems Y Hospitalizations Y Reflux/GERD Y Heart Disease Y Hypertension Y Immunizations Vaccine Type Date Status Note Provider Phu torres and Address Organization Details Recorded Time Pneumococcal conjugate PCV20, polysaccharide QEL091 conjugate, adjuvant, PF 5 completed Not Available [facility] 07/08/2025 09:36:51 RSV, bivalent, protein subunit RSVpreF, diluent reconstituted, 0.5 mL, PF 5 completed Not Available [facility] 07/08/2025 09:36:51 Past Encounters Encounter ID Performer Location Encounter Start Date Encounter Closed Date Diagnosis/Indication Diagnosis SNOMED-CT Code Diagnosis ICD10 Code Diagnosis IMO Codes Diagnosis Note [id number] ENOCH FELIX [facility] ([facility]) [address] [place] [address] 12/10/2024 10:20:53 12/10/2024 11:23:35 Adult health examination 181619424 Z00.00 Establishi care. Hyperlipidemia 70487675 E78.5 Edema of l ower extremity 201747388 R60.0 Dyspnea 998216057 R06.00 Alpha-1-an titrypsin deficiency 65852530 E88.01 He is supposed to be contacting pulmonolog y at [facility] in [facility] to get an appointmen t. Obstructiv e sleep apnea of adult 1111708253 103 G47.33 Wore a CPAP for a while but has not worn it for approximat paulo 7-8 years. Arthritis 2487807 M19.90 Follows with rheumatchiquis cervantes. He is seen about every 6 months by her. Right uppe r quadrant pain 816490436 R10.11 Chronic ob structive pulmonary disease 09546747 J44.9 Stop Anoro. [id number] [facility] [address] [place] [address] 5 12/24/2024 10:21:54 12/24/2024 11:34:12 Congestive heart failure 38589020 I50.9 Pruritic disorder 274721 002 L29.9 Familial p olycythemia vera 406719394 D75.0 Chronic insomnia 7525106 04 F51.04 Benign pro static hyperplasia 756948634 N40.1 Continue tamsulosin . 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 Cardiomegaly 9999908 I51 .7 Cardiology appt pending. [id number] ENOCH FELIX [facility] ([facility]) [address] [place] [address] 5 12/25/2024 10:15:37 12/26/2024 09:32:13 [id number] CHRISTEL CALDWELL [facility] ([facility]) [address] [place] [address] 5 01/24/2025 12:19:09 01/24/2025 13:38:36 Chronic congestive heart failure 74691550 I50.9 9510708656 Acute exac erbation of chronic obstructive pulmonary disease 032411841 J44.1 [id number] CHRISTEL CALDWELL [facility] ([facility]) [address] [place] [address] 5 04/01/2025 09:35:21 04/14/2025 08:37:23 Coronary arteriosclerosis 66488030 I25.10 [id number] recent LAD stent x 2 Chronic ob structive pulmonary disease 99475200 J44.9 Currently using oxygen. Pulmonolog y appt in May. [id number] CHRISTEL CALDWELL [employer] [facility] ([facility]) [address] [place] [address] 5 07/08/2025 09:36:17 07/08/2025 10:24:52 Essential hypertension 70284319 I10 Follows with cardiology . Chronic ob structive pulmonary disease 10907281 J44.9 Z99.81 J96.11 Follows with pulmonolog y. 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 Rheumatoid arthritis of multiple joints 970084371 M06.9 1242726878 Struggles with pain control. Chronic ki dney disease stage 3A 181099469 N18.31 50813095 Microalbum in today and CMP. Health Concerns Section Related Observation LastModified by Organization Detai ls LastModified Time None Recorded Concern Status LastModified by Organization Details LastModified Time None Recorded Advance Directives Directive None Recorded Payers Insurance Date Sequence Insurance Name Policy Number Policy Polanco Covered Member ID Polanco Member ID Guarantor Name 04/01/2025 1 [facility] (MEDICAID HMO) Jaswinder Palmer [id number] Jaswinder Palmer 04/24/2025 2 [place] Jaswinder Palmer [id number] Jaswinder Palmer 04/01/2025 [facility] (MEDICAID HMO) Jaswinder Palmer [id number] Jaswinder Palmer 07/08/2025 2 [employer] [place] [place] Jaswinder Palmer [id number] Jaswinder Palmer 07/08/2025 1 [place] Jaswinder Palmer [id number] Jaswinder Palmer 07/08/2025 [place] [facility] (MEDICARE) Jaswinder Palmer [id number] Jaswinder Palmer 07/09/2025 [place] [facility] [place] [facility] [place]IT[place] Jaswinder Palmer [id number] Jaswinder Palmer 07/08/2025 2 [place] Jaswinder Palmer [id number] Jaswinder Palmer 07/08/2025 1 [place] - PPO[place] [id number] Jaswinder Palmer [id number] Jaswinder Palmer Notes Date Note Type Note Provider Name and Address Organization Details Recorded Time 5 text/html EdemaReported by PatientHPIFor associated symptoms, patient reportsshortness of breath. For location, patient reportsble. For quality, patient reportslegs swell equally. For duration, patient reportsconstant. CHRISTEL CALDWELL, [facility] [address] [place], [address], [facility] 12/24/2024 11:13:06 5 text/html EdemaReported by PatientHPIFor context, patient reportsprior history of edema. For associated symptoms, patient reportsshortness of breathandshortness of breath with exertion. For location, patient reportsble. For quality, patient reportslegs swell equally(left leg is worse/falls asleep at the kitchen table). For duration, patient reportsconstant. For onset/timing, patient reportsstarted ___ years ago. CHRISTEL CALDWELL, [facility] [address] [place], [address], [facility] 02/05/2025 10:21:08 5 text/html COPDReported by PatientHPI:For aggravating factors, patient reportsworse with cigarette smoking. For duration, patient reportschronic. For severity, patient reportsslowly worsening. For context, patient reportscigarette smoking. For alleviating factors, patient reportsrelieved with oxygen. CHRISTEL CALDWELL, [facility] [address] [place], [address], [facility] 04/12/2025 10:05:13 5 text/html Hypertension IM/FMReported by PatientHPIFor self care, patient reportssmoker. For associated symptoms, patient reportsshortness of breath,fatigue, andexertional dyspnea. For quality, patient reportshere for check-up. For duration, patient reportshtn present for ___ years. For alleviating factors, patient reportsmedication. COPDReported by PatientHPI:For severity, patient reportsvery limitingbut reportsslowly worsening. For duration, patient reportschronicandhas noted for years. For context, patient reportscigarette smoking. For alleviating factors, patient reportsrelieved with restandrelieved with oxygen. CHRISTEL CALDWELL, [employer] [address] [place], [address], [facility] 07/08/2025 11:46:22
--- NOTE | 2025-08-05 05:43 | XRR_ITS ---
PROCEDURE INFORMATION: Exam: XR Chest Exam date and time: 08/05/2025 5:49 AM Age: 60 years old Clinical indication: Shortness of breath; Additional info: SOB TECHNIQUE: Imaging protocol: Radiologic exam of the chest. Views: 1 view. COMPARISON: CT [place] [facility] [place] [id number] 04/03/2025 9:35 AM FINDINGS: Lungs: Low lung volumes. Hazy left basilar opacities. The right lung is relatively clear. Pleural spaces: Unremarkable. No pleural effusion. No pneumothorax. Heart/Mediastinum: Unremarkable. No cardiomegaly. Vasculature: Atherosclerotic aortic calcifications. Bones/joints: Unremarkable. XR/XR chest 1V portable [id number] IMPRESSION: Left basilar opacities could represent infiltrate in the correct clinical setting.
--- NOTE | 2025-08-05 05:43 | CTR_ITS ---
PROCEDURE INFORMATION: Exam: CT Abdomen And Pelvis With Contrast Exam date and time: 08/05/2025 6:47 AM Age: 60 years old Clinical indication: Abdominal pain; Additional info: Abd pain TECHNIQUE: Imaging protocol: Computed tomography of the abdomen and pelvis with contrast. Radiation optimization: All CT scans at this facility use at least one of these dose optimization techniques: automated exposure control; mA and/or kV adjustment per patient size (includes targeted exams where dose is matched to clinical indication); or iterative reconstruction. Contrast material: OMNI 350; Contrast volume: 100 ml; Contrast route: INTRAVENOUS (IV); COMPARISON: CT abdomen pelvis w con* [id number] 06/15/2025 11:59 PM RADIATION DOSE METRICS: Total DLP (mGy-cm): 1088.7 FINDINGS: Lungs: Calcified granuloma at the right lung base. Liver: Normal. No mass. Gallbladder and biliary ducts: Normal. No calcified stones. No ductal dilation. Pancreas: Normal. No ductal dilation. Spleen: Normal. No splenomegaly. Adrenal glands: Normal. No mass. Kidneys and ureters: Small right renal cyst. Stomach and bowel: Diverticulosis without evidence of diverticulitis. Appendix: No evidence of appendicitis. Intraperitoneal space: Unremarkable. No free air. No significant fluid collection. Vasculature: There is haziness of the periaortic fat anterior to the infrarenal abdominal aorta suggesting aortitis. Small adjacent lymph nodes are present as well. Lymph nodes: See Vasculature finding. Urinary bladder: Unremarkable as visualized. Reproductive: Unremarkable as visualized. Bones/joints: Unremarkable. No acute fracture. Soft tissues: Unremarkable. CT/CT abdomen pelvis w con* [id number] IMPRESSION: Findings suggesting mild aortitis of the infrarenal abdominal aorta. Correlate clinically. COMMENTS: Consistent with the [employer]'s Incidental Findings Committee white paper (J Am Ghazal Radiol 2018): Any incidental renal lesion less than 1 cm or classified as too small to characterize, or any incidental cystic renal lesion characterized as simple-appearing, is likely benign. No follow-up imaging is recommended for these lesions per consensus recommendations based on imaging criteria.
--- NOTE | 2025-08-05 05:44 | W.ED.ABDPA2 ---
HPI - Abdominal Pain General: Chief Complaint: Abdominal Pain Stated Complaint: N/V X 2 DAYS Source: patient and EMS Mode of arrival: EMS Limitations: no limitations History of Present Illness: 60-year-old male has history of CHF along with COPD states he has been having vomiting over the last 2 days. States has been able to tolerate some food and fluids but does admit intermittent vomiting with diffuse abdominal pain. States pain is a cramping type pain rates it a 6 out of 10. He denies any fevers. Patient is on 2 L baseline due to his COPD. Associated Symptoms: Reports nausea and vomiting Related Data Home Medications ?Medication ?Instructions ?Recorded ?Confirmed spironolactone 25 mg tablet 25 mg PO DAILY 01/28/25 06/08/25 albuterol sulfate 90 mcg/actuation 2 puff inhalation Q4H PRN 03/06/25 06/08/25 aerosol inhaler (Ventolin HFA) Shortness Of Breath Or Wheezing aspirin 81 mg tablet 81 mg PO DAILY 03/25/25 06/08/25 bumetanide 1 mg tablet 1 mg PO DAILY 03/25/25 06/08/25 empagliflozin 10 mg tablet 10 mg PO DAILY 03/25/25 06/08/25 ([employer]) oxygen-air delivery systems 03/25/25 06/08/25 rosuvastatin 10 mg tablet 20 mg PO DAILY 03/25/25 06/08/25 adalimumab 40 mg/0.4 mL 40 mg SUBCUT .Q14D 06/08/25 06/08/25 subcutaneous pen kit (Humira(CF) Pen) budesonide 0.5 mg/2 mL suspension 0.5 mg inhalation BID 06/08/25 06/08/25 for nebulization ipratropium 0.5 mg-albuterol 3 mg 3 ml inhalation QID 06/08/25 06/08/25 (2.5 mg base)/3 mL nebulization soln potassium chloride 10 mEq 10 meq PO DAILY 06/08/25 06/08/25 tablet,extended release tamsulosin 0.4 mg capsule 0.4 mg PO DAILY 06/08/25 06/08/25 Previous Rx's ?Medication ?Instructions ?Recorded clopidogrel 75 mg tablet 75 mg PO DAILY #90 tabs 05/21/25 metoprolol succinate 25 mg 37.5 mg (1.5 x 25 mg) PO DAILY #90 05/21/25 tablet,extended release 24 hr tabs hydrocodone 7.5 mg-acetaminophen 1 tab PO Q8H PRN pain #15 tabs 06/08/25 325 mg tablet amoxicillin 875 mg-potassium 1 tab PO BID #14 tabs 06/16/25 clavulanate 125 mg tablet ondansetron 4 mg disintegrating 4 mg PO Q8H PRN nausea and 06/16/25 tablet vomiting #14 tabs Allergies Allergy/AdvReac Type Severity Reaction Status Date / Time Unable to Assess Allergy Verified 06/08/25 13:19 Review of Systems Resp: Reports: dyspnea GI: Reports: nausea and vomiting PFS ED PFSH: Medical History CHF (congestive heart failure) Polycythemia Surgical History No significant past surgical history Social History Smoking and tobacco/nicotine status: current every day tobacco/nicotine user Physical Exam Const: COMMON NORMALS: patient oriented x3 HENMT: COMMON NORMALS: normocephalic and atraumatic HEAD & SCALP: normocephalic and atraumatic Neck/C-Spine: COMMON NORMALS: full ROM and supple Chest: COMMONS NORMALS: normal inspection of the chest and normal palpation of entire chest wall Resp: COMMON NORMALS: normal respiratory effort, No retractions, No use of accessory muscles and clear to auscultation bilaterally AUSCULTATION: clear to auscultation bilaterally Cardio: COMMON NORMALS: regular rate, regular rhythm and No murmurs present (Cardio) RATE: regular rate RHYTHM: regular rhythm GI: COMMON NORMALS: Normal to inspection, nondistended, normoactive bowel sounds present, Soft to palpation and no masses PALPATION: Yes Soft to palpation OTHER: diffuse tenderness Extremity: COMMON NORMALS: normal to inspection and full ROM Neuro: COMMON NORMALS: patient oriented x3, moves all extremities and no focal motor deficits Psych: COMMON NORMALS: mental status grossly normal, Normal thought process present and cooperative THOUGHT PROCESS: Normal thought process present Skin: COMMON NORMALS: no rashes or lesions noted and no wounds GENERAL SKIN EXAM: no rashes or lesions noted Course Vital Signs: Vital signs: Vital Signs Temperature 97.5 F L 08/05/25 05:32 Pulse Rate 93 08/05/25 09:00 Respiratory Rate 18 08/05/25 05:56 Blood Pressure 150/87 08/05/25 09:00 Pulse Oximetry 96 08/05/25 09:00 Oxygen Delivery Me thod Room Air 08/05/25 09:00 Oxygen Flow Rate 2 08/05/25 07:30 MDM - Abdominal Pain Medical Decision Making Patient presents for abdominal pain along with vomiting. Differential includes AAA, appendicitis, diverticulitis, pancreatitis, cholecystitis. Patient's white count electrolytes here were all normal his pain has improved after IV meds. His CT scan did show irregularity of the abdominal aorta concern of aortitis. I did speak to vascular surgeon at [facility] Dr. Solares who reviewed the images who agrees patient needs transfer there and recommended ER to ER transfer. I spoke to Dr. Manrique at [facility] ER who accepted patient will transfer there. Patient has been stable while here with stable vital signs. I did go over his CT findings along with lab work and he understands agrees to plan Medical Records I reviewed the patient's medical records. Lab Data I reviewed the patient's lab results. 08/05/25 06:00 08/05/25 07:07 Labs/Radiology: Radiology Impressions Abdomen/Pelvis CT 08/05/25 05:43 IMPRESSION: Findings suggesting mild aortitis of the infrarenal abdominal aorta. Correlate clinically. COMMENTS: Consistent with the [employer]'s Incidental Findings Committee white paper (J Am Gh[employer]al [employer]iol 2018): Any incidental renal lesion less than 1 cm or classified as too small to characterize, or any incidental cystic renal lesion characterized as simple-appearing, is likely benign. No follow-up imaging is recommended for these lesions per consensus recommendations based on imaging criteria. Chest X-Ray 08/05/25 05:43 IMPRESSION: Left basilar opacities could represent infiltrate in the correct clinical setting. Laboratory Results WBC 11.41 10^3/uL (3.29-11.43) 08/05/25 06:00 Corrected WBC Cancelled 08/05/25 05:15 RBC 5.44 10^6/uL (3.85-5.65) 08/05/25 06:00 Hgb 19.00 g/dL (11.27-16.99) H 08/05/25 06:00 Hct 55.6 % (37-53) H 08/05/25 06:00 MCV 102.2 fl (82-101) H 08/05/25 06:00 MCH 34.9 pg (27-33) H 08/05/25 06:00 MCHC 34.2 g/dL (30-55) 08/05/25 06:00 RDW 13.2 % (12.1-15.1) 08/05/25 06:00 Plt Count 228 10^3/cmm (157-399) 08/05/25 06:00 MPV 9.4 fL (7.4-10.4) 08/05/25 06:00 Gran % Cancelled 08/05/25 05:15 Neut % (Auto) 70.1 % 08/05/25 06:00 Lymph % (Auto) 22.3 % 08/05/25 06:00 [place] % (Auto) 5.6 % 08/05/25 06:00 Eos % (Auto) 0.9 % 08/05/25 06:00 Baso % (Auto) 0.7 % 08/05/25 06:00 Neut # (Auto) 8.00 10^3/uL (1.8-7.7) H 08/05/25 06:00 Lymph # (Auto) 2.5 10^3/uL (0.8-4.8) 08/05/25 06:00 [place] # (Auto) 0.6 10^3/uL (0.2-0.9) 08/05/25 06:00 Eos # (Auto) 0.1 10^3/uL (0.0-0.8) 08/05/25 06:00 Baso # (Auto) 0.1 10^3/uL (0.0-0.1) 08/05/25 06:00 Absolute Gran (auto) Cancelled 08/05/25 05:15 Nucleated RBC % (auto) 0 % 08/05/25 06:00 Nucleated RBCs # 0.0 /100WBC 08/05/25 06:00 ESR 65 mm/hr (0-10) H 08/05/25 06:00 Sodium 134 mmol/L (136-145) L 08/05/25 07:07 Potassium 4.4 mmol/L (3.5-5.1) 08/05/25 07:07 Chloride 99 mmol/L (98-107) 08/05/25 07:07 Carbon Dioxide 24 mmol/L (22-29) 08/05/25 07:07 Anion Gap 15.4 (5-19) 08/05/25 07:07 BUN 17 mg/dL (6-20) 08/05/25 07:07 Creatinine 0.9 mg/dL (0.7-1.2) 08/05/25 07:07 GFR Calculation 86.4 mL/min (90-130) L 08/05/25 07:07 Glucose 128 mg/dL (65-115) H 08/05/25 07:07 Calculated Osmolality 281 mOsm/kg (285-295) L 08/05/25 07:07 Calcium 9.3 mg/dL (8.5-10.5) 08/05/25 07:07 Total Bilirubin 0.4 mg/dL (0.15-1.2) 08/05/25 07:07 AST 25 U/L (0-40) 08/05/25 07:07 ALT 20 U/L (0-41) 08/05/25 07:07 Alkaline Phosphatase 75 U/L (40-130) 08/05/25 07:07 C-Reactive Protein 9.0 mg/L (0.0-4.9) H 08/05/25 07:07 NT-Pro-B Natriuret Pep 215 pg/mL (0-125) H 08/05/25 07:07 Total Protein 7.4 g/dL (6.6-8.7) 08/05/25 07:07 Albumin 3.7 g/dL (3.5-5.2) 08/05/25 07:07 Globulin 3.7 g/dL (1.3-4.6) 08/05/25 07:07 Lipase 47 U/L (13-60) 08/05/25 07:07 All radiology interpretation(s) finalized by discharge Critical Care Time Critical Care Time: Critical Care Time: Yes Total Critical Care Time: 35 Attestation: The high probability of a clinically significant, sudden or life threatening deterioration of the patient's vasc system(s) required my full and direct attention, intervention and personal management. The critical care time is as shown. This time is in addition to time spent performing any reported procedures but includes the following: [x] Data and vital sign review and interpretation [x] Patient assessment, examination and intervention [x] Documentation [x] Medication orders and management Discharge Plan Discharge Patient Disposition: Xfer Short-Term Hosp Clinical Impression: Aortitis, Abdominal pain Condition: Stable Referrals: Christel Burk FNP [Primary Care Provider, Unknown] Patient Instructions: Abdominal Pain (ED) Print Language: Serbian Coding Level of Care Code ED Debeader for Krystyna Cervantes
[2025-08-05] MEDS: ondansetron 2 mg/ML SDV 2 mL 4 MG IVP (05:54)
[2025-08-05 06:27] LABS: Hematocrit 55.6 % (37-53); Hemoglobin 19.00 g/dL (11.27-16.99); Mean Corpuscular HGB Conc 34.2 g/dL (30-55); Mean Corpuscular Hemoglobin 34.9 pg (27-33); Mean Corpuscular Volume 102.2 fl (82-101); Nucleated Red Blood Cells % 0 %; Platelet Count 228 10^3/cmm (157-399); Red Blood Count 5.44 10^6/uL (3.85-5.65); White Blood Count 11.41 10^3/uL (3.29-11.43)
[2025-08-05] MEDS: iohexol 350 mg/mL 500 mL Btl (per mL) IV (06:55)
[2025-08-05 07:39] LABS: Alanine Aminotransferase 20 U/L (0-41); Albumin Level 3.7 g/dL (3.5-5.2); Alkaline Phosphatase 75 U/L (40-130); Anion Gap 15.4 (5-19); Aspartate Amino Transferase 25 U/L (0-40); Blood Urea Nitrogen 17 mg/dL (6-20); Calcium 9.3 mg/dL (8.5-10.5); Carbon Dioxide 24 mmol/L (22-29); Chloride 99 mmol/L (98-107); Creatinine Clr Calc Pharmacy 105.7310; Globulin 3.7 g/dL (1.3-4.6); Glucose 128 mg/dL (65-115); Lipase 47 U/L (13-60); NT Pro B Type Natriuretic Pept 215 pg/mL (0-125); Osmolality Calculated 281 mOsm/kg (285-295); Potassium 4.4 mmol/L (3.5-5.1); Sodium 134 mmol/L (136-145); Total Protein 7.4 g/dL (6.6-8.7)
[2025-08-05] MEDS: morphine 4 mg/mL SDV 1 mL IVP (09:50)
--- NOTE | 2025-08-05 10:10 | PC.NURSE ---
REPORT CALLED TO HOMERO VILCHIS IN [place].
[2025-08-05] MEDS: LORazepam 2 mg/mL INJ 1 mL 1 MG IVP (11:35)
== END 2025-08-05 11:41 | disposition short-term general hospital (02) ==
PROVIDERS: Emergency Provider Emergency Medicine; PCP Nurse Practitioner Family
DX: I77.6 Arteritis, unspecified (principal); R10.9 Unspecified abdominal pain; Z72.0 Tobacco use; I50.9 Heart failure, unspecified; J44.9 Chronic obstructive pulmonary disease, unspecified; Z99.81 Dependence on supplemental oxygen
CPT/HCPCS: 36415; 71045; 74177; 80053; 83690; 83880; 85025; 85651; 86140; 96374; 96375; 99285; J2060; J2270; J2405

== ENCOUNTER 2025-09-12 04:18 | Emergency (ER) | payer MEDICARE, SELFPAY ==
[2025-09-12] VITALS (107 sets, daily range): BP systolic 101–141; BP diastolic 72–103; PULSE 80–111; RESP 10–24; TEMP 37.2; O2SAT 86–98; BMI 35.2
--- OUTSIDE RECORDS SUMMARY | 2025-09-12 04:24 | XMS_ITS | Continuity of Care Document ---
Author Organization CANDIDA Bang [facility] Elisabet, Bernie, [facility] ([facility]) Address [address] [facility] [place] [address] Assessment Encounter Date Assessment Date Assessment LastModified by Organization Details LastModified Time 07/08/2025 07/08/2025 Patient continues to follow with [...] not to take them with his other medications/is sues. Discussed flu vaccination and encouraged him to check with the pharmacy regarding vaccines. CCA form completed at today's visit. Not available 07/08/2025 11:46:17 Plan of Treatment Reminders Order Date Submit Date Provider Last Modified By Organization Details Last Modified Time Details Appointments OFFICE VISIT 15 2025 10:00A ENOCH SIMMONS Not available Not available Not available Lab microalbu min/creat inine, mass ratio, urine 2024 025 [facility] [employer] [facility], [address], [place], [address], 07/09/2025 09:25:17 hemoglobi n A1C/hemog lobin total, QN, blood 2024 025 [facility], [address], [address], [place], [address], 07/08/2025 12:30:33 CMP, serum or plasma 2024 025 [facility], [address], [address], [place], [address], 07/08/2025 11:40:00 lipid panel, blood 2024 025 [facility], [address], [facility], [place], [address], 07/08/2025 11:40:04 CBC 2024 025 [facility], [address] [facility], [facility], [place], [address], 07/08/2025 11:13:[address] referral [address] [facility], [address] [place], [address], 08/07/2025 15:04:13 Procedures None recorded. Surgeries None recorded. Imaging None recorded. Medication Orders None recorded. Patient TargetsNo targets recorded. Patient Instructions Encounter Date Encounter Id Patient Instructions Last Modified By Organization Details Last Modified Time 07/08/2025 [id number] Call or return for questions or concerns. Not available 07/08/2025 10:02:25 Reason for Referral Neurologist Referral for Tyson quent headache Referring Physician: Christel Caldwell, Family Medicine, Encounter Date: 07/08/2025 Results Created Date Observation Date Name Description Value Unit Range Abnormal Flag Note LastModifiedBy Organization Detail LastModifiedTime 07/08/2007/08/2025 CBC WBC 8.1 x10 4.5-10 .5 Not Available [facility] [address] [facility] [address], [place], [address], 07/08/2025 11:13:33 07/08/2007/08/2025 CBC RBC 5.09 x10 4.30-5 .90 Not Available [facility] [address] [facility], [place], [address], 07/08/2025 11:13:33 07/08/20 25 07/08/2025 CBC HGB 18.5 g/dL 13.5-1 8.0 high Not Available [facility] [address] [facility], [place], [address], 07/08/2025 11:13:33 07/08/2007/08/2025 CBC HCT 56.7 % 35.0-6 0.0 Not Available [facility] [address], [place], [address], 07/08/2025 11:13:33 07/08/2007/08/2025 CBC MCV 111.4 fL 80.0-9 9.9 high Not Available [facility] [address] [facility], [place], [address], 07/08/2025 11:13:33 07/08/2007/08/2025 CBC MCH 36.2 pg 27.0-3 2.0 high Not Available [facility] [address] [facility], [place], [address], 07/08/2025 11:13:33 07/08/2007/08/2025 CBC MCHC 32.5 g/dL 32.0-3 6.0 Not Available [facility] [address] [facility], [place], [address], 07/08/2025 11:13:33 07/08/2007/08/2025 CBC RDW 14.2 % 11.5-1 4.5 Not Available [facility] [address] [facility], [place], [address], 07/08/2025 11:13:33 07/08/2007/08/2025 CBC plt 231.3 x10 150.0- 451.0 Not Available [facility] [address] [facility] [address] [facility], [place], [address], 07/08/2025 11:13:33 07/08/20 25 07/08/2025 CBC lymphocytes % 32.2 % 20.0-5 0.0 Not Available [facility] [address] [facility], [place], [address], 07/08/2025 11:13:33 07/08/2007/08/2025 CBC granulcytes % 60.3 % 30.0-7 0.0 Not Available [facility] [address] [facility] [address], [place], [address], 07/08/2025 11:13:33 07/08/2007/08/2025 CBC monocytes % 5.1 % 2.0-16 .0 Not Available [facility] [address] [facility] [address], [place], [address], 07/08/2025 11:13:33 07/08/20 25 07/08/2025 CBC granulcytes# 4.9 x10 Not Katherine [facility] [address] [facility], [place], [address], 07/08/2025 11:13:33 07/08/2007/08/2025 CBC lymphocytes # 2.6 x10 Not Available [facility] [address] [facility], [place], [address], 07/08/2025 11:13:33 07/08/20 25 07/08/2025 CBC monocytes # 0.4 x10 Not Avai lable [facility] [address] [facility], [place], [address], 07/08/2025 11:13:33 07/08/20 25 07/08/2025 CMP (MALE ) glucose 124.0 mg/dL 60.0-9 9.0 high Not Available [facility] [address] [facility], [place], [address], 07/08/2025 11:40:00 07/08/20 25 07/08/2025 CMP (MALE ) BUN (blood urea nitrogen) 19.0 mg/dL 10.0-2 6.0 Not Available [facility] [address] [facility], [place], [address], 07/08/2025 11:40:00 07/08/20 25 07/08/2025 CMP (MALE ) creatinine (serum) 0.9 mg/dL 0.4-1. 5 Not Available [facility] [address] [facility], [place], [address], 07/08/2025 11:40:00 07/08/20 25 07/08/2025 CMP (MALE ) BUN/creatini ne ratio 21.11 ratio Not Available [facility] [address] [facility], [place], [address], 07/08/2025 11:40:00 07/08/20 25 07/08/2025 CMP (MALE ) eGFR calculated 91.8 Not Available [facility] [address] [facility], [place], [address], 07/08/2025 11:40:00 07/08/20 25 07/08/2025 CMP (MALE ) total protein 8.7 g/dL 6.0-8. 5 high Not Available [facility] [address] [facility], [place], [address], 07/08/2025 11:40:00 07/08/20 25 07/08/2025 CMP (MALE ) total bilirubin 0.6 mg/dL 0.2-1. 3 Not Available [facility] [address] [facility], [place], [address], 07/08/2025 11:40:00 07/08/20 25 07/08/2025 CMP (MALE ) albumin 4.6 g/dL 3.5-5. 5 Not Available [facility] [address] [facility], [place], [address], 07/08/2025 11:40:00 07/08/20 25 07/08/2025 CMP (MALE ) globulin 4.1 calc Not Available [facility] [address] [facility] [address], [place], [address], 07/08/2025 11:40:00 07/08/20 25 07/08/2025 CMP (MALE ) AST (SGOT) 40.0 U/L 0.0-46 .0 Not Available [facility] [address] [facility], [place], [address], 07/08/2025 11:40:00 07/08/20 25 07/08/2025 CMP (MALE ) altv (SGPT) 33.0 U/L 13.0-6 9.0 normal Not Available [facility] [address] [facility], [place], [address], 07/08/2025 11:40:00 07/08/20 25 07/08/2025 CMP (MALE ) A/G ratio 1.1 ratio Not Available [facility] [address] [facility] [address], [place], [address], 07/08/2025 11:40:00 07/08/20 25 07/08/2025 CMP (MALE ) ALP phos 86.0 U/L 30.0-1 40.0 normal Not Available [facility] [address] [facility], [place], [address], 07/08/2025 11:40:00 07/08/20 25 07/08/2025 CMP (MALE ) calcium 10.0 mg/dL 8.4-10 .5 Not Available [facility] [address] [facility] [address], [place], [address], 07/08/2025 11:40:00 07/08/20 25 07/08/2025 CMP (MALE ) sodium 133.0 mmol/ L 136.0- 145.0 low Not Available [facility] [address] [facility] [address], [place], [address], 07/08/2025 11:40:00 07/08/20 25 07/08/2025 CMP (MALE ) potassium 4.6 mmol/ L 3.5-5. 1 Not Available [facility] [address] [facility] [address], [place], [address], 07/08/2025 11:40:00 07/08/20 25 07/08/2025 CMP (MALE ) chloride 101.0 mmol/ L 98.0-1 10.0 normal Not Available [facility] [address] [facility] [address], [place], [address], 07/08/2025 11:40:00 07/08/20 25 07/08/2025 CMP (MALE ) C02 22.0 mmol/ L 22.0-3 1.0 Not Available [facility] [address] [facility] [address], [place], [address], 07/08/2025 11:40:00 07/08/20 25 07/08/2025 CMP (MALE ) anion gap 10.0 calc Not Available [facility] [address] [facility] [address], [place], [address], 07/08/2025 11:40:00 07/08/20 25 07/08/2025 CMP (MALE ) osmolality 278.5 calc Not Available [facility] [address] [facility], [place], [address], 07/08/2025 11:40:00 07/08/2007/08/2025 LIPID PROFI LE (MALE ) cholesterol 189.0 mg/dL 0.0-20 0.0 Not Available [facility] [address] [facility] [address], [place], [address], 07/08/2025 11:40:04 07/08/20 25 07/08/2025 LIPID PROFI LE (MALE ) trig 360.0 mg/dL 0.0-15 0.0 high Not Available [facility] [address] [facility] [address], [place], [address], 07/08/2025 11:40:04 07/08/20 25 07/08/2025 LIPID PROFI LE (MALE ) HDL - direct 38.0 mg/dL >40.0 low Not Available [facility] [address] [facility] [address], [place], [address], 07/08/2025 11:40:04 07/08/20 25 07/08/2025 LIPID PROFI LE (MALE ) VLDL - direct 72.0 mg/dL Not Available [facility] [address] [address], [place], [address], 07/08/2025 11:40:04 07/08/20 25 07/08/2025 LIPID PROFI LE (MALE ) LDL - direct 79.0 mg/dL 0.0-13 0.0 Not Available [facility] [address] [facility] [address], [place], [address], 07/08/2025 11:40:04 07/08/20 25 07/08/2025 HBA1C hemaglobin A1C 5.9 4.2-6. 5 Not Available [facility] [address] [facility] [address], [place], [address], 07/08/2025 12:30:33 07/08/2007/09/2025 ALBUM IN, RANDO M URINE W/CRE ATINI NE creatinine, random urine 23 mg/dL 20-320 normal Not Available [address] [address] [place], [address], 07/09/2025 09:25:17 07/08/2007/09/2025 ALBUM IN, RANDO M URINE W/CRE ATINI NE albumin, urine <0.2 mg/dL see note: normal Refer ence Range : Refer ence Range Not estab lishe d Not Available [address], [address], 07/09/2025 09:25:17 07/08/20 25 07/09/2025 ALBUM IN, [...] a diagn ostic categ ory. Not Available [address], [address], 07/09/2025 09:25:17 Result Notes None recorded. Problems Name Problem SNOMED Code Status Onset Date Resolution Date Notes Provider Name and Address Organization Details Recorded Time Decompens ated cardiac failure Active CHRISTEL CALDWELL, [address], [address], [facility] 5 10:03:00 Chondroco stal joint sprain 993902322 Active CHRISTEL CALDWELL, [address], [address], [facility] 5 10:03:00 Acute respirato ry failure 29385557 Active CHRISTEL CALDWELL, [address], [address], [facility] 5 10:03:00 Edema of lower extremity 324057330 Active CHRISTEL CALDWELL, [address], [address], [facility] 5 12:07:01 Tobacco user 727208043 Active CHRISTEL CALDWELL, [address], [address], [facility] 5 12:07:01 Alcohol use disorder Active CHRISTEL CALDWELL, [address], [address], [facility] 5 12:07:01 Acute exacerbat ion of chronic obstructi ve pulmonary disease 337529225 Active CHRISTEL CALDWELL, [address], [address], [facility] 5 12:07:01 Pneumonia 502425380 Active CHRISTEL CALDWELL, [address], [address], [facility] 5 12:07:02 Obesity 945255551 Active CHRISTEL CALDWELL, [address], [address] [place] [address] 5, [facility] 5 12:07:02 Strain of muscle of lower limb [id number] Rodney CALDWELL, [address], [address] [place] [address] 5, [facility] 5 09:59:42 Diverticu litis of sigmoid colon [id number] Rodney CALDWELL, [address], [address] [place] [address] 5, [facility] 5 10:01:40 Abdominal pain [id number] Rodney CALDWELL, [address], [address] [place] [address] 5, [facility] 5 11:43:42 Patient encounter status [id number] Rodney CALDWELL, [address], [address] [place] [address] 5, [facility] 5 11:43:42 Dehydrati on [id number] Rodney CALDWELL, [address], [address] [place] [address] 5, [facility] 5 11:43:42 Near syncope [id number] Rodney CALDWELL, [address], [address] [place] [address], [facility] 5 11:43:42 Aortitis [id number] Rodney CALDWELL, [address], [address] [place] [address], [facility] 5 11:43:43 Essential hypertens ion 56197351 Active 2024 HERBER powell, [facility] 5 10:41:33 Arthritis 1845000 [facility] 10:41:46 Chronic obstructi ve pulmonary disease 76494640 Active 2024 moderate with restricti on HERBER powell [facility] 5 23:34:34 Persisten t alcohol abuse 051795278 Active 2024 HERBER powell [facility] 10:45:31 Obstructi ve sleep apnea syndrome 97602689 Active 2024 HERBER powell [facility] 5 23:48:41 Congestiv e heart failure 24994701 Active 2024 systolic and diastolic HERBER powell [facility] 5 23:34:05 Hepatomeg jason 59849273 Active 2024 Mild [facility] 23:10:02 Thromboan giitis obliteran s 63089328 Active 2024 HERBER powell [facility] 18:32:11 Ischemic finger 428796288 Active 2024 CHRISTEL CALDWELL, [facility] [address] [place], [address] , [facility] 5 11:43:42 Coronary arteriosc lerosis 86225472 Active 2024 Stent x 2 LAD HERBER powell [facility] 5 18:04:03 Erythrocy tosis 498179512 Active 2024 HERBER powell [facility] 5 23:01:47 Cobalamin deficienc y 425363604 Active 2024 HERBER BAJWA sherry [facility] 5 23:04:40 Cardiomeg jason 5664659 Active 2024 moderate HERBER BAJWA sherry [facility] 5 23:42:57 Steatotic liver disease 141251678 Active 2024 HERBER BAJWA sherry [facility] 5 23:10:18 Harmful pattern of use of alcohol 68066624 Active 2024 HERBER BAJWA sherry [facility] 5 23:31:25 Mixed hyperlipi demia 820202514 Active 2024 HERBER powell [facility] 5 23:47:05 Chronic hypoxemic respirato ry failure 424484398 Active 2024 HERBER powell [facility] 5 23:48:11 Acute on chronic diastolic heart failure 873998691 Active 2024 HERBER BAJWA shrery [facility] 5 00:23:49 Chronic total occlusion of coronary artery 912527072970 103 Active 2024 RCA HERBER AYDEE sherry [facility] 5 00:31:09 Postopera tive pain 680360470 Active 2024 Durga Stallworth MD [address] [place] [address], [address] [place] [address], L.L[facility] 5 14:04:18 Problem Notes None recorded. Procedures Surgical History Date Name Laterality Status Provider Name and Address Organization Details Recorded Time 08/25/20 25 screening for malignant neoplasm of colon completed [facility] 09/03/2025 17:44:26 08/05/20 25 repair of aneurysm of abdominal aorta completed [facility], LSiminL.CSimin 08/08/2025 11:13:21 03/21/20 25 transthoracic echocardiography completed [facility], LSiminL.CSimin 04/03/2025 00:29:33 03/20/[address] of chest completed [facility], LSiminL.CSimin 03/23/2025 23:54:59 03/18/[address] of abdomen and pelvis completed [facility], AlexaLSiminCSimin 03/23/2025 23:27:54 03/18/20 25 Doppler ultrasonography of vein of lower limb completed [facility], AlexaLSiminCSimin 03/23/2025 23:28:47 03/13/20 25 angiography completed [facility], LSiminL.CSimin 03/23/2025 23:00:12 03/13/[address] of chest completed [facility], LSiminLSiminCSimin 03/23/2025 23:03:45 03/09/20 25 plain X-ray of chest completed [facility], AlexaLSiminCSimin 03/23/2025 23:25:38 03/08/[address] of chest completed [facility] 03/23/2025 23:20:05 03/08/20 25 plain X-ray of abdomen completed [facility], AlexaLSiminCSimin 03/23/2025 23:20:52 03/08/20 25 plain X-ray of chest completed [facility], LSiminLSiminCSimin 03/23/2025 23:21:56 03/06/20 25 ultrasonography of abdomen completed [facility], Bernie 03/23/2025 23:09:40 03/05/20 25 plain X-ray of chest completed [facility], Bernie 03/05/2025 18:57:58 03/05/20 25 echocardiography completed [facility], Bernie 03/23/2025 23:15:03 12/26/19 25 US scan of upper abdomen completed [facility], Bernie 12/26/2024 16:43:52 12/11/19 25 plain [facility] 12/10/2024 18:08:52 Imaging Results None recorded. Procedure Notes None recorded. Medical Equipment None Reported. Allergies Allergen ID Allergen Name Allergen Category Reaction Reaction Severity Criticality Documentation Date Start Date Code Code System Note Provider Name and Address Organization Details Recorded Time 18096 sulfameth oxazole / trimethop rim medicatio n hives Not available Not available 09/11/20252016 92374 RxNorm Unsur e but think s this is it(gi ben for spide r bite) Not Available faheem - External Data Service - prod 11:07:39 Medications Name Sig Start Date Stop Date [...] day by oral route for 5 days. 2024 active Not Available Not Available Not Avai lable prednisone 5 mg tablet TAKE 4 TABLETS [...] completed Not Available Not Available Not Available tramadol 50 mg tablet TAKE 1 TABLET BY MOUTH EVERY 6 HOURS active Not Available Not Available No t Available triamcinolo ne acetonide 0.1 % topical [...] MOUTH EVERY 8 HOURS NEEDED FOR PAIN 10/07 /2025 completed Not Available Not Available Not Available [...] mg tablet TAKE 1 TABLET BY MOUTH DAILY active Not Available Not Available No [...] mass index (BMI) Body weight Oxygen saturation Inhaled oxygen flow rate Heart rate Respiratory rate Systolic And Diastolic Provider Name and Address Organization Details Last Updated DateTime 5 170.18 cm 37.1 kg/m2 930351. 39 g 98 % 2 L/min 100 /min 22 /min 122/70 mm[Hg] HERBER AYDEE [facility] 5 09:46:08 Social History Question Answer Notes LastModified by [employer] Details LastModified Time Tobacco Smoking Status Current Every Day Smoker HERBER AYDEE [facility] 12/10/2024 10:38:46 What Is Your Level Of Caffeine Consumption? Moderate Coffee/Mt . Dew [email or web address] Information not available 12/10/2024 How Much Tobacco Do You Chew? 1/day Information not available 12/10/2024 What Was The Date Of Your Most Recent Tobacco Screening? 12/10/2024 Information not available 12/10/2024 What Is Your Current Pack Years? [email or web address] Information not available 12/10/2024 What Is Your Relationship Status? [email or web address] Information not available 12/10/2024 At What Age Did You Start Smoking Tobacco? 8 Information not available 12/10/2024 How Much Tobacco Do You Smoke? 2 PPD [email or web address] Information not available 12/10/2024 Has Tobacco Cessation Counseling Been Provided? Yes Information not available 12/10/2024 On What Date Was Tobacco Cessation Counseling Provided? 12/10/2024 Information not available 12/10/2024 How Many Years Have You Smoked Tobacco? 50 Information not available 12/10/2024 How Many Years Have You Used Smokeless Tobacco? 50 Information not available 12/10/2024 Sex: Unknown Functional Status Question Answer Note LastModified by [email or web address] Details LastModified Time How many times per week do you consume alcohol? 5-7 times per week [email or web address] Information not available 12/10/2024 Do you use any illicit or recreational drugs? No Information not available 12/10/2024 Do you or have you ever used any other forms of tobacco or nicotine? Yes Information not available 12/10/2024 What is your level of alcohol consumption? Heavy 3-4 shots of whiskey per day. [email or web address] Information not available 12/10/2024 Do you or have you ever used smokeless tobacco? Currently chews tobacco [email or web address] Information not available 12/10/2024 Are you currently employed? No disabled Information not available 12/10/2024 Are you able to walk independently without assistance or assistive devices? YESWOREST [email or web address] Information not available 12/10/2024 Are you able to care for yourself independently? Yes [email or web address] Information not available 12/10/2024 Do you or [...] accident when Irvin ramos was age 5 [email or web address] Not available 12/10/2024 10:35:22 Mother Malignant neoplasm of brain in her early 40's [email or web address] Not available 12/10/2024 10:36:03 Mother Essential hypertension [email or web address] Not available 10:36:23 Medical History Condition Response Coronary Artery Disease Y Heart Problems Y Arthritis Y Reflux/GERD Y Kidney Stones Y High Cholesterol Y Hospitalizations Y Liver Disease Y Heart Disease Y Headaches Y Hypertension Y Lung Disease Y COPD Y Immunizations Vaccine Type Date Status Note Provider Nam e and Address Organization Details Recorded Time Pneumococcal conjugate PCV20, polysaccharide [id number] conjugate, adjuvant, PF 5 completed Not Available [facility] 09/11/2025 11:07:29 RSV, bivalent, protein subunit RSVpreF, diluent reconstituted, 0.5 mL, PF 5 completed Not Available [facility] 09/11/2025 11:07:29 Past Encounters Encounter ID Performer Location Encounter Start Date Encounter Closed Date Diagnosis/Indication Diagnosis SNOMED-CT Code Diagnosis ICD10 Code Diagnosis IMO Codes Diagnosis Note [id number] ENOCH FELIX [facility] ([facility] [address] [place] [address] 07/08/2025 09:36:17 07/08/2025 10:24:52 Essential hypertension 17192565 I10 Follows with cardiology . Chronic ob structive pulmonary disease 05795150 J44.9 Z99.81 J96.11 Follows with pulmonolog y. Harmful pa ttern of use of alcohol 20263643 F10.10 28739 Drinking daily but has cut back. Frequent headache 392944 003 R51.9 88024133 Hyperglycemia 63917428 R 73.9 74312 Obesity ca used by energy imbalance 228145161 E66.01 3363669 Diet/exerc ise. Rheumatoid arthritis of multiple joints 742508742 M06.9 [id number] Struggles with pain control. Chronic ki dney disease stage 3A 977823181 N18.31 64026634 Microalbum in today and CMP. Health Concerns Section Related Observation LastModified by Organization Detai ls LastModified Time None Recorded Concern Status LastModified by Organization Details LastModified Time None Recorded Payers Encounter Date Sequence Insurance Name Policy Number Policy Polanco Covered Member ID Polanco Member ID Guarantor Name 07/08/2025 1 [id number]ANT[place] - PPO) [id number] Jaswinder Palmer [id number] Jaswinder Palmer 07/08/2025 2 [place] Jaswinder Palmer [id number] Jaswinder Palmer Notes Date Note Type Note Provider Name and Address Organization Details Recorded Time 5 text/html Hypertension IM/FMReported by PatientHPIFor self [...] reportsrelieved with restandrelieved with oxygen. CHRISTEL CALDWELL, [facility] [address] [place], [address], [facility] 07/08/2025 11:46:22
--- OUTSIDE RECORDS SUMMARY | 2025-09-12 04:24 | XMS_ITS | Encounter Summary ---
Author Organization [facility] Address [address] [place] [address] Care Team Providers Care Lead Solutions Architect Name Role Phone Unavailable Primary Care Provider Unavailabl e Reason for Visit * Reason Onset Date Comments Appointment Notification 09/09/2025 Encounter Details Date Type Department Care Team (Late st Contact Info) Description 09/09/2025 Telephone [facility] Vascular Surgery [place] [address] [place] [address] Indira Salgado [address] [facility] [address] [place] [address] Appointment Notification Social History Tobacco Use Types Packs/Day Years Used Date Smoking Tobacco: Every Day Cigarettes Smokeless Tobacco: Current Alcohol Use Standard Drinks/Week Comments No 0 (1 standard drink = 0.6 oz pur e alcohol) Food Insecurity Answer Date Recorded Do you find you are eating l ess than you should because you can t pay for food? No 08/05/2025 Transportation Needs Answer Date Record ed Have you gone without health care because you didn t have a way to get there? Or worry about transportation for future doctor visits, roll picker medication, etc.? No 2024 Housing Stability Answer Date Recorded Do you worry you won t have a steady place to sleep or struggle to pay rent or mortgage? No 08/05/2025 Utility Needs Answer Date Recorded Do you have difficulty payin g for utility costs (electric, water or gas bills)? No 08/05/2025 Medication Needs Answer Date Recorded Have you skipped taking medi cation due to cost or worry you can t afford new medications? No 08/05/2025 Feeling Safe Answer Date Recorded Are you in a relationship wi th someone who hurts you emotionally and/or physically? No 08/05/2025 Food Insecurity Answer Date Recorded Patient needs follow up regardin 03/20/2025 Transportation Needs Answer Date Record ed Patient needs follow up regardin 03/20/2025 Utility Needs Answer Date Recorded Patient needs follow up regardin 03/20/2025 Sex and Gender Information Value Date Recorded Sex Assigned at Not on file Legal Sex Male 12:31 AM PSYCHIATRIC NURSING ASSISTANT Gender Identity Not on file Sexual Orientation Not on file documented as of this encounter Miscellaneous Notes * Telephone Encounter - Yeni Smith - 09/09/2025 1:45 PM CST Spoke to pt and got CTA and appts rescheduled. HIATRIC NURSING ASSISTANT documented in this encounter Plan of Treatment Upcoming Encounters Date Type Department Care Team (Late st Contact Info) Description 10/13/2025 10:30 AM PSYCHIATRIC NURSING ASSISTANT Appointment [facility] [address] [place] [address] Indira Salgado, DO [address] [place] [address] 10/13/2025 1:00 PM PSYCHIATRIC NURSING ASSISTANT Office Visit [facility] Gastroenterology- [place] [address] [place] [address] Rome Martin FNP [address] [place] [address] 10/13/2025 2:00 PM PSYCHIATRIC NURSING ASSISTANT Office Visit [facility] Vascular Surgery [place] [address] [place] [address] Indira Salgado, DO [address] [place] [address] documented as of this encounter Visit Diagnoses Not on filedocumented in this encounter
--- OUTSIDE RECORDS SUMMARY | 2025-09-12 04:24 | XMS_ITS | Encounter Summary ---
Author Organization [facility] Address [address] [place] [address] Care Team Providers Care Vp Of Technology Name Role Phone Unavailable Primary Care Provider Unavailabl e Encounter Details Date Type Department Care Team (Late st Contact Info) Description 09/09/2025 External Device Data [facility] ABSTRACTION Provider, Abstract [...] worry about transportation for future doctor visits, strip picker medication, etc.? 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 [place] [address] Rome Martin FNP [address] [place] [address] 10/13/2025 2:00 PM INVESTMENT SALES ASSISTANT Office Visit [facility] Vascular Surgery [place] [address] [place] [address] Indira Salgado DO [address] [place] [address] documented as of this encounter Visit Diagnoses Not on filedocumented in this encounter
--- OUTSIDE RECORDS SUMMARY | 2025-09-12 04:24 | XMS_ITS | Data Portability ---
Author Organization CANDIDA [facility] Bernie Bhandari [facility] Address [address] [facility] [address] [place] [address] Assessment Encounter Date Assessment Date Assessment LastModified by Organization Details LastModified Time 01/24/2025 01/24/2025 Patient here today with his [...] as desired and he was transferred to [facility]. He is supposed to follow-up with pulmonology [...] at today's visit. Not available 07/08/2025 11:46:17 08/12/2025 08/12/2025 He is supposed to have a follow-up at the [facility] in [place] soon and then he is supposed to follow-up in [place] as well. He did have some time with constipation following surgery. Encouraged him to keep follow-up appts. He does not want to have labs done today. He does wonder what type of alpha 1 he has, will see if we can search the records and find out and would recommend he discuss with his GI and pulmonology provider. Not available 08/12/2025 17:38:07 09/11/2025 09/11/2025 Patient here today because his hip has been bothering him. He has an appt to see his surgeon after the first of the year. He thinks he is seeing cardiology in [place]. He has a neurology appt later this month but he doesn't want to have Botox injections and he thinks that's what they want to do for him. Not available 09/11/2025 11:48:55 Plan of Treatment Reminders Order Date Submit Date Provider Last Modified By Organization Details Last Modified Time Details Appointments OFFICE VISIT 15 2025 10:00A ENOCH SIMMONS Not available Not available Not available Lab noninvasi ve colorecta l cancer DNA + occult blood screening , QL, stool 2024 025 [facility], [address], [address], [place], [address], 08/19/2025 09:29:12 microalbu min/creat inine, mass ratio, urine 2024 025 [facility], [address], [place], [address], 07/09/2025 09:25:17 hemoglobi n A1C/hemog lobin total, QN, blood 2024 025 FAHE[facility], [address], [address], [place], [address], 07/08/2025 12:30:33 CMP, serum or plasma 2024 025 [facility], [address] [facility], [address], [address], 07/08/2025 11:40:00 lipid panel, blood 2024 025 [facility], [address] [facility], [facility] [address], [place], [address], 07/08/2025 11:40:04 CBC 2024 025 [facility], [address] [facility], [facility] 1, [place], [address], 07/08/2025 11:13:[address] referral [address] [facility], [address] [place], [address], 08/07/2025 15:04:13 Procedures None recorded. Surgeries None recorded. Imaging XR, hip, unilatera l, 2 or 3 view 2024 [email or web address] [facility], [address] [place], [address], 09/11/2025 11:57:58 Medication Orders prednison e 20 mg tablet 2024 025 [facility], [address] [place], [address], 09/11/2025 14:22:20 tamsulosi n 0.4 mg capsule 2024 025 [facility] [place], [address] [place], [address], 08/12/2025 12:11:38 furosemid e 20 mg tablet 2024 025 [facility], [facility] [place], [address], 04/08/2025 18:55:40 amoxicill in 875 mg-potass ium clavulana te 125 mg tablet 2024 025 [facility], [facility] [place], [address], 07/08/2025 11:26:29 prednison e 20 mg tablet 2024 025 [facility], [facility] [place], [address], 02/05/2025 05:01:29 Patient TargetsNo targets recorded. Patient Instructions Encounter Date Encounter Id Patient Instructions Last Modified By Organization Details Last Modified Time 01/24/2025 [id number] Call or return for questions or concerns. Not available 01/24/2025 13:22:03 04/01/2025 [id number] hospital discharge follow up* Not available 04/12/2025 10:04:34 Call or return for questions or concerns. Not available 04/12/2025 10:02:30 07/08/2025 [id number] Call or return for questions or concerns. Not available 07/08/2025 10:02:25 08/12/2025 [id number] hospital discharge follow up* Not available 08/12/2025 11:52:11 Call or return for questions or concerns. Not available 08/12/2025 11:50:29 09/11/2025 [id number] Call or return for questions or concerns. Not available 09/11/2025 11:49:00 Reason for Referral Neurologist Referral for Tyson quent headache Referring Physician: Christel Caldwell, Family Medicine, Encounter Date: 07/08/2025 Results Created Date Observation Date Name Description Value Unit Range Abnormal Flag Note LastModifiedBy Organization Detail LastModifiedTime 04/12/2004/12/2025 hospi cyril disch sallye raquelo w up* Records Reviewed Yes Not Available [facility] ( [facility]) [address] [place], [address], 04/12/2025 10:01:26 04/12/2004/12/2025 hospi cyril pemberton w up* Medications Reconciles Yes Not Available [facility] ([facility]) [address] [place], [address], 04/12/2025 10:01:26 07/08/2007/08/2025 CBC WBC 8.1 x10 4.5-10 .5 Not Available [facility] [address] [facility] 1, [place], [address], 07/08/2025 11:13:33 07/08/2007/08/2025 CBC RBC 5.09 x10 4.30-5 .90 Not Available [facility] [address] [facility] Tonye [facility] 1, [place], [address], 07/08/2025 11:13:33 07/08/20 25 07/08/2025 CBC HGB 18.5 g/dL 13.5-1 8.0 high Not Available [facility] [address] [facility] Tonye [facility] 1, [place], [address], 07/08/2025 11:13:33 07/08/2007/08/2025 CBC HCT 56.7 % 35.0-6 0.0 Not Available [facility] [address] [facility] Tonye [facility] 1, [place], [address], 07/08/2025 11:13:33 07/08/2007/08/2025 CBC MCV 111.4 fL 80.0-9 9.9 high Not Available [facility] [address] [facility] Tonye [facility] 1, [place], [address], 07/08/2025 11:13:33 07/08/2007/08/2025 CBC MCH 36.2 pg 27.0-3 2.0 high Not Available [facility] [address] [facility] [address] [facility] 1, [place], [address], 07/08/2025 11:13:33 07/08/20 25 07/08/2025 CBC MCHC 32.5 g/dL 32.0-3 6.0 Not Available [facility] [place] [facility] [address] [facility] 1, [place], [address], 07/08/2025 11:13:33 07/08/2007/08/2025 CBC RDW 14.2 % 11.5-1 4.5 Not Available [facility] [place] [facility] [address] [facility] 1, [place], [address], 07/08/2025 11:13:33 07/08/2007/08/2025 CBC plt 231.3 x10 150.0- 451.0 Not Available [facility] [place] [facility] [address] [facility] 1, [place], [address], 07/08/2025 11:13:33 07/08/2007/08/2025 CBC lymphocytes % 32.2 % 20.0-5 0.0 Not Available [facility] [place] [facility] [address] [facility] 1, [place], [address], 07/08/2025 11:13:33 07/08/2007/08/2025 CBC granulcytes % 60.3 % 30.0-7 0.0 Not Available [facility] [place] [facility] [address] [place] Autumn [facility] 1, [place], [address], 07/08/2025 11:13:33 07/08/20 25 07/08/2025 CBC monocytes % 5.1 % 2.0-16 .0 Not Available [facility] [place] [facility] [address] [facility] 1, [place], [address], 07/08/2025 11:13:33 07/08/20 25 07/08/2025 CBC granulcytes# 4.9 x10 Not Katherine ilable [facility] [address] [facility] 1, [place], [address], 07/08/2025 11:13:33 07/08/20 25 07/08/2025 CBC lymphocytes # 2.6 x10 Not Available [facility] [address] [facility] 1, [place], [address], 07/08/2025 11:13:33 07/08/2007/08/2025 CBC monocytes # 0.4 x10 Not Avai lable [facility] [address] [address], [place], [address], 07/08/2025 11:13:33 07/08/20 25 07/08/2025 CMP (MALE ) glucose 124.0 mg/dL 60.0-9 9.0 high Not Available [facility] 5 [facility] 1, [place], [address], 07/08/2025 11:40:00 07/08/20 25 07/08/2025 CMP (MALE ) BUN (blood urea nitrogen) 19.0 mg/dL 10.0-2 6.0 Not Available [address] [address], [place], [address], 07/08/2025 11:40:00 07/08/20 25 07/08/2025 CMP (MALE ) creatinine (serum) 0.9 mg/dL 0.4-1. 5 Not Available [facility] [address] [facility] 1, [place], [address], 07/08/2025 11:40:00 07/08/20 25 07/08/2025 CMP (MALE ) BUN/creatini ne ratio 21.11 ratio Not Available [facility], [place], [address], 07/08/2025 11:40:00 07/08/2007/08/2025 CMP (MALE ) eGFR calculated 91.8 Not Available [facility] [address] [facility] Autumn [facility] 1, [place], [address], 07/08/2025 11:40:00 07/08/20 25 07/08/2025 CMP (MALE ) total protein 8.7 g/dL 6.0-8. 5 high Not Available [facility] [address] [facility], [place], [address], 07/08/2025 11:40:00 07/08/20 25 07/08/2025 CMP (MALE ) total bilirubin 0.6 mg/dL 0.2-1. 3 Not Available [facility] [address] [facility], [place], [address], 07/08/2025 11:40:00 07/08/20 25 07/08/2025 CMP (MALE ) albumin 4.6 g/dL 3.5-5. 5 Not Available [facility] [address] [facility], [place], [address], 07/08/2025 11:40:00 07/08/20 25 07/08/2025 CMP (MALE ) globulin 4.1 calc Not Available [facility] [address] [facility], [place], [address], 07/08/2025 11:40:00 07/08/20 25 07/08/2025 CMP (MALE ) AST (SGOT) 40.0 U/L 0.0-46 .0 Not Available [facility] [address] [facility] Autumn [facility] 1, [place], [address], 07/08/2025 11:40:00 10/07/07/08/2025 CMP (MALE ) altv (SGPT) 33.0 U/L 13.0-6 9.0 normal Not Available [facility] [address] [facility], [place], [address], 07/08/2025 11:40:00 07/08/20 25 07/08/2025 CMP (MALE ) A/G ratio 1.1 ratio Not Available [facility] [address] [facility] 1, [place], [address], 07/08/2025 11:40:00 07/08/2007/08/2025 CMP (MALE ) ALP phos 86.0 U/L 30.0-1 40.0 normal Not Available [facility] [address] [facility] 1, [place], [address], 07/08/2025 11:40:00 07/08/20 25 07/08/2025 CMP (MALE ) calcium 10.0 mg/dL 8.4-10 .5 Not Available [facility] [address] [facility] 1, [place], [address], 07/08/2025 11:40:00 07/08/20 25 07/08/2025 CMP (MALE ) sodium 133.0 mmol/ L 136.0- 145.0 low Not Available [facility] [address] [facility] 1, [place], [address], 07/08/2025 11:40:00 07/08/20 25 07/08/2025 CMP (MALE ) potassium 4.6 mmol/ L 3.5-5. 1 Not Available [facility] [place] [facility] [address] [facility] 1, [place], [address], 07/08/2025 11:40:00 07/08/20 25 07/08/2025 CMP (MALE ) chloride 101.0 mmol/ L 98.0-1 10.0 normal Not Available [facility] [place] [facility] [address] [facility] 1, [place], [address], 07/08/2025 11:40:00 07/08/2007/08/2025 CMP (MALE ) C02 22.0 mmol/ L 22.0-3 1.0 Not Available [facility] [place] [facility] [address] [place] [facility], [place], [address], 07/08/2025 11:40:00 07/08/2007/08/2025 CMP (MALE ) anion gap 10.0 calc Not Available [facility] [address] [place] [facility], [place], [address], 07/08/2025 11:40:00 07/08/2007/08/2025 CMP (MALE ) osmolality 278.5 calc Not Available [facility] [address] [place] [facility], [place], [address], 07/08/2025 11:40:00 07/08/20 25 07/08/2025 LIPID PROFI LE (MALE ) cholesterol 189.0 mg/dL 0.0-20 0.0 Not Available [facility] [address] [facility], [place], [address], 07/08/2025 11:40:04 07/08/20 25 07/08/2025 LIPID PROFI LE (MALE ) trig 360.0 mg/dL 0.0-15 0.0 high Not Available [facility] [place] [facility] [address] [place] Autumn [facility] 1, [place], [address], 07/08/2025 11:40:04 07/08/2007/08/2025 LIPID PROFI LE (MALE ) HDL - direct 38.0 mg/dL >40.0 low Not Available [facility] [address] [place] [facility], [place], [address], 07/08/2025 11:40:04 07/08/20 25 07/08/2025 LIPID PROFI LE (MALE ) VLDL - direct 72.0 mg/dL Not Available [facility] [address] [facility] 1, [place], [address], 07/08/2025 11:40:04 07/08/20 25 07/08/2025 LIPID PROFI LE (MALE ) LDL - direct 79.0 mg/dL 0.0-13 0.0 Not Available [facility] [address] [facility] 1, [place], [address], 07/08/2025 11:40:04 07/08/2007/08/2025 HBA1C hemaglobin A1C 5.9 4.2-6. 5 Not Available [facility] [address] [facility] 1, [place], [address], 07/08/2025 12:30:33 07/08/2007/09/2025 ALBUM IN, RANDO M URINE W/CRE ATINI NE creatinine, random urine 23 mg/dL 20-320 normal Not Available [facility] [address] [place], [address], 07/09/2025 09:25:17 07/08/2007/09/2025 ALBUM IN, RANDO M URINE W/CRE ATINI NE albumin, urine <0.2 mg/dL see note: normal Refer ence Range : Refer ence Range Not estab lishe d Not Available [facility] [address] [place], [address], 07/09/2025 09:25:17 07/08/2007/09/2025 ALBUM IN, RANDO M [...] a diagn ostic categ ory. Not Available [facility] [address] , [place], [address], 07/09/2025 09:25:17 08/12/20 25 08/12/2025 hospi cyril disch arge follo w up* Records Reviewed Yes Not Available [facility] ( [facility]) [address] [place] [address], [address], 08/12/2025 11:50:05 08/12/20 25 08/12/2025 hospi cyril disch arge follo w up* Medications Reconciles Yes Not Available [facility] ([facility]) [address] [place] [address], [address], 08/12/2025 11:50:05 08/25/20 25 08/25/2025 COLOG UARD cologuard result reportable NEGATI VE negati ve normal The Colog uard (TM) test was perfo rmed on this speci men. NEGAT ALLISON TEST RESUL T. A negat allison Colog uard resul t indic ates a low likel ihood that a color ectal cance r (CRC) or advan jesi adeno ma (narayan omato us polyp s with more advan jesi pre-m align ant featu res) is prese nt. The chanc e that a perso n with a negat allison Colog uard test has a color ectal cance r is less than 1 in 1500 (nega tive predi ctive value >99.9 %) or has an advan jesi adeno ma is less than 5.3% (nega tive predi ctive value 94.7% ). These data are based on a prosp ectiv e cross -sect ional study of 10,00 0 indiv idual s at [place] ge risk for color ectal cance r who were scree madelyn with both Colog uard and colon oscop y. (Wes Gaxiola et al, N Engl J Med 2014; 370(1 4):12 86-12 97) The mercy l value (refe rence range ) for this assay is negat allison. COLOG UARD RE-SC REENI NG RECOM MENDA TION: Perio dic color ectal cance r scree yajaira is an impor tant part of preve ntive healt hcare for asymp tomat ic indiv idual s at [place] ge risk for color ectal cance r. Follo wing a negat allison Colog uard resul t, the Ameri can Cance r Socie ty and U.S. Multi -Soci ety Task Force scree yajaira guide lines recom mend a Colog uard re-sc reeni ng inter becca of 3 years . Refer ences : Ameri can Cance r Socie ty Guide line for Color ectal Cance r Scree yajaira: https ://piter w.can cer.o rg/ca ncer/ colon -rect al-ca ncer/ detec tion- diagn osis- stagi ng/ac s-rec ommen datio ns.ht ml.; Felton GREEN, Dayna ramos CR, Yessi RAZO, Color ectal Cance r Scree yajaira: Recom menda tions for Physi cians and Patie nts from the U.S. Multi -Soci ety Task Force on Color ectal Cance r Scree yajaira , Am Valoire Gastr oente rolog y 2017; 112:1 016-1 030. TEST DESCR IPTIO N: [place] site algor ithmi c zhane sis of stool DNA-b iomar kers with hemog lobin immun oassa y. Quant itati ve value s of indiv idual bioma rkers are not repor table and are not assoc iated with indiv idual bioma rker resul t refer ence range s. Colog uard is inten ded for color ectal cance r scree yajaira of adult s of eithe r sex, 45 years or older , who are at [facility] for color ectal cance r (CRC) . Colog uard has been appro yesenia for use by the U.S. FDA. The perfo rmanc e of Colog uard was estab lishe d in a cross secti onal study of [facility] adult s aged 50-84 . Colog uard perfo rmanc e in patie nts ages 45 to 49 years was estim ated by lance-g charlene zhane sis of near- age group s. Colon oscop ies perfo rmed for a posit allison resul t may find as the most clini rigo signi vignesh t gillian n: color ectal cance r [4.0% ], advan jesi adeno ma (incl uding sessi le mahi kimmy polyp s great er than or equal to 1cm diame ter) [20%] or non- advan jesi adeno ma [31%] ; or no color ectal neopl britt [45%] . These estim ates are deriv ed from a prosp ectiv e cross -sect ional scree yajaira study of 0 indiv idual s at [facility] risk for color ectal cance r who were scree madelyn with both Colog uard and colon oscop y. (Wes An al, N Engl J Med 2014; 370(1 4):12 86-12 97.) Colog uard may produ ce a false negat allison or false posit allison resul t (no color ectal cance r or preca ncero us polyp prese nt at colon oscop y follo w up). A negat allison Colog uard test resul t does not guara ntee the absen ce of CRC or advan jesi adeno ma (pre- cance r). The curre nt Colog uard scree yajaira inter becca is every 3 years . (Amer ican Cance r Socie ty and U.S. Multi -Soci ety Task Force ). Colog uard perfo rmanc e data in a 0 patie nt pivot al study using colon oscop y as the refer ence metho d can be acces sed at the follo wing locat ion: www.e xactl abs.c om/re sulsamantha . Addit ional descr iptio n of the Colog uard test proce ss, warni ngs and preca ution s can be found at www.c sanchez victord.c om. Not Available [facility] [address], [place], [address], 08/31/2025 17:47:27 12/27/19 25 12/25/2024 US, abdom en, compl ete No observ ation record ed. [email or web address] [facility] [address] [place], [address], 12/26/2024 17:22:43 Result Notes None recorded. Problems Name Problem SNOMED Code Status Onset Date Resolution Date Notes Provider Name and Address Organization Details Recorded Time Decompens ated cardiac failure [id number] Rodney CALDWELL, [address], [address], [facility] 5 10:03:00 Chondroco stal joint sprain [id number] Rodney CALDWELL, [address], [address], [facility] 5 10:03:00 Acute respirato ry failure [id number] Rodney CALDWELL, [address], [address], [facility] 5 10:03:00 Edema of lower extremity [id number] Rodney CALDWELL [address], [address], [facility] 5 12:07:01 Tobacco user [id number] Rodney CALDWELL [address], [address] [place] [address] 5, [facility] 5 12:07:01 Alcohol use disorder Active CHRISTEL CALDWELL, [address], [address] [place] [address] 5, [facility] 5 12:07:01 Acute exacerbat ion of chronic obstructi ve pulmonary disease [id number] Rodney CALDWELL, [address], [address] [place] [address] 5, [facility] 5 12:07:01 Pneumonia [id number] Rodney CALDWELL, [address], [address] [place] [address] 5, [facility] 5 12:07:02 Obesity [id number] Rodney CALDWELL, [address], [address] [place] [address], [facility] 5 12:07:02 Strain of muscle of lower limb 350223670 Rodney CALDWELL, [address], [address] [place] [address], [facility] 5 09:59:42 Diverticu litis of sigmoid colon [id number] Rodney CALDWELL, [address], [address] [place] [address], [facility] 5 10:01:40 Abdominal pain [id number] Rodney CALDWELL, [address], [address] [place] [address], [facility] 5 11:43:42 Patient encounter status [id number] Rodney CALDWELL, [address], [address], [facility] 5 11:43:42 Dehydrati on 83437124 Active CHRISTEL CALDWELL, [address], [address], [facility] 5 11:43:42 Near syncope 947624584 Active CHRISTEL CALDWELL, [address], [address], [facility] 5 11:43:42 Aortitis 59203985 Active CHRISTEL CALDWELL, [address], [address], [facility] 5 11:43:43 Essential hypertens ion 40648559 Active 2024 HERBER powell [facility] 5 10:41:33 Arthritis 9776914 Active 2024 HERBER [facility]ell [facility] 5 10:41:46 Chronic obstructi ve pulmonary disease 21648836 Active 2024 moderate with restricti on HERBER [facility] 5 23:34:34 Persisten t alcohol abuse 564636151 Active 2024 HERBER [facility] 5 10:45:31 Obstructi ve sleep apnea syndrome 55781786 Active 2024 HERBER [facility] 5 23:48:41 Congestiv e heart failure 09960590 Active 2024 systolic and diastolic HERBER [facility] 23:34:05 Hepatomeg jason 50376924 Active 2024 Mild HERBER powell, [facility] 5 23:10:02 Thromboan giitis obliteran s 38601785 Active 2024 HERBER AYDEE sherry, [facility] 5 18:32:11 Ischemic finger 419219824 Active 2024 CHRISTEL CALDWELL, [facility] [address] [place], [address], [facility] 5 11:43:42 Coronary arteriosc lerosis 18903799 Active 2024 Stent x 2 LAD HERBEROSIEL powell, [facility] 5 18:04:03 Erythrocy tosis 171438124 Active 2024 HERBER AYDEE sherry, [facility] 5 23:01:47 Cobalamin deficienc y 738384803 Active 2024 HERBER BAJWA sherry [facility] 23:04:40 Cardiomeg jason 7879467 Active 2024 moderate HERBER AYDEE [facility] 23:42:57 Steatotic liver disease 029205166 Active 2024 HERBER AYDEE sherry [facility] 5 23:10:18 Harmful pattern of use of alcohol 80189503 Active 2024 HERBER BAJWA sherry [facility] 5 23:31:25 Mixed hyperlipi demia 607380083 Active 2024 HERBER [facility] 5 23:47:05 Chronic hypoxemic respirato ry failure 078908964 Active 2024 HERBER AYDEE [facility] 23:48:11 Acute on chronic diastolic heart failure 644511529 Active 2024 HERBER [facility] LSiminLSiminCSimin 00:23:49 Chronic total occlusion of coronary artery 725029157695 103 Active 2024 RCA HERBER [facility], AlexaLSiminCSimin 00:31:09 Postopera tive pain 433897486 Active 2024 Durga Stallworth MD [address] [place] [address], [address] , [facility], Bernie 14:04:18 Problem Notes None recorded. Procedures Surgical History Date Name Laterality Status Provider Name and Address Organization Details Recorded Time 08/25/20 25 screening for malignant neoplasm of colon completed [facility] 09/03/2025 17:44:26 08/05/20 25 repair of aneurysm of abdominal aorta completed [facility], LSiminL.CSimin 08/08/2025 11:13:21 03/21/20 25 transthoracic echocardiography completed [facility], LSiminL.CSimin 04/03/2025 00:29:33 03/20/[address] of chest completed [facility], LSiminL.CSimin 03/23/2025 23:54:59 03/18/[address] of abdomen and pelvis completed [facility], AlexaLSiminCSimin 03/23/2025 23:27:54 03/18/20 25 Doppler ultrasonography of vein of lower limb completed [facility], AlexaL.CSimin 03/23/2025 23:28:47 03/13/20 25 angiography completed [facility] 03/23/2025 23:00:12 03/13/[address] of chest completed [facility] 03/23/2025 23:03:45 03/09/20 25 plain X-ray of chest completed [facility] 03/23/2025 23:25:38 03/08/[address] of chest completed [facility] 03/23/2025 23:20:05 03/08/20 25 plain X-ray of abdomen completed [facility], LSiminLSiminCSimin 03/23/2025 23:20:52 03/08/20 25 plain X-ray of chest completed [facility], LSiminL.CSimin 03/23/2025 23:21:56 03/06/20 25 ultrasonography of abdomen completed [facility] 03/23/2025 23:09:40 03/05/20 25 plain X-ray of chest completed [facility] 03/05/2025 18:57:58 03/05/20 25 echocardiography completed [facility] 03/23/2025 23:15:03 12/26/19 25 US scan of upper abdomen completed [facility], L.L.C[facility]in 12/26/2024 16:43:52 12/11/19 25 plain X-ray of chest completed [facility] 12/10/2024 18:08:52 Imaging Results None recorded. Procedure Notes None recorded. Medical Equipment None Reported. Allergies Allergen ID Allergen Name Allergen Category Reaction Reaction Severity Criticality Documentation Date Start Date Code Code System Note Provider Name and Address Organization Details Recorded Time 54263 sulfameth oxazole / trimethop rim medicatio n hives Not available Not available 09/11/20252016 32340 RxNorm Unsur e but think s this [...] mass index (BMI) Body weight Oxygen saturation Heart rate Systolic And Diastolic Provider Name and Address Organization Details Last Updated DateTime 5 170.18 cm 37.7 kg/m2 505759. 76 g 93 % 104 /min 140/88 mm[Hg] [facility] 5 12:59:38 Date Recorded Body height Body mass index (BMI) Body weight Heart rate Oxygen saturation Inhaled oxygen flow rate Respiratory rate Systolic And Diastolic Provider Name and Address Organization Details Last Updated DateTime 5 170.18 cm 37.3 kg/m2 240777. 98 g 100 /min 92 % 2 L/min 24 /min 132/78 mm[Hg] [facility] 5 09:58:44 Date Recorded Body height Body mass index (BMI) Body weight Oxygen saturation Inhaled oxygen flow rate Heart rate Respiratory rate Systolic And Diastolic Provider Name and Address Organization Details Last Updated DateTime 5 170.18 cm 37.1 kg/m2 951901. 39 g 98 % 2 L/min 100 /min 22 /min 122/70 mm[Hg] [facility] 5 09:46:08 Date Recorded Body height Body mass index (BMI) Body weight Heart rate Oxygen saturation Inhaled oxygen flow rate Respiratory rate Systolic And Diastolic Provider Name and Address Organization Details Last Updated DateTime 5 170.18 cm 36.6 kg/m2 796755. 61 g 100 /min 92 % 3 L/min 24 /min 122/82 mm[Hg] [facility] BAJ[facility] 5 11:24:21 Date Recorded Body height Body mass index (BMI) Body weight Oxygen saturation Inhaled oxygen flow rate Heart rate Respiratory rate Oxygen saturation Inhaled oxygen flow rate Heart rate Systolic And Diastolic Provider Name and Address Organization Details Last Updated DateTime 5 170.18 cm 36 kg/m2 197650. 25 g 88 % 2 L/min 112 /min 24 /min 91 % 2 L/min 98 /min 96/62 mm[Hg] [facility] BAJ[facility] 5 11:31:47 Social History Question Answer Notes LastModified by Organizat ion Details LastModified Time Tobacco Smoking Status Current Every Day Smoker [facility] 12/10/2024 10:38:46 What Is Your Level Of Caffeine Consumption? Moderate Coffee/Mt . Dew [email or web address] Information not available 12/10/2024 How Much Tobacco Do You Chew? 1/day Information not available 12/10/2024 What Was The Date Of Your Most Recent Tobacco Screening? 12/10/2024 Information not available 12/10/2024 What Is Your Current Pack Years? [email or web address] Information not available 12/10/2024 What Is Your Relationship Status? [email or web address] Information not available 12/10/2024 At What Age Did You Start Smoking Tobacco? 8 Information not available 12/10/2024 How Much Tobacco Do You Smoke? 2 PPD [email or web address] Information not available 12/10/2024 Has Tobacco Cessation [...] use any illicit or recreational drugs? No [email or web address] Information not available 12/10/2024 Do you or have you ever used any other forms of tobacco or nicotine? Yes [email or web address] Information not available 12/10/2024 What is your level of alcohol consumption? Heavy 3-4 shots of whiskey per day. [email or web address] Information not available 12/10/2024 Do you or have you ever used smokeless tobacco? Currently chews tobacco [email or web address] Information not available 12/10/2024 Are you currently employed? No disabled [email or web address] Information not available 12/10/2024 Are you able to walk independently without assistance or assistive devices? YESWOREST [email or web address] Information not available 12/10/2024 Are you able to care for yourself independently? Yes [email or web address] Information not available 12/10/2024 Do you or [...] accident when Irvin ramos was age 5 [email or web address] Not available 12/10/2024 10:35:22 Mother Malignant neoplasm of brain in her early 40's Not available 12/10/2024 10:36:03 Mother Essential hypertension [email or web address] Not available 10:36:23 Medical History Condition Response Coronary Artery Disease Y Heart Problems Y Arthritis Y Kidney Stones Y Hospitalizations Y Lung Disease Y COPD Y Reflux/GERD Y High Cholesterol Y Liver Disease Y Heart Disease Y Headaches Y Hypertension Y Immunizations Vaccine Type Date Status Note Provider Nam e and Address Organization Details Recorded Time Pneumococcal conjugate PCV20, polysaccharide LMM112 conjugate, adjuvant, PF 5 completed Not Available [facility] 09/11/2025 11:07:29 RSV, bivalent, protein subunit RSVpreF, diluent reconstituted, 0.5 mL, PF 5 completed Not Available [facility] 09/11/2025 11:07:29 Past Encounters Encounter ID Performer Location Encounter Start Date Encounter Closed Date Diagnosis/Indication Diagnosis SNOMED-CT Code Diagnosis ICD10 Code Diagnosis IMO Codes Diagnosis Note [id number] [facility] ([facility]) [address] [place] [phone] 5 12/10/2024 10:20:53 12/10/2024 11:23:35 Adult health examination 899727805 Z00.00 Establishi ng care. Hyperlipidemia 40304503 E78.5 Edema of l ower extremity 846834036 R60.0 Dyspnea 786474503 R06.00 Alpha-1-an titrypsin deficiency 08413703 E88.01 He is supposed to be contacting pulmonolog y at [facility] in [facility] to get an appointmen t. Obstructiv e sleep apnea of adult 7248678435 103 G47.33 Wore a CPAP for a while but has not worn it for approximat paulo 7-8 years. Arthritis 5030270 M19.90 Follows with rheumatchiquis cervantes. He is seen about every 6 months by her. Right uppe r quadrant pain 684060900 R10.11 Chronic ob structive pulmonary disease 02000194 J44.9 Stop Anoro. [id number] [facility] ([facility]) [address] [place] [id number] 12/24/2024 10:21:54 12/24/2024 11:34:12 Congestive heart failure 72386271 I50.9 Pruritic disorder 424308 002 L29.9 Familial p olycythemia vera 490610505 D75.0 Chronic insomnia 0952617 04 F51.04 Benign pro static hyperplasia 187684702 N40.1 Continue tamsulosin . Harmful pa ttern of use of alcohol 09458823 F10.10 Drinking daily. Cardiomegaly 4419743 I51 .7 Cardiology appt pending. [id number] [facility] ([facility]) [address] [place], [place] [address] 12/25/2024 10:15:37 12/26/2024 09:32:13 [id number] [facility] ([facility]) [address] [place] [address] 5 01/24/2025 12:19:09 01/24/2025 13:38:36 Chronic congestive heart failure 82246717 I50.9 8743554286 Acute exac erbation of chronic obstructive pulmonary disease 574794154 J44.1 [id number] [facility] ([facility]) [address] [place] [phone] 5 04/01/2025 09:35:21 04/14/2025 08:37:23 Coronary arteriosclerosis 64495574 I25.10 4003076852 recent LAD stent x 2 Chronic ob structive pulmonary disease 65410819 J44.9 Currently using oxygen. Pulmonolog y appt in May. [id number] [facility] ([facility]) [address] [place] [phone] 5 07/08/2025 09:36:17 07/08/2025 10:24:52 Essential hypertension 68164471 I10 Follows with cardiology . Chronic ob structive pulmonary disease 70254298 J44.9 Z99.81 J96.11 Follows with pulmonolog y. Harmful pa ttern of use of alcohol 82950779 F10.10 24712 Drinking daily but has cut back. Frequent headache 674544 003 R51.9 57790169 Hyperglycemia 32071779 R 73.9 53236 Obesity ca used by energy imbalance 970505095 E66.01 2905976 Diet/exerc ise. Rheumatoid arthritis of multiple joints 484003110 M06.9 [id number] Struggles with pain control. Chronic ki dney disease stage 3A 158531206 N18.31 44886917 Microalbum in today and CMP. [id number] [facility] ([facility]) [address] [place] [address] 08/12/2025 11:16:11 08/12/2025 12:08:37 History of repair of aneurysm of abdominal aorta 527819563 Z98.890 Z86.79 [id number] done @ [facility] in [facility] Poor stream of urine 162 328794 R39.12 4352623 Screening for malignant neoplasm of colon 622045825 Z12.11 [id number] [facility] ([facility]) [address] [place] [address] 09/11/2025 11:07:07 09/11/2025 11:56:51 Pain of hip region 14385555 M25.551 [id number] Health Concerns Section Related Observation LastModified by Organization Detai ls LastModified Time None Recorded Concern Status LastModified by Organization Details LastModified Time None Recorded Advance Directives Directive None Recorded Payers Insurance Date Sequence Insurance Name Policy Number Policy Polanco Covered Member ID Polanco Member ID Guarantor Name 04/01/2025 1 [facility] (MEDICAID HMO) Jaswinder Palmer [id number] Jaswinder Palmer 04/24/2025 2 [place] Jaswinder Palmer [id number] Jaswinder Palmer 04/01/2025 [facility] (MEDICAID HMO) Jaswinder Palmer [id number] Jaswinder Palmer 07/08/2025 2 [employer] [place] Jaswinder Palmer [id number] Jaswinder Palmer 07/08/2025 1 [place] Jaswinder Palmer [id number] Jaswinder Palmer 07/08/2025 [place] - [facility] (MEDICARE) Jaswinder Palmer [id number] Jaswinder Palmer 09/08/2025 [place] [facility] Jaswinder Palmer [id number] Jaswinder Palmer 09/08/2025 2 [place] Jaswinder Palmer [id number] Jaswinder Palmer 09/08/2025 1 [place] P[place] [id number] Jaswinder Palmer [id number] Jaswinder Palmer Notes Date Note Type Note Provider Name and Address Organization Details Recorded Time 5 text/html EdemaReported by PatientHPIFor context, patient reportsprior history of edema. For associated symptoms, patient reportsshortness of breathandshortness of breath with exertion. For location, patient reportsble. For quality, patient reportslegs swell equally(left leg is worse/falls asleep at the kitchen table). For duration, patient reportsconstant. For onset/timing, patient reportsstarted ___ years ago. [facility] [address] [place], [phone], [facility] 02/05/2025 10:21:08 5 text/html COPDReported by PatientHPI:For aggravating factors, patient reportsworse with cigarette smoking. For duration, patient reportschronic. For severity, patient reportsslowly worsening. For context, patient reportscigarette smoking. For alleviating factors, patient reportsrelieved with oxygen. [facility] [address] [place] [address], [phone], [facility] 04/12/2025 10:05:13 5 text/html Hypertension IM/FMReported [...] factors, patient reportsrelieved with restandrelieved with oxygen. [facility] [address] [place], [address], [facility], [facility]. 07/08/2025 11:46:22 text/html Joint PainReported by PatientHPIFor location, patient reportspain radiating to the buttocksbut reportsright hip. For quality, patient reportsdull. For severity, patient reportsno change. For duration, patient reportspresent for 1-6 months. For timing, patient reportsconstant. [facility] [address] [place], [address], [facility], [facility]. 09/11/2025 11:51:42
--- OUTSIDE RECORDS SUMMARY | 2025-09-12 04:24 | XMS_ITS | Continuity of Care Document ---
Author Organization CANDIDA Bang [facility] Bernie Bhandari, [facility] ([facility]) Address [address] [place] [address] Assessment Encounter Date Assessment Date Assessment LastModified by Organization Details LastModified Time 09/11/2025 09/11/2025 Patient here today because his hip has been bothering him. He has an appt to see his surgeon after the first of the year. He thinks he is seeing cardiology in [place]. He has a neurology appt later this [...] Not available Not available Not available Lab None recorded. Referral None recorded. Procedures None recorded. Surgeries None recorded. Imaging XR, hip, unilatera l, 2 or 3 view 2024 025 [email or web address] [facility], [address] [place], [address], 09/11/2025 11:57:58 Medication Orders prednison e 20 mg tablet 2024 025 [facility] [place], [address] [place], [address], 09/11/2025 14:22:20 Patient TargetsNo targets recorded. Patient Instructions Encounter Date Encounter Id Patient Instructions Last Modified By Organization Details Last Modified Time 09/11/2025 [id number] Call or return for questions or concerns. Not available 09/11/2025 11:49:00 Reason for Referral None Reported. Results Created Date Observation Date Name Description Value Unit Range Abnormal Flag Note LastModifiedBy Organization Detail LastModifiedTime 08/12/2008/12/2025 hospi cyril disch arge follo w up* Records Reviewed Yes Not Available [facility] ( [facility]) [address] [place], [address], 08/12/2025 11:50:05 08/12/20 25 08/12/2025 hospi cyril disch arge follo w up* Medications Reconciles Yes Not Available [facility] ([facility]) [address] [place], [address], 08/12/2025 11:50:05 08/25/20 25 08/25/2025 COLOG UARD [...] of 10,00 0 indiv idual s at [facility] risk for color ectal cance r who were scree madelyn with both Colog uard and colon oscop y. (Wes Gaxiola et al, N Engl J Med 2014; 370(1 4):12 86-12 97) The cem l value (refe rence range ) for this assay is negat allison. COLOG UARD RE-SC REENI NG RECOM MENDA TION: Perio dic color ectal cance r scree yajaira is an impor tant part of preve ntive healt hcare for asymp tomat ic indiv idual s at [facility] risk for color ectal cance r. Follo [...] ng/ac s-rec ommen datio ns.ht ml.; Felton DK, Dayna ramos CR, Yessi EugeneK, Color ectal Cance r Scree yajaira: Recom menda tions for Physi cians and Patie nts from the U.S. Multi -Soci ety Task Force on Color ectal Cance r Scree yajaira , Raimundo dahl y 2017; 112:1 016-1 030. TEST DESCR IPTIO N: Haskins site algor ithmi c zhane sis of [...] years or older , who are at [facility] for color ectal cance r (CRC) . Colog uard has been appro yesenia for use by the [place]. FDA. The perfo rmanc e of Colog uard was estab lishe d in a cross secti onal study of avera ge-ri sk adult s aged 50-84 . Colog uard perfo rmanc e in patie nts ages 45 to 49 years was estim ated by sub-g roup zhane sis of near- age group s. Colon oscop ies perfo rmed for a posit allison resul t may find as the most clini rigo signi fican t lesio n: color ectal cance r [4.0% ], [...] study of 0 indiv idual s at [facility] risk for color ectal cance r who [...] d [facility] ion: www.e xactl abs.c om/re sults . Addit ional descr iptio n of the Colog uard test proce ss, warni ngs and preca ution s can be found at www.c sanchez victord.c om. Not Available [employer] [address] [place], [address], 08/31/2025 17:47:27 Result Notes None recorded. Problems Name Problem SNOMED Code Status Onset Date Resolution Date Notes Provider Name and Address Organization Details Recorded Time Decompens ated cardiac failure [id number] Rodney CALDWELL, [address], [address], [facility] 5 10:03:00 Chondroco stal joint sprain 808467366 Rodney CALDWELL, [address], [address], [facility] 5 10:03:00 Acute respirato ry failure [id number] Rodney CALDWELL, [address], [address], [facility] 5 10:03:00 Edema of lower extremity 400123702 Rodney CALDWELL, [address], [address], [facility] 5 12:07:01 Tobacco user [id number] Rodney CALDWELL, [address], [address], [facility] 5 12:07:01 Alcohol use disorder Rodney CALDWELL, [address], [address], [facility] 5 12:07:01 Acute exacerbat ion of chronic obstructi ve pulmonary disease 054079177 Rodney CALDWELL, [address], [address], [facility] 5 12:07:01 Pneumonia [id number] Rodney CALDWELL, [address], [address] [place] [address] 5, [facility] 5 12:07:02 Obesity [id number] Rodney CALDWELL, [address], [address] [place] [address] [address], [facility] 5 12:07:02 Strain of muscle of lower limb 404130767 Rodney CALDWELL, [address], [address] [place] [address] [address], [facility] 5 09:59:42 Diverticu litis of sigmoid colon 523979394 Rodnye CALDWELL, [address], [address] [place] [address] [address], [facility] 5 10:01:40 Abdominal pain [id number] Rodney CALDWELL, [address], [address] [place] [address] [address], [facility] 5 11:43:42 Patient encounter status [id number] Rodney CALDWELL, [address], [address] [place] [address] 5, [facility] 5 11:43:42 Dehydrati on [id number] Rodney CALDWELL, [address], [address] [place] [address] [address], [facility] 5 11:43:42 Near syncope [id number] Rodney CALDWELL, [address], [address] [place] [address] [address], [facility] 5 11:43:42 Aortitis [id number] Rodney CALDWELL, PERFORATOR OPERATOR [address] [place], [address], [facility]in 5 11:43:43 Essential hypertens ion 67845734 Active 2024 HERBER powell, [facility] 5 10:41:33 Arthritis 0822006 Active 2024 HERBER powell, [facility] 5 10:41:46 Chronic obstructi ve pulmonary disease 25566661 Active 2024 moderate with restricti on [facility] [place] 5 23:34:34 Persisten t alcohol abuse 139346931 Active 2024 HERBER powell [facility] 5 10:45:31 Obstructi ve sleep apnea syndrome 65068131 Active 2024 HERBER powell, [facility] 5 23:48:41 Congestiv e heart failure 69426268 Active 2024 systolic and diastolic [facility] 5 23:34:05 Hepatomeg jason 48552627 Active 2024 Mild HERBER powell [facility] 5 23:10:02 Thromboan giitis obliteran s 26729560 Active 2024 HERBER powell, [facility] 18:32:11 Ischemic finger 469274613 Active 2024 SHAVONNERadha GUNDERSONPAULETTE, [facility] [address] [place], [address], [facility] 5 11:43:42 Coronary arteriosc lerosis 61222722 Active 2024 Stent x 2 LAD HERBER AYDEE sherry [facility] 5 18:04:03 Erythrocy tosis 992210535 Active 2024 HERBEROSIEL powell [facility] 5 23:01:47 Cobalamin deficienc y 529851875 Active 2024 HERBER BAJWA sherry [facility] 5 23:04:40 Cardiomeg jason 4551595 Active 2024 moderate HERBER BAJWA sherry [facility] 5 23:42:57 Steatotic liver disease 105767007 Active 2024 HERBER BAJWA sherry [facility] 5 23:10:18 Harmful pattern of use of alcohol 78901356 Active 2024 HERBER BAJWA sherry [facility] 5 23:31:25 Mixed hyperlipi demia 957839182 Active 2024 HERBER BAJWA sherry [facility] 5 23:47:05 Chronic hypoxemic respirato ry failure 795161613 Active 2024 HERBER powell [facility] 5 23:48:11 Acute on chronic diastolic heart failure 968057605 Active 2024 HERBER BAJWA sherry [facility] 5 00:23:49 Chronic total occlusion of coronary artery 997726999338 103 Active 2024 RCA HERBER BAJWA sherry [facility] 5 00:31:09 Postopera tive pain 571911593 Active 2024 Durga Stallworth MD [address] [place] [address], [address], [facility], Bernie 14:04:18 Problem Notes None recorded. Procedures Surgical History Date Name Laterality Status Provider Name and Address Organization Details Recorded Time 08/25/20 25 screening for malignant neoplasm of colon completed [facility], Bernie 09/03/2025 17:44:26 08/05/20 25 repair of aneurysm of abdominal aorta completed [facility], DeysiCSimin 08/08/2025 11:13:21 03/21/20 25 transthoracic echocardiography completed [facility], Bernie 04/03/2025 00:29:33 03/20/[address] of chest completed [facility], Bernie 03/23/2025 23:54:59 03/18/[address] of abdomen and pelvis completed [facility], AlexaLSiminCSimin 03/23/2025 23:27:54 03/18/20 25 Doppler ultrasonography of vein of lower limb completed [facility], AlexaLSergei 03/23/2025 23:28:47 03/13/20 25 angiography completed [facility], AlexaLSiminCSimin 03/23/2025 23:00:12 03/13/[address] of chest completed [facility], AlexaLSergei 03/23/2025 23:03:45 03/09/20 25 plain [facility] 03/23/2025 23:25:38 03/08/[address] of chest completed [facility], AlexaLSergei 03/23/2025 23:20:05 03/08/20 25 plain [facility] 03/23/2025 23:20:52 03/08/20 25 plain X-ray of chest completed [facility], Saleem.LSiminCSimin 03/23/2025 23:21:56 03/06/20 25 ultrasonography of abdomen completed [facility], L.L.CSimin 03/23/2025 23:09:40 03/05/20 25 plain X-ray of chest completed [facility], AlexaLSiminCSimin 03/05/2025 18:57:58 03/05/20 25 echocardiography completed [facility], Saleem.LSiminCSimin 03/23/2025 23:15:03 12/26/19 25 US scan of upper abdomen completed [facility], LSiminLSiminCSimin 12/26/2024 16:43:52 12/11/19 25 plain X-ray of chest completed [facility], AlexaLSiminCSimin 12/10/2024 18:08:52 Imaging Results None recorded. Procedure Notes None recorded. Medical Equipment None Reported. Allergies Allergen ID Allergen Name Allergen Category Reaction Reaction Severity Criticality Documentation Date Start Date Code Code System Note Provider Name and Address Organization Details Recorded Time 85387 sulfameth oxazole / trimethop rim medicatio n hives Not available Not available 09/11/20252016 18012 RxNorm Unsur e but think s this [...] Updated DateTime 5 170.18 cm 36 kg/m2 607132. 25 g 88 % 2 L/min 112 /min 24 /min 91 % 2 L/min 98 /min 96/62 mm[Hg] HERBER BAJWA [facility] 11:31:47 Social History Question Answer Notes LastModified by Organizat ion Details LastModified Time Tobacco Smoking Status Current Every Day Smoker HERBER BAJWA [facility] 12/10/2024 10:38:46 What Is Your [...] Much Tobacco Do You Smoke? 2 PPD [email or web address] Information not available 12/10/2024 Has Tobacco Cessation [...] you consume alcohol? 5-7 times per week [email or web address] Information not available 12/10/2024 Do you use any illicit or recreational drugs? No [email or web address] Information not available 12/10/2024 Do you or have you ever used any other forms of tobacco or nicotine? Yes Information not available 12/10/2024 What is your level of alcohol consumption? Heavy 3-4 shots of whiskey per day. [email or web address] Information not available 12/10/2024 Do you or have you ever used smokeless tobacco? Currently chews tobacco [email or web address] Information not available 12/10/2024 Are you currently employed? No disabled Information not available 12/10/2024 Are you able to walk independently without assistance or assistive devices? YESWOREST [email or web address] Information not available 12/10/2024 Are you able to care for yourself independently? Yes [email or web address] Information not available 12/10/2024 Do you or [...] accident when Irvin ramos was age 5 [email or web address] Not available 12/10/2024 10:35:22 Mother Malignant neoplasm of brain in her early 40's [email or web address] Not available 12/10/2024 10:36:03 Mother Essential hypertension [...] Details Recorded Time Pneumococcal conjugate PCV20, polysaccharide CYP476 conjugate, adjuvant, PF 5 completed Not Available [facility] 09/11/2025 11:07:29 RSV, bivalent, protein subunit RSVpreF, diluent reconstituted, 0.5 mL, PF 5 completed Not Available [facility] 09/11/2025 11:07:29 Past Encounters Encounter ID Performer Location Encounter Start Date Encounter Closed Date Diagnosis/Indication Diagnosis SNOMED-CT Code Diagnosis ICD10 Code Diagnosis IMO Codes Diagnosis Note [id number] [facility] ([facility]) [address] [place] [address] 08/12/2025 11:16:11 08/12/2025 12:08:37 History of repair of aneurysm of abdominal aorta [id number] Z98.890 Z86.79 1888457 done @ [facility] in [facility] Poor stream of urine 162 831995 R39.12 7124016 Screening for malignant neoplasm of colon 047710164 Z12.11 564000 [id number] [facility] ([facility]) [address] [place] [address] 09/11/2025 11:07:07 09/11/2025 11:56:51 Pain of hip region 68541247 M25.551 130272 Health Concerns Section Related Observation LastModified by Organization Detai ls LastModified Time None Recorded Concern Status LastModified by Organization Details LastModified Time None Recorded Payers Encounter Date Sequence Insurance Name Policy Number Policy Polanco Covered Member ID Polanco Member ID Guarantor Name 09/11/2025 1 [place] - [place]PO) [id number] Jaswinder Palmer [id number] Jaswinedr Palmer 09/11/2025 2 [place] Jaswinder Palmer [id number] Jaswinder Palmer Notes Date Note Type Note Provider Name and Address Organization Details Recorded Time 09/11/2025 text/html Joint PainReport ed by PatientHPIFor location, patient reportspain radiating to the buttocksbut reportsright hip. For quality, patient reportsdull. For severity, patient reportsno change. For duration, patient reportspresent for 1-6 months. For timing, patient reportsconstant. SHAVONNE CALDWELL, PERFORATOR OPERATOR [address] [place], [address], [facility] 09/11/2025 11:51:42
--- OUTSIDE RECORDS SUMMARY | 2025-09-12 04:24 | XMS_ITS | Clinical Summary ---
Author Organization [facility] Address [address] Leyva: Epic Prelude ADT [place] [address] Care Team Providers Care Public Policy Coordinator Name Role Phone Unavailable Primary Care Provider Unavailabl e Allergies No known active allergies Medications Saw Redmond Fruit 450 mg Capsule Take 450 mg by mouth 2 times daily as needed. Active Anoro Ellipta 62.5-25 mcg/actuation Disk with Device Take 1 Puff by inhalation daily. Active tamsulosin (FLOMAX) 0.4 mg capsule Take 0.4 mg by mouth daily. Active Ventolin HFA 90 mcg/actuation inhaler Take 2 Puffs by inhalation every 4 hours as needed for Shortness of Breath or Wheezing. Active Humira,CF, Pen 40 mg/0.4 mL Pen Injector Kit Inject 40 mg by subcutaneous injection every 2 weeks. Active budesonide (PULMICORT RESPULE) 0.5 mg/2 mL Suspension for Nebulization Take 0.5 mg by inhalation 2 times daily. Active ipratropium-albu teroL (DUONEB) 0.5 mg-3 mg(2.5 mg base)/3 mL Solution for Nebulization Take by inhalation every 6 hours as needed. Active metoprolol succinate (TOPROL XL) 25 mg Extended Release 24 hour tablet Take 1 Tablet (25 mg) by mouth daily. 30 Tablet 08/08/20 25 Active rosuvastatin (CRESTOR) 20 mg tablet Take 1 Tablet (20 mg) by mouth daily at bedtime. 30 Tablet 08/07/2025 3:25 PM BOTTOM TURNER 08/07/20 25 Active spironolactone (ALDACTONE) 25 mg tablet Take 1 Tablet (25 mg) by mouth daily. 30 Tablet 08/08/20 25 Active oxygen home delivery 0 liters oxygen at rest and 3 liters with activity via nasal canula with portability for 99 months 1 Each 08/07/20 Active bumetanide (BUMEX) 1 mg tablet Take 1 Tablet (1 mg) by mouth 2 times daily for 14 days. 28 Tablet 08/07/2025 3:25 PM BOTTOM TURNER 08/07/20 25 025 amoxicillin-clav ulanate (AUGMENTIN) 875-125 mg tablet Take 1 Tablet by mouth every 12 hours for 7 days. 14 Tablet 08/07/2025 3:25 PM BOTTOM TURNER 08/07/20 025 Active Problems Problem Noted Date Diagnosed Date Aortitis 08/05/2025 Abdominal aortic aneurysm 08/05/2025 Community acquired pneumonia 08/05/2025 Chronic hypoxic respiratory failure 03/23/2025 Tobacco use [...] Encounters Date Type Department Care Team Description 09/09/2025 External Device Data STL ABSTRACTION Provider, Abstract 09/09/2025 Telephone [facility] Vascular Surgery [place] [address] [place] [address] Indira Salgado DO Appointment Notification 09/02/2025 External Device Data STL ABSTRACTION Provider, Abstract 08/14/2025 Orders Only [facility] Health Information Management [place] [address] [place] [address] Provider, Abstract 08/12/2025 External Device Data ST[facility] ABSTRACTION Provider, Abstract 08/12/2025 External Device Data ST[facility] ABSTRACTION Provider, Abstract 08/12/2025 External Device Data ST[facility] ABSTRACTION Provider, Abstract 08/11/2025 Orders Only [facility] Vascular Surgery [place] [address] [place] [address] Indira Salgado DO Infrarenal abdominal aortic aneurysm (AAA) without rupture (Primary Dx) 08/06/2025 External Device Data STL ABSTRACTION Provider, Abstract 08/05/2025 3:29 PM BOTTOM TURNER Anesthesia Event [facility] Operating Room [address] [place] [address] Miki Liriano MD Dickinson, Taylor R (Student), RN 08/05/2025 12:33 PM BOTTOM TURNER - 08/07/2025 3:39 PM BOTTOM TURNER Hospital Encounter [facility] 4D Surgery Heart Lung [address] [place] [address] Candis Medrano MD Phelps, Jamie, MD [place], MD Allie Reynoso, Aguilar Baez MD Aortitis Discharge Disposition: Home or Self Care 08/05/2025 12:31 PM BOTTOM TURNER - 08/05/2025 3:27 PM BOTTOM TURNER Surgery [facility] Operating Room [address] [place] [address] Indira Salgado DO ABDOMINAL AORTA ANEURYSM ENDOVASCULAR REPAIR 07/15/2025 External Device Data STL ABSTRACTION Provider, [...] worry about transportation for future doctor visits, mushroom picker medication, etc.? No 2024 Housing Stability [...] on file Legal Sex Male 12:31 AM BOTTOM TURNER Gender Identity Not on file Sexual Orientation Not on file Last Filed Vital Signs Vital Sign Reading Time Taken Comments Blood Pressure 119/66 08/07/2025 2:50 PM BOTTOM TURNER Pulse 90 08/07/2025 2:50 PM BOTTOM TURNER Temperature 36.4 C (97.5 F) 08/07/2025 2:50 PM BOTTOM TURNER Respiratory Rate 12 08/07/2025 2:50 PM BOTTOM TURNER Oxygen Saturation 96% 08/07/2025 2:50 PM BOTTOM TURNER Inhaled Oxygen Concentration - - Weight 107.1 kg (236 lb 1.8 oz) 08/07/2025 3:15 AM BOTTOM TURNER Height 172.7 cm (5' 8 ) 04/16/2025 1:18 PM CDT Body Mass Index 35.9 04/16/2025 1:18 PM CDT Plan of Treatment Upcoming Encounters Date Type Department Care Team (Late st Contact Info) Description 10/13/2025 10:30 AM BOTTOM TURNER Appointment [facility] [address] [place] [address] Indira Salgado DO [address] [place] [address] 10/13/2025 1:00 PM BOTTOM TURNER Office Visit [facility] Gastroenterology- [place] [address] [place] [address] Veronica Lianetdexbrian, REAL TIME OPERATOR [address] [place] [address] 10/13/2025 2:00 PM BOTTOM TURNER Office Visit [facility] Vascular Surgery [place] [address] [place] [address] Indira Salgado DO [address] [facility] [address] [place] [address] Health Maintenance Due Date Last Done Comments DTAP/TDAP/TD VACCINES (1 - Tdap) 1985 HEPATITIS B VACCINES (1 of 3 - 19+ 3-dose series) 1985 COLORECTAL SCREENING 2011 Colorectal Cancer Screening 2011 FIT-DNA Q 3 years 2011 FIT/FOBT Q 1 year 2011 Flex Sig/CT Colonography Q 5 years 2011 ZOSTER VACCINE (1 of 2) 2016 Medicare Advantage (OR) Prev entative Visit/Annual Wellness Visit 10/02/2024 INFLUENZA VACCINE (#1) 2025 Pre-Diabetes and Diabetes Screening 03/19/202803/19, 05/07/2018 Medical Devices Implanted Type Area New Car Get Ready Mechanic Device Identifier Shelf Expiration Date Model / Serial / Lot Closure Perclose Prostyle Sut Mediate 01657-85 - [id number] Implanted:Qty: 1 on 08/05/2025 by Indira Salgado DO at [facility] Closure Device N/A: Abdomen [employer]ASC [employer]ICE [id number] 06/01/2027 12161-21 / / [id number] Closure Perclose Prostyle Sut Mediate 66942-64 - [id number] Implanted:Qty: 1 on 08/05/2025 by Indira Salgado DO at [facility] Closure Device N/A: Abdomen [employer]ICE [id number] 06/01/2027 33721-12 / / [id number] Closure Perclose Prostyle Sut Mediate 88536-28 - [id number] Implanted:Qty: 1 on 08/05/2025 by Indira Salgado DO at [facility] Closure Device N/A: Abdomen [employer] VASC DEVICE [id number] 06/01/2027 87161-96 / / [id number] Closure Perclose Prostyle Sut Mediate 21063-27 - [id number] Implanted:Qty: 1 on 08/05/2025 by Indira Salgado DO at [facility] Closure Device N/A: Abdomen [employer]ICE [id number] 06/01/2027 42202-70 / / [id number] Closure Perclose Prostyle Sut Mediate 99418-85 - [id number] Implanted:Qty: 1 on 08/05/2025 by Indira Salgado DO at [facility] Closure Device N/A: Abdomen [employer] VASC [employer]ICE [id number] 06/01/2027 76860-69 / / [id number] Stent Xcldr C3 Trnk-Ipsilat Leg [id number] - [id number] Implanted:Qty: 1 on 08/05/2025 by Indira Salgado DO at [facility] Stent N/A: Aorta [employer] [id number] 07/09/2027 [id number] / [id number] / Stent Xcldr Contrlat Leg [id number] - [id number] Implanted:Qty: 1 on 08/05/2025 by Indira Salgado DO at [facility] Stent N/A: Abdomen [employer] [id number] 12/15/2027 [id number] / [id number] / Procedures Procedure Name Priority Date/Time Associated Diagnosis Comments TELEMETRY REPORT 08/08/2025 2:28 AM BOTTOM TURNER HOME O2 EVAL (DESATURATION SCREEN) Routine 08/07/2025 10:29 AM BOTTOM TURNER BASIC METABOLIC PANEL Routine 08/07/2025 5:15 AM BOTTOM TURNER CBC WITH DIFFERENTIAL Routine 08/07/2025 5:15 AM BOTTOM TURNER VANCOMYCIN LEVEL TROUGH Timed Study 08/07/2025 5:15 AM BOTTOM TURNER BASIC METABOLIC PANEL Routine 08/06/2025 3:36 PM BOTTOM TURNER COMPREHENSIVE METABOLIC PANEL Routine 08/06/2025 2:23 AM BOTTOM TURNER CBC WITH DIFFERENTIAL Routine 08/06/2025 2:23 AM BOTTOM TURNER POC GLUCOSE Routine 08/05/2025 5:54 PM BOTTOM TURNER IR FLUORO OR OTHER Stat 08/05/2025 5: 35 PM BOTTOM TURNER POC ACTIVATED CLOTTING TIME Routine 08/05/2025 4:42 PM BOTTOM TURNER DC ANES INSERT ENDOTRACHEAL AIRWAY Routine 08/05/2025 3:44 PM BOTTOM TURNER COMPREHENSIVE METABOLIC PANEL Routine 08/05/2025 3:10 PM BOTTOM TURNER RT ASSESS AND TREAT Stat 08/05/2025 2 :28 PM BOTTOM TURNER TYPE AND SCREEN Stat 08/05/2025 1:49 PM BOTTOM TURNER BLOOD CULTURE Stat 08/05/2025 1:49 PM BOTTOM TURNER BLOOD CULTURE Stat 08/05/2025 1:49 PM BOTTOM TURNER BLOOD CULTURE Stat 08/05/2025 1:46 PM BOTTOM TURNER BLOOD CULTURE Stat 08/05/2025 1:46 PM BOTTOM TURNER EKG 12-LEAD Stat 08/05/2025 1:11 PM BOTTOM TURNER COMPREHENSIVE METABOLIC PANEL Stat 08/05/2025 12:54 PM BOTTOM TURNER CBC WITH DIFFERENTIAL Stat 08/05/2025 12:54 PM BOTTOM TURNER PROTIME-INR Stat 08/05/2025 12:54 PM BOTTOM TURNER ABDOMINAL AORTA ANEURYSM ENDOVASCULAR REPAIR 08/05/2025 12:31 PM BOTTOM TURNER HEMOGLOBIN A1C Routine 2025 11:20 PM CDT from Last 3 Months or Most Recently Relevant to Health Maintenance Results * TELEMETRY REPORT (08/08/2025 2:28 AM BOTTOM TURNER) us Provider Scanning ECG ORDERABLES Final Result * (ABNORMAL) CBC WITH DIFFERENTIAL (08/07/2025 5:15 AM BOTTOM TURNER) Only the most recent of3 resultswithin the time period is included. WBC 9.7 4.8 - 10.8 K/uL 08/07/2025 5:40 AM [facility] RBC 4.85 4.60 - 6.20 M/uL 08/07/2025 5:40 AM [facility] HEMOGLOBIN 16.7 14.0 - 18.0 g/dL 08/07/2025 5:40 AM [facility] HEMATOCRIT 51.5 41.0 - 53.0 % 08/07/2025 5:40 AM [facility] MCV 106.2(H) 84.0 - 103.0 fL 08/07/2025 5:40 AM [facility] MCH 34.4(H) 27.0 - 34.0 pg 08/07/2025 5:40 AM [facility] MCHC 32.4 30.0 - 35.0 g/dL 08/07/2025 5:40 AM [facility] PLATELETS 163 140 - 440 K/uL 08/07/2025 5:40 AM [facility] MPV 9.1 8.9 - 12.8 fL 08/07/2025 5:40 AM [facility] RDW 13.2 11.0 - 14.5 % 08/07/2025 5:40 AM [facility] RDW-STDEV 52.3 37.0 - 54.0 fL 08/07/2025 5:40 AM [facility] NEUTROPHILS 70 42 - 75 % 08/07/2025 5:40 AM [facility] LYMPHOCYTES 22(L) 24 - 44 % 08/07/2025 5:40 AM [facility] MONOCYTES 7 2 - 10 % 08/07/2025 5:40 AM [facility] EOSINOPHILS 1 0 - 7 % 08/07/2025 5:40 AM [facility] BASOPHILS 0 0 - 1 % 08/07/2025 5:40 AM [facility] IMMATURE GRANULOCYTES 0 0 - 2 % 08/07/2025 5:40 AM [facility] NEUTROPHIL ABSOLUTE 6.80 2.00 - 8.00 K/uL 08/07/2025 5:40 AM [facility] LYMPHOCYTE ABSOLUTE 2.15 1.20 - 4.00 K/uL 08/07/2025 5:40 AM [facility] MONOCYTE ABSOLUTE 0.67(H) 0.10 - 0.60 K/uL 08/07/2025 5:40 AM [facility] EOSINOPHIL ABSOLUTE 0.06 0.00 - 0.70 K/uL 08/07/2025 5:40 AM [facility] BASOPHILS ABSOLUTE 0.03 0.00 - 0.20 K/uL 08/07/2025 5:40 AM [facility] IMMATURE GRANULOCYTES ABSOLUTE 0.03 0.00 - 0.10 K/uL 08/07/2025 5:40 AM [facility] SMEAR REVIEWED: NA - Not Applicable 08/07/2025 5:40 AM [facility] Blood Venipuncture / Unknown 08/07/2025 5:15 AM BOTTOM TURNER 08/07/2025 5:34 AM BOTTOM TURNER Adriane Renteria MD HEMATOLOGY ORDERABLES Fi nal Result Performing Organization Address [facility] Co de Phone Number [facility] CLIA # [id number] [address] [address] [place] [address] * VANCOMYCIN LEVEL TROUGH (08/07/2025 5:15 AM BOTTOM TURNER) Pathologist [facility] VANCOMYCIN, TROUGH 14.6 10.0 - 17.0 ug/mL 08/07/2025 6:13 AM [facility] Blood Venipuncture / Unknown 08/07/2025 5:15 AM BOTTOM TURNER 08/07/2025 5:35 AM BOTTOM TURNER Adriane Renteria MD CHEMISTRY ORDERABLES Fin al Result Performing Organization Address [facility] Co de Phone Number [facility] CLIA # [id number] [address] [place] [address] * (ABNORMAL) BASIC METABOLIC PANEL (08/07/2025 5:15 AM BOTTOM TURNER) Only the most recent of2 resultswithin the time period is included. SODIUM 133(L) 136 - 145 mmol/L 08/07/2025 6:07 AM [facility] POTASSIUM 4.3 3.5 - 5.1 mmol/L 08/07/2025 6:07 AM [facility] CHLORIDE 96(L) 98 - 107 mmol/L 08/07/2025 6:07 AM [facility] CO2 27 22 - 29 mmol/L 08/07/2025 6:07 AM [facility] CALCIUM 8.6 8.6 - 10.0 mg/dL 08/07/2025 6:07 AM [facility] BUN 14 6 - 20 mg/dL 08/07/2025 6:07 AM [facility] CREATININE 0.81 0.67 - 1.17 mg/dL 08/07/2025 6:07 AM [facility] GLUCOSE 107(H) 74 - 99 mg/dL 08/07/2025 6:07 AM [facility] GFR >60 >=60 mL/min/1.7 3 sq meter 08/07/2025 6:07 AM [facility] Comment:eGFR calculated with 2020 CKD-EPI equation. Vegetarian diet, extremely high or low muscle mass, and may affect results. Cystatin C with Glomerular Filtration Rate is a suitable alternative for these patients. ANION GAP 10 9 - 20 mmol/L 08/07/2025 6:07 AM [facility] Blood Venipuncture / Unknown 08/07/2025 5:15 AM BOTTOM TURNER 08/07/2025 5:35 AM BOTTOM TURNER us Adriane Renteria MD CHEMISTRY ORDERABLES [facility] al Result [facility] CLIA # [id number] [address] [place] [address] * (ABNORMAL) COMPREHENSIVE METABOLIC PANEL (08/06/2025 2:23 AM BOTTOM TURNER) Only the most recent of3 resultswithin the time period is included. SODIUM 135(L) 136 - 145 mmol/L 08/06/2025 3:00 AM [facility] POTASSIUM 5.0 3.5 - 5.1 mmol/L 08/06/2025 3:00 AM [facility] CHLORIDE 99 98 - 107 mmol/L 08/06/2025 3:00 AM [facility] CO2 24 22 - 29 mmol/L 08/06/2025 3:00 AM [facility] CALCIUM 9.0 8.6 - 10.0 mg/dL 08/06/2025 3:00 AM [facility] BUN 15 6 - 20 mg/dL 08/06/2025 3:00 AM [facility] CREATININE 0.93 0.67 - 1.17 mg/dL 08/06/2025 3:00 AM [facility] GLUCOSE 150(H) 74 - 99 mg/dL 08/06/2025 3:00 AM [facility] TOTAL PROTEIN 7.7 6.4 - 8.3 g/dL 08/06/2025 3:00 AM [facility] ALBUMIN 3.7 3.5 - 5.2 g/dL 08/06/2025 3:00 AM [facility] BILIRUBIN TOTAL 0.5 0.0 - 1.0 mg/dL 08/06/2025 3:00 AM [facility] ALKALINE PHOSPHATASE 77 40 - 129 U/L 08/06/2025 3:00 AM [facility] AST 34 10 - 50 U/L 08/06/2025 3:00 AM [facility] ALT 23 <=50 U/L 08/06/2025 3:00 AM [facility] GFR >60 >=60 mL/min/1.7 3 sq meter 08/06/2025 3:00 AM [facility] Comment:eGFR calculated with 2020 CKD-EPI equation. Vegetarian diet, extremely high or low muscle mass, and may affect results. Cystatin C with Glomerular Filtration Rate is a suitable alternative for these patients. ANION GAP 12 9 - 20 mmol/L 08/06/2025 3:00 AM [facility] Blood Venipuncture / Unknown 08/06/2025 2:23 AM BOTTOM TURNER 08/06/2025 2:27 AM BOTTOM TURNER us Neno Javier MD CHEMISTRY ORDERABLES Final Resul t [facility] CLIA # [id number] [address] [place] [address] * (ABNORMAL) POC GLUCOSE (08/05/2025 5:54 PM BOTTOM TURNER) GLUCOSE POC 146(H) 74 - 99 mg/dL 08/05/2025 5:54 PM BOTTOM TURNER [facility] SPECIMEN SOURCE, GLUCOSE POC Capillary 08/05/2025 5:54 PM BOTTOM TURNER [facility] Blood, whole 08/05/2025 5:54 PM BOTTOM TURNER 08/05/2025 6:02 PM BOTTOM TURNER Neno Javier MD POINT OF CARE TESTING Final Resu lt Performing Organization Address [facility]/ZIP Co de Phone Number [facility] CLIA # [id number] [address] [facility] [place] [address] * IR FLUORO OR OTHER (08/05/2025 5:35 PM BOTTOM TURNER) Narrative 08/05/2025 5:35 PM BOTTOM TURNER Order Auto Finalized. Please see associated Operative Report/Progress Note/Procedure Note from the same date. Indira Slagado DO IR ORDERABLES Final Re sult * (ABNORMAL) POC ACTIVATED CLOTTING TIME (08/05/2025 4:42 PM BOTTOM TURNER) ACTIVATED CLOTTING TIME POC 326(H) 116 - 140 sec 08/05/2025 4:42 PM BOTTOM TURNER [facility] Blood 08/05/2025 4:42 PM BOTTOM TURNER 08/05/2025 7:34 PM BOTTOM TURNER Neno Javier MD POINT OF CARE TESTING Final Resu lt [facility] CLIA # [id number] [address] [facility] [place] [address] * DC ANES INSERT ENDOTRACHEAL AIRWAY (08/05/2025 3:44 PM BOTTOM TURNER) Narrative Alanna Becerra (Student), RN - 08/05/2025 3:44 PM BOTTOM TURNER Alanna Becerra (Student), RN 08/05/2025 4:00 PM Airway Date/Time: 08/05/2025 3:44 PM Location: OR Plan: elective intubation Patient Identity Confirmed by: Verbally with patient Airway: not difficult Staffing Performed: Student NA/AA Authorized by: Miki Liriano MD Performed by: Alanna Becerra (Student), RN Indications and Patient Condition: Indications for Airway Management: Anesthesia Sedation Level: general anesthesia Preoxygenated: yes Patient Position: Sniffing Mask Difficulty Assessment: 3 - difficult mask (inadequate, unstable or two providers) +/- NMBA Plan to extubate at end of case: Yes Final Airway Details: Final Airway Type: Endotracheal airway ETT Cuffed: Yes Cuff Volume (mL): 10 Technique Used for Successful ETT Placement: Video laryngoscopy Devices/Methods Used in Placement: Intubating stylet Blade Size: 3 Insertion Site: Oral ETT Size (mm): 7.0 Video Laryngoscopy Devices: Goldberg Measured from: Gums ETT to Gums (cm): 20 Tube secured with: Tape Placement Verified by: auscultation, end tidal CO2 and chest rise Cormack-Lehane Classification: Grade I - full view of glottis Number of Attempts at Approach: 1 Additional Procedure Information: atraumatic and dentition unchanged us Miki Liriano MD PROCEDURE/MINOR SURGICAL ORDER GOGO Final Result * BLOOD CULTURE (08/05/2025 1:49 PM BOTTOM TURNER) Only the most recent of2 resultswithin the time period is included. BLOOD CULTURE No growth 08/10/2025 2:52 PM BOTTOM TURNER [facility] Blood (Peripheral) Venipuncture / Unknown 08/05/2025 1:49 PM BOTTOM TURNER 08/05/2025 1:59 PM BOTTOM TURNER Candis Medrano MD MICROBIOLOGY - GENER AL ORDERABLES Final Result [facility] CLIA # [id number] [address] [facility] [place] [address] * TYPE AND SCREEN (08/05/2025 1:49 PM BOTTOM TURNER) ABO GROUP O 08/05/2025 3:33 PM BOTTOM TURNER [facility] RH (D) TYPE Positive 08/05/2025 3:33 PM BOTTOM TURNER [facility] ANTIBODY SCREEN Negative 08/05/2025 3:33 PM BOTTOM TURNER [facility] Blood Venipuncture / Unknown 08/05/2025 1:49 PM BOTTOM TURNER 08/05/2025 2:00 PM BOTTOM TURNER Maria Antonia Call PA-C BLOOD BANK ORDERABLES Edited Result - Final [facility] CLIA#[id number] [address] [place] [address], * EKG 12-LEAD (08/05/2025 1:11 PM BOTTOM TURNER) 08/05/2025 1:11 PM BOTTOM TURNER Narrative INTERFACE SYSTEM - 08/05/2025 1:48 PM BOTTOM TURNER [address] [address] Test Date: 2025-08-05 Pat Name: JASWINDER PALMER Department: 11 Room: [address] [address] Gender: Male Director Consumer: tdreed3 : 1965 Requested By: Order Number: [id number] Yolande MD: Ra Ramires Measurements Intervals [place] Rate: 101 P: 71 DC: 130 QRS: 99 QRSD: 100 T: 64 QT: 360 QTc: 466 Interpretive Statements Sinus tachycardia with premature atrial complexes with aberrant conduction Rightward axis Non-specific ST-T wave changes. Abnormal EKG. Electronically Signed On 08-05-2025 13:48:52 BOTTOM TURNER by Ra Ramires Procedure Note Ra Ramires MD - 08/05/2025 [facility] [address] [place] [address] Test Date: 2025-08-05 Pat Name: JASWINDER PALMER Department: 11 Room: [address] [address] Gender: Male Director Consumer: [id number] : 1965 Requested By: Order Number: [id number] Reading MD: Ra Ramires Measurements Intervals [place] Rate: 101 P: 71 DC: 130 QRS: 99 QRSD: 100 T: 64 QT: 360 QTc: 466 Interpretive Statements Sinus tachycardia with premature atrial complexes with aberrant conduction Rightward axis Non-specific ST-T wave changes. Abnormal EKG. Electronically Signed On 08-05-2025 13:48:52 BOTTOM TURNER by Ra Ramires Candis Medrano MD ECG ORDERABLES Jessica l Result INTERFACE SYSTEM Refer to clinic/hospital department * (ABNORMAL) PROTIME-INR (08/05/2025 12:54 PM BOTTOM TURNER) PROTIME 12.4(L) 12.7 - 14.9 Seconds 08/05/2025 1:16 PM BOTTOM TURNER [facility] INR 0.9 0.8 - 1.2 08/05/2025 1:16 PM BOTTOM TURNER [facility] Blood Venipuncture / Unknown 08/05/2025 12:54 PM BOTTOM TURNER 08/05/2025 1:03 PM BOTTOM TURNER Narrative [facility] - 08/05/2025 1:16 PM BOTTOM TURNER Expected Values for INR: DVT/PE Goal INR 2.5; range 2.0 - 3.0 Valve Replacement Tissue Goal INR 2.5; range 2.0 - 3.0 Valve Replacement Mechanical Goal INR 3.0; range 2.5 - 3.5 POST-WY Goal INR 2.5; range 2.0 - 3.0 or Goal INR 3.0; range 2.5 - 3.5 Atrial Fibrillation Goal INR 2.5; range 2.0 - 3.0 Ischemic Stroke Goal INR 2.5; range 2.0 - 3.0 Candis Medrano MD HEMATOLOGY ORDERABLE S Final Result Performing Organization Address [facility] Co de Phone Number [facility] [employer] [facility] CLIA # [id number] [address] [address] [place] [address] * (ABNORMAL) HEMOGLOBIN A1C (2025 11:20 PM CDT) HEMOGLOBIN A1C 6.4(H) <=5.6 % 03/20/2025 11:33 AM CDT [facility] [employer] [facility] EST. AVG GLUCOSE, A1C 137 mg/dL 03/20/2025 11:33 AM CDT [facility] [employer] [facility] Blood Venipuncture / Unknown 2025 11:20 PM CDT 2025 11:25 PM CDT Narrative [facility] [employer] [facility] - 03/20/2025 11:33 AM CDT HGB A1C INTERPRETATION NORMAL: <5.7% PRE-DIABETES: 5.7 - 6.4% DIABETES: 6.5% OR GREATER Celso Doll MD CHEMISTRY ORDERABLES Final R esult Performing Organization Address [facility] Co de Phone Number [facility] [employer] [facility] CLIA # [id number] [address] [address] from Last 3 Months or Most Recently Relevant to Health Maintenance Insurance [facility] MEDICARE HMO RX INFOCROSSING Medicaid RX [facility] Medicare Part D RX INFO[employer]ING Medicaid Advance Directives For more information, please contact: [phone] * Full Code (Latest Code Status on File) Date Activated Date Inactivated Comments 08/05/2025 2:28 PM 08/07/2025 5:39 PM * Full Code Date Activated Date Inactivated Comments 2025 10:55 PM 03/22/2025 3:53 PM
[2025-09-12 04:33] LABS: Hematocrit 55.1 % (37-53); Hemoglobin 18.20 g/dL (11.27-16.99); Mean Corpuscular HGB Conc 33.0 g/dL (30-55); Mean Corpuscular Hemoglobin 33.6 pg (27-33); Mean Corpuscular Volume 101.8 fl (82-101); Nucleated Red Blood Cells % 0 %; Platelet Count 245 10^3/cmm (157-399); Red Blood Count 5.41 10^6/uL (3.85-5.65); White Blood Count 11.60 10^3/uL (3.29-11.43)
[2025-09-12 04:51] LABS: Alanine Aminotransferase 19 U/L (0-41); Albumin Level 4.1 g/dL (3.5-5.2); Alkaline Phosphatase 92 U/L (40-130); Anion Gap 15.2 (5-19); Aspartate Amino Transferase 34 U/L (0-40); Blood Urea Nitrogen 13 mg/dL (6-20); Calcium 10.1 mg/dL (8.5-10.5); Carbon Dioxide 30 mmol/L (22-29); Chloride 97 mmol/L (98-107); Globulin 4.0 g/dL (1.3-4.6); Glucose 136 mg/dL (65-115); Lipase 102 U/L (13-60); Osmolality Calculated 288 mOsm/kg (285-295); Potassium 4.2 mmol/L (3.5-5.1); Sodium 138 mmol/L (136-145); Total Protein 8.1 g/dL (6.6-8.7)
[2025-09-12 04:52] LABS: Lactic Sepsis W/Reflex 2.3 mmol/L (0.5-2.2)
--- NOTE | 2025-09-12 04:58 | W.ED.GENADLT ---
HPI - General Adult General: Chief complaint: Abdominal Pain Stated complaint: Abd pain n/v Time Seen by Provider: 09/12/25 04:24 History of Present Illness: Patient is a 60-year-old male with a history of COPD on 2-3L O2 per NC at home, high blood pressure, high cholesterol, recent diagnosis of aortitis (transferred to higher level facility on 08/05 and is s/p intervention, CHF, polycythemia vera, w/cc of abd pain, n/v since 18:00 yesterday evening. Patient states that they went through his groin and put a mesh, I suspect patient had EVAR. Patient has not had a fever, denies current chest pain. He states that he feels more short of breath when the pain is severe. No increased in cough or sputum production, no hemoptysis or syncope. Patient states that around midnight, he started feeling nauseated and started vomiting. Patient had a normal bowel movement within the last day without bleeding. No dysuria, hematuria. He denies other abdominal sgy. Related Data Home Medications ?Medication ?Instructions ?Recorded ?Confirmed spironolactone 25 mg tablet 25 mg PO DAILY 01/28/25 08/05/25 albuterol sulfate 90 mcg/actuation 2 puff inhalation Q4H PRN 03/06/25 08/05/25 aerosol inhaler (Ventolin HFA) Shortness Of Breath Or Wheezing aspirin 81 mg tablet 81 mg PO DAILY 03/25/25 08/05/25 bumetanide 1 mg tablet 1 mg PO DAILY 03/25/25 08/05/25 empagliflozin 10 mg tablet 10 mg PO DAILY 03/25/25 08/05/25 (Jardiance) oxygen-air delivery systems 03/25/25 08/05/25 rosuvastatin 10 mg tablet 20 mg PO DAILY 03/25/25 08/05/25 adalimumab 40 mg/0.4 mL 40 mg SUBCUT .Q14D 06/08/25 08/05/25 subcutaneous pen kit (Humira(CF) Pen) budesonide 0.5 mg/2 mL suspension 0.5 mg inhalation BID 06/08/25 08/05/25 for nebulization ipratropium 0.5 mg-albuterol 3 mg 3 ml inhalation QID 06/08/25 08/05/25 (2.5 mg base)/3 mL nebulization soln potassium chloride 10 mEq 10 meq PO DAILY 06/08/25 08/05/25 tablet,extended release tamsulosin 0.4 mg capsule 0.4 mg PO DAILY 06/08/25 08/05/25 Previous Rx's ?Medication ?Instructions ?Recorded clopidogrel 75 mg tablet 75 mg PO DAILY #90 tabs 05/21/25 metoprolol succinate 25 mg 37.5 mg (1.5 x 25 mg) PO DAILY #90 05/21/25 tablet,extended release 24 hr tabs hydrocodone 7.5 mg-acetaminophen 1 tab PO Q8H PRN pain #15 tabs 06/08/25 325 mg tablet ondansetron 4 mg disintegrating 4 mg PO Q8H PRN nausea and 06/16/25 tablet vomiting #14 tabs Allergies Allergy/AdvReac Type Severity Reaction Status Date / Time unknown antibiotic Allergy ALGY-Hives Uncoded 09/12/25 04:52 PFS ED PFSH: Medical History (Updated 09/12/25 @ 06:17 by Lisa Meyers MD) CHF (congestive heart failure) Polycythemia Surgical History No significant past surgical history Social History Smoking and tobacco/nicotine status: current every day tobacco/nicotine user Physical Exam Narrative: EXAM NARRATIVE: Vital signs were reviewed. Patient is alert and oriented. Patient does not have increased work of breathing. SpO2 is 90 to 92% on 4 L of nasal cannula which is a slight increase from baseline. Patient does not have severe wheezing but there are mild rhonchi lower bases. No hypotension or tachycardia. Abdomen is soft, tender in RLQ and suprapubic region. Patient is moving all extremities, no deformity or gross injury. No lower extremity edema or asymmetry. Course Vital Signs: Vital signs: Vital Signs Temperature 98.9 F 09/12/25 04:25 Pulse Rate 80 09/12/25 06:00 Respiratory Rate 12 09/12/25 06:00 Blood Pressure 127/78 09/12/25 06:00 Pulse Oximetry 93 09/12/25 06:00 Oxygen Delivery Me thod Nasal Cannula 09/12/25 05:47 Oxygen Flow Rate 4 09/12/25 05:01 [facility] - General Adult Medical Decision Making 60-year-old male with significant history of aortitis status post EVAR within the last month presents with a chief complaint of abdominal pain, nausea and vomiting since yesterday evening. Differential diagnosis includes, but is not limited to, pancreatitis, cholecystitis, gastroenteritis, appendicitis, urinary tract infection, pyelonephritis, nephrolithiasis, SBO, diverticulitis, AAA, dissection, vascular emergency/complication from EVAR, recurrence of aortitis, other. On initial exam, patient is hemodynamically stable and nontoxic appearing. Patient was evaluated with CBC, CMP, lactic acid, lipase, troponin, BNP, blood culture, CXR, UA, EKG and CTA abd/pelvis. Patient was treated for pain with IV Dilaudid and Zofran. Patient has a normal white blood cell count and procalcitonin, lactic acid is mildly elevated. Patient has normal kidney function and normal anion gap and no actionable electrolyte abnormalities. Patient has normal liver function and only minimally elevated lipase. Patient has a mildly elevated baseline troponin, awaiting delta. UA shows hematuria. Final disposition is pending CT scan imaging, care signed out to Dr. Vega pending CT, reassessment. Lab Data 09/12/25 04:00 09/12/25 04:00 Laboratory Results WBC 11.60 10^3/uL (3.29-11.43) H 09/12/25 04:00 RBC 5.41 10^6/uL (3.85-5.65) 09/12/25 04:00 Hgb 18.20 g/dL (11.27-16.99) H 09/12/25 04:00 Hct 55.1 % (37-53) H 09/12/25 04:00 MCV 101.8 fl (82-101) H 09/12/25 04:00 MCH 33.6 pg (27-33) H 09/12/25 04:00 MCHC 33.0 g/dL (30-55) 09/12/25 04:00 RDW 13.2 % (12.1-15.1) 09/12/25 04:00 Plt Count 245 10^3/cmm (157-399) 09/12/25 04:00 MPV 9.2 fL (7.4-10.4) 09/12/25 04:00 Neut % (Auto) 64.8 % 09/12/25 04:00 Lymph % (Auto) 27.8 % 09/12/25 04:00 [place] % (Auto) 5.4 % 09/12/25 04:00 Eos % (Auto) 1.2 % 09/12/25 04:00 Baso % (Auto) 0.4 % 09/12/25 04:00 Neut # (Auto) 7.51 10^3/uL (1.8-7.7) 09/12/25 04:00 Lymph # (Auto) 3.2 10^3/uL (0.8-4.8) 09/12/25 04:00 [place] # (Auto) 0.6 10^3/uL (0.2-0.9) 09/12/25 04:00 Eos # (Auto) 0.1 10^3/uL (0.0-0.8) 09/12/25 04:00 Baso # (Auto) 0.1 10^3/uL (0.0-0.1) 09/12/25 04:00 Nucleated RBC % (auto) 0 % 09/12/25 04:00 Nucleated RBCs # 0.0 /100WBC 09/12/25 04:00 Sodium 138 mmol/L (136-145) 09/12/25 04:00 Potassium 4.2 mmol/L (3.5-5.1) 09/12/25 04:00 Chloride 97 mmol/L (98-107) L 09/12/25 04:00 Carbon Dioxide 30 mmol/L (22-29) H 09/12/25 04:00 Anion Gap 15.2 (5-19) 09/12/25 04:00 BUN 13 mg/dL (6-20) 09/12/25 04:00 Creatinine 1.0 mg/dL (0.7-1.2) 09/12/25 04:00 GFR Calculation 76.5 mL/min (90-130) L 09/12/25 04:00 Glucose 136 mg/dL (65-115) H 09/12/25 04:00 Calculated Osmolality 288 mOsm/kg (285-295) 09/12/25 04:00 Lactic Acid 2.3 mmol/L (0.5-2.2) H 09/12/25 04:00 Calcium 10.1 mg/dL (8.5-10.5) 09/12/25 04:00 Total Bilirubin 0.4 mg/dL (0.15-1.2) 09/12/25 04:00 AST 34 U/L (0-40) 09/12/25 04:00 ALT 19 U/L (0-41) 09/12/25 04:00 Alkaline Phosphatase 92 U/L (40-130) 09/12/25 04:00 Troponin T Baseline 19 ng/L (0-15) H 09/12/25 04:00 NT-Pro-B Natriuret Pep 368 pg/mL (0-125) H 09/12/25 04:00 Total Protein 8.1 g/dL (6.6-8.7) 09/12/25 04:00 Albumin 4.1 g/dL (3.5-5.2) 09/12/25 04:00 Globulin 4.0 g/dL (1.3-4.6) 09/12/25 04:00 Lipase 102 U/L (13-60) H 09/12/25 04:00 Procalcitonin 0.10 ng/mL (0-0.5) 09/12/25 04:00 Urine Color Yellow (Yellow) 09/12/25 04:50 Urine Appearance Clear (CLEAR) 09/12/25 04:50 Urine pH 7.0 (5-7) 09/12/25 04:50 Ur Specific [place] 1.035 (1.005-1.030) H 09/12/25 04:50 Urine Protein 1+ (Negative) A 09/12/25 04:50 Urine Glucose (UA) 3+ (Normal) H 09/12/25 04:50 Urine Ketones Trace (Negative) 09/12/25 04:50 Urine Blood 2+ (Negative) A 09/12/25 04:50 Urine Nitrate Negative (Negative) 09/12/25 04:50 Urine Bilirubin Negative (Negative) 09/12/25 04:50 Urine Urobilinogen 1.0 mg/dL (Negative) 09/12/25 04:50 Ur Leukocyte Esterase Negative (Negative) 09/12/25 04:50 Urine RBC 51-100 /hpf (0-2) H 09/12/25 04:50 Urine WBC 0-5 /hpf (0-5) 09/12/25 04:50 Ur Squamous Epith Cells 0-5 /hpf (0-5) 09/12/25 04:50 Amorphous Sediment Not Reportable 09/12/25 04:50 Urine Bacteria None seen /hpf (NONE) 09/12/25 04:50 Hyaline Casts 2.05 /lpf 09/12/25 04:50 All radiology interpretation(s) finalized by discharge EKG Data EKG 1: Interpretation: Sinus rhythm with a heart rate of 87, right axis deviation, mildly widened QRS, normal QT/QTc, no STEMI. There are T wave inversions in inferior leads but this can be noted on previous EKG. There are also inverted T waves in the precordial leads notably V4-V6 but these were also present previously. EKG 2: Interpretation: Sinus rhythm with a heart rate of 81, right axis deviation, widened QRS, normal QTc, no STEMI. Stable from previous. Discharge Plan Discharge Clinical Impression: Abdominal pain Condition: Stable Prescriptions: No Action rosuvastatin 10 mg tablet 20 mg PO DAILY spironolactone 25 mg tablet 25 mg PO DAILY bumetanide 1 mg tablet 1 mg PO DAILY aspirin 81 mg tablet 81 mg PO DAILY (DME) oxygen-air delivery systems Device See Rx Instructions .ROUTE Rx Instructions: As directed Jardiance 10 mg tablet 10 mg PO DAILY clopidogrel 75 mg tablet 75 mg PO DAILY Qty: 90 3RF metoprolol succinate 25 mg tablet extended release 24 hr 37.5 mg PO DAILY Qty: 90 2RF albuterol sulfate [Ventolin HFA] 90 mcg/actuation HFA aerosol inhaler 2 puff INHALATION Q4H PRN (Reason: Shortness Of Breath Or Wheezing) ipratropium-albuterol 0.5 mg-3 mg(2.5 mg base)/3 mL solution for nebulization 3 ml INHALATION QID potassium chloride 10 mEq tablet extended release 10 meq PO DAILY tamsulosin 0.4 mg capsule 0.4 mg PO DAILY budesonide 0.5 mg/2 mL suspension for nebulization 0.5 mg inhalation BID Humira(CF) Pen 40 mg/0.4 mL pen injector kit 40 mg SUBCUT .Q14D hydrocodone-acetaminophen 7.5-325 mg tablet 1 tab PO Q8H PRN (Reason: pain) Qty: 15 0RF ondansetron 4 mg tablet,disintegrating 4 mg PO Q8H PRN (Reason: nausea and vomiting) Qty: 14 0RF Referrals: Christel Burk FNP [Primary Care Provider, Unknown] Patient Instructions: Abdominal Pain (ED) Print Language: Irish Coding Level of Care Code ED [employer] for Krystyna Cervantes
[2025-09-12 05:03] LABS: Glucose Urine UA 3+ (Normal); Nitrate Urine Negative (Negative)
[2025-09-12 05:05] LABS: Add Urine Microscopic? YES
--- NOTE | 2025-09-12 05:05 | CTR_ITS ---
PROCEDURE INFORMATION: Exam: CTA Abdomen and Pelvis With Contrast Exam date and time: 09/12/2025 5:33 AM Age: 60 years old Clinical indication: Abdominal pain; Acute; Prior surgery; Surgery date: 6+ months; Surgery type: some kind of mesh per patient; Additional info: Abd pain, recent procedure aorta TECHNIQUE: Imaging protocol: Computed tomographic angiography of the abdomen and pelvis with contrast. Exam focused on the arteries. 3D rendering (Not supervised by radiologist): MIP and/or 3D reconstructed images were created by the technologist. Radiation optimization: All CT scans at this facility use at least one of these dose optimization techniques: automated exposure control; mA and/or kV adjustment per patient size (includes targeted exams where dose is matched to clinical indication); or iterative reconstruction. Contrast material: OMNI 350; Contrast volume: 100 ml; Contrast route: INTRAVENOUS (IV); COMPARISON: CT abdomen pelvis w con* [id number] 08/05/2025 6:47 AM RADIATION DOSE METRICS: Total DLP (mGy-cm): 963.75 FINDINGS: Lungs: Hypoventilatory changes mildly present at the left lung base. Aorta: Aorto bi iliac endovascular stent. Persistent periaortic inflammatory stranding similar to before. This could indicate scarring or persistent aortitis. 3 cm excluded aneurysm. Celiac and mesenteric arteries: No occlusion or significant stenosis. Renal arteries: No occlusion or significant stenosis. Right iliac arteries: No occlusion or significant stenosis. Left iliac arteries: No occlusion or significant stenosis. Liver: No mass. Gallbladder and biliary ducts: Unremarkable. No calcified stones. No ductal dilation. Pancreas: Unremarkable. No mass. No ductal dilation. Spleen: Unremarkable. No splenomegaly. Adrenal glands: Unremarkable. No mass. Kidneys and ureters: Unremarkable. No solid mass. No hydronephrosis. Stomach and bowel: Mildly dilated proximal small bowel loops containing gas fluid levels indicate a small bowel obstruction with the transition in the left lower quadrant (5:165-155). Diverticulosis without evidence of diverticulitis. Appendix: No evidence of appendicitis. Intraperitoneal space: Unremarkable. No free air. No significant fluid collection. Lymph nodes: Unremarkable. No enlarged lymph nodes. Urinary bladder: Unremarkable. No mass. Reproductive: Unremarkable as visualized. Bones/joints: No acute fracture. Soft tissues: Unremarkable. Other findings: . CT/CT angio abdomen pelvis [id number] IMPRESSION: 1. Small bowel obstruction with a transition zone in the right lower quadrant. 2. Aorto bi iliac endovascular stent. Persistent periaortic stranding indicates either postinflammatory fibrosis or continued aortitis.
[2025-09-12] MEDS: ondansetron 2 mg/ML SDV 2 mL 4 MG IVP (05:09)
--- NOTE | 2025-09-12 05:10 | XRR_ITS ---
PROCEDURE INFORMATION: Exam: XR Chest Exam date and time: 09/12/2025 5:43 AM Age: 60 years old Clinical indication: Shortness of breath TECHNIQUE: Imaging protocol: Radiologic exam of the chest. Views: 1 view. COMPARISON: CR (CHEST, ) 08/05/2025 5:49 AM FINDINGS: Lungs: Hypoventilatory changes in each lung base. Pleural spaces: Unremarkable. No pleural effusion. No pneumothorax. Heart/Mediastinum: See Vasculature finding. Vasculature: Mild cardiomegaly and uncoiling of the thoracic aorta. Bones/joints: Unremarkable. XR/XR chest 1V portable [id number] IMPRESSION: No acute findings.
[2025-09-12] MEDS: HYDROmorphone 0.5 MG/0.5 ML INJ 1 MG IVP ×2 (05:11→14:50)
--- NOTE | 2025-09-12 05:11 | ECG_ITS ---
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: : 1965 Requested By: Lisa Meyers Order Number: [id number] Yolande MD: OZZIE ALAN Measurements Intervals [place] Rate: 87 P: 82 SC: 133 QRS: 108 QRSD: 109 T: 17 QT: 406 QTc: 489 Interpretive Statements SINUS RHYTHM RIGHT AXIS DEVIATION [QRS AXIS > 100] ST DEVIATION AND MODERATE T-WAVE ABNORMALITY, CONSIDER LATERAL ISCHEMIA [-0.1+ mV T-WAVE IN I/aVL/V5/V6] Compared to ECG 03/10/2025 00:09:28 Right-axis deviation now present T-wave abnormality now present Possible ischemia now present Ventricular premature complex(es) no longer present Myocardial infarct finding no longer present Electronically Signed On 09-12-2025 18:29:58 ENDODONTICS DENTIST by OZZIE ALAN [email or web address]
[2025-09-12 05:13] LABS: Specific Gravity, Urine 1.035 (1.005-1.030)
[2025-09-12 05:36] LABS: NT Pro B Type Natriuretic Pept 368 pg/mL (0-125); Procalcitonin 0.10 ng/mL (0-0.5)
[2025-09-12] MEDS: iohexol 350 mg/mL 500 mL Btl (per mL) IV (05:52)
[2025-09-12 05:59] LABS: Troponin(5th) Baseline 19 ng/L (0-15)
--- NOTE | 2025-09-12 06:01 | PC.NURSE ---
PT IS RESTING IN BED CALM AND COOPERATIVE - PT RATES PAIN 4/10 AT THIS TIME.
--- NOTE | 2025-09-12 06:11 | ECG_ITS ---
[employer] Test Date: 2025-09-12 Pat Name: Jaswinder Palmer Department: Room: Gender: Male Director Meetings: : 1965 Requested By: Lisa Meyers Order Number: [id number] Reading MD: OZZIE ALAN Measurements Intervals [place] Rate: 81 P: 69 ND: 137 QRS: 112 QRSD: 109 T: -4 QT: 402 QTc: 467 Interpretive Statements SINUS RHYTHM POSSIBLE RIGHT VENTRICULAR HYPERTROPHY [SOME/ALL OF: PROMINENT R IN V1, LATE TRANSITION, RAD, CINTHYA, SSS] POSSIBLE INFERIOR MYOCARDIAL INFARCTION , PROBABLY OLD [30 ms Q WAVE IN II/aVF] MODERATE T-WAVE ABNORMALITY, CONSIDER LATERAL ISCHEMIA [-0.1+ mV T-WAVE IN I/aVL/V5/V6] Compared to ECG 09/12/2025 05:20:08 Myocardial infarct finding now present Right-axis deviation no longer present T-wave abnormality still present Possible ischemia still present Electronically Signed On 09-12-2025 18:35:47 MERCHANDISE ASSOCIATE by OZZIE ALAN [email or web address]
[2025-09-12 06:15] LABS: Reflex Lactate Order REFLEX LACTIC ORDERD
--- NOTE | 2025-09-12 06:51 | W.ED.ABDPA2 ---
HPI - Abdominal Pain General: Chief Complaint: Abdominal Pain Stated Complaint: Abd pain n/v Time Seen by Provider: 09/12/25 04:24 History of Present Illness: Patient care transferred to or at shift change awaiting CT scan read. Related Data Home Medications ?Medication ?Instructions ?Recorded ?Confirmed spironolactone 25 mg tablet 25 mg PO DAILY 01/28/25 08/05/25 albuterol sulfate 90 mcg/actuation 2 puff inhalation Q4H PRN 03/06/25 08/05/25 aerosol inhaler (Ventolin HFA) Shortness Of Breath Or Wheezing aspirin 81 mg tablet 81 mg PO DAILY 03/25/25 08/05/25 bumetanide 1 mg tablet 1 mg PO DAILY 03/25/25 08/05/25 empagliflozin 10 mg tablet 10 mg PO DAILY 03/25/25 08/05/25 (Jardiance) oxygen-air delivery systems 03/25/25 08/05/25 rosuvastatin 10 mg tablet 20 mg PO DAILY 03/25/25 08/05/25 adalimumab 40 mg/0.4 mL 40 mg SUBCUT .Q14D 06/08/25 08/05/25 subcutaneous pen kit (Humira(CF) Pen) budesonide 0.5 mg/2 mL suspension 0.5 mg inhalation BID 06/08/25 08/05/25 for nebulization ipratropium 0.5 mg-albuterol 3 mg 3 ml inhalation QID 06/08/25 08/05/25 (2.5 mg base)/3 mL nebulization soln potassium chloride 10 mEq 10 meq PO DAILY 06/08/25 08/05/25 tablet,extended release tamsulosin 0.4 mg capsule 0.4 mg PO DAILY 06/08/25 08/05/25 Previous Rx's ?Medication ?Instructions ?Recorded clopidogrel 75 mg tablet 75 mg PO DAILY #90 tabs 05/21/25 metoprolol succinate 25 mg 37.5 mg (1.5 x 25 mg) PO DAILY #90 05/21/25 tablet,extended release 24 hr tabs hydrocodone 7.5 mg-acetaminophen 1 tab PO Q8H PRN pain #15 tabs 06/08/25 325 mg tablet ondansetron 4 mg disintegrating 4 mg PO Q8H PRN nausea and 06/16/25 tablet vomiting #14 tabs Allergies Allergy/AdvReac Type Severity Reaction Status Date / Time unknown antibiotic Allergy ALGY-Hives Uncoded 09/12/25 04:52 Review of Systems Narrative: Constitutional symptoms: Negative except as documented in HPI. Skin symptoms: Negative except as documented in HPI. Eye symptoms: Negative except as documented in HPI. ENMT symptoms: Negative except as documented in HPI. Respiratory symptoms: Negative except as documented in HPI. Cardiovascular symptoms: Negative except as documented in HPI. Gastrointestinal symptoms: Negative except as documented in HPI. Genitourinary symptoms: Negative except as documented in HPI. Musculoskeletal symptoms: Negative except as documented in HPI. Neurologic symptoms: Negative except as documented in HPI. Psychiatric symptoms: Negative except as documented in HPI. Endocrine symptoms: Negative except as documented in HPI. [facility] ED PFSH: Medical History (Updated 09/12/25 @ 07:52 by Allison Vega MD) CHF (congestive heart failure) Polycythemia Surgical History No significant past surgical history Social History Smoking and tobacco/nicotine status: current every day tobacco/nicotine user Physical Exam Narrative: EXAM NARRATIVE: General: Alert, no acute distress. Skin: Warm, dry. Head: Normocephalic, atraumatic. Neck: Supple, trachea midline. Eye: Extraocular movements are intact. Ears, nose, mouth and throat: Tacky oral mucosa Cardiovascular: Regular, Normal peripheral perfusion. Respiratory: Lungs are clear to auscultation, respirations are non-labored, breath sounds are equal, Symmetrical chest wall expansion. Gastrointestinal: Hypoactive bowel sounds, distended, diffusely tender but more in the right lower quadrant Musculoskeletal: Normal ROM, no deformity. Neurological: Alert and oriented, No focal neurological deficit observed. Psychiatric: Cooperative, appropriate mood & affect. Course Vital Signs: Vital signs: Vital Signs Temperature 98.9 F 09/12/25 04:25 Pulse Rate 93 09/12/25 07:40 Respiratory Rate 18 09/12/25 07:40 Blood Pressure 122/80 09/12/25 07:40 Pulse Oximetry 90 09/12/25 07:40 Oxygen Delivery Me thod Nasal Cannula 09/12/25 07:40 Oxygen Flow Rate 3 09/12/25 07:40 MDM - Abdominal Pain Medical Decision Making Medical decision making Patient's reason for coming to the emergency room: Abdominal pain, nausea and vomiting. Social determinants: Patient is disabled I reviewed the patient's medical record. 60-year-old man with a history of coronary artery disease, alcohol abuse, tobacco abuse, obesity, COPD, chronic hypoxemic respiratory failure, congestive heart failure and polycythemia. Was seen on August 05 and transferred to [facility] with aortitis. I reviewed the patient's current home meds Patient is currently on Plavix. No chronic pain medications. Alternate historians: None Differential diagnosis: including but not limited to and based on the above HPI, review of systems and physical exam: Orders placed to evaluate differential diagnosis based on the above differential, HPI and physical exam Lab Review: Laboratory results were reviewed and interpreted by myself the emergency room physician. Mild leukocytosis. No anemia. No renal failure. Urinalysis positive for hematuria but negative for infection. Assessment of risk: Level of risk: High risk patient. Multiple comorbidities. Hospitalization considerations: Patient needs admitted but general surgery feels like he needs transferred back to [facility]. Consultation: I spoke with Dr. Moreira who is on-call for general surgery. He recommends transfer back to [facility]. Patient has some persistent inflammation which may be fibrosis or continued aortitis. And now has a small bowel obstruction. Agrees with NG tube placement. Consultation: I spoke with general surgery at [facility]. They do agree the patient needs transferred but want the patient transferred to the hospitalist service. Consultation: I spoke with the midlevel provider for the hospitalist service at [facility] and they have accepted the patient to Dr. Ferrera's service Assessment and plan: Small bowel obstruction Aortitis ?NG tube placed. Will give an additional Dilaudid dose. Patient is stable on 3 L nasal cannula ?I have repeated Dilaudid, placing NG tube. -I discussed the patient with the accepting physician on-call. - Discussed findings and plan with patient. Answered any questions. - All laboratory values were reviewed and interpreted personally by myself, the ER physician - All imaging was reviewed and interpreted personally by myself, the ER physician. - Evaluation and treatment of this problem were appropriate in the emergency setting Lab Data 09/12/25 04:00 09/12/25 04:00 Labs/Radiology: Radiology Impressions Abdomen/Pelvis CTA 09/12/25 05:05 IMPRESSION: 1. Small bowel obstruction with a transition zone in the right lower quadrant. 2. Aorto bi iliac endovascular stent. Persistent periaortic stranding indicates either postinflammatory fibrosis or continued aortitis. ADDENDUM: 09/12/25 0645 THIS REPORT CONTAINS FINDINGS THAT MAY BE CRITICAL TO PATIENT CARE. The findings were electronically communicated via transcribed final report with Dr. Vega at 6:42 AM CORRESPONDENCE SECTION SUPERVISOR on 09/12/2025. The findings were acknowledged and understood. Laboratory Results WBC 11.60 10^3/uL (3.29-11.43) H 09/12/25 04:00 RBC 5.41 10^6/uL (3.85-5.65) 09/12/25 04:00 Hgb 18.20 g/dL (11.27-16.99) H 09/12/25 04:00 Hct 55.1 % (37-53) H 09/12/25 04:00 MCV 101.8 fl (82-101) H 09/12/25 04:00 MCH 33.6 pg (27-33) H 09/12/25 04:00 MCHC 33.0 g/dL (30-55) 09/12/25 04:00 RDW 13.2 % (12.1-15.1) 09/12/25 04:00 Plt Count 245 10^3/cmm (157-399) 09/12/25 04:00 MPV 9.2 fL (7.4-10.4) 09/12/25 04:00 Neut % (Auto) 64.8 % 09/12/25 04:00 Lymph % (Auto) 27.8 % 09/12/25 04:00 [place]rell % (Auto) 5.4 % 09/12/25 04:00 Eos % (Auto) 1.2 % 09/12/25 04:00 Baso % (Auto) 0.4 % 09/12/25 04:00 Neut # (Auto) 7.51 10^3/uL (1.8-7.7) 09/12/25 04:00 Lymph # (Auto) 3.2 10^3/uL (0.8-4.8) 09/12/25 04:00 Terrell # (Auto) 0.6 10^3/uL (0.2-0.9) 09/12/25 04:00 Eos # (Auto) 0.1 10^3/uL (0.0-0.8) 09/12/25 04:00 Baso # (Auto) 0.1 10^3/uL (0.0-0.1) 09/12/25 04:00 Nucleated RBC % (auto) 0 % 09/12/25 04:00 Nucleated RBCs # 0.0 /100WBC 09/12/25 04:00 Sodium 138 mmol/L (136-145) 09/12/25 04:00 Potassium 4.2 mmol/L (3.5-5.1) 09/12/25 04:00 Chloride 97 mmol/L (98-107) L 09/12/25 04:00 Carbon Dioxide 30 mmol/L (22-29) H 09/12/25 04:00 Anion Gap 15.2 (5-19) 09/12/25 04:00 BUN 13 mg/dL (6-20) 09/12/25 04:00 Creatinine 1.0 mg/dL (0.7-1.2) 09/12/25 04:00 GFR Calculation 76.5 mL/min (90-130) L 09/12/25 04:00 Glucose 136 mg/dL (65-115) H 09/12/25 04:00 Calculated Osmolality 288 mOsm/kg (285-295) 09/12/25 04:00 Lactic Acid 2.3 mmol/L (0.5-2.2) H 09/12/25 04:00 Lactic Acid (Sepsis) 1.1 mmol/L (0.5-2.2) 09/12/25 06:59 Calcium 10.1 mg/dL (8.5-10.5) 09/12/25 04:00 Total Bilirubin 0.4 mg/dL (0.15-1.2) 09/12/25 04:00 AST 34 U/L (0-40) 09/12/25 04:00 ALT 19 U/L (0-41) 09/12/25 04:00 Alkaline Phosphatase 92 U/L (40-130) 09/12/25 04:00 Troponin T Baseline 19 ng/L (0-15) H 09/12/25 04:00 Troponin T 60 Minute 19.15 ng/L (0-15) H 09/12/25 06:08 Delta Troponin T 0.15 ABS# (0-10) 09/12/25 06:08 NT-Pro-B Natriuret Pep 368 pg/mL (0-125) H 09/12/25 04:00 Total Protein 8.1 g/dL (6.6-8.7) 09/12/25 04:00 Albumin 4.1 g/dL (3.5-5.2) 09/12/25 04:00 Globulin 4.0 g/dL (1.3-4.6) 09/12/25 04:00 Lipase 102 U/L (13-60) H 09/12/25 04:00 Procalcitonin 0.10 ng/mL (0-0.5) 09/12/25 04:00 Urine Color Yellow (Yellow) 09/12/25 04:50 Urine Appearance Clear (CLEAR) 09/12/25 04:50 Urine pH 7.0 (5-7) 09/12/25 04:50 Ur Specific [place] 1.035 (1.005-1.030) H 09/12/25 04:50 Urine Protein 1+ (Negative) A 09/12/25 04:50 Urine Glucose (UA) 3+ (Normal) H 09/12/25 04:50 Urine Ketones Trace (Negative) 09/12/25 04:50 Urine Blood 2+ (Negative) A 09/12/25 04:50 Urine Nitrate Negative (Negative) 09/12/25 04:50 Urine Bilirubin Negative (Negative) 09/12/25 04:50 Urine Urobilinogen 1.0 mg/dL (Negative) 09/12/25 04:50 Ur Leukocyte Esterase Negative (Negative) 09/12/25 04:50 Urine RBC 51-100 /hpf (0-2) H 09/12/25 04:50 Urine WBC 0-5 /hpf (0-5) 09/12/25 04:50 Ur Squamous Epith Cells 0-5 /hpf (0-5) 09/12/25 04:50 Amorphous Sediment Not Reportable 09/12/25 04:50 Urine Bacteria None seen /hpf (NONE) 09/12/25 04:50 Hyaline Casts 2.05 /lpf 09/12/25 04:50 All radiology interpretation(s) finalized by discharge Discharge Plan Discharge Patient Disposition: Xfer Short-Term Hosp Clinical Impression: Small bowel obstruction Condition: Stable Referrals: Christel Burk FNP [Primary Care Provider, Unknown] Print Language: Thai Coding Level of Care Code ED Toggle Press Folder And Feeder for Krystyna Cervantes
[2025-09-12 07:18] LABS: Lactic Acid level (Lactate) 1.1 mmol/L (0.5-2.2)
[2025-09-12] MEDS: HYDROmorphone 0.5 MG/0.5 ML INJ IVP (07:20)
[2025-09-12] MEDS: cetacaine Spray 5 gm Can 1 SPRAY TOPICAL (07:22)
--- NOTE | 2025-09-12 07:31 | XR_ITS ---
WS: [id number] XR chest 1V portable [id number] REASON FOR EXAM: NG TUBE PLACEMENT FINDINGS: Nasogastric tube is been placed. The tip is not visualized but is beyond the gastroesophageal junction and the most distal portion visualized overlies the fundus of the stomach. Except for the nasogastric tube placement the chest is unchanged compared to 5:45 a.m. 09/12/2025. XR/XR chest 1V portable [id number] IMPRESSION: Nasogastric tube placement as above.
--- NOTE | 2025-09-12 11:52 | PC.NURSE ---
rounded on patient at this time, pt is sleeping with even unlabored respirations. NG tube is patent and no needs are addressed at this time.
--- NOTE | 2025-09-12 13:15 | PC.NURSE ---
patient resting with eyes closed, and even respirations.
== END 2025-09-12 15:00 | disposition short-term general hospital (02) ==
PROVIDERS: Emergency Medicine; Emergency Provider Emergency Medicine; PCP Nurse Practitioner Family
DX: R10.9 Unspecified abdominal pain (principal); Z79.82 Long term (current) use of aspirin; Z79.02 Long term (current) use of antithrombotics/antiplatelets; Z72.0 Tobacco use; I11.0 Hypertensive heart disease with heart failure; I50.9 Heart failure, unspecified
CPT/HCPCS: 36415; 71045; 74174; 80053; 81001; 83605; 83690; 83880; 84145; 84484; 85025; 87040; 87086; 93005; 96374; 96375; 96376; 99285; J1171; J2405; J7040; J9999